=== PATIENT | female | born 1955 | race African-American/Black ===

== ENCOUNTER 2016-10-25 06:42 | Emergency (ER) | payer MEDICARE, OTHER ==
[~2016-10-25 06:42] MED LIST: AMLO10TA2 PO; CARV25TA2 PO; INSU100I13 SQ; INSU100I17 SQ; LISI-334 PO
[2016-10-25 07:12] VITALS: BP 164/72
--- NOTE | 2016-10-25 07:40 | PHYS DOC ---
Past Medical History Past Medical History: Diabetes-Type II, High Cholesterol, Heart Disease, Hypertension Past Surgical History: Appendectomy, Pacemaker, Tubal ligation, Other Additional Past Surgical Histo: LEFT BKA Alcohol Use: None Drug Use: None Adult General Chief Complaint Chief Complaint: EYE PROBLEMS HPI HPI Patient is a 61 year old female who presents with visual disturbance in her left eye. The symptoms have been present for 3 or 4 days but are worse today. The patient is type I diabetic since age 15. She is completely blind in her right eye. She is legally blind in her left eye, able to see some things but she is not able to read. She has had retina procedures before. She sees a retina specialist at [facility]. The last time she saw him, she was doing well and was given a 1 year follow-up. About 3 days ago she noted some changes in her left eye which have been unchanged for about 3 days and then somewhat worse today. She notices "red" color on the lateral aspect of her vision and she notices black lines that look like "puzzle pieces" through the vision of her left eye. Also sometimes notes a black line somewhat on the medial aspect of her vision. Other than these things , she states her vision in the left eye is unchanged. She's not able to do visual acuities and she is not able to read or make out very much in her left eye. She also states her left eye "feels wet" although she has not noticed an increase in tearing. She has no eye pain. Review of Systems Review of Systems Constitutional: Denies fever or chills [] Eyes: As in history of present illness Neurologic: Denies headache, focal weakness or sensory changes [] Endocrine: Her blood sugars ran high last week in the 600s Allergies Allergies Allergies Coded Allergies Type Severity Reaction Last Updated Verified No Known Drug Allergies 01/24/14 No Physical Exam Physical Exam Constitutional: Well developed, well nourished, no acute distress, non-toxic appearance. Alert, mentating normally, no acute distress. HENT: Normocephalic, atraumatic, bilateral external ears normal, nose normal. [] Eyes: Bilateral eyes normal to inspection without lid or cornea abnormality, without conjunctival injection. Left eye pupil is 3 mm in size and slightly reactive. Cornea is clear. On funduscopic exam, I am able to visualize the retina. I do not see any cloudiness or redness of the vitreous. The visualized retina does not exhibit acute abnormalities. Neck: Normal range of motion, no stridor. [] Extremities: No tenderness, no cyanosis, no clubbing, ROM intact, no edema. [] Neurologic: Alert and oriented X 3, normal motor function, normal sensory function, no focal deficits noted. [] Psychologic: Affect normal, judgement normal, mood normal. [] Current Patient Data Vital Signs Vital Signs Date Time Temp Pulse Resp B/P (MAP) Pulse Ox O2 Delivery O2 Flow Rate FiO2 10/25/16 07:12 98.3 82 14 100 Room Air 98.3 Lab Values Laboratory Tests Test 10/25/16 07:15 Glucose (Fingerstick) 105 mg/dL (70-99) H EKG EKG [] Radiology/Procedures Radiology/Procedures [] Course & Med Decision Making Course & Med Decision Making Pertinent Labs and Imaging studies reviewed. (See chart for details) 61-year-old female with history of redness problems and retina procedures related to type 1 diabetes presents with onset of visual disturbances for about 3-4 days, worse today. On my limited funduscopic exam, I do not believe she has vitreous hemorrhage. I do not see any acute retina problem on the limited area of retina I am able to visualize. I called Dr. Jaime Stevenson's answering service and [facility] He was able to review the patient's record. He said she has had extensive laser treatment to the periphery of her left eye. Based on the history, he suspects she may have had some recurrence of retinal hemorrhage on the lateral aspect of her retina. He like her to be seen tomorrow or Tuesday at the latest in the office by Dr. Stevenson. See instructions for plan. The patient is agreeable to this plan. I cautioned her if she has any worsening, to call their answering service today and discuss with him. [] Dragon Disclaimer Dragon Disclaimer This electronic medical record was generated, in whole or in part, using a voice recognition dictation system. Departure Departure Impression: Primary Impression: Vision disturbance Disposition: HOME, SELF-CARE Condition: STABLE Referrals: BORIS RUFFIN (PCP) Additional Instructions: I spoke with Dr. Gavin Foote, who works with Dr[facility]. He was able to review your chart. He would like you to be seen by Dr. Stevenson either tomorrow or Tuesday. The clinic will call you tomorrow morning to schedule an appointment. If you have not heard from them by noon, call them and tell them you were here in the emergency department, that I spoke with Dr. Foote , and you need to be seen on Tuesday or Tuesday by Dr. Stevenson. If you have any changes between now and then, called the answering service for Dr. Stevenson's office and speak with the doctor polymerization oven tender. [phone] SALIMA HERNANDEZ MD October 25, 2016 07:40
== END 2016-10-25 07:45 | disposition home or self-care (01) ==
LOC: ER 06:42
DX: H53.8 Other visual disturbances (principal); H54.42 Blindness, left eye, normal vision right eye; I11.9 Hypertensive heart disease without heart failure; E11.9 Type 2 diabetes mellitus without complications; E78.00 Pure hypercholesterolemia, unspecified; I10 Essential (primary) hypertension; Z89.512 Acquired absence of left leg below knee; Z95.0 Presence of cardiac pacemaker
CPT/HCPCS: 82962; 99283

== ENCOUNTER 2019-09-23 20:35 | Inpatient (IN) | payer MEDICARE, OTHER ==
[~2019-09-23] VITALS: Ht 162.6 cm; Wt 64.3 kg
[~2019-09-23 20:35] MED LIST changes: -AMLO10TA2 PO; +AMLO10TA8 PO
[2019-09-23] MEDS ORDERED: ONDANSETRON PF 4 MG/2 ML VIAL. IVP ONE ×2 (20:45→23:00)
[2019-09-23] MEDS ORDERED: fentaNYL PF VIAL 100 MCG/2 ML VIAL IVP ONE ×2 (20:45→23:00)
[2019-09-23] MEDS ORDERED: IV NORMAL SALINE 1000ML BAG 1,000 ML IV SCH (20:45)
[2019-09-23 20:56] LABS: BASO % 1 % (0-3); EOS # 0.2 x10^3/uL (0.0-0.7); EOS % 3 % (0-3); HEMATOCRIT 36.4 % (36.0-47.0); HEMOGLOBIN 12.2 g/dL (12.0-15.5); LYMPH # 1.9 x10^3/uL (1.0-4.8); LYMPH % 30 % (24-48); MEAN CORPUSCULAR HEMOGLOBIN 30 pg (25-35); MEAN CORPUSCULAR HGB CONC 34 g/dL (31-37); MEAN CORPUSCULAR VOLUME 88 fL (79-100); MONO # 0.2 x10^3/uL (0.0-1.1); MONO % 3 % (0-9); NEUT % 63 % (31-73); PLATELET COUNT 218 x10^3/uL (140-400); RED BLOOD COUNT 4.13 x10^6/uL (3.50-5.40); RED CELL DISTRIBUTION WIDTH 13.8 % (11.5-14.5); WHITE BLOOD COUNT 6.3 x10^3/uL (4.0-11.0)
[2019-09-23 21:11] LABS: ALBUMIN 3.9 g/dL (3.4-5.0); CALCIUM 9.4 mg/dL (8.5-10.1); CREATININE 1.7 mg/dL (0.6-1.0); GFR 36.4; POTASSIUM 3.8 mmol/L (3.5-5.1); TOTAL BILIRUBIN 0.5 mg/dL (0.2-1.0); TOTAL PROTEIN 7.9 g/dL (6.4-8.2)
--- NOTE | 2019-09-23 21:17 | RAD ---
CT Head W/O Contrast: History: Severe headache Comparison: none Axial images were obtained without contrast. There is moderate diffuse atrophy. There is areas of encephalomalacia on the right consistent with old large right MCA territory infarct. There are areas which appear to have loss of sarabia-white distinction in the parietal lobe and there is a 9 mm hyperdense focus in the right temporal parietal lobe. There is no hydrocephalus or extra-axial fluid collections. Impression: 1. 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 2. Possible acute or subacute right parietal lobe stroke. 3. 9 mm focus of hyperattenuation suggesting a small acute intraparenchymal hemorrhage in the area of acute or subacute stroke. End impression The phlebotomy technologist will contact the ER. PQRS Compliance Statement: One or more of the following individualized dose reduction techniques were utilized for this examination: 1. Automated exposure control 2. Adjustment of the mA and/or kV according to patient size 3. Use of iterative reconstruction technique FOR INTERNAL CODING PURPOSES Critical result: Findings will be relayed to the emergency department at 09/23/2019 9:14 PM. RESULT CODE: (C) Electronically signed by: Dave Waller III, MD (09/23/2019 9:14 PM) [id number]
[2019-09-23] MEDS ORDERED: INSULIN REGULAR 100 UNIT/ML 3ML VIAL. IV ONE (22:15)
--- NOTE | 2019-09-23 22:39 | PHYS DOC ---
Past Medical History Past Medical History: Diabetes-Type II, High Cholesterol, Heart Disease, Hypertension, Stroke Past Surgical History: Appendectomy, Pacemaker, Tubal ligation, Other Additional Past Surgical Histo: LEFT BKA Smoking Status: Former Smoker Alcohol Use: None Drug Use: None General Adult EDM: Chief Complaint: HEADACHE HPI: HPI: Patient is a 64 year old female who presents with complaint of severe headache to the right side of her head. She states that headache started when she woke up from a nap at about 3 PM today. She states the pain is in her right eye radiating up into the right side of her head. She states that she has noticed some decrease in vision to her left eye. She indicates that she has had nausea and vomiting associated with the headache. She rates the headache at a 10 out of 10. She denies any lateralizing weakness.[] Review of Systems: Review of Systems: Constitutional: Denies fever or chills. [] Eyes: Complains of vision loss in left eye. [] Respiratory: Denies cough or shortness of breath. [] Cardiovascular: Denies chest pain or edema. [] GI: Complains of nausea and vomiting. [] Neurologic: Complains of severe headache with loss of vision in left eye. [] 10 point review of systems has been reviewed and is otherwise negative. Heart Score: Risk Factors: Risk Factors: DM, Current or recent (<one month) smoker, HTN, HLP, family history of CAD, obesity. Risk Scores: Score 0 - 3: 2.5% MACE over next 6 weeks - Discharge Home Score 4 - 6: 20.3% MACE over next 6 weeks - Admit for Clinical Observation Score 7 - 10: 72.7% MACE over next 6 weeks - Early Invasive Strategies Current Medications: Current Medications Medications (Trade) Dose Ordered Sig/Pa Start Time Stop Time Status Last Admin Dose Admin Fentanyl Citrate (Fentanyl 2ml Vial) 50 mcg 1X ONCE 09/23/19 23:00 09/23/19 23:01 Insulin Human Regular (HumuLIN R VIAL) 10 unit 1X ONCE 09/23/19 22:15 09/23/19 22:16 DC Ondansetron HCl (Zofran) 4 mg 1X ONCE 09/23/19 23:00 09/23/19 23:01 Sodium Chloride 1,000 ml @ 1,000 mls/hr Q1H 09/23/19 20:45 09/23/19 21:44 DC 09/23/19 21:45 1,000 MLS/HR Allergies: Allergies: Allergies Coded Allergies Type Severity Reaction Last Updated Verified No Known Drug Allergies 01/24/14 No Physical Exam: PE: Constitutional: Well developed, well nourished, in mild distress. [] HENT: Normocephalic, atraumatic, bilateral external ears normal, oropharynx moist, no oral exudates, nose normal. [] Eyes: PERRLA, EOMI, conjunctiva normal, no discharge. [] Neck: Normal range of motion, no tenderness, supple, no stridor. [] Cardiovascular: Regular rate and rhythm[] Lungs & Thorax: Bilateral breath sounds clear to auscultation [] Abdomen: Bowel sounds normal, soft, no tenderness. [] Skin: Warm, dry, no erythema, no rash. [] Extremities: No tenderness, no cyanosis, no clubbing, ROM intact, no edema. [] Neurologic: Alert and oriented X 3, no focal deficits noted. [] Current Patient Data: Labs: Laboratory Tests Test 09/23/19 20:43 09/23/19 20:45 Glucose (Fingerstick) 528 mg/dL (70-99) *H White Blood Count 6.3 x10^3/uL (4.0-11.0) Red Blood Count 4.13 x10^6/uL (3.50-5.40) Hemoglobin 12.2 g/dL (12.0-15.5) Hematocrit 36.4 % (36.0-47.0) Mean Corpuscular Volume 88 fL (79-100) Mean Corpuscular Hemoglobin 30 pg (25-35) Mean Corpuscular Hemoglobin Concent 34 g/dL (31-37) Red Cell Distribution Width 13.8 % (11.5-14.5) Platelet Count 218 x10^3/uL (140-400) Neutrophils (%) (Auto) 63 % (31-73) Lymphocytes (%) (Auto) 30 % (24-48) Monocytes (%) (Auto) 3 % (0-9) Eosinophils (%) (Auto) 3 % (0-3) Basophils (%) (Auto) 1 % (0-3) Neutrophils # (Auto) 4.0 x10^3/uL (1.8-7.7) Lymphocytes # (Auto) 1.9 x10^3/uL (1.0-4.8) Monocytes # (Auto) 0.2 x10^3/uL (0.0-1.1) Eosinophils # (Auto) 0.2 x10^3/uL (0.0-0.7) Basophils # (Auto) 0.0 x10^3/uL (0.0-0.2) Sodium Level 135 mmol/L (136-145) L Potassium Level 3.8 mmol/L (3.5-5.1) Chloride Level 97 mmol/L (98-107) L Carbon Dioxide Level 23 mmol/L (21-32) Anion Gap 15 (6-14) H Blood Urea Nitrogen 24 mg/dL (7-20) H Creatinine 1.7 mg/dL (0.6-1.0) H Estimated GFR (Cockcroft-Gault) 36.4 BUN/Creatinine Ratio 14 (6-20) Glucose Level 528 mg/dL (70-99) *H Calcium Level 9.4 mg/dL (8.5-10.1) Magnesium Level 2.0 mg/dL (1.8-2.4) Total Bilirubin 0.5 mg/dL (0.2-1.0) Aspartate Amino Transferase (AST) 21 U/L (15-37) Alanine Aminotransferase (ALT) 30 U/L (14-59) Alkaline Phosphatase 111 U/L (46-116) Total Protein 7.9 g/dL (6.4-8.2) Albumin 3.9 g/dL (3.4-5.0) Albumin/Globulin Ratio 1.0 (1.0-1.7) Acetone Level Sm pos (NEG) Laboratory Tests 09/23/19 20:45 Laboratory Tests 09/23/19 20:45 Vital Signs: Vital Signs Date Time Temp Pulse Resp B/P (MAP) Pulse Ox O2 Delivery O2 Flow Rate FiO2 09/23/19 21:44 18 96 09/23/19 20:51 98.5 81 158/117 (131) Room Air 98.5 EKG: EKG: [] Radiology/Procedures: Radiology/Procedures: [] Impression: PROCEDURE: CT HEAD WO CONTRAST CT Head W/O Contrast: History: Severe headache Comparison: none Axial images were obtained without contrast. There is moderate diffuse atrophy. There is areas of encephalomalacia on the right consistent with old large right MCA territory infarct. There are areas which appear to have loss of sarabia-white distinction in the parietal lobe and there is a 9 mm hyperdense focus in the right temporal parietal lobe. There is no hydrocephalus or extra-axial fluid collections. Impression: 1. 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 2. Possible acute or subacute right parietal lobe stroke. 3. 9 mm focus of hyperattenuation suggesting a small acute intraparenchymal hemorrhage in the area of acute or subacute stroke. End impression The lab technologist will contact the ER. PQRS Compliance Statement: One or more of the following individualized dose reduction techniques were utilized for this examination: 1. Automated exposure control 2. Adjustment of the mA and/or kV according to patient size 3. Use of iterative reconstruction technique FOR INTERNAL CODING PURPOSES Critical result: Findings will be relayed to the emergency department at 09/23/2019 9:14 PM. RESULT CODE: (C) Electronically signed by: Chirag Chung III, MD (09/23/2019 9:14 PM) [id number] DICTATED and SIGNED BY: CHIRAG CHUNG III, MD DATE: 09/23/192113 Course & Med Decision Making: Course & Med Decision Making Pertinent Labs and Imaging studies reviewed. (See chart for details) [] Jeronimo Disclaimer: Jeronimo Disclaimer: This electronic medical record was generated, in whole or in part, using a voice recognition dictation system. Departure Departure Impression: Primary Impression: Intraparenchymal hemorrhage of brain Disposition: ADMITTED INPATIENT Admitting Physician: HIMPily Condition: GUARDED Referrals: BORIS RUFFIN (PCP) IDA ROSE Jr. DO Sep 23, 2019 22:39
[2019-09-23] MEDS ORDERED: IOHEXOL 300 MG/ML 100ML VIAL. IV ONE (23:15)
[2019-09-23] MEDS ORDERED: CONTRAST GIVEN. MC PRN (23:30)
[2019-09-24] VITALS (25 sets, daily range): BP systolic 112–152; BP diastolic 41–90
--- NOTE | 2019-09-24 00:06 | RAD ---
STUDY: CT angiography of the head INDICATION: Intraparenchymal hemorrhage. COMPARISON: Same day CT head without contrast. TECHNIQUE: Helical CT angiography of the head performed after the intravenous administration of 55 cc Omnipaque 300. Coronal and sagittal 3-D MIP reconstructions were obtained. One or more of the following individualized dose reduction techniques were utilized for this examination: 1. Automated exposure control 2. Adjustment of the mA and/or kV according to patient size 3. Use of iterative reconstruction technique. FINDINGS: Calcific atherosclerosis involving the visualized cervical internal carotid arteries without flow-limiting stenosis. Extensive calcific atherosclerosis involving the intracranial internal carotid arteries but without a flow-limiting stenosis. No abrupt vessel occlusion seen to involve the right M1 or M2 middle cerebral artery segments in the setting of ischemic changes in the right middle cerebral artery distribution. Scattered M3 and M4 branches remain opacified in the region of cortical/subcortical low-attenuation. No branch vessel occlusion or flow-limiting stenosis involving either the right or left anterior cerebral arteries or the left middle cerebral artery. No discrete anterior circulation aneurysm. No flow-limiting stenosis of the visualized vertebral arteries. The basilar artery is widely patent. No flow-limiting stenosis or branch vessel occlusion of the adequately assessed posterior cerebral artery segments. Patent dural sinuses. As seen on the unenhanced CT head, regions of cortical/subcortical low-attenuation involving the right frontal, parietal and temporal lobes. The previously described intraparenchymal hemorrhage is less well characterized on this exam. No hydrocephalus or midline shift. IMPRESSION: No central occlusion or flow-limiting stenosis seen to involve the right middle cerebral artery in the setting of ischemic changes in this vascular distribution. No flow-limiting stenosis or branch vessel occlusion of the anterior and posterior cerebral circulation elsewhere as well. Electronically signed by: MOSHE CHIANG MD (09/24/2019 12:03 AM) [id number]
[2019-09-24] MEDS ORDERED: ONDANSETRON PF 4 MG/2 ML VIAL. IV PRN ×2 (00:15→05:15)
[2019-09-24] MEDS ORDERED: fentaNYL PF VIAL 100 MCG/2 ML VIAL IV PRN (00:15)
[2019-09-24] MEDS: IV NORMAL SALINE 1000ML BAG 1,000 ML IV SCH ×3 (01:45→22:39)
[2019-09-24] MEDS ORDERED: ASPI325T8 PO (04:00)
[2019-09-24] MEDS ORDERED: DEXTROSE 50% 25 GM / 50ML DISP.SYRIN. IV PRN (05:15)
[2019-09-24] MEDS ORDERED: PROCHLORPERAZINE 10 MG/2 ML VIAL. IV PRN (05:15)
[2019-09-24] MEDS ORDERED: IV DEXTROSE 5% 250 ML BAG. IV PRN (05:15)
[2019-09-24 07:47] LABS: BARBITURATES NEG (NEG); BENZODIAZEPINES NEG (NEG); CANNABINOIDS POS (NEG); COCAINE NEG (NEG); METHADONE NEG (NEG); OPIATES NEG (NEG); PHENCYCLIDINE NEG (NEG)
[2019-09-24 07:50] LABS: AMPHETAMINE/METHAMPHETAMINE NEG (NEG)
[2019-09-24] MEDS: INSULIN LISPRO 300 UNITS/3 ML VIAL. SQ SCH ×6 (08:00→17:59)
[2019-09-24 08:23] LABS: BILIRUBIN,URINE NEGATIVE (NEG); CLARITY,URINE CLEAR; COLOR,URINE STRAW; NITRITE,URINE NEGATIVE (NEG); PROTEIN,URINE 100 mg/dL (NEG-TRACE); UROBILINOGEN,URINE 0.2 mg/dL (0.2 mg/dL); WBC,URINE OCC /HPF (0-4)
--- NOTE | 2019-09-24 08:23 | PDOC1 ---
History and Physical Date of Admission Date of Admission DATE: 09/24/19 TIME: 08:22 Identification/Chief Complaint Chief Complaint Right eye pain Source Source: Chart review, Patient History of Present Illness History of Present Illness Ms Haney is a 64yo F w/ PMHx Diabetes-Type II, High Cholesterol, Heart Disease, Hypertension, Stroke, PAD s/p L BKA, SSS s/p PPM, ex-smoker (quit 2019) who presents with complaint of severe headache to the right side of her head behind her eye. She states that headache started when she woke up from a nap at about 1500 on 09/23/2019. She states the pain is in her right eye radiating up into the right side of her head. She states that she has noticed some decrease in vision to her left eye. She indicates that she has had nausea and vomiting associated with the headache. She rated the headache at a 10 out of 10. She denies any lateralizing weakness. She was found with Cr 1.7, glucose 528, and on CT head was found with old large right MCA infarct and new possible acute or subacute right parietal lobe stroke as well as 9 mm focus of hyperattenuation suggesting a small acute intraparenchymal hemorrhage in the area of acute or subacute stroke. BP 158/117 initially. No EKG available, telemetry appears paced.She was admitted to ICU for further monitoring of hemorrhagic CVA. Past Medical History Cardiovascular: CAD, HTN, Hyperlipidemia Pulmonary: No pertinent hx CENTRAL NERVOUS SYSTEM: CVA GI: No pertinent hx Heme/Onc: No pertinent hx Hepatobiliary: No pertinent hx Psych: No pertinent hx Rheumatologic: No pertinent hx Infectious disease: No pertinent hx ENT: No pertinent hx Renal/: No pertinent hx Endocrine: Diabetes Dermatology: No pertinent hx Past Surgical History Past Surgical History: Pacemaker, Appendectomy, Tubal Ligation, Other (left BKA) Family History Family History: Diabetes, High Cholestrol, Hypertension Social History Smoke: Quit ALCOHOL: none Drugs: Marijuana Current Problem List Problem List Problems Medical Problems: (1) Intraparenchymal hemorrhage of brain Status: Acute Current Medications Current Medications Current Medications Ondansetron HCl (Zofran) 4 mg 1X ONCE IVP Last administered on 09/23/19at 21:43; Start 09/23/19 at 20:45; Stop 09/23/19 at 20:49; Status DC Sodium Chloride 1,000 ml @ 1,000 mls/hr Q1H IV Last administered on 09/23/19at 21:45; Start 09/23/19 at 20:45; Stop 09/23/19 at 21:44; Status DC Fentanyl Citrate (Fentanyl 2ml Vial) 75 mcg 1X ONCE IVP Last administered on 09/23/19at 21:44; Start 09/23/19 at 20:45; Stop 09/23/19 at 20:49; Status DC Insulin Human Regular (HumuLIN R VIAL) 10 unit 1X ONCE IV Last administered on 09/23/19at 23:09; Start 09/23/19 at 22:15; Stop 09/23/19 at 22:16; Status DC Ondansetron HCl (Zofran) 4 mg 1X ONCE IVP Last administered on 09/23/19at 22:30; Start 09/23/19 at 23:00; Stop 09/23/19 at 23:01; Status DC Fentanyl Citrate (Fentanyl 2ml Vial) 50 mcg 1X ONCE IVP Last administered on 09/23/19at 22:32; Start 09/23/19 at 23:00; Stop 09/23/19 at 23:01; Status DC Iohexol (Omnipaque 300 Mg/ml) 55 ml 1X ONCE IV Last administered on 09/23/19at 23:16; Start 09/23/19 at 23:15; Stop 09/23/19 at 23:21; Status DC Info (CONTRAST GIVEN -- Rx MONITORING) 1 each PRN DAILY PRN MC SEE COMMENTS; Start 09/23/19 at 23:30; Stop 09/25/19 at 23:29 Ondansetron HCl (Zofran) 4 mg PRN Q8HRS PRN IV NAUSEA/VOMITING 1st choice; Start 09/24/19 at 00:15; Stop 09/24/19 at 05:16; Status DC Fentanyl Citrate (Fentanyl 2ml Vial) 50 mcg PRN Q1HR PRN IV SEVERE PAIN 7-10 Last administered on 09/24/19at 04:10; Start 09/24/19 at 00:15; Stop 09/25/19 at 00:14 Sodium Chloride 1,000 ml @ 75 mls/hr [id number] IV Last administered on 09/24/19at 01:45; Start 09/24/19 at 00:30; Stop 09/25/19 at 00:29 Nicardipine HCl 50 mg/Sodium Chloride 250 ml @ 25 mls/hr CONT PRN IV SEE I/O RECORD Last administered on 09/24/19at 01:49; Start 09/24/19 at 01:30 Amlodipine Besylate (Norvasc) 10 mg DAILY PO ; Start 09/24/19 at 09:00 Lisinopril (Prinivil) 20 mg DAILY PO ; Start 09/24/19 at 09:00 Carvedilol (Coreg) 25 mg BIDWMEALS PO ; Start 09/24/19 at 08:00 Insulin Glargine (Lantus Syringe) 20 unit QHS SQ ; Start 09/24/19 at 21:00 Insulin Human Lispro (HumaLOG) 0-9 UNITS TIDWMEALS SQ ; Start 09/24/19 at 08:00 Dextrose (Dextrose 50%-Water Syringe) 12.5 gm PRN Q15MIN PRN IV SEE COMMENTS; Start 09/24/19 at 05:15 Dextrose (Iv Dextrose 5%) 250 ml PRN Q15MIN PRN IV SEE COMMENTS; Start 09/24/19 at 05:15 Ondansetron HCl (Zofran) 4 mg PRN Q4HRS PRN IV NAUSEA/VOMITING 1st choice Last administered on 09/24/19at 05:22; Start 09/24/19 at 05:15 Prochlorperazine Edisylate (Compazine) 10 mg PRN Q8HRS PRN IV NAUSEA/VOMITING 2ND CHOICE Last administered on 09/24/19at 08:14; Start 09/24/19 at 05:15 Insulin Human Lispro (HumaLOG) 20 units 1X ONCE SQ Last administered on 09/24/19at 08:15; Start 09/24/19 at 08:30; Stop 09/24/19 at 08:31 Active Scripts Active Reported Lantus Solostar (Insulin Glargine,Hum.rec.anlog) 100 Unit/1 Ml Insuln.pen 20 Unit SQ QHS Novolog Flexpen (Insulin Aspart) 100 Unit/1 Ml Insuln.pen 100 Unit SQ Amlodipine Besylate 10 Mg Tablet 1 Tab PO DAILY Lisinopril 20 Mg Tablet 1 Tab PO DAILY Carvedilol 25 Mg Tablet 1 Tab PO BID Allergies Allergies: Coded Allergies: No Known Drug Allergies (Unverified , 01/24/14) ROS General: YES: Fatigue, Malaise; No: Chills, Night Sweats, Appetite, Other PSYCHOLOGICAL ROS: YES: Anxiety; No: Behavioral Disorder, Concentration difficultie, Decreased libido, Depression, Disorientation, Hallucinations, Hostility, Irritablity, Memory difficulties, Mood Swings, Obsessive thoughts, Physical abuse, Sexual abuse, Sleep disturbances, Suicidal ideation, Other Eyes: Yes Decreased vision; No Blurry vision, No Double vision, No Dry eyes, No Excessive tearing, No Eye Pain, No Itchy Eyes, No Loss of vision, No Photophobia, No Scotomata, No Uses contacts, No Uses glasses, No Other HEENT: YES: Heacaches; No: Visual Changes, Hearing change, Nasal congestion, Nasal discharge, Oral lesions, Sinus pain, Sore Throat, Epistaxis, Sneezing, Snoring, Tinnitus, Vertigo, Vocal changes, Other ALLERGY AND IMMUNOLOGY: No: Hives, Insect Bite Sensitivity, Itchy/Watery Eyes, Nasal Congestion, Post Nasal Drip, Seasonal Allergies, Other Hematological and Lymphatic: No: Bleeding Problems, Blood Clots, Blood Transfusions, Brusing, Night Sweats, Pallor, Swollen Lymph Nodes, Other ENDOCRINE: No: Breast Changes, Galactorrhea, Hair Pattern Changes, Hot Flashes, Malaise/lethargy, Mood Swings, Palpitations, Polydipsia/polyuria, Skin Changes, Temperature Intolerance, Unexpected Weight Changes, Other Breast: No New/Changing Breast Lumps, No Nipple changes, No Nipple discharge, No Other Respiratory: No: Cough, Hemoptysis, Orthopnea, Pleuritic Pain, Shortness of breath, SOB with excertion, Sputum Changes, Stridor, Tachypnea, Wheezing, Other Cardiovascular: No Chest Pain, No Palpitations, No Orthopnea, No Paroxysmal Noc. Dyspnea, No Edema, No Lt Headedness, No Other Gastrointestinal: No Nausea, No Vomiting, No Abdominal Pain, No Diarrhea, No Constipation, No Melena, No Hematochezia, No Other Genitourinary: No Dysuria, No Frequency, No Incontinence, No Hematuria, No Retention, No Discharge, No Urgency, No Pain, No Flank Pain, No Other, No , No , No , No , No , No , No Musculoskeletal: No Gait Disturbance, No Joint Pain, No Joint Stiffness, No Joint Swelling, No Muscle Pain, No Muscular Weakness, No Pain In:, No Swelling In:, No Other Neurological: No Behavorial Changes, No Bowel/Bladder ControlChng, No Confusion, No Dizziness, No Gait Disturbance, No Headaches, No Impaired Coord/balance, No Memory Loss, No Numbness/Tingling, No Seizures, No Speech Problems, No Tremors, No Visual Changes, No Weakness, No Other Skin: No Dry Skin, No Eczema, No Hair Changes, No Lumps, No Mole Changes, No Mottling, No Nail Changes, No Pruritus, No Rash, No Skin Lesion Changes, No Other, No Acne Physical Exam General: Alert, Cooperative, No acute distress HEENT: Atraumatic, PERRLA, EOMI, Mucous membr. moist/pink Lungs: Clear to auscultation, Normal air movement Heart: S1S2, RRR, no thrills, no rubs, no gallops, no murmurs Abdomen: Normal bowel sounds, Soft, No tenderness, No hepatosplenomegaly, No masses Rectal Exam: not examined Extremities: No clubbing, No cyanosis, Other (L BKA) Skin: No rashes, No breakdown, No significant lesion Neuro: Strength at 5/5 X4 ext, Normal tone, Cranial nerves 3-12 NL, Reflexes 2+ Psych/Mental Status: Mental status NL, Mood NL Vitals Vitals Vital Signs Date Time Temp Pulse Resp B/P (MAP) Pulse Ox O2 Delivery O2 Flow Rate FiO2 09/24/19 06:00 98 21 146/51 (82) 99 Room Air 09/24/19 04:00 98.1 98.1 Labs Labs Laboratory Tests Test 09/23/19 20:43 09/23/19 20:45 09/24/19 02:23 09/24/19 06:45 Glucose (Fingerstick) 528 mg/dL (70-99) 284 mg/dL (70-99) White Blood Count 6.3 x10^3/uL (4.0-11.0) Red Blood Count 4.13 x10^6/uL (3.50-5.40) Hemoglobin 12.2 g/dL (12.0-15.5) Hematocrit 36.4 % (36.0-47.0) Mean Corpuscular Volume 88 fL (79-100) Mean Corpuscular Hemoglobin 30 pg (25-35) Mean Corpuscular Hemoglobin Concent 34 g/dL (31-37) Red Cell Distribution Width 13.8 % (11.5-14.5) Platelet Count 218 x10^3/uL (140-400) Neutrophils (%) (Auto) 63 % (31-73) Lymphocytes (%) (Auto) 30 % (24-48) Monocytes (%) (Auto) 3 % (0-9) Eosinophils (%) (Auto) 3 % (0-3) Basophils (%) (Auto) 1 % (0-3) Neutrophils # (Auto) 4.0 x10^3/uL (1.8-7.7) Lymphocytes # (Auto) 1.9 x10^3/uL (1.0-4.8) Monocytes # (Auto) 0.2 x10^3/uL (0.0-1.1) Eosinophils # (Auto) 0.2 x10^3/uL (0.0-0.7) Basophils # (Auto) 0.0 x10^3/uL (0.0-0.2) Sodium Level 135 mmol/L (136-145) Potassium Level 3.8 mmol/L (3.5-5.1) Chloride Level 97 mmol/L (98-107) Carbon Dioxide Level 23 mmol/L (21-32) Anion Gap 15 (6-14) Blood Urea Nitrogen 24 mg/dL (7-20) Creatinine 1.7 mg/dL (0.6-1.0) Estimated GFR (Cockcroft-Gault) 36.4 BUN/Creatinine Ratio 14 (6-20) Glucose Level 528 mg/dL (70-99) Calcium Level 9.4 mg/dL (8.5-10.1) Magnesium Level 2.0 mg/dL (1.8-2.4) Total Bilirubin 0.5 mg/dL (0.2-1.0) Aspartate Amino Transf (AST/SGOT) 21 U/L (15-37) Alanine Aminotransferase (ALT/SGPT) 30 U/L (14-59) Alkaline Phosphatase 111 U/L (46-116) Total Protein 7.9 g/dL (6.4-8.2) Albumin 3.9 g/dL (3.4-5.0) Albumin/Globulin Ratio 1.0 (1.0-1.7) Acetone Level Sm pos (NEG) Urine Opiates Screen Neg (NEG) Urine Methadone Screen Neg (NEG) Urine Barbiturates Neg (NEG) Urine Phencyclidine Screen Neg (NEG) Urine Amphetamine/Methamphetamine Neg (NEG) Urine Benzodiazepines Screen Neg (NEG) Urine Cocaine Screen Neg (NEG) Urine Cannabinoids Screen Pos (NEG) Urine Ethyl Alcohol Neg (NEG) Test 09/24/19 07:12 Glucose (Fingerstick) 508 mg/dL (70-99) Laboratory Tests Test 09/23/19 20:43 09/23/19 20:45 09/24/19 02:23 09/24/19 06:45 Glucose (Fingerstick) 528 mg/dL (70-99) 284 mg/dL (70-99) White Blood Count 6.3 x10^3/uL (4.0-11.0) Red Blood Count 4.13 x10^6/uL (3.50-5.40) Hemoglobin 12.2 g/dL (12.0-15.5) Hematocrit 36.4 % (36.0-47.0) Mean Corpuscular Volume 88 fL (79-100) Mean Corpuscular Hemoglobin 30 pg (25-35) Mean Corpuscular Hemoglobin Concent 34 g/dL (31-37) Red Cell Distribution Width 13.8 % (11.5-14.5) Platelet Count 218 x10^3/uL (140-400) Neutrophils (%) (Auto) 63 % (31-73) Lymphocytes (%) (Auto) 30 % (24-48) Monocytes (%) (Auto) 3 % (0-9) Eosinophils (%) (Auto) 3 % (0-3) Basophils (%) (Auto) 1 % (0-3) Neutrophils # (Auto) 4.0 x10^3/uL (1.8-7.7) Lymphocytes # (Auto) 1.9 x10^3/uL (1.0-4.8) Monocytes # (Auto) 0.2 x10^3/uL (0.0-1.1) Eosinophils # (Auto) 0.2 x10^3/uL (0.0-0.7) Basophils # (Auto) 0.0 x10^3/uL (0.0-0.2) Sodium Level 135 mmol/L (136-145) Potassium Level 3.8 mmol/L (3.5-5.1) Chloride Level 97 mmol/L (98-107) Carbon Dioxide Level 23 mmol/L (21-32) Anion Gap 15 (6-14) Blood Urea Nitrogen 24 mg/dL (7-20) Creatinine 1.7 mg/dL (0.6-1.0) Estimated GFR (Cockcroft-Gault) 36.4 BUN/Creatinine Ratio 14 (6-20) Glucose Level 528 mg/dL (70-99) Calcium Level 9.4 mg/dL (8.5-10.1) Magnesium Level 2.0 mg/dL (1.8-2.4) Total Bilirubin 0.5 mg/dL (0.2-1.0) Aspartate Amino Transf (AST/SGOT) 21 U/L (15-37) Alanine Aminotransferase (ALT/SGPT) 30 U/L (14-59) Alkaline Phosphatase 111 U/L (46-116) Total Protein 7.9 g/dL (6.4-8.2) Albumin 3.9 g/dL (3.4-5.0) Albumin/Globulin Ratio 1.0 (1.0-1.7) Acetone Level Sm pos (NEG) Urine Opiates Screen Neg (NEG) Urine Methadone Screen Neg (NEG) Urine Barbiturates Neg (NEG) Urine Phencyclidine Screen Neg (NEG) Urine Amphetamine/Methamphetamine Neg (NEG) Urine Benzodiazepines Screen Neg (NEG) Urine Cocaine Screen Neg (NEG) Urine Cannabinoids Screen Pos (NEG) Urine Ethyl Alcohol Neg (NEG) Test 09/24/19 07:12 Glucose (Fingerstick) 508 mg/dL (70-99) Images Images CT Head W/O Contrast: There is moderate diffuse atrophy. There is areas of encephalomalacia on the right consistent with old large right MCA territory infarct. There are areas which appear to have loss of sarabia-white distinction in the parietal lobe and there is a 9 mm hyperdense focus in the right temporal parietal lobe. There is no hydrocephalus or extra-axial fluid collections. Impression: 1. 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 2. Possible acute or subacute right parietal lobe stroke. 3. 9 mm focus of hyperattenuation suggesting a small acute intraparenchymal hemorrhage in the area of acute or subacute stroke. CTA head - Calcific atherosclerosis involving the visualized cervical internal carotid arteries without flow-limiting stenosis. Extensive calcific atherosclerosis involving the intracranial internal carotid arteries but without a flow-limiting stenosis. No abrupt vessel occlusion seen to involve the right M1 or M2 middle cerebral artery segments in the setting of ischemic changes in the right middle cerebral artery distribution. Scattered M3 and M4 branches remain opacified in the region of cortical/subcortical low-attenuation. No branch vessel occlusion or flow- limiting stenosis involving either the right or left anterior cerebral arteries or the left middle cerebral artery. No discrete anterior circulation aneurysm. No flow-limiting stenosis of the visualized vertebral arteries. The basilar artery is widely patent. No flow-limiting stenosis or branch vessel occlusion of the adequately assessed posterior cerebral artery segments. Patent dural sinuses. As seen on the unenhanced CT head, regions of cortical/subcortical low- attenuation involving the right frontal, parietal and temporal lobes. The previously described intraparenchymal hemorrhage is less well characterized on this exam. No hydrocephalus or midline shift. IMPRESSION: No central occlusion or flow-limiting stenosis seen to involve the right middle cerebral artery in the setting of ischemic changes in this vascular dist ribution. No flow-limiting stenosis or branch vessel occlusion of the anterior and posterior cerebral circulation elsewhere as well. VTE Prophylaxis Ordered VTE Prophylaxis Devices: Yes VTE Pharmacological Prophylaxi: Contraindicated Assessment/Plan Assessment/Plan A/P: Headache - likely 2/2 hemorrhagic CVA. Pain controlled at this time. AFSHAN - likely vasomotor nephropathy, Cr 1.7 Acute CVA - new possible acute or subacute right parietal lobe stroke as well as 9 mm focus of hyperattenuation suggesting a small acute intraparenchymal hemorrhage in the area of acute or subacute stroke. Neurology and neurosurgery consulted. 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 Await [facility] HEAD evaluation High Cholesterol - cont statin Heart Disease - hold antiplatelets with hemorrhagic CVA Hypertension - cont meds PAD s/p L BKA - stable SSS s/p PPM - pacing. Ex-smoker (quit 2019) - counseled on continued cessation FEN - NPO PPX - SCDs FULL CODE Dispo - inpatient for acute hemorrhagic CVA, cont ICU monitoring for now, BP control cc time 35 minutes ESPERANZA ARMAS MD Sep 24, 2019 08:23
[2019-09-24 08:24] LABS: BACTERIA,URINE 0 /HPF (0-FEW); SQUAMOUS EPITHELIAL CELL,UR OCC /LPF
[2019-09-24] MEDS: amLODIPine BESYLATE 10 MG TABLET PO SCH (08:30)
[2019-09-24] MEDS ORDERED: INSULIN LISPRO 300 UNITS/3 ML VIAL. SQ ONE (08:30)
[2019-09-24] MEDS: LISINOPRIL 20 MG TABLET PO SCH (08:30)
[2019-09-24] MEDS: CARVEDILOL 12.5 MG TABLET. PO SCH ×2 (08:31→17:30)
--- NOTE | 2019-09-24 09:30 | NUR ---
0800 Sliding scale non administered per Dr. Moon-- additional 15units given for BG 463.
[2019-09-24] MEDS ORDERED: 0.9 % SODIUM CHLORIDE 10 ML DISP.SYRIN. IV PRN (09:45)
[2019-09-24] MEDS ORDERED: ACETAMINOPHEN 650 MG SUPP.RECT. PR PRN (09:45)
[2019-09-24] MEDS ORDERED: LABETALOL 20 MG/4 ML DISP.SYRIN. IVP PRN (09:45)
[2019-09-24] MEDS ORDERED: PHARMACY TO REVIEW MEDS MC PRN (09:45)
[2019-09-24] MEDS ORDERED: hydrALAZINE 20 MG/ML VIAL. IVP PRN (09:45)
[2019-09-24] MEDS ORDERED: ONDANSETRON PF 4 MG/2 ML VIAL. IVP PRN (09:45)
[2019-09-24 11:07] LABS: CALCIUM 8.9 mg/dL (8.5-10.1); CREATININE 1.5 mg/dL (0.6-1.0); POTASSIUM 3.6 mmol/L (3.5-5.1)
--- NOTE | 2019-09-24 11:33 | PDOC2 ---
NEUROLOGY CONSULT Date of Admission Date of Admission DATE: 09/24/19 TIME: 11:25 Reason for Consult Reason for Consult: Cerebral hemorrhage Referring Physician Referring Physician: Dr. Moon Source Source: Chart review, Patient History of Present Illness History of Present Illness The patient is a 64-year-old right-handed female with history of stroke leaving her with some left hemiparesis and blindness in the right eye. She did not feel well when she woke up yesterday, her sugar was high, she could not see out of either eye, and she had some pain over the left eye. She went to the [place] emergency department and had abnormal head CT has reviewed below. She is feeling better today, has some vision return in the left eye. She denies headache at this time. There is no history of seizure or head injury. She was not on anticoagulation. Past Medical History Cardiovascular: HTN, Hyperlipidemia CENTRAL NERVOUS SYSTEM: CVA, Periperal neuropathy, Other (right eye blindness) Endocrine: Diabetes (Type I) Past Surgical History Past Surgical History: Pacemaker, Appendectomy, Tubal Ligation, Other (left BKA, right ankle fracture) Family History Family History: CVA, Hypertension Social History Social History Smoker, no alcohol, retired Current Medications Current Medications Current Medications Ondansetron HCl (Zofran) 4 mg 1X ONCE IVP Last administered on 09/23/19at 21:43; Start 09/23/19 at 20:45; Stop 09/23/19 at 20:49; Status DC Sodium Chloride 1,000 ml @ 1,000 mls/hr Q1H IV Last administered on 09/23/19at 21:45; Start 09/23/19 at 20:45; Stop 09/23/19 at 21:44; Status DC Fentanyl Citrate (Fentanyl 2ml Vial) 75 mcg 1X ONCE IVP Last administered on 09/23/19at 21:44; Start 09/23/19 at 20:45; Stop 09/23/19 at 20:49; Status DC Insulin Human Regular (HumuLIN R VIAL) 10 unit 1X ONCE IV Last administered on 09/23/19at 23:09; Start 09/23/19 at 22:15; Stop 09/23/19 at 22:16; Status DC Ondansetron HCl (Zofran) 4 mg 1X ONCE IVP Last administered on 09/23/19at 22:30; Start 09/23/19 at 23:00; Stop 09/23/19 at 23:01; Status DC Fentanyl Citrate (Fentanyl 2ml Vial) 50 mcg 1X ONCE IVP Last administered on 09/23/19at 22:32; Start 09/23/19 at 23:00; Stop 09/23/19 at 23:01; Status DC Iohexol (Omnipaque 300 Mg/ml) 55 ml 1X ONCE IV Last administered on 09/23/19at 23:16; Start 09/23/19 at 23:15; Stop 09/23/19 at 23:21; Status DC Info (CONTRAST GIVEN -- Rx MONITORING) 1 each PRN DAILY PRN MC SEE COMMENTS; Start 09/23/19 at 23:30; Stop 09/25/19 at 23:29 Ondansetron HCl (Zofran) 4 mg PRN Q8HRS PRN IV NAUSEA/VOMITING 1st choice; Start 09/24/19 at 00:15; Stop 09/24/19 at 05:16; Status DC Fentanyl Citrate (Fentanyl 2ml Vial) 50 mcg PRN Q1HR PRN IV SEVERE PAIN 7-10 Last administered on 09/24/19at 04:10; Start 09/24/19 at 00:15; Stop 09/25/19 at 00:14 Sodium Chloride 1,000 ml @ 125 mls/hr Q8H IV Last administered on 09/24/19at 01:45; Start 09/24/19 at 00:30 Nicardipine HCl 50 mg/Sodium Chloride 250 ml @ 25 mls/hr CONT PRN IV SEE I/O RECORD Last administered on 09/24/19at 01:49; Start 09/24/19 at 01:30 Amlodipine Besylate (Norvasc) 10 mg DAILY PO Last administered on 09/24/19at 08:30; Start 09/24/19 at 09:00 Lisinopril (Prinivil) 20 mg DAILY PO Last administered on 09/24/19at 08:30; Start 09/24/19 at 09:00 Carvedilol (Coreg) 25 mg BIDWMEALS PO Last administered on 09/24/19at 08:31; Start 09/24/19 at 08:00 Insulin Glargine (Lantus Syringe) 20 unit QHS SQ ; Start 09/24/19 at 21:00 Insulin Human Lispro (HumaLOG) 0-9 UNITS TIDWMEALS SQ ; Start 09/24/19 at 08:00 Dextrose (Dextrose 50%-Water Syringe) 12.5 gm PRN Q15MIN PRN IV SEE COMMENTS; Start 09/24/19 at 05:15 Dextrose (Iv Dextrose 5%) 250 ml PRN Q15MIN PRN IV SEE COMMENTS; Start 09/24/19 at 05:15; Status Cancel Ondansetron HCl (Zofran) 4 mg PRN Q4HRS PRN IV NAUSEA/VOMITING 1st choice Last administered on 09/24/19at 05:22; Start 09/24/19 at 05:15 Prochlorperazine Edisylate (Compazine) 10 mg PRN Q8HRS PRN IV NAUSEA/VOMITING 2ND CHOICE Last administered on 09/24/19at 08:14; Start 09/24/19 at 05:15 Insulin Human Lispro (HumaLOG) 20 units 1X ONCE SQ Last administered on 09/24/19at 08:15; Start 09/24/19 at 08:30; Stop 09/24/19 at 08:31; Status DC Insulin Human Lispro (HumaLOG) 15 units Q6HRS SQ Last administered on 09/24/19at 09:29; Start 09/24/19 at 09:30 Info (Review Meds) 1 ea PRN 1X PRN MC SEE COMMENTS; Start 09/24/19 at 09:45 Sodium Chloride (Normal Saline Flush) 3 ml QSHIFT PRN IV AFTER MEDS AND BLOOD DRAWS; Start 09/24/19 at 09:45 Acetaminophen (Tylenol Supp) 650 mg PRN Q6HRS PRN AK FEVER > 100.5'F; Start 09/24/19 at 09:45 Labetalol HCl (Normodyne Iv Push) 10 mg PRN Q10MIN PRN IVP HYPERTENSION; Start 09/24/19 at 09:45 Hydralazine HCl (Apresoline Inj) 10 mg PRN Q10MIN PRN IVP HYPERTENSION; Start 09/24/19 at 09:45 Nicardipine HCl 50 mg/Sodium Chloride 250 ml @ 25 mls/hr CONT PRN IV HYPERTENSION; Start 09/24/19 at 09:45; Status UNV Ondansetron HCl (Zofran) 4 mg PRN Q6HRS PRN IVP NAUSEA/VOMITING; Start 09/24/19 at 09:45 Active Scripts Active Reported Lantus Solostar (Insulin Glargine,Hum.rec.anlog) 100 Unit/1 Ml Insuln.pen 20 Unit SQ QHS Novolog Flexpen (Insulin Aspart) 100 Unit/1 Ml Insuln.pen 100 Unit SQ Amlodipine Besylate 10 Mg Tablet 1 Tab PO DAILY Lisinopril 20 Mg Tablet 1 Tab PO DAILY Carvedilol 25 Mg Tablet 1 Tab PO BID Allergies Allergies: Coded Allergies: No Known Drug Allergies (Unverified , 01/24/14) ROS Review of System Negative for fever, chills, weight loss, shortness of breath, chest pain, indigestion, hematochezia, melena, and dysuria. Full 14-point review of systems is negative. Physical Exam Physical Examination General: Well-developed, well-nourished black female in no acute distress HEENT: Normocephalic andatraumatic. Temporal arteriespulsatile and nontender. Neck: Supple without bruit, no meningismus Musculoskeletal: Stability:see neurologic. Gait exam:see neurologic. Tone:see neurologic.Strength:see neurologic. Neurological: Mental Status:intact, orientation, memory, attention span/concentration, language, fund of knowledge normal. Cranial Nerves:Pupils equal and reactive to light, extraocular movements areintact. Right eye blind, can see out of left eye now. Facial sensation is normal. There is no facial asymmetry. Vestibulo- ocular reflex is intact. Palate elevates and tongue protrudes in midline. All other cranial related problems are negative except as mentioned before.Reflexes:2+ and symmetric; right plantar response, flexor, left BKA. Motor:4/5 left hemiparesis with normal tone and bulk. Coordination:Finger-nose finger and bhas-kr-ajly testing are normal. Rapid alternating movements and fine finger movements are intact. Gait:not tested. Sensory:stocking loss right leg. Vitals VITALS Vital Signs Date Time Temp Pulse Resp B/P (MAP) Pulse Ox O2 Delivery O2 Flow Rate FiO2 09/24/19 11:00 87 18 135/45 (75) 99 Room Air 09/24/19 08:00 99.1 99.1 Labs Labs Laboratory Tests Test 09/23/19 20:43 09/23/19 20:45 09/24/19 02:23 09/24/19 06:45 Glucose (Fingerstick) 528 mg/dL (70-99) 284 mg/dL (70-99) White Blood Count 6.3 x10^3/uL (4.0-11.0) Red Blood Count 4.13 x10^6/uL (3.50-5.40) Hemoglobin 12.2 g/dL (12.0-15.5) Hematocrit 36.4 % (36.0-47.0) Mean Corpuscular Volume 88 fL (79-100) Mean Corpuscular Hemoglobin 30 pg (25-35) Mean Corpuscular Hemoglobin Concent 34 g/dL (31-37) Red Cell Distribution Width 13.8 % (11.5-14.5) Platelet Count 218 x10^3/uL (140-400) Neutrophils (%) (Auto) 63 % (31-73) Lymphocytes (%) (Auto) 30 % (24-48) Monocytes (%) (Auto) 3 % (0-9) Eosinophils (%) (Auto) 3 % (0-3) Basophils (%) (Auto) 1 % (0-3) Neutrophils # (Auto) 4.0 x10^3/uL (1.8-7.7) Lymphocytes # (Auto) 1.9 x10^3/uL (1.0-4.8) Monocytes # (Auto) 0.2 x10^3/uL (0.0-1.1) Eosinophils # (Auto) 0.2 x10^3/uL (0.0-0.7) Basophils # (Auto) 0.0 x10^3/uL (0.0-0.2) Sodium Level 135 mmol/L (136-145) Potassium Level 3.8 mmol/L (3.5-5.1) Chloride Level 97 mmol/L (98-107) Carbon Dioxide Level 23 mmol/L (21-32) Anion Gap 15 (6-14) Blood Urea Nitrogen 24 mg/dL (7-20) Creatinine 1.7 mg/dL (0.6-1.0) Estimated GFR (Cockcroft-Gault) 36.4 BUN/Creatinine Ratio 14 (6-20) Glucose Level 528 mg/dL (70-99) Calcium Level 9.4 mg/dL (8.5-10.1) Magnesium Level 2.0 mg/dL (1.8-2.4) Total Bilirubin 0.5 mg/dL (0.2-1.0) Aspartate Amino Transf (AST/SGOT) 21 U/L (15-37) Alanine Aminotransferase (ALT/SGPT) 30 U/L (14-59) Alkaline Phosphatase 111 U/L (46-116) Total Protein 7.9 g/dL (6.4-8.2) Albumin 3.9 g/dL (3.4-5.0) Albumin/Globulin Ratio 1.0 (1.0-1.7) Acetone Level Sm pos (NEG) Urine Collection Type Unknown Urine Color Straw Urine Clarity Clear Urine pH 6.0 (<5.0-8.0) Urine Specific [place] 1.010 (1.000-1.030) Urine Protein 100 mg/dL (NEG-TRACE) Urine Glucose (UA) 500 mg/dL (NEG) Urine Ketones (Stick) 80 mg/dL (NEG) Urine Blood Trace (NEG) Urine Nitrite Negative (NEG) Urine Bilirubin Negative (NEG) Urine Urobilinogen Dipstick 0.2 mg/dL (0.2 mg/dL) Urine Leukocyte Esterase Negative (NEG) Urine RBC 1-2 /HPF (0-2) Urine WBC Occ /HPF (0-4) Urine Squamous Epithelial Cells Occ /LPF Urine Bacteria 0 /HPF (0-FEW) Urine Opiates Screen Neg (NEG) Urine Methadone Screen Neg (NEG) Urine Barbiturates Neg (NEG) Urine Phencyclidine Screen Neg (NEG) Urine Amphetamine/Methamphetamine Neg (NEG) Urine Benzodiazepines Screen Neg (NEG) Urine Cocaine Screen Neg (NEG) Urine Cannabinoids Screen Pos (NEG) Urine Ethyl Alcohol Neg (NEG) Test 09/24/19 07:12 09/24/19 09:14 09/24/19 10:40 Glucose (Fingerstick) 508 mg/dL (70-99) 463 mg/dL (70-99) Sodium Level 141 mmol/L (136-145) Potassium Level 3.6 mmol/L (3.5-5.1) Chloride Level 104 mmol/L (98-107) Carbon Dioxide Level 17 mmol/L (21-32) Anion Gap 20 (6-14) Blood Urea Nitrogen 27 mg/dL (7-20) Creatinine 1.5 mg/dL (0.6-1.0) Estimated GFR (Cockcroft-Gault) 42.0 Glucose Level 359 mg/dL (70-99) Calcium Level 8.9 mg/dL (8.5-10.1) Laboratory Tests Test 09/23/19 20:43 09/23/19 20:45 09/24/19 02:23 09/24/19 06:45 Glucose (Fingerstick) 528 mg/dL (70-99) 284 mg/dL (70-99) White Blood Count 6.3 x10^3/uL (4.0-11.0) Red Blood Count 4.13 x10^6/uL (3.50-5.40) Hemoglobin 12.2 g/dL (12.0-15.5) Hematocrit 36.4 % (36.0-47.0) Mean Corpuscular Volume 88 fL (79-100) Mean Corpuscular Hemoglobin 30 pg (25-35) Mean Corpuscular Hemoglobin Concent 34 g/dL (31-37) Red Cell Distribution Width 13.8 % (11.5-14.5) Platelet Count 218 x10^3/uL (140-400) Neutrophils (%) (Auto) 63 % (31-73) Lymphocytes (%) (Auto) 30 % (24-48) Monocytes (%) (Auto) 3 % (0-9) Eosinophils (%) (Auto) 3 % (0-3) Basophils (%) (Auto) 1 % (0-3) Neutrophils # (Auto) 4.0 x10^3/uL (1.8-7.7) Lymphocytes # (Auto) 1.9 x10^3/uL (1.0-4.8) Monocytes # (Auto) 0.2 x10^3/uL (0.0-1.1) Eosinophils # (Auto) 0.2 x10^3/uL (0.0-0.7) Basophils # (Auto) 0.0 x10^3/uL (0.0-0.2) Sodium Level 135 mmol/L (136-145) Potassium Level 3.8 mmol/L (3.5-5.1) Chloride Level 97 mmol/L (98-107) Carbon Dioxide Level 23 mmol/L (21-32) Anion Gap 15 (6-14) Blood Urea Nitrogen 24 mg/dL (7-20) Creatinine 1.7 mg/dL (0.6-1.0) Estimated GFR (Cockcroft-Gault) 36.4 BUN/Creatinine Ratio 14 (6-20) Glucose Level 528 mg/dL (70-99) Calcium Level 9.4 mg/dL (8.5-10.1) Magnesium Level 2.0 mg/dL (1.8-2.4) Total Bilirubin 0.5 mg/dL (0.2-1.0) Aspartate Amino Transf (AST/SGOT) 21 U/L (15-37) Alanine Aminotransferase (ALT/SGPT) 30 U/L (14-59) Alkaline Phosphatase 111 U/L (46-116) Total Protein 7.9 g/dL (6.4-8.2) Albumin 3.9 g/dL (3.4-5.0) Albumin/Globulin Ratio 1.0 (1.0-1.7) Acetone Level Sm pos (NEG) Urine Collection Type Unknown Urine Color Straw Urine Clarity Clear Urine pH 6.0 (<5.0-8.0) Urine Specific [place] 1.010 (1.000-1.030) Urine Protein 100 mg/dL (NEG-TRACE) Urine Glucose (UA) 500 mg/dL (NEG) Urine Ketones (Stick) 80 mg/dL (NEG) Urine Blood Trace (NEG) Urine Nitrite Negative (NEG) Urine Bilirubin Negative (NEG) Urine Urobilinogen Dipstick 0.2 mg/dL (0.2 mg/dL) Urine Leukocyte Esterase Negative (NEG) Urine RBC 1-2 /HPF (0-2) Urine WBC Occ /HPF (0-4) Urine Squamous Epithelial Cells Occ /LPF Urine Bacteria 0 /HPF (0-FEW) Urine Opiates Screen Neg (NEG) Urine Methadone Screen Neg (NEG) Urine Barbiturates Neg (NEG) Urine Phencyclidine Screen Neg (NEG) Urine Amphetamine/Methamphetamine Neg (NEG) Urine Benzodiazepines Screen Neg (NEG) Urine Cocaine Screen Neg (NEG) Urine Cannabinoids Screen Pos (NEG) Urine Ethyl Alcohol Neg (NEG) Test 09/24/19 07:12 09/24/19 09:14 09/24/19 10:40 Glucose (Fingerstick) 508 mg/dL (70-99) 463 mg/dL (70-99) Sodium Level 141 mmol/L (136-145) Potassium Level 3.6 mmol/L (3.5-5.1) Chloride Level 104 mmol/L (98-107) Carbon Dioxide Level 17 mmol/L (21-32) Anion Gap 20 (6-14) Blood Urea Nitrogen 27 mg/dL (7-20) Creatinine 1.5 mg/dL (0.6-1.0) Estimated GFR (Cockcroft-Gault) 42.0 Glucose Level 359 mg/dL (70-99) Calcium Level 8.9 mg/dL (8.5-10.1) Images Images CT Head W/O Contrast: History: Severe headache Comparison: none Axial images were obtained without contrast. There is moderate diffuse atrophy. There is areas of encephalomalacia on the right consistent with old large right MCA territory infarct. There are areas which appear to have loss of sarabia-white distinction in the parietal lobe and there is a 9 mm hyperdense focus in the right temporal parietal lobe. There is no hydrocephalus or extra-axial fluid collections. Impression: 1. 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 2. Possible acute or subacute right parietal lobe stroke. 3. 9 mm focus of hyperattenuation suggesting a small acute intraparenchymal hemorrhage in the area of acute or subacute stroke. CT angiography of the head INDICATION: Intraparenchymal hemorrhage. COMPARISON: Same day CT head without contrast. TECHNIQUE: Helical CT angiography of the head performed after the intravenous administration of 55 cc Omnipaque 300. Coronal and sagittal 3-D MIP reconstructions were obtained. One or more of the following individualized dose reduction techniques were utilized for this examination: 1. Automated exposure control 2. Adjustment of the mA and/or kV according to patient size 3. Use of iterative reconstruction technique. FINDINGS: Calcific atherosclerosis involving the visualized cervical internal carotid arteries without flow-limiting stenosis. Extensive calcific atherosclerosis involving the intracranial internal carotid arteries but without a flow-limiting stenosis. No abrupt vessel occlusion seen to involve the right M1 or M2 middle cerebral artery segments in the setting of ischemic changes in the right middle cerebral artery distribution. Scattered M3 and M4 branches remain opacified in the region of cortical/subcortical low-attenuation. No branch vessel occlusion or flow-limiting stenosis involving either the right or left anterior cerebral arteries or the left middle cerebral artery. No discrete anterior circulation aneurysm. No flow-limiting stenosis of the visualized vertebral arteries. The basilar artery is widely patent. No flow-limiting stenosis or branch vessel occlusion of the adequately assessed posterior cerebral artery segments. Patent dural sinuses. As seen on the unenhanced CT head, regions of cortical/subcortical low-attenuation involving the right frontal, parietal and temporal lobes. The previously described intraparenchymal hemorrhage is less well characterized on this exam. No hydrocephalus or midline shift. IMPRESSION: No central occlusion or flow-limiting stenosis seen to involve the right middle cerebral artery in the setting of ischemic changes in this vascular distribution. No flow-limiting stenosis or branch vessel occlusion of the anterior and posterior cerebral circulation elsewhere as well. Assessment/Plan Assessment/Plan Impression: Possible acute or subacute right parietal lobe stroke, with small acute intraparenchymal hemorrhage Old large right MCA territory infarct. Right eye blindness, chronic, has regained some vision in left eye Peripheral neuropathy Hypertension, diabetes, history of pacemaker Recommendations: Repeat head CT Echo Hold anticoagulation Rehab measures Blood pressure parameters per stroke orders. Thank you for letting me help with the patient's care. WILFRID ROMERO MD Sep 24, 2019 11:33
--- NOTE | 2019-09-24 12:52 | RAD ---
EXAM: CT Head without IV contrast INDICATION: Follow-up intracranial hemorrhage TECHNIQUE: Multi-detector row CT images were obtained of the head without the use of IV contrast. All CT scans performed at this facility utilize dose optimization techniques as appropriate to the exam, including the following: Automated exposure control and adjustment of the mA and/or KV according to patient size (this includes techniques or standardized protocols for targeted exams where dose is indication/reason for exam). COMPARISON: 09/23/[address] FINDINGS: Technologist reports the patient was unable to hold still for the examination. There is motion artifact that degrades detail. BRAIN PARENCHYMA: Interval development of loss of sarabia-white differentiation in the anterior right temporal lobe extending into the right parietal lobe. Redemonstrated is an intraparenchymal acute hemorrhage, now measuring 9 mm in diameter compared with 10 mm previously. Chronic infarcts in the right frontal operculum, anterior right insula, and superior right parietal lobe are again seen in the setting of extensive white matter low density compatible chronic ischemic microvascular change. No abnormal parenchymal density or mass. VENTRICLES & EXTRA-AXIAL SPACES: Ventricles are within normal limits. Basilar cisterns are patent. No pathologic extra-axial fluid collection or mass. ORBITS: Orbital contents are unremarkable. SINUSES: Visualized paranasal sinuses and mastoid air cells are clear. OSSEOUS & SOFT TISSUES: Calvarium and skull base are intact. IMPRESSION: Developing acute infarct in the right temporal lobe, superimposed on previously described intraparenchymal hemorrhage in the right temporal lobe. No mass effect or hydrocephalus. Report telephoned to the inpatient floor where HIEU Ludwig took the report on Dr. Lr's behalf at 12:48 PM on 09/24/2019 Electronically signed by: Kush Bender MD (09/24/2019 12:49 PM) [id number]
--- NOTE | 2019-09-24 13:02 | CARD ---
MR#: [id number] Date of Study: 09/24/2019 Ordering Physician: WILFRID ROMERO, Referring Physician: WILFRID ROMERO, Tech: Yolette Hitchcock RDCS APPROVED REPORT EXAM: Two-dimensional and M-mode echocardiogram with Doppler and color Doppler. Other Information Quality : Good INDICATION CVA/TIA Pacemaker Echo Enhancing Agent Agent/Amount Used: Agitated Saline 8mL 2D DIMENSIONS RVDd2.5 (2.9-3.5cm)Left Atrium(2D)2.7 (1.6-4.0cm) IVSd0.8 (0.7-1.1cm)Aortic Root(2D)2.6 (2.0-3.7cm) LVDd3.3 (3.9-5.9cm)LVOT Diameter1.9 (1.8-2.4cm) PWd1.1 (0.7-1.1cm)LVDs1.4 (2.5-4.0cm) FS (%) 30.0 %SV38.4 ml LVEF(%)60.0 (>50%) Aortic Valve AoV Peak Gelacio.168.8cm/sAoV VTI29.9cm AO Peak GR.11.4mmHgLVOT VTI 25.61cm AO Mean GR.6mmHgAVA (VTI)2.50cm2 Mitral Valve MV E Dtusvfre86.0cm/sMV DECEL [id number] MV A Zpxhrfnm758.3cm/sE/A Ratio0.8 TDI Lateral E' P. V6.63cm/sMedial E' P. V4.70cm/s E/Lateral E'13.7E/Medial E'19.4 Tricuspid Valve TR P. Febqweds685ud/sRAP [id number] TR Peak Gr.87fyCzTTVF75itUm Pulmonary Vein S1 Wmirjvmv21.8cm/sS2 Cvmblhmt85.97cm/s D2 Dcaubkho42.0cm/s LEFT VENTRICLE The left ventricle is normal size. There is normal left ventricular wall thickness. The left ventricu lar systolic function is normal and the ejection fraction is within normal range. The Ejection Fracti on is 60-65%. There is normal LV segmental wall motion. Transmitral Doppler flow pattern is Grade I-a bnormal relaxation pattern. RIGHT VENTRICLE The right ventricle is normal size. The right ventricular systolic function is normal. There are kelly ce leads in the right ventricle and atrium. ATRIA The left atrium size is normal. The right atrium size is normal. The interatrial septum is intact wit h no evidence for an atrial septal defect or patent foramen ovale as noted on 2-D or Doppler imaging. Injection of bubbles documented no interatrial shunt. AORTIC VALVE The aortic valve is calcified but opens well. Doppler and Color Flow revealed no significant aortic r egurgitation. There is no significant aortic valvular stenosis. MITRAL VALVE The mitral valve is calcified but opens well. The mitral valve leaflets are redundant without clear e vidence of mitral valve prolapse. There is no mitral valve stenosis. Doppler and Color-flow revealed trace mitral regurgitation. TRICUSPID VALVE The tricuspid valve is normal in structure and function. Doppler and Color Flow revealed mild tricusp id regurgitation. The PA pressure was estimated at 35 mmHg. There is no tricuspid valve stenosis. PULMONIC VALVE The pulmonic valve is not well visualized. Doppler and Color Flow revealed trace to mild pulmonic tejas vular regurgitation. There is no pulmonic valvular stenosis. GREAT VESSELS The aortic root is normal in size. The ascending aorta is normal in size. The IVC is normal in size a nd collapses >50% with inspiration. PERICARDIAL EFFUSION There is no evidence of significant pericardial effusion. Critical Notification Critical Value: No <Conclusion> The left ventricle is normal size. The left ventricular systolic function is normal and the ejection fraction is within normal range. The Ejection Fraction is 60-65%. There are device leads in the right ventricle and atrium. The interatrial septum is intact with no evidence for an atrial septal defect or patent foramen ovale as noted on 2-D or Doppler imaging. Injection of bubbles documented no interatrial shunt. Doppler and Color Flow revealed no significant aortic regurgitation. There is no significant aortic valvular stenosis. Doppler and Color-flow revealed trace mitral regurgitation. Doppler and Color Flow revealed mild tricuspid regurgitation. The PA pressure was estimated at 35 mmHg. Signed by : Ralf Toure MD Electronically Approved : 09/24/2019 13:02:13
--- NOTE | 2019-09-24 13:09 | NUR ---
Radiology called this RN and notified of new right temporal lobe infarct on the CT Head. Dr. Caballero notified and no new orders received. Dr. Caballero said he already was aware of this finding. Stated pt can move out of ICU tomorrow. ADA diet ordered for pt.
--- NOTE | 2019-09-24 13:56 | PDOC ---
Provider Note Provider Note patient seen and examined consulted for right temporal intraparenchymal hemorrhage developed acute headache yesterday, no improving reports complete loss of vision in both eyes yesterday exam - pupils are equal and reactive , EOMI, no light perception right eye, able to see out of left eye now strength 5/5 on right , 4/5 on the left left BKA imaging reviewed- CT head - old MCA infarct, probable parietal subacute infarct with subacute intraparenchymal hemorrhage Dr. Lr following BP control rehab, consult EDI Bailey MD Sep 24, 2019 13:56
--- NOTE | 2019-09-24 14:59 | NUR ---
SS following for discharge planning. SS reviewed pt chart and discussed with pt RN. Pt is from home with spouse and brother and is currently on room air. Pt is new stroke. PT recommended home with home healthcare. Dr. Schreiber consulted. SS will continue to follow for discharge planning.
[2019-09-24] MEDS ORDERED: INSULIN GLARGINE SYRINGE. SQ SCH (21:00)
[2019-09-25] VITALS (14 sets, daily range): BP systolic 113–143; BP diastolic 47–84
[2019-09-25] MEDS ORDERED: INSULIN LISPRO 300 UNITS/3 ML VIAL. SQ ONE (00:30)
--- NOTE | 2019-09-25 00:34 | NUR ---
Pt was given 17 units Humalog instead of [address] Moon for blood sugar of 441.
[2019-09-25 05:35] LABS: BASO # 0.1 x10^3/uL (0.0-0.2); BASO % 1 % (0-3); EOS % 0 % (0-3); HEMATOCRIT 30.7 % (36.0-47.0); HEMOGLOBIN 10.2 g/dL (12.0-15.5); LYMPH # 1.9 x10^3/uL (1.0-4.8); LYMPH % 24 % (24-48); MEAN CORPUSCULAR HEMOGLOBIN 29 pg (25-35); MEAN CORPUSCULAR HGB CONC 33 g/dL (31-37); MEAN CORPUSCULAR VOLUME 89 fL (79-100); MONO # 0.5 x10^3/uL (0.0-1.1); MONO % 6 % (0-9); NEUT # 5.6 x10^3/uL (1.8-7.7); NEUT % 70 % (31-73); PLATELET COUNT 185 x10^3/uL (140-400); RED BLOOD COUNT 3.45 x10^6/uL (3.50-5.40); RED CELL DISTRIBUTION WIDTH 14.3 % (11.5-14.5); WHITE BLOOD COUNT 8.1 x10^3/uL (4.0-11.0)
[2019-09-25] MEDS: INSULIN LISPRO 300 UNITS/3 ML VIAL. SQ SCH ×7 (06:00→16:52)
[2019-09-25 06:05] LABS: CALCIUM 8.4 mg/dL (8.5-10.1); CREATININE 1.5 mg/dL (0.6-1.0); POTASSIUM 3.9 mmol/L (3.5-5.1)
[2019-09-25] MEDS: IV NORMAL SALINE 1000ML BAG 1,000 ML IV SCH ×3 (06:20→20:01)
[2019-09-25] MEDS: LISINOPRIL 20 MG TABLET PO SCH (08:23)
[2019-09-25] MEDS: amLODIPine BESYLATE 10 MG TABLET PO SCH (08:23)
[2019-09-25] MEDS: CARVEDILOL 12.5 MG TABLET. PO SCH ×2 (08:23→16:49)
--- NOTE | 2019-09-25 08:29 | PDOC ---
PROGRESS NOTES Chief Complaint Chief Complaint A/P: Headache - likely 2/2 hemorrhagic CVA. Pain controlled at this time. AFSHAN - likely vasomotor nephropathy, Cr 1.7 Acute CVA - new possible acute or subacute right parietal lobe stroke as well as 9 mm focus of hyperattenuation suggesting a small acute intraparenchymal hemorrhage in the area of acute or subacute stroke. Neurology and neurosurgery consulted. 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 Ex-smoker (quit 2019) - counseled on continued cessation FEN - ADA diet PPX - SCDs FULL CODE Dispo - inpatient for acute hemorrhagic CVA, cont ICU monitoring for now, BP control cc time 35 minutes History of Present Illness History of Present Illness Ms Haney is a 64yo F w/ PMHx Diabetes-Type II, High Cholesterol, Heart Disease, Hypertension, Stroke, PAD s/p L BKA, SSS s/p PPM, ex-smoker (quit 2019) who presents with complaint of severe headache to the right side of her head behind her eye. She states that headache started when she woke up from a nap at about 1500 on 09/23/2019. She states the pain is in her right eye radiating up into the right side of her head. She states that she has noticed some decrease in vision to her left eye. She indicates that she has had nausea and vomiting associated with the headache. She rated the headache at a 10 out of 10. She denies any lateralizing weakness. She was found with Cr 1.7, glucose 528, and on CT head was found with old large right MCA infarct and new possible acute or subacute right parietal lobe stroke as well as 9 mm focus of hyperattenuation suggesting a small acute intraparenchymal hemorrhage in the area of acute or subacute stroke. BP 158/117 initially. No EKG available, telemetry appears paced.She was admitted to ICU for further monitoring of hemorrhagic CVA. Afebrile overnight, blood pressure better controlled. Repeat CT head shows evolving infarct surrounding hemorrhagic infarct. Glucose over 400 overnight, still having difficulty with glycemic control. Cleared for regular diet by speech. Echo: The left ventricle is normal size. The left ventricular systolic function is normal and the ejection fraction is within normal range. The Ejection Fraction is 60-65%. There are device leads in the right ventricle and atrium. The interatrial septum is intact with no evidence for an atrial septal defect or patent foramen ovale as noted on 2-D or Doppler imaging. Injection of bubbles documented no interatrial shunt. Doppler and Color Flow revealed no significant aortic regurgitation. There is no significant aortic valvular stenosis. Doppler and Color-flow revealed trace mitral regurgitation. Doppler and Color Flow revealed mild tricuspid regurgitation. The PA pressure was estimated at 35 mmHg. Plan: [facility] [place] [facility], likely d/c with rehab services in next 24 hours. Vitals Vitals Vital Signs Date Time Temp Pulse Resp B/P (MAP) Pulse Ox O2 Delivery O2 Flow Rate FiO2 09/25/19 06:00 72 18 131/76 (94) 98 Room Air 09/25/19 04:00 99.0 99.0 Physical Exam General: Alert, Cooperative, No acute distress Heart: Regular rate, Normal S1, Normal S2 Abdomen: Normal bowel sounds, Soft, No tenderness, No hepatosplenomegaly, No masses Extremities: No clubbing, No cyanosis, Other (L BKA) Skin: No rashes, No breakdown, No significant lesion Labs LABS Laboratory Tests Test 09/24/19 09:14 09/24/19 10:40 09/24/19 11:43 09/24/19 17:28 Glucose (Fingerstick) 463 mg/dL (70-99) 261 mg/dL (70-99) 180 mg/dL (70-99) Sodium Level 141 mmol/L (136-145) Potassium Level 3.6 mmol/L (3.5-5.1) Chloride Level 104 mmol/L (98-107) Carbon Dioxide Level 17 mmol/L (21-32) Anion Gap 20 (6-14) Blood Urea Nitrogen 27 mg/dL (7-20) Creatinine 1.5 mg/dL (0.6-1.0) Estimated GFR (Cockcroft-Gault) 42.0 Glucose Level 359 mg/dL (70-99) Calcium Level 8.9 mg/dL (8.5-10.1) Test 09/25/19 00:05 09/25/19 04:50 Glucose (Fingerstick) 441 mg/dL (70-99) White Blood Count 8.1 x10^3/uL (4.0-11.0) Red Blood Count 3.45 x10^6/uL (3.50-5.40) Hemoglobin 10.2 g/dL (12.0-15.5) Hematocrit 30.7 % (36.0-47.0) Mean Corpuscular Volume 89 fL (79-100) Mean Corpuscular Hemoglobin 29 pg (25-35) Mean Corpuscular Hemoglobin Concent 33 g/dL (31-37) Red Cell Distribution Width 14.3 % (11.5-14.5) Platelet Count 185 x10^3/uL (140-400) Neutrophils (%) (Auto) 70 % (31-73) Lymphocytes (%) (Auto) 24 % (24-48) Monocytes (%) (Auto) 6 % (0-9) Eosinophils (%) (Auto) 0 % (0-3) Basophils (%) (Auto) 1 % (0-3) Neutrophils # (Auto) 5.6 x10^3/uL (1.8-7.7) Lymphocytes # (Auto) 1.9 x10^3/uL (1.0-4.8) Monocytes # (Auto) 0.5 x10^3/uL (0.0-1.1) Eosinophils # (Auto) 0.0 x10^3/uL (0.0-0.7) Basophils # (Auto) 0.1 x10^3/uL (0.0-0.2) Sodium Level 139 mmol/L (136-145) Potassium Level 3.9 mmol/L (3.5-5.1) Chloride Level 106 mmol/L (98-107) Carbon Dioxide Level 20 mmol/L (21-32) Anion Gap 13 (6-14) Blood Urea Nitrogen 23 mg/dL (7-20) Creatinine 1.5 mg/dL (0.6-1.0) Estimated GFR (Cockcroft-Gault) 42.0 Glucose Level 219 mg/dL (70-99) Calcium Level 8.4 mg/dL (8.5-10.1) Triglycerides Level 46 mg/dL (0-150) Cholesterol Level 111 mg/dL (0-200) LDL Cholesterol, Calculated 46 mg/dL (0-100) VLDL Cholesterol, Calculated 9 mg/dL (0-40) Non-HDL Cholesterol Calculated 55 mg/dL (0-129) HDL Cholesterol 56 mg/dL (40-60) Cholesterol/HDL Ratio 2.0 Assessment and Plan Assessmemt and Plan Problems Medical Problems: (1) Intraparenchymal hemorrhage of brain Status: Acute Comment Review of Relevant I have reviewed the following items slime (where applicable) has been applied. Labs Laboratory Tests Test 09/23/19 20:43 09/23/19 20:45 09/24/19 02:23 09/24/19 06:45 Glucose (Fingerstick) 528 mg/dL (70-99) 284 mg/dL (70-99) White Blood Count 6.3 x10^3/uL (4.0-11.0) Red Blood Count 4.13 x10^6/uL (3.50-5.40) Hemoglobin 12.2 g/dL (12.0-15.5) Hematocrit 36.4 % (36.0-47.0) Mean Corpuscular Volume 88 fL (79-100) Mean Corpuscular Hemoglobin 30 pg (25-35) Mean Corpuscular Hemoglobin Concent 34 g/dL (31-37) Red Cell Distribution Width 13.8 % (11.5-14.5) Platelet Count 218 x10^3/uL (140-400) Neutrophils (%) (Auto) 63 % (31-73) Lymphocytes (%) (Auto) 30 % (24-48) Monocytes (%) (Auto) 3 % (0-9) Eosinophils (%) (Auto) 3 % (0-3) Basophils (%) (Auto) 1 % (0-3) Neutrophils # (Auto) 4.0 x10^3/uL (1.8-7.7) Lymphocytes # (Auto) 1.9 x10^3/uL (1.0-4.8) Monocytes # (Auto) 0.2 x10^3/uL (0.0-1.1) Eosinophils # (Auto) 0.2 x10^3/uL (0.0-0.7) Basophils # (Auto) 0.0 x10^3/uL (0.0-0.2) Sodium Level 135 mmol/L (136-145) Potassium Level 3.8 mmol/L (3.5-5.1) Chloride Level 97 mmol/L (98-107) Carbon Dioxide Level 23 mmol/L (21-32) Anion Gap 15 (6-14) Blood Urea Nitrogen 24 mg/dL (7-20) Creatinine 1.7 mg/dL (0.6-1.0) Estimated GFR (Cockcroft-Gault) 36.4 BUN/Creatinine Ratio 14 (6-20) Glucose Level 528 mg/dL (70-99) Calcium Level 9.4 mg/dL (8.5-10.1) Magnesium Level 2.0 mg/dL (1.8-2.4) Total Bilirubin 0.5 mg/dL (0.2-1.0) Aspartate Amino Transf (AST/SGOT) 21 U/L (15-37) Alanine Aminotransferase (ALT/SGPT) 30 U/L (14-59) Alkaline Phosphatase 111 U/L (46-116) Total Protein 7.9 g/dL (6.4-8.2) Albumin 3.9 g/dL (3.4-5.0) Albumin/Globulin Ratio 1.0 (1.0-1.7) Acetone Level Sm pos (NEG) Urine Collection Type Unknown Urine Color Straw Urine Clarity Clear Urine pH 6.0 (<5.0-8.0) Urine Specific [place] 1.010 (1.000-1.030) Urine Protein 100 mg/dL (NEG-TRACE) Urine Glucose (UA) 500 mg/dL (NEG) Urine Ketones (Stick) 80 mg/dL (NEG) Urine Blood Trace (NEG) Urine Nitrite Negative (NEG) Urine Bilirubin Negative (NEG) Urine Urobilinogen Dipstick 0.2 mg/dL (0.2 mg/dL) Urine Leukocyte Esterase Negative (NEG) Urine RBC 1-2 /HPF (0-2) Urine WBC Occ /HPF (0-4) Urine Squamous Epithelial Cells Occ /LPF Urine Bacteria 0 /HPF (0-FEW) Urine Opiates Screen Neg (NEG) Urine Methadone Screen Neg (NEG) Urine Barbiturates Neg (NEG) Urine Phencyclidine Screen Neg (NEG) Urine Amphetamine/Methamphetamine Neg (NEG) Urine Benzodiazepines Screen Neg (NEG) Urine Cocaine Screen Neg (NEG) Urine Cannabinoids Screen Pos (NEG) Urine Ethyl Alcohol Neg (NEG) Test 09/24/19 07:12 09/24/19 09:14 09/24/19 10:40 09/24/19 11:43 Glucose (Fingerstick) 508 mg/dL (70-99) 463 mg/dL (70-99) 261 mg/dL (70-99) Sodium Level 141 mmol/L (136-145) Potassium Level 3.6 mmol/L (3.5-5.1) Chloride Level 104 mmol/L (98-107) Carbon Dioxide Level 17 mmol/L (21-32) Anion Gap 20 (6-14) Blood Urea Nitrogen 27 mg/dL (7-20) Creatinine 1.5 mg/dL (0.6-1.0) Estimated GFR (Cockcroft-Gault) 42.0 Glucose Level 359 mg/dL (70-99) Calcium Level 8.9 mg/dL (8.5-10.1) Test 09/24/19 17:28 09/25/19 00:05 09/25/19 04:50 Glucose (Fingerstick) 180 mg/dL (70-99) 441 mg/dL (70-99) White Blood Count 8.1 x10^3/uL (4.0-11.0) Red Blood Count 3.45 x10^6/uL (3.50-5.40) Hemoglobin 10.2 g/dL (12.0-15.5) Hematocrit 30.7 % (36.0-47.0) Mean Corpuscular Volume 89 fL (79-100) Mean Corpuscular Hemoglobin 29 pg (25-35) Mean Corpuscular Hemoglobin Concent 33 g/dL (31-37) Red Cell Distribution Width 14.3 % (11.5-14.5) Platelet Count 185 x10^3/uL (140-400) Neutrophils (%) (Auto) 70 % (31-73) Lymphocytes (%) (Auto) 24 % (24-48) Monocytes (%) (Auto) 6 % (0-9) Eosinophils (%) (Auto) 0 % (0-3) Basophils (%) (Auto) 1 % (0-3) Neutrophils # (Auto) 5.6 x10^3/uL (1.8-7.7) Lymphocytes # (Auto) 1.9 x10^3/uL (1.0-4.8) Monocytes # (Auto) 0.5 x10^3/uL (0.0-1.1) Eosinophils # (Auto) 0.0 x10^3/uL (0.0-0.7) Basophils # (Auto) 0.1 x10^3/uL (0.0-0.2) Sodium Level 139 mmol/L (136-145) Potassium Level 3.9 mmol/L (3.5-5.1) Chloride Level 106 mmol/L (98-107) Carbon Dioxide Level 20 mmol/L (21-32) Anion Gap 13 (6-14) Blood Urea Nitrogen 23 mg/dL (7-20) Creatinine 1.5 mg/dL (0.6-1.0) Estimated GFR (Cockcroft-Gault) 42.0 Glucose Level 219 mg/dL (70-99) Calcium Level 8.4 mg/dL (8.5-10.1) Triglycerides Level 46 mg/dL (0-150) Cholesterol Level 111 mg/dL (0-200) LDL Cholesterol, Calculated 46 mg/dL (0-100) VLDL Cholesterol, Calculated 9 mg/dL (0-40) Non-HDL Cholesterol Calculated 55 mg/dL (0-129) HDL Cholesterol 56 mg/dL (40-60) Cholesterol/HDL Ratio 2.0 Laboratory Tests Test 09/24/19 09:14 09/24/19 10:40 09/24/19 11:43 09/24/19 17:28 Glucose (Fingerstick) 463 mg/dL (70-99) 261 mg/dL (70-99) 180 mg/dL (70-99) Sodium Level 141 mmol/L (136-145) Potassium Level 3.6 mmol/L (3.5-5.1) Chloride Level 104 mmol/L (98-107) Carbon Dioxide Level 17 mmol/L (21-32) Anion Gap 20 (6-14) Blood Urea Nitrogen 27 mg/dL (7-20) Creatinine 1.5 mg/dL (0.6-1.0) Estimated GFR (Cockcroft-Gault) 42.0 Glucose Level 359 mg/dL (70-99) Calcium Level 8.9 mg/dL (8.5-10.1) Test 09/25/19 00:05 4/28/20 04:50 Glucose (Fingerstick) 441 mg/dL (70-99) White Blood Count 8.1 x10^3/uL (4.0-11.0) Red Blood Count 3.45 x10^6/uL (3.50-5.40) Hemoglobin 10.2 g/dL (12.0-15.5) Hematocrit 30.7 % (36.0-47.0) Mean Corpuscular Volume 89 fL (79-100) Mean Corpuscular Hemoglobin 29 pg (25-35) Mean Corpuscular Hemoglobin Concent 33 g/dL (31-37) Red Cell Distribution Width 14.3 % (11.5-14.5) Platelet Count 185 x10^3/uL (140-400) Neutrophils (%) (Auto) 70 % (31-73) Lymphocytes (%) (Auto) 24 % (24-48) Monocytes (%) (Auto) 6 % (0-9) Eosinophils (%) (Auto) 0 % (0-3) Basophils (%) (Auto) 1 % (0-3) Neutrophils # (Auto) 5.6 x10^3/uL (1.8-7.7) Lymphocytes # (Auto) 1.9 x10^3/uL (1.0-4.8) Monocytes # (Auto) 0.5 x10^3/uL (0.0-1.1) Eosinophils # (Auto) 0.0 x10^3/uL (0.0-0.7) Basophils # (Auto) 0.1 x10^3/uL (0.0-0.2) Sodium Level 139 mmol/L (136-145) Potassium Level 3.9 mmol/L (3.5-5.1) Chloride Level 106 mmol/L (98-107) Carbon Dioxide Level 20 mmol/L (21-32) Anion Gap 13 (6-14) Blood Urea Nitrogen 23 mg/dL (7-20) Creatinine 1.5 mg/dL (0.6-1.0) Estimated GFR (Cockcroft-Gault) 42.0 Glucose Level 219 mg/dL (70-99) Calcium Level 8.4 mg/dL (8.5-10.1) Triglycerides Level 46 mg/dL (0-150) Cholesterol Level 111 mg/dL (0-200) LDL Cholesterol, Calculated 46 mg/dL (0-100) VLDL Cholesterol, Calculated 9 mg/dL (0-40) Non-HDL Cholesterol Calculated 55 mg/dL (0-129) HDL Cholesterol 56 mg/dL (40-60) Cholesterol/HDL Ratio 2.0 Medications Current Medications Ondansetron HCl (Zofran) 4 mg 1X ONCE IVP Last administered on 09/23/19at 21:43; Start 09/23/19 at 20:45; Stop 09/23/19 at 20:49; Status DC Sodium Chloride 1,000 ml @ 1,000 mls/hr Q1H IV Last administered on 09/23/19at 21:45; Start 09/23/19 at 20:45; Stop 09/23/19 at 21:44; Status DC Fentanyl Citrate (Fentanyl 2ml Vial) 75 mcg 1X ONCE IVP Last administered on 09/23/19at 21:44; Start 09/23/19 at 20:45; Stop 09/23/19 at 20:49; Status DC Insulin Human Regular (HumuLIN R VIAL) 10 unit 1X ONCE IV Last administered on 09/23/19at 23:09; Start 09/23/19 at 22:15; Stop 09/23/19 at 22:16; Status DC Ondansetron HCl (Zofran) 4 mg 1X ONCE IVP Last administered on 09/23/19at 22:30; Start 09/23/19 at 23:00; Stop 09/23/19 at 23:01; Status DC Fentanyl Citrate (Fentanyl 2ml Vial) 50 mcg 1X ONCE IVP Last administered on 09/23/19at 22:32; Start 09/23/19 at 23:00; Stop 09/23/19 at 23:01; Status DC Iohexol (Omnipaque 300 Mg/ml) 55 ml 1X ONCE IV Last administered on 09/23/19at 23:16; Start 09/23/19 at 23:15; Stop 09/23/19 at 23:21; Status DC Info (CONTRAST GIVEN -- Rx MONITORING) 1 each PRN DAILY PRN MC SEE COMMENTS; Start 09/23/19 at 23:30; Stop 09/25/19 at 23:29 Ondansetron HCl (Zofran) 4 mg PRN Q8HRS PRN IV NAUSEA/VOMITING 1st choice; Start 09/24/19 at 00:15; Stop 09/24/19 at 05:16; Status DC Fentanyl Citrate (Fentanyl 2ml Vial) 50 mcg PRN Q1HR PRN IV SEVERE PAIN 7-10 Last administered on 09/24/19at 04:10; Start 09/24/19 at 00:15; Stop 09/25/19 at 00:14; Status DC Sodium Chloride 1,000 ml @ 125 mls/hr Q8H IV Last administered on 09/25/19at 06:20; Start 09/24/19 at 00:30 Nicardipine HCl 50 mg/Sodium Chloride 250 ml @ 25 mls/hr CONT PRN IV SEE I/O RECORD Last administered on 09/24/19at 01:49; Start 09/24/19 at 01:30 Amlodipine Besylate (Norvasc) 10 mg DAILY PO Last administered on 09/24/19at 08:30; Start 09/24/19 at 09:00 Lisinopril (Prinivil) 20 mg DAILY PO Last administered on 09/24/19at 08:30; Start 09/24/19 at 09:00 Carvedilol (Coreg) 25 mg BIDWMEALS PO Last administered on 09/24/19at 17:30; Start 09/24/19 at 08:00 Insulin Glargine (Lantus Syringe) 20 unit QHS SQ Last administered on 09/25/19at 00:22; Start 09/24/19 at 21:00 Insulin Human Lispro (HumaLOG) 0-9 UNITS TIDWMEALS SQ Last administered on 09/24/19at 17:31; Start 09/24/19 at 08:00 Dextrose (Dextrose 50%-Water Syringe) 12.5 gm PRN Q15MIN PRN IV SEE COMMENTS; Start 09/24/19 at 05:15 Dextrose (Iv Dextrose 5%) 250 ml PRN Q15MIN PRN IV SEE COMMENTS; Start 09/24/19 at 05:15; Status Cancel Ondansetron HCl (Zofran) 4 mg PRN Q4HRS PRN IV NAUSEA/VOMITING 1st choice Last administered on 09/24/19at 05:22; Start 09/24/19 at 05:15 Prochlorperazine Edisylate (Compazine) 10 mg PRN Q8HRS PRN IV NAUSEA/VOMITING 2ND CHOICE Last administered on 09/24/19at 08:14; Start 09/24/19 at 05:15 Insulin Human Lispro (HumaLOG) 20 units 1X ONCE SQ Last administered on 09/24/19at 08:15; Start 09/24/19 at 08:30; Stop 09/24/19 at 08:31; Status DC Insulin Human Lispro (HumaLOG) 15 units Q6HRS SQ Last administered on 09/24/19at 11:46; Start 09/24/19 at 09:30 Info (Review Meds) 1 ea PRN 1X PRN MC SEE COMMENTS; Start 09/24/19 at 09:45 Sodium Chloride (Normal Saline Flush) 3 ml QSHIFT PRN IV AFTER MEDS AND BLOOD DRAWS; Start 09/24/19 at 09:45 Acetaminophen (Tylenol Supp) 650 mg PRN Q6HRS PRN MA FEVER > 100.5'F; Start 09/24/19 at 09:45 Labetalol HCl (Normodyne Iv Push) 10 mg PRN Q10MIN PRN IVP HYPERTENSION; Start 09/24/19 at 09:45 Hydralazine HCl (Apresoline Inj) 10 mg PRN Q10MIN PRN IVP HYPERTENSION; Start 09/24/19 at 09:45 Nicardipine HCl 50 mg/Sodium Chloride 250 ml @ 25 mls/hr CONT PRN IV HYPERTENSION; Start 09/24/19 at 09:45; Status UNV Ondansetron HCl (Zofran) 4 mg PRN Q6HRS PRN IVP NAUSEA/VOMITING; Start 09/24/19 at 09:45 Insulin Human Lispro (HumaLOG) 17 units 1X ONCE SQ Last administered on 0at 00:32; Start 09/25/19 at 00:30; Stop 09/25/19 at 00:31; Status DC Active Scripts Active Reported Lantus Solostar (Insulin Glargine,Hum.rec.anlog) 100 Unit/1 Ml Insuln.pen 20 Unit SQ QHS Novolog Flexpen (Insulin Aspart) 100 Unit/1 Ml Insuln.pen 100 Unit SQ Amlodipine Besylate 10 Mg Tablet 1 Tab PO DAILY Lisinopril 20 Mg Tablet 1 Tab PO DAILY Carvedilol 25 Mg Tablet 1 Tab PO BID Vitals/I & O Vital Sign - Last 24 Hours 09/24/19 09/24/19 09/24/19 09/24/19 08:30 08:30 08:31 09:00 Pulse 102 102 102 100 Resp 16 B/P (MAP) 159/66 159/66 159/66 140/56 (84) Pulse Ox 100 O2 Delivery Room Air 09/24/19 09/24/19 09/24/19 09/24/19 10:00 11:00 12:00 12:00 Temp 98.9 98.9 Pulse 96 87 86 Resp 15 18 20 B/P (MAP) 114/53 (73) 135/45 (75) 139/62 (87) Pulse Ox 99 99 98 O2 Delivery Room Air Room Air Room Air Room Air 09/24/19 09/24/19 09/24/19 09/24/19 13:00 14:00 15:00 16:00 Temp 98.0 98.0 Pulse 84 80 78 80 Resp 16 12 12 15 B/P (MAP) 115/41 (65) 115/55 (75) 138/51 (80) 124/48 (73) Pulse Ox 96 97 99 99 O2 Delivery Room Air Room Air Room Air Room Air 09/24/19 09/24/19 09/24/19 09/24/19 16:00 17:00 17:30 18:00 Pulse 82 86 82 Resp 15 15 B/P (MAP) 112/45 (67) 132/49 119/58 (78) Pulse Ox 98 100 O2 Delivery Room Air Room Air Room Air 09/24/19 09/24/19 09/24/19 09/24/19 19:00 20:00 20:00 21:00 Temp 99.2 99.2 Pulse 84 78 74 Resp 25 15 13 B/P (MAP) 120/52 (74) 123/51 (75) 115/53 (73) Pulse Ox 100 100 99 O2 Delivery Room Air Room Air Room Air Room Air 09/24/19 09/24/19 09/25/19 09/25/19 22:00 23:00 00:00 00:00 Temp 98.8 98.8 Pulse 76 78 80 Resp 15 15 22 B/P (MAP) 119/52 (74) 124/54 (77) 131/55 (80) Pulse Ox 98 98 98 O2 Delivery Room Air Room Air Room Air Room Air 09/25/19 09/25/19 09/25/19 09/25/19 01:00 02:00 03:00 04:00 Temp 99.0 99.0 Pulse 84 82 76 78 Resp 15 15 15 16 B/P (MAP) 120/54 (76) 126/49 (74) 119/57 (77) 113/54 (73) Pulse Ox 100 98 96 96 O2 Delivery Room Air Room Air Room Air Room Air 09/25/19 09/25/19 09/25/19 04:00 05:00 06:00 Pulse 76 72 Resp 19 18 B/P (MAP) 126/84 (98) 131/76 (94) Pulse Ox 98 98 O2 Delivery Room Air Room Air Room Air Intake and Output 09/24/19 09/24/19 09/25/19 15:00 23:00 07:00 Intake Total 440 ml 1743 ml 1707 ml Output Total 400 ml 550 ml Balance 440 ml 1343 ml 1157 ml ESPERANZA ARMAS MD Sep 25, 2019 08:29
--- NOTE | 2019-09-25 09:25 | PDOC ---
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 Right eye blindness, chronic, has regained some vision in left eye Peripheral neuropathy Hypertension, diabetes, history of pacemaker Plan Resume aspirin in 1 week Rehab measures She wants to go home tomorrow with home health, does not want to go to rehab, she is that not that much worse than before this new stroke except for the vision loss. Subjective No more headache Objective Vital Signs Date Time Temp Pulse Resp B/P (MAP) Pulse Ox O2 Delivery O2 Flow Rate FiO2 09/25/19 08:23 62 135/80 09/25/19 06:00 18 98 Room Air 09/25/19 04:00 99.0 99.0 Intake and Output 09/25/19 07:00 Intake Total 3890 ml Output Total 950 ml Balance 2940 ml Intake Oral 1060 ml IV Total 2830 ml Output Urine Total 950 ml # Voids 1 PHYSICAL EXAM Alert. Oriented to time, place and person. Blind OU EOMI. CN: no focal findings. Muscle tone: normal. Muscle strength: 4/5 left hemiparesis DTR: 2+ Plantar reflex: right plantar response, flexor, left BKA Gait: not examined in bed. Sensory exam: stocking loss right leg. No cerebellar signs elicited. Review of Relevant I have reviewed the following items slime (where applicable) has been applied. Labs Laboratory Tests Test 09/23/19 20:43 09/23/19 20:45 09/24/19 02:23 09/24/19 06:45 Glucose (Fingerstick) 528 mg/dL (70-99) 284 mg/dL (70-99) White Blood Count 6.3 x10^3/uL (4.0-11.0) Red Blood Count 4.13 x10^6/uL (3.50-5.40) Hemoglobin 12.2 g/dL (12.0-15.5) Hematocrit 36.4 % (36.0-47.0) Mean Corpuscular Volume 88 fL (79-100) Mean Corpuscular Hemoglobin 30 pg (25-35) Mean Corpuscular Hemoglobin Concent 34 g/dL (31-37) Red Cell Distribution Width 13.8 % (11.5-14.5) Platelet Count 218 x10^3/uL (140-400) Neutrophils (%) (Auto) 63 % (31-73) Lymphocytes (%) (Auto) 30 % (24-48) Monocytes (%) (Auto) 3 % (0-9) Eosinophils (%) (Auto) 3 % (0-3) Basophils (%) (Auto) 1 % (0-3) Neutrophils # (Auto) 4.0 x10^3/uL (1.8-7.7) Lymphocytes # (Auto) 1.9 x10^3/uL (1.0-4.8) Monocytes # (Auto) 0.2 x10^3/uL (0.0-1.1) Eosinophils # (Auto) 0.2 x10^3/uL (0.0-0.7) Basophils # (Auto) 0.0 x10^3/uL (0.0-0.2) Sodium Level 135 mmol/L (136-145) Potassium Level 3.8 mmol/L (3.5-5.1) Chloride Level 97 mmol/L (98-107) Carbon Dioxide Level 23 mmol/L (21-32) Anion Gap 15 (6-14) Blood Urea Nitrogen 24 mg/dL (7-20) Creatinine 1.7 mg/dL (0.6-1.0) Estimated GFR (Cockcroft-Gault) 36.4 BUN/Creatinine Ratio 14 (6-20) Glucose Level 528 mg/dL (70-99) Calcium Level 9.4 mg/dL (8.5-10.1) Magnesium Level 2.0 mg/dL (1.8-2.4) Total Bilirubin 0.5 mg/dL (0.2-1.0) Aspartate Amino Transf (AST/SGOT) 21 U/L (15-37) Alanine Aminotransferase (ALT/SGPT) 30 U/L (14-59) Alkaline Phosphatase 111 U/L (46-116) Total Protein 7.9 g/dL (6.4-8.2) Albumin 3.9 g/dL (3.4-5.0) Albumin/Globulin Ratio 1.0 (1.0-1.7) Acetone Level Sm pos (NEG) Urine Collection Type Unknown Urine Color Straw Urine Clarity Clear Urine pH 6.0 (<5.0-8.0) Urine Specific [place] 1.010 (1.000-1.030) Urine Protein 100 mg/dL (NEG-TRACE) Urine Glucose (UA) 500 mg/dL (NEG) Urine Ketones (Stick) 80 mg/dL (NEG) Urine Blood Trace (NEG) Urine Nitrite Negative (NEG) Urine Bilirubin Negative (NEG) Urine Urobilinogen Dipstick 0.2 mg/dL (0.2 mg/dL) Urine Leukocyte Esterase Negative (NEG) Urine RBC 1-2 /HPF (0-2) Urine WBC Occ /HPF (0-4) Urine Squamous Epithelial Cells Occ /LPF Urine Bacteria 0 /HPF (0-FEW) Urine Opiates Screen Neg (NEG) Urine Methadone Screen Neg (NEG) Urine Barbiturates Neg (NEG) Urine Phencyclidine Screen Neg (NEG) Urine Amphetamine/Methamphetamine Neg (NEG) Urine Benzodiazepines Screen Neg (NEG) Urine Cocaine Screen Neg (NEG) Urine Cannabinoids Screen Pos (NEG) Urine Ethyl Alcohol Neg (NEG) Test 09/24/19 07:12 09/24/19 09:14 09/24/19 10:40 09/24/19 11:43 Glucose (Fingerstick) 508 mg/dL (70-99) 463 mg/dL (70-99) 261 mg/dL (70-99) Sodium Level 141 mmol/L (136-145) Potassium Level 3.6 mmol/L (3.5-5.1) Chloride Level 104 mmol/L (98-107) Carbon Dioxide Level 17 mmol/L (21-32) Anion Gap 20 (6-14) Blood Urea Nitrogen 27 mg/dL (7-20) Creatinine 1.5 mg/dL (0.6-1.0) Estimated GFR (Cockcroft-Gault) 42.0 Glucose Level 359 mg/dL (70-99) Calcium Level 8.9 mg/dL (8.5-10.1) Test 09/24/19 17:28 09/25/19 00:05 09/25/19 04:50 Glucose (Fingerstick) 180 mg/dL (70-99) 441 mg/dL (70-99) White Blood Count 8.1 x10^3/uL (4.0-11.0) Red Blood Count 3.45 x10^6/uL (3.50-5.40) Hemoglobin 10.2 g/dL (12.0-15.5) Hematocrit 30.7 % (36.0-47.0) Mean Corpuscular Volume 89 fL (79-100) Mean Corpuscular Hemoglobin 29 pg (25-35) Mean Corpuscular Hemoglobin Concent 33 g/dL (31-37) Red Cell Distribution Width 14.3 % (11.5-14.5) Platelet Count 185 x10^3/uL (140-400) Neutrophils (%) (Auto) 70 % (31-73) Lymphocytes (%) (Auto) 24 % (24-48) Monocytes (%) (Auto) 6 % (0-9) Eosinophils (%) (Auto) 0 % (0-3) Basophils (%) (Auto) 1 % (0-3) Neutrophils # (Auto) 5.6 x10^3/uL (1.8-7.7) Lymphocytes # (Auto) 1.9 x10^3/uL (1.0-4.8) Monocytes # (Auto) 0.5 x10^3/uL (0.0-1.1) Eosinophils # (Auto) 0.0 x10^3/uL (0.0-0.7) Basophils # (Auto) 0.1 x10^3/uL (0.0-0.2) Sodium Level 139 mmol/L (136-145) Potassium Level 3.9 mmol/L (3.5-5.1) Chloride Level 106 mmol/L (98-107) Carbon Dioxide Level 20 mmol/L (21-32) Anion Gap 13 (6-14) Blood Urea Nitrogen 23 mg/dL (7-20) Creatinine 1.5 mg/dL (0.6-1.0) Estimated GFR (Cockcroft-Gault) 42.0 Glucose Level 219 mg/dL (70-99) Calcium Level 8.4 mg/dL (8.5-10.1) Triglycerides Level 46 mg/dL (0-150) Cholesterol Level 111 mg/dL (0-200) LDL Cholesterol, Calculated 46 mg/dL (0-100) VLDL Cholesterol, Calculated 9 mg/dL (0-40) Non-HDL Cholesterol Calculated 55 mg/dL (0-129) HDL Cholesterol 56 mg/dL (40-60) Cholesterol/HDL Ratio 2.0 Laboratory Tests Test 09/24/19 10:40 09/24/19 11:43 09/24/19 17:28 09/25/19 00:05 Sodium Level 141 mmol/L (136-145) Potassium Level 3.6 mmol/L (3.5-5.1) Chloride Level 104 mmol/L (98-107) Carbon Dioxide Level 17 mmol/L (21-32) Anion Gap 20 (6-14) Blood Urea Nitrogen 27 mg/dL (7-20) Creatinine 1.5 mg/dL (0.6-1.0) Estimated GFR (Cockcroft-Gault) 42.0 Glucose Level 359 mg/dL (70-99) Calcium Level 8.9 mg/dL (8.5-10.1) Glucose (Fingerstick) 261 mg/dL (70-99) 180 mg/dL (70-99) 441 mg/dL (70-99) Test 09/25/19 04:50 White Blood Count 8.1 x10^3/uL (4.0-11.0) Red Blood Count 3.45 x10^6/uL (3.50-5.40) Hemoglobin 10.2 g/dL (12.0-15.5) Hematocrit 30.7 % (36.0-47.0) Mean Corpuscular Volume 89 fL (79-100) Mean Corpuscular Hemoglobin 29 pg (25-35) Mean Corpuscular Hemoglobin Concent 33 g/dL (31-37) Red Cell Distribution Width 14.3 % (11.5-14.5) Platelet Count 185 x10^3/uL (140-400) Neutrophils (%) (Auto) 70 % (31-73) Lymphocytes (%) (Auto) 24 % (24-48) Monocytes (%) (Auto) 6 % (0-9) Eosinophils (%) (Auto) 0 % (0-3) Basophils (%) (Auto) 1 % (0-3) Neutrophils # (Auto) 5.6 x10^3/uL (1.8-7.7) Lymphocytes # (Auto) 1.9 x10^3/uL (1.0-4.8) Monocytes # (Auto) 0.5 x10^3/uL (0.0-1.1) Eosinophils # (Auto) 0.0 x10^3/uL (0.0-0.7) Basophils # (Auto) 0.1 x10^3/uL (0.0-0.2) Sodium Level 139 mmol/L (136-145) Potassium Level 3.9 mmol/L (3.5-5.1) Chloride Level 106 mmol/L (98-107) Carbon Dioxide Level 20 mmol/L (21-32) Anion Gap 13 (6-14) Blood Urea Nitrogen 23 mg/dL (7-20) Creatinine 1.5 mg/dL (0.6-1.0) Estimated GFR (Cockcroft-Gault) 42.0 Glucose Level 219 mg/dL (70-99) Calcium Level 8.4 mg/dL (8.5-10.1) Triglycerides Level 46 mg/dL (0-150) Cholesterol Level 111 mg/dL (0-200) LDL Cholesterol, Calculated 46 mg/dL (0-100) VLDL Cholesterol, Calculated 9 mg/dL (0-40) Non-HDL Cholesterol Calculated 55 mg/dL (0-129) HDL Cholesterol 56 mg/dL (40-60) Cholesterol/HDL Ratio 2.0 Medications Current Medications Ondansetron HCl (Zofran) 4 mg 1X ONCE IVP Last administered on 09/23/19at 21:43; Start 09/23/19 at 20:45; Stop 09/23/19 at 20:49; Status DC Sodium Chloride 1,000 ml @ 1,000 mls/hr Q1H IV Last administered on 09/23/19at 21:45; Start 09/23/19 at 20:45; Stop 09/23/19 at 21:44; Status DC Fentanyl Citrate (Fentanyl 2ml Vial) 75 mcg 1X ONCE IVP Last administered on 09/23/19at 21:44; Start 09/23/19 at 20:45; Stop 09/23/19 at 20:49; Status DC Insulin Human Regular (HumuLIN R VIAL) 10 unit 1X ONCE IV Last administered on 09/23/19at 23:09; Start 09/23/19 at 22:15; Stop 09/23/19 at 22:16; Status DC Ondansetron HCl (Zofran) 4 mg 1X ONCE IVP Last administered on 09/23/19at 22:30; Start 09/23/19 at 23:00; Stop 09/23/19 at 23:01; Status DC Fentanyl Citrate (Fentanyl 2ml Vial) 50 mcg 1X ONCE IVP Last administered on 09/23/19at 22:32; Start 09/23/19 at 23:00; Stop 09/23/19 at 23:01; Status DC Iohexol (Omnipaque 300 Mg/ml) 55 ml 1X ONCE IV Last administered on 09/23/19at 23:16; Start 09/23/19 at 23:15; Stop 09/23/19 at 23:21; Status DC Info (CONTRAST GIVEN -- Rx MONITORING) 1 each PRN DAILY PRN MC SEE COMMENTS; Start 09/23/19 at 23:30; Stop 09/25/19 at 23:29 Ondansetron HCl (Zofran) 4 mg PRN Q8HRS PRN IV NAUSEA/VOMITING 1st choice; Start 09/24/19 at 00:15; Stop 09/24/19 at 05:16; Status DC Fentanyl Citrate (Fentanyl 2ml Vial) 50 mcg PRN Q1HR PRN IV SEVERE PAIN 7-10 Last administered on 09/24/19at 04:10; Start 09/24/19 at 00:15; Stop 09/25/19 at 00:14; Status DC Sodium Chloride 1,000 ml @ 125 mls/hr Q8H IV Last administered on 09/25/19at 06:20; Start 09/24/19 at 00:30 Nicardipine HCl 50 mg/Sodium Chloride 250 ml @ 25 mls/hr CONT PRN IV SEE I/O RECORD Last administered on 09/24/19at 01:49; Start 09/24/19 at 01:30 Amlodipine Besylate (Norvasc) 10 mg DAILY PO Last administered on 09/25/19at 08:23; Start 09/24/19 at 09:00 Lisinopril (Prinivil) 20 mg DAILY PO Last administered on 09/25/19at 08:23; Start 09/24/19 at 09:00 Carvedilol (Coreg) 25 mg BIDWMEALS PO Last administered on 09/25/19at 08:23; Start 09/24/19 at 08:00 Insulin Glargine (Lantus Syringe) 20 unit QHS SQ Last administered on 09/25/19at 00:22; Start 09/24/19 at 21:00; Stop 09/25/19 at 08:25; Status DC Insulin Human Lispro (HumaLOG) 0-9 UNITS TIDWMEALS SQ Last administered on 09/25/19at 08:29; Start 09/24/19 at 08:00 Dextrose (Dextrose 50%-Water Syringe) 12.5 gm PRN Q15MIN PRN IV SEE COMMENTS; Start 09/24/19 at 05:15 Dextrose (Iv Dextrose 5%) 250 ml PRN Q15MIN PRN IV SEE COMMENTS; Start 09/24/19 at 05:15; Status Cancel Ondansetron HCl (Zofran) 4 mg PRN Q4HRS PRN IV NAUSEA/VOMITING 1st choice Last administered on 09/24/19at 05:22; Start 09/24/19 at 05:15 Prochlorperazine Edisylate (Compazine) 10 mg PRN Q8HRS PRN IV NAUSEA/VOMITING 2ND CHOICE Last administered on 09/24/19at 08:14; Start 09/24/19 at 05:15 Insulin Human Lispro (HumaLOG) 20 units 1X ONCE SQ Last administered on 09/24/19at 08:15; Start 09/24/19 at 08:30; Stop 09/24/19 at 08:31; Status DC Insulin Human Lispro (HumaLOG) 15 units Q6HRS SQ Last administered on 09/24/19at 11:46; Start 09/24/19 at 09:30 Info (Review Meds) 1 ea PRN 1X PRN MC SEE COMMENTS; Start 09/24/19 at 09:45 Sodium Chloride (Normal Saline Flush) 3 ml QSHIFT PRN IV AFTER MEDS AND BLOOD DRAWS; Start 09/24/19 at 09:45 Acetaminophen (Tylenol Supp) 650 mg PRN Q6HRS PRN [place] FEVER > 100.5'F; Start 09/24/19 at 09:45 Labetalol HCl (Normodyne Iv Push) 10 mg PRN Q10MIN PRN IVP HYPERTENSION; Start 09/24/19 at 09:45 Hydralazine HCl (Apresoline Inj) 10 mg PRN Q10MIN PRN IVP HYPERTENSION; Start 09/24/19 at 09:45 Nicardipine HCl 50 mg/Sodium Chloride 250 ml @ 25 mls/hr CONT PRN IV HYPERTENSION; Start 09/24/19 at 09:45; Status UNV Ondansetron HCl (Zofran) 4 mg PRN Q6HRS PRN IVP NAUSEA/VOMITING; Start 09/24/19 at 09:45 Insulin Human Lispro (HumaLOG) 17 units 1X ONCE SQ Last administered on 09/25/19at 00:32; Start 09/25/19 at 00:30; Stop 09/25/19 at 00:31; Status DC Insulin Glargine (Lantus Syringe) 30 unit QHS SQ ; Start 09/25/19 at 21:00 Active Scripts Active Reported Lantus Solostar (Insulin Glargine,Hum.rec.anlog) 100 Unit/1 Ml Insuln.pen 20 Unit SQ QHS Novolog Flexpen (Insulin Aspart) 100 Unit/1 Ml Insuln.pen 100 Unit SQ Amlodipine Besylate 10 Mg Tablet 1 Tab PO DAILY Lisinopril 20 Mg Tablet 1 Tab PO DAILY Carvedilol 25 Mg Tablet 1 Tab PO BID Vitals/I & O Vital Sign - Last 24 Hours 09/24/19 09/24/19 09/24/19 09/24/19 10:00 11:00 12:00 12:00 Temp 98.9 98.9 Pulse 96 87 86 Resp 15 18 20 B/P (MAP) 114/53 (73) 135/45 (75) 139/62 (87) Pulse Ox 99 99 98 O2 Delivery Room Air Room Air Room Air Room Air 09/24/19 09/24/19 09/24/19 09/24/19 13:00 14:00 15:00 16:00 Temp 98.0 98.0 Pulse 84 80 78 80 Resp 16 12 12 15 B/P (MAP) 115/41 (65) 115/55 (75) 138/51 (80) 124/48 (73) Pulse Ox 96 97 99 99 O2 Delivery Room Air Room Air Room Air Room Air 09/24/19 09/24/19 09/24/19 09/24/19 16:00 17:00 17:30 18:00 Pulse 82 86 82 Resp 15 15 B/P (MAP) 112/45 (67) 132/49 119/58 (78) Pulse Ox 98 100 O2 Delivery Room Air Room Air Room Air 09/24/19 09/24/19 09/24/1909/23/20 19:00 20:00 20:00 21:00 Temp 99.2 99.2 Pulse 84 78 74 Resp 25 15 13 B/P (MAP) 120/52 (74) 123/51 (75) 115/53 (73) Pulse Ox 100 100 99 O2 Delivery Room Air Room Air Room Air Room Air 09/24/19 09/24/19 09/25/19 09/25/19 22:00 23:00 00:00 00:00 Temp 98.8 98.8 Pulse 76 78 80 Resp 15 15 22 B/P (MAP) 119/52 (74) 124/54 (77) 131/55 (80) Pulse Ox 98 98 98 O2 Delivery Room Air Room Air Room Air Room Air 09/25/19 09/25/19 09/25/19 09/25/19 01:00 02:00 03:00 04:00 Temp 99.0 99.0 Pulse 84 82 76 78 Resp 15 15 15 16 B/P (MAP) 120/54 (76) 126/49 (74) 119/57 (77) 113/54 (73) Pulse Ox 100 98 96 96 O2 Delivery Room Air Room Air Room Air Room Air 09/25/19 09/25/19 09/25/19 09/25/19 04:00 05:00 06:00 08:23 Pulse 76 72 68 Resp 19 18 B/P (MAP) 126/84 (98) 131/76 (94) 135/80 Pulse Ox 98 98 O2 Delivery Room Air Room Air Room Air 09/25/19 09/25/19 08:23 08:23 Pulse 72 62 B/P (MAP) 135/80 135/80 Intake and Output 09/24/19 09/24/19 09/25/19 15:00 23:00 07:00 Intake Total 440 ml 1743 ml 1707 ml Output Total 400 ml 550 ml Balance 440 ml 1343 ml [address] Head without IV contrast INDICATION: Follow-up intracranial hemorrhage TECHNIQUE: Multi-detector row CT images were obtained of the head without the use of IV contrast. All CT scans performed at this facility utilize dose optimization techniques as appropriate to the exam, including the following: Automated exposure control and adjustment of the mA and/or KV according to patient size (this includes techniques or standardized protocols for targeted exams where dose is indication/reason for exam). COMPARISON: 09/23/[address] FINDINGS: Technologist reports the patient was unable to hold still for the examination. There is motion artifact that degrades detail. BRAIN PARENCHYMA: Interval development of loss of sarabia-white differentiation in the anterior right temporal lobe extending into the right parietal lobe. Redemonstrated is an intraparenchymal acute hemorrhage, now measuring 9 mm in diameter compared with 10 mm previously. Chronic infarcts in the right frontal operculum, anterior right insula, and superior right parietal lobe are again seen in the setting of extensive white matter low density compatible chronic ischemic microvascular change. No abnormal parenchymal density or mass. VENTRICLES & EXTRA-AXIAL SPACES: Ventricles are within normal limits. Basilar cisterns are patent. No pathologic extra-axial fluid collection or mass. ORBITS: Orbital contents are unremarkable. SINUSES: Visualized paranasal sinuses and mastoid air cells are clear. OSSEOUS & SOFT TISSUES: Calvarium and skull base are intact. IMPRESSION: Developing acute infarct in the right temporal lobe, superimposed on previously described intraparenchymal hemorrhage in the right temporal lobe. No mass effect or hydrocephalus. LEFT VENTRICLE The left ventricle is normal size. There is normal left ventricular wall thickness. The left ventricular systolic function is normal and the ejection fraction is within normal range. The Ejection Fraction is 60-65%. There is normal LV segmental wall motion. Transmitral Doppler flow pattern is Grade I- abnormal relaxation pattern. RIGHT VENTRICLE The right ventricle is normal size. The right ventricular systolic function is normal. There are device leads in the right ventricle and atrium. ATRIA The left atrium size is normal. The right atrium size is normal. The interatrial septum is intact with no evidence for an atrial septal defect or patent foramen ovale as noted on 2-D or Doppler imaging. Injection of bubbles documented no interatrial shunt. AORTIC VALVE The aortic valve is calcified but opens well. Doppler and Color Flow revealed no significant aortic regurgitation. There is no significant aortic valvular stenosis. MITRAL VALVE The mitral valve is calcified but opens well. The mitral valve leaflets are redundant without clear evidence of mitral valve prolapse. There is no mitral valve stenosis. Doppler and Color-flow revealed trace mitral regurgitation. TRICUSPID VALVE The tricuspid valve is normal in structure and function. Doppler and Color Flow revealed mild tricuspid regurgitation. The PA pressure was estimated at 35 mmHg. There is no tricuspid valve stenosis. PULMONIC VALVE The pulmonic valve is not well visualized. Doppler and Color Flow revealed trace to mild pulmonic valvular regurgitation. There is no pulmonic valvular stenosis. GREAT VESSELS The aortic root is normal in size. The ascending aorta is normal in size. The I VC is normal in size and collapses >50% with inspiration. PERICARDIAL EFFUSION There is no evidence of significant pericardial effusion. Critical Notification Critical Value: No <Conclusion> The left ventricle is normal size. The left ventricular systolic function is normal and the ejection fraction is within normal range. The Ejection Fraction is 60-65%. There are device leads in the right ventricle and atrium. The interatrial septum is intact with no evidence for an atrial septal defect or patent foramen ovale as noted on 2-D or Doppler imaging. Injection of bubbles documented no interatrial shunt. Doppler and Color Flow revealed no significant aortic regurgitation. There is no significant aortic valvular stenosis. Doppler and Color-flow revealed trace mitral regurgitation. Doppler and Color Flow revealed mild tricuspid regurgitation. The PA pressure was estimated at 35 mmHg. WILFRID ROMERO MD Sep 25, 2019 09:25
--- NOTE | 2019-09-25 10:46 | NUR ---
SS following up with discharge planning. PT/OT recommended home healthcare. SS met with pt and discussed discharge planning and home healthcare. Pt declined home healthcare reporting that she lives with her and brother and does not need any assistance at home. She also reported that [facility] sends a [employer] RN to her home as well to check on her. Pt will discharge to home when medically stable. SS will continue to follow for discharge planning.
--- NOTE | 2019-09-25 10:55 | CONS ---
DATE OF CONSULTATION: 09/25/2019 ATTENDING PHYSICIAN: Dr. Moon. REASON FOR CONSULTATION: The patient was seen at the request of Dr. Moon for rehab evaluation. HISTORY OF PRESENT ILLNESS: This is a 64-year-old right-handed female with known diabetes mellitus type 2, hypercholesterolemia, coronary artery disease, hypertension, previous cerebrovascular accident, peripheral vascular disease status post left below knee amputation done in 2010 while she is being taken care of for a fracture of right ankle with external fixator, also sick sinus syndrome, status post permanent pacemaker placement, ex-smoker, quit in 2019, admitted through the Emergency Room on 09/24/2019 with severe headache, right side of her head behind her eye. She had been seeing rings in her right eye, which is new. She had decreased acuity of vision in both eyes. The patient also noted increased vision loss in her left eye too. She has been blind in her right eye before. She admits increased loss of vision in her left eye right now. She had some nausea and vomiting associated with headache. The patient was found with creatinine of 1.7, glucose [address] scan of the brain revealed old large right middle cerebral artery infarct and new possible acute or subacute right parietal lobe stroke as well as 5 mm focus of hyperattenuation suggesting a small acute intraparenchymal hemorrhage in the area of acute or subacute stroke noted with blood pressure of 158/117 initially. The patient lives at home with her and brother. She has been independent with most of aspects of her mobility using her left below knee prosthesis and she denies any trouble with her swallowing, speech or bowel or bladder control. The patient is eager to go home. She is not known allergic to any medication. The patient is status post appendectomy, tubal ligation. FAMILY HISTORY: Diabetes mellitus and hypercholesterolemia and hypertension. The patient had repeat CT scan of the brain done on 09/23 which revealed developing acute infarct in the right temporal lobe superimposed on previously described intraparenchymal hemorrhage in the right temporal lobe without any mass effect or hydrocephalus. CTA of brain done on 09/22 revealed no central occlusion or flow-limiting stenosis in the right middle cerebral artery in the setting of ischemic changes in this vascular distribution. No flow limiting stenosis or branch vessel occlusion of the anterior and posterior cerebral arteries was noted. The patient is being followed by Physical Therapy as per physical therapy note dated 09/23. She requires contact guard assistance using bedrail supine to sit, moderate assistance with transfers using squat pivot technique, had difficulty reaching armrest of the chair with decreased vision requiring increased assistance with mobility. Occupational Therapy noted her standby assistance seated to don shoes and socks, moderate assistance for transfers, squat pivot. PHYSICAL EXAMINATION: Today revealed a middle-aged female. She is alert, oriented to time, place, person and circumstance and follows commands appropriately despite her decreased acuity of vision in both eyes. She does not even see the light. The patient had 4+/5 grade muscle strength in her upper and lower extremities. Deep tendon reflexes are decreased overall with absent knee and right ankle jerk. The patient had decreased touch and pinprick sensation over a sock and glove distribution. She had pain free range of motion of both hip and knee joints and the right ankle joint. She had healed skin lesions over right heel. She had fairly good coordination using both upper extremities. I have not tested her mobility skills at present time. ASSESSMENT: A middle-aged female with old cerebrovascular accident, diabetes mellitus with retinopathy, peripheral vascular disease, peripheral neuropathy, status post left below knee amputation done in the past successfully using left below knee prosthesis despite her decreased acuity of vision, also with known coronary artery disease, hypertension, hyperlipidemia. RECOMMENDATIONS: Agree with the plans for home with home health followup when medically stable. Dr. Wren, I appreciate asking me to participate in the care of this interesting patient. I will be glad to see her for followup with you on as needed basis. CORAL PASTRANA MD DR: LETICIA/megha JOB#: [id number] / [id number]
--- NOTE | 2019-09-25 12:39 | PDOC ---
PROGRESS NOTES Subjective Subjective sitting up in chair denies headache some vision returning on the left Objective Objective Vital Signs Date Time Temp Pulse Resp B/P (MAP) Pulse Ox O2 Delivery O2 Flow Rate FiO2 09/25/19 11:00 70 28 131/49 (76) 99 Room Air 09/25/19 08:00 98.5 98.5 Intake and Output 09/25/19 07:00 Intake Total 3890 ml Output Total 950 ml Balance 2940 ml Intake Oral 1060 ml IV Total 2830 ml Output Urine Total 950 ml # Voids 1 Physical Exam General: Alert, Oriented X3, Cooperative, No acute distress MUSCULOSKELETAL: Other Neuro: Normal speech Assessment Assessment Problems Medical Problems: (1) Intraparenchymal hemorrhage of brain Status: Acute Plan Plan of Care New right parietal lobe stroke, with small acute intraparenchymal hemorrhage 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 Neurology following she wants to go home with HH Comment Review of Relevant I have reviewed the following items slime (where applicable) has been applied. Labs Laboratory Tests Test 09/23/19 20:43 09/23/19 20:45 09/24/19 02:23 09/24/19 06:45 Glucose (Fingerstick) 528 mg/dL (70-99) 284 mg/dL (70-99) White Blood Count 6.3 x10^3/uL (4.0-11.0) Red Blood Count 4.13 x10^6/uL (3.50-5.40) Hemoglobin 12.2 g/dL (12.0-15.5) Hematocrit 36.4 % (36.0-47.0) Mean Corpuscular Volume 88 fL (79-100) Mean Corpuscular Hemoglobin 30 pg (25-35) Mean Corpuscular Hemoglobin Concent 34 g/dL (31-37) Red Cell Distribution Width 13.8 % (11.5-14.5) Platelet Count 218 x10^3/uL (140-400) Neutrophils (%) (Auto) 63 % (31-73) Lymphocytes (%) (Auto) 30 % (24-48) Monocytes (%) (Auto) 3 % (0-9) Eosinophils (%) (Auto) 3 % (0-3) Basophils (%) (Auto) 1 % (0-3) Neutrophils # (Auto) 4.0 x10^3/uL (1.8-7.7) Lymphocytes # (Auto) 1.9 x10^3/uL (1.0-4.8) Monocytes # (Auto) 0.2 x10^3/uL (0.0-1.1) Eosinophils # (Auto) 0.2 x10^3/uL (0.0-0.7) Basophils # (Auto) 0.0 x10^3/uL (0.0-0.2) Sodium Level 135 mmol/L (136-145) Potassium Level 3.8 mmol/L (3.5-5.1) Chloride Level 97 mmol/L (98-107) Carbon Dioxide Level 23 mmol/L (21-32) Anion Gap 15 (6-14) Blood Urea Nitrogen 24 mg/dL (7-20) Creatinine 1.7 mg/dL (0.6-1.0) Estimated GFR (Cockcroft-Gault) 36.4 BUN/Creatinine Ratio 14 (6-20) Glucose Level 528 mg/dL (70-99) Calcium Level 9.4 mg/dL (8.5-10.1) Magnesium Level 2.0 mg/dL (1.8-2.4) Total Bilirubin 0.5 mg/dL (0.2-1.0) Aspartate Amino Transf (AST/SGOT) 21 U/L (15-37) Alanine Aminotransferase (ALT/SGPT) 30 U/L (14-59) Alkaline Phosphatase 111 U/L (46-116) Total Protein 7.9 g/dL (6.4-8.2) Albumin 3.9 g/dL (3.4-5.0) Albumin/Globulin Ratio 1.0 (1.0-1.7) Acetone Level Sm pos (NEG) Urine Collection Type Unknown Urine Color Straw Urine Clarity Clear Urine pH 6.0 (<5.0-8.0) Urine Specific [place] 1.010 (1.000-1.030) Urine Protein 100 mg/dL (NEG-TRACE) Urine Glucose (UA) 500 mg/dL (NEG) Urine Ketones (Stick) 80 mg/dL (NEG) Urine Blood Trace (NEG) Urine Nitrite Negative (NEG) Urine Bilirubin Negative (NEG) Urine Urobilinogen Dipstick 0.2 mg/dL (0.2 mg/dL) Urine Leukocyte Esterase Negative (NEG) Urine RBC 1-2 /HPF (0-2) Urine WBC Occ /HPF (0-4) Urine Squamous Epithelial Cells Occ /LPF Urine Bacteria 0 /HPF (0-FEW) Urine Opiates Screen Neg (NEG) Urine Methadone Screen Neg (NEG) Urine Barbiturates Neg (NEG) Urine Phencyclidine Screen Neg (NEG) Urine Amphetamine/Methamphetamine Neg (NEG) Urine Benzodiazepines Screen Neg (NEG) Urine Cocaine Screen Neg (NEG) Urine Cannabinoids Screen Pos (NEG) Urine Ethyl Alcohol Neg (NEG) Test 09/24/19 07:12 09/24/19 09:14 09/24/19 10:40 09/24/19 11:43 Glucose (Fingerstick) 508 mg/dL (70-99) 463 mg/dL (70-99) 261 mg/dL (70-99) Sodium Level 141 mmol/L (136-145) Potassium Level 3.6 mmol/L (3.5-5.1) Chloride Level 104 mmol/L (98-107) Carbon Dioxide Level 17 mmol/L (21-32) Anion Gap 20 (6-14) Blood Urea Nitrogen 27 mg/dL (7-20) Creatinine 1.5 mg/dL (0.6-1.0) Estimated GFR (Cockcroft-Gault) 42.0 Glucose Level 359 mg/dL (70-99) Calcium Level 8.9 mg/dL (8.5-10.1) Test 09/24/19 17:28 09/25/19 00:05 09/25/19 04:50 09/25/19 12:21 Glucose (Fingerstick) 180 mg/dL (70-99) 441 mg/dL (70-99) 86 mg/dL (70-99) White Blood Count 8.1 x10^3/uL (4.0-11.0) Red Blood Count 3.45 x10^6/uL (3.50-5.40) Hemoglobin 10.2 g/dL (12.0-15.5) Hematocrit 30.7 % (36.0-47.0) Mean Corpuscular Volume 89 fL (79-100) Mean Corpuscular Hemoglobin 29 pg (25-35) Mean Corpuscular Hemoglobin Concent 33 g/dL (31-37) Red Cell Distribution Width 14.3 % (11.5-14.5) Platelet Count 185 x10^3/uL (140-400) Neutrophils (%) (Auto) 70 % (31-73) Lymphocytes (%) (Auto) 24 % (24-48) Monocytes (%) (Auto) 6 % (0-9) Eosinophils (%) (Auto) 0 % (0-3) Basophils (%) (Auto) 1 % (0-3) Neutrophils # (Auto) 5.6 x10^3/uL (1.8-7.7) Lymphocytes # (Auto) 1.9 x10^3/uL (1.0-4.8) Monocytes # (Auto) 0.5 x10^3/uL (0.0-1.1) Eosinophils # (Auto) 0.0 x10^3/uL (0.0-0.7) Basophils # (Auto) 0.1 x10^3/uL (0.0-0.2) Sodium Level 139 mmol/L (136-145) Potassium Level 3.9 mmol/L (3.5-5.1) Chloride Level 106 mmol/L (98-107) Carbon Dioxide Level 20 mmol/L (21-32) Anion Gap 13 (6-14) Blood Urea Nitrogen 23 mg/dL (7-20) Creatinine 1.5 mg/dL (0.6-1.0) Estimated GFR (Cockcroft-Gault) 42.0 Glucose Level 219 mg/dL (70-99) Calcium Level 8.4 mg/dL (8.5-10.1) Triglycerides Level 46 mg/dL (0-150) Cholesterol Level 111 mg/dL (0-200) LDL Cholesterol, Calculated 46 mg/dL (0-100) VLDL Cholesterol, Calculated 9 mg/dL (0-40) Non-HDL Cholesterol Calculated 55 mg/dL (0-129) HDL Cholesterol 56 mg/dL (40-60) Cholesterol/HDL Ratio 2.0 Laboratory Tests Test 09/24/19 17:28 09/25/19 00:05 09/25/19 04:50 09/25/19 12:21 Glucose (Fingerstick) 180 mg/dL (70-99) 441 mg/dL (70-99) 86 mg/dL (70-99) White Blood Count 8.1 x10^3/uL (4.0-11.0) Red Blood Count 3.45 x10^6/uL (3.50-5.40) Hemoglobin 10.2 g/dL (12.0-15.5) Hematocrit 30.7 % (36.0-47.0) Mean Corpuscular Volume 89 fL (79-100) Mean Corpuscular Hemoglobin 29 pg (25-35) Mean Corpuscular Hemoglobin Concent 33 g/dL (31-37) Red Cell Distribution Width 14.3 % (11.5-14.5) Platelet Count 185 x10^3/uL (140-400) Neutrophils (%) (Auto) 70 % (31-73) Lymphocytes (%) (Auto) 24 % (24-48) Monocytes (%) (Auto) 6 % (0-9) Eosinophils (%) (Auto) 0 % (0-3) Basophils (%) (Auto) 1 % (0-3) Neutrophils # (Auto) 5.6 x10^3/uL (1.8-7.7) Lymphocytes # (Auto) 1.9 x10^3/uL (1.0-4.8) Monocytes # (Auto) 0.5 x10^3/uL (0.0-1.1) Eosinophils # (Auto) 0.0 x10^3/uL (0.0-0.7) Basophils # (Auto) 0.1 x10^3/uL (0.0-0.2) Sodium Level 139 mmol/L (136-145) Potassium Level 3.9 mmol/L (3.5-5.1) Chloride Level 106 mmol/L (98-107) Carbon Dioxide Level 20 mmol/L (21-32) Anion Gap 13 (6-14) Blood Urea Nitrogen 23 mg/dL (7-20) Creatinine 1.5 mg/dL (0.6-1.0) Estimated GFR (Cockcroft-Gault) 42.0 Glucose Level 219 mg/dL (70-99) Calcium Level 8.4 mg/dL (8.5-10.1) Triglycerides Level 46 mg/dL (0-150) Cholesterol Level 111 mg/dL (0-200) LDL Cholesterol, Calculated 46 mg/dL (0-100) VLDL Cholesterol, Calculated 9 mg/dL (0-40) Non-HDL Cholesterol Calculated 55 mg/dL (0-129) HDL Cholesterol 56 mg/dL (40-60) Cholesterol/HDL Ratio 2.0 Medications Current Medications Ondansetron HCl (Zofran) 4 mg 1X ONCE IVP Last administered on 09/23/19at 21:43; Start 09/23/19 at 20:45; Stop 09/23/19 at 20:49; Status DC Sodium Chloride 1,000 ml @ 1,000 mls/hr Q1H IV Last administered on 09/23/19at 21:45; Start 09/23/19 at 20:45; Stop 09/23/19 at 21:44; Status DC Fentanyl Citrate (Fentanyl 2ml Vial) 75 mcg 1X ONCE IVP Last administered on 09/23/19at 21:44; Start 09/23/19 at 20:45; Stop 09/23/19 at 20:49; Status DC Insulin Human Regular (HumuLIN R VIAL) 10 unit 1X ONCE IV Last administered on 09/23/19at 23:09; Start 09/23/19 at 22:15; Stop 09/23/19 at 22:16; Status DC Ondansetron HCl (Zofran) 4 mg 1X ONCE IVP Last administered on 09/23/19at 22:30; Start 09/23/19 at 23:00; Stop 09/23/19 at 23:01; Status DC Fentanyl Citrate (Fentanyl 2ml Vial) 50 mcg 1X ONCE IVP Last administered on 09/23/19at 22:32; Start 09/23/19 at 23:00; Stop 09/23/19 at 23:01; Status DC Iohexol (Omnipaque 300 Mg/ml) 55 ml 1X ONCE IV Last administered on 09/23/19at 23:16; Start 09/23/19 at 23:15; Stop 09/23/19 at 23:21; Status DC Info (CONTRAST GIVEN -- Rx MONITORING) 1 each PRN DAILY PRN MC SEE COMMENTS; Start 09/23/19 at 23:30; Stop 09/25/19 at 23:29 Ondansetron HCl (Zofran) 4 mg PRN Q8HRS PRN IV NAUSEA/VOMITING 1st choice; Start 09/24/19 at 00:15; Stop 09/24/19 at 05:16; Status DC Fentanyl Citrate (Fentanyl 2ml Vial) 50 mcg PRN Q1HR PRN IV SEVERE PAIN 7-[address] administered on 09/24/19at 04:10; Start 09/24/19 at 00:15; Stop 09/25/19 at 00:14; Status DC Sodium Chloride 1,000 ml @ 125 mls/hr Q8H IV Last administered on 09/25/19at 06:20; Start 09/24/19 at 00:30 Nicardipine HCl 50 mg/Sodium Chloride 250 ml @ 25 mls/hr CONT PRN IV SEE I/O RECORD Last administered on 09/24/19at 01:49; Start 09/24/19 at 01:30 Amlodipine Besylate (Norvasc) 10 mg DAILY PO Last administered on 09/25/19at 08:23; Start 09/24/19 at 09:00 Lisinopril (Prinivil) 20 mg DAILY PO Last administered on 09/25/19at 08:23; Start 09/24/19 at 09:00 Carvedilol (Coreg) 25 mg BIDWMEALS PO Last administered on 09/25/19at 08:23; S tart 09/24/19 at 08:00 Insulin Glargine (Lantus Syringe) 20 unit QHS SQ Last administered on 09/25/19at 00:22; Start 09/24/19 at 21:00; Stop 09/25/19 at 08:25; Status DC Insulin Human Lispro (HumaLOG) 0-9 UNITS TIDWMEALS SQ Last administered on 09/25/19at 08:29; Start 09/24/19 at 08:00 Dextrose (Dextrose 50%-Water Syringe) 12.5 gm PRN Q15MIN PRN IV SEE COMMENTS; Start 09/24/19 at 05:15 Dextrose (Iv Dextrose 5%) 250 ml PRN Q15MIN PRN IV SEE COMMENTS; Start 09/24/19 at 05:15; Status Cancel Ondansetron HCl (Zofran) 4 mg PRN Q4HRS PRN IV NAUSEA/VOMITING 1st choice Last administered on 09/24/19at 05:22; Start 09/24/19 at 05:15; Stop 09/25/19 at 11:07; Status DC Prochlorperazine Edisylate (Compazine) 10 mg PRN Q8HRS PRN IV NAUSEA/VOMITING 2ND CHOICE Last administered on 09/24/19at 08:14; Start 09/24/19 at 05:15 Insulin Human Lispro (HumaLOG) 20 units 1X ONCE SQ Last administered on at 08:15; Start 09/24/19 at 08:30; Stop 09/24/19 at 08:31; Status DC Insulin Human Lispro (HumaLOG) 15 units Q6HRS SQ Last administered on 09/24/19at 11:46; Start 09/24/19 at 09:30 Info (Review Meds) 1 ea PRN 1X PRN MC SEE COMMENTS; Start 09/24/19 at 09:45 Sodium Chloride (Normal Saline Flush) 3 ml QSHIFT PRN IV AFTER MEDS AND BLOOD DRAWS; Start 09/24/19 at 09:45 Acetaminophen (Tylenol Supp) 650 mg PRN Q6HRS PRN [place] FEVER > 100.5'F; Start 09/24/19 at 09:45 Labetalol HCl (Normodyne Iv Push) 10 mg PRN Q10MIN PRN IVP SBP > 140, MP > 120; Start 09/24/19 at 09:45 Hydralazine HCl (Apresoline Inj) 10 mg PRN Q10MIN PRN IVP SBP > 160, MAP > 120; Start 09/24/19 at 09:45 Nicardipine HCl 50 mg/Sodium Chloride 250 ml @ 25 mls/hr CONT PRN IV HYPERTENSION; Start 09/24/19 at 09:45; Status UNV Ondansetron HCl (Zofran) 4 mg PRN Q6HRS PRN IVP NAUSEA/VOMITING, 1ST CHOICE; Start 09/24/19 at 09:45 Insulin Human Lispro (HumaLOG) 17 units 1X ONCE SQ Last administered on 09/25/19at 00:32; Start 09/25/19 at 00:30; Stop 09/25/19 at 00:31; Status DC Insulin Glargine (Lantus Syringe) 30 unit QHS SQ ; Start 09/25/19 at 21:00 Active Scripts Active Reported Lantus Solostar (Insulin Glargine,Hum.rec.anlog) 100 Unit/1 Ml Insuln.pen 20 Unit SQ QHS Novolog Flexpen (Insulin Aspart) 100 Unit/1 Ml Insuln.pen 100 Unit SQ Amlodipine Besylate 10 Mg Tablet 1 Tab PO DAILY Lisinopril 20 Mg Tablet 1 Tab PO DAILY Carvedilol 25 Mg Tablet 1 Tab PO BID Vitals/I & O Vital Sign - Last 24 Hours 09/24/19 09/24/19 09/24/19 09/24/19 13:00 14:00 15:00 16:00 Temp 98.0 98.0 Pulse 84 80 78 80 Resp 16 12 12 15 B/P (MAP) 115/41 (65) 115/55 (75) 138/51 (80) 124/48 (73) Pulse Ox 96 97 99 99 O2 Delivery Room Air Room Air Room Air Room Air 09/24/19 09/24/19 09/24/19 09/24/19 16:00 17:00 17:30 18:00 Pulse 82 86 82 Resp 15 15 B/P (MAP) 112/45 (67) 132/49 119/58 (78) Pulse Ox 98 100 O2 Delivery Room Air Room Air Room Air 09/24/19 09/24/19 09/24/19 09/24/19 19:00 20:00 20:00 21:00 Temp 99.2 99.2 Pulse 84 78 74 Resp 25 15 13 B/P (MAP) 120/52 (74) 123/51 (75) 115/53 (73) Pulse Ox 100 100 99 O2 Delivery Room Air Room Air Room Air Room Air 09/24/19 09/24/19 09/25/19 09/25/19 22:00 23:00 00:00 00:00 Temp 98.8 98.8 Pulse 76 78 80 Resp 15 15 22 B/P (MAP) 119/52 (74) 124/54 (77) 131/55 (80) Pulse Ox 98 98 98 O2 Delivery Room Air Room Air Room Air Room Air 09/25/19 09/25/19 09/25/19 09/25/19 01:00 02:00 03:00 04:00 Temp 99.0 99.0 Pulse 84 82 76 78 Resp 15 15 15 16 B/P (MAP) 120/54 (76) 126/49 (74) 119/57 (77) 113/54 (73) Pulse Ox 100 98 96 96 O2 Delivery Room Air Room Air Room Air Room Air 09/25/19 09/25/19 09/25/19 09/25/19 04:00 05:00 06:00 07:00 Pulse 76 72 74 Resp 19 18 16 B/P (MAP) 126/84 (98) 131/76 (94) 129/68 (88) Pulse Ox 98 98 98 O2 Delivery Room Air Room Air Room Air Room Air 09/25/19 09/25/19 09/25/19 09/25/19 08:00 08:00 08:23 08:23 Temp 98.5 98.5 Pulse 69 68 72 Resp 21 B/P (MAP) 143/58 (86) 135/80 135/80 Pulse Ox 97 O2 Delivery Room Air Room Air 09/25/19 09/25/19 09/25/19 08:23 09:00 11:00 Pulse 62 68 70 Resp 19 28 B/P (MAP) 135/80 119/66 (83) 131/49 (76) Pulse Ox 97 99 O2 Delivery Room Air Room Air Intake and Output 09/24/19 09/24/19 09/25/19 15:00 23:00 07:00 Intake Total 440 ml 1743 ml 1707 ml Output Total 400 ml 550 ml Balance 440 ml 1343 ml 1157 ml FREIDA TORRES [employer]IT[employer] Sep 25, 2019 12:39
--- NOTE | 2019-09-25 14:00 | NUR ---
PT TRANSFERRED FROM [facility] TO ROOM 674. REPORT RECEIVED FROM HIEU GERARD. PT BAG OF CLOTHING LEFT IN CLOSET AT TIME OF TRANSFER.
[2019-09-25] MEDS ORDERED: INSULIN GLARGINE SYRINGE. SQ SCH ×2 (21:00)
[2019-09-26 03:05] VITALS: BP 152/51
[2019-09-26] MEDS: IV NORMAL SALINE 1000ML BAG 1,000 ML IV SCH (04:01)
[2019-09-26 07:00] VITALS: BP 155/58
[2019-09-26] MEDS: INSULIN LISPRO 300 UNITS/3 ML VIAL. SQ SCH ×2 (07:30→08:00)
[2019-09-26] MEDS: CARVEDILOL 12.5 MG TABLET. PO SCH (08:35)
[2019-09-26] MEDS: amLODIPine BESYLATE 10 MG TABLET PO SCH (08:35)
[2019-09-26] MEDS: LISINOPRIL 20 MG TABLET PO SCH (08:38)
--- NOTE | 2019-09-26 09:06 | PDOC ---
PROGRESS NOTES Chief Complaint Chief Complaint A/P: Headache - likely 2/2 hemorrhagic CVA. Pain controlled at this time. AFSHAN - likely vasomotor nephropathy, Cr 1.7 Acute CVA - new possible acute or subacute right parietal lobe stroke as well as 9 mm focus of hyperattenuation suggesting a small acute intraparenchymal hemorrhage in the area of acute or subacute stroke. Neurology and neurosurgery consulted. 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 Await [employer] evaluation High Cholesterol - cont statin Heart Disease - hold antiplatelets with hemorrhagic CVA Hypertension - cont meds PAD s/p L BKA - stable SSS s/p PPM - pacing. Ex-smoker (quit 2019) - counseled on continued cessation FEN - ADA diet PPX - SCDs FULL CODE Dispo - inpatient for acute hemorrhagic CVA, cont ICU monitoring for now, BP control cc time 35 minutes History of Present Illness History of Present Illness Ms Haney is a 64yo F w/ PMHx Diabetes-Type II, High Cholesterol, Heart Disease, Hypertension, Stroke, PAD s/p L BKA, SSS s/p PPM, ex-smoker (quit 2019) who presents with complaint of severe headache to the right side of her head behind her eye. She states that headache started when she woke up from a nap at about 1500 on 09/23/2019. She states the pain is in her right eye radiating up into the right side of her head. She states that she has noticed some decrease in vision to her left eye. She indicates that she has had nausea and vomiting associated with the headache. She rated the headache at a 10 out of 10. She denies any lateralizing weakness. She was found with Cr 1.7, glucose 528, and on CT head was found with old large right MCA infarct and new possible acute or subacute right parietal lobe stroke as well as 9 mm focus of hyperattenuation suggesting a small acute intraparenchymal hemorrhage in the area of acute or subacute stroke. BP 158/117 initially. No EKG available, telemetry appears paced.She was admitted to ICU for further monitoring of hemorrhagic CVA. Seen by PMR, Neurology, neurosurgery 09/24: Afebrile overnight, blood pressure better controlled. Repeat CT head shows evolving infarct surrounding hemorrhagic infarct. Glucose over 400 overnight, still having difficulty with glycemic control. Cleared for regular diet by speech. Echo: The left ventricle is normal size. The left ventricular systolic function is normal and the ejection fraction is within normal range. The Ejection Fraction is 60-65%. There are device leads in the right ventricle and atrium. The interatrial septum is intact with no evidence for an atrial septal defect or patent foramen ovale as noted on 2-D or Doppler imaging. Injection of bubbles documented no interatrial shunt. Doppler and Color Flow revealed no significant aortic regurgitation. There is no significant aortic valvular stenosis. Doppler and Color-flow revealed trace mitral regurgitation. Doppler and Color Flow revealed mild tricuspid regurgitation. The PA pressure was estimated at 35 mmHg. Glucose normalized back on home regimen. Feeling improved. Plan for restarting ASA in 7 days per neurology and neurosurgery. Plan: D/c home today Vitals Vitals Vital Signs Date Time Temp Pulse Resp B/P (MAP) Pulse Ox O2 Delivery O2 Flow Rate FiO2 09/26/19 08:38 78 155/58 09/26/19 07:00 98.9 16 98 Room Air 98.9 Physical Exam General: Alert, Oriented X3, Cooperative, No acute distress Heart: Regular rate, Normal S1, Normal S2 Abdomen: Normal bowel sounds, Soft, No tenderness, No hepatosplenomegaly, No masses Extremities: No clubbing, No cyanosis, Other (L BKA) Skin: No rashes, No breakdown, No significant lesion Labs LABS Laboratory Tests Test 09/25/19 12:21 09/25/19 16:46 09/25/19 21:39 09/26/19 07:21 Glucose (Fingerstick) 86 mg/dL (70-99) 239 mg/dL (70-99) 201 mg/dL (70-99) 87 mg/dL (70-99) Assessment and Plan Assessmemt and Plan Problems Medical Problems: (1) Intraparenchymal hemorrhage of brain Status: Acute Comment Review of Relevant I have reviewed the following items slime (where applicable) has been applied. Labs Laboratory Tests Test 09/24/19 09:14 09/24/19 10:40 09/24/19 11:43 09/24/19 17:28 Glucose (Fingerstick) 463 mg/dL (70-99) 261 mg/dL (70-99) 180 mg/dL (70-99) Sodium Level 141 mmol/L (136-145) Potassium Level 3.6 mmol/L (3.5-5.1) Chloride Level 104 mmol/L (98-107) Carbon Dioxide Level 17 mmol/L (21-32) Anion Gap 20 (6-14) Blood Urea Nitrogen 27 mg/dL (7-20) Creatinine 1.5 mg/dL (0.6-1.0) Estimated GFR (Cockcroft-Gault) 42.0 Glucose Level 359 mg/dL (70-99) Calcium Level 8.9 mg/dL (8.5-10.1) Test 09/25/19 00:05 09/25/19 04:50 09/25/19 12:21 09/25/19 16:46 Glucose (Fingerstick) 441 mg/dL (70-99) 86 mg/dL (70-99) 239 mg/dL (70-99) White Blood Count 8.1 x10^3/uL (4.0-11.0) Red Blood Count 3.45 x10^6/uL (3.50-5.40) Hemoglobin 10.2 g/dL (12.0-15.5) Hematocrit 30.7 % (36.0-47.0) Mean Corpuscular Volume 89 fL (79-100) Mean Corpuscular Hemoglobin 29 pg (25-35) Mean Corpuscular Hemoglobin Concent 33 g/dL (31-37) Red Cell Distribution Width 14.3 % (11.5-14.5) Platelet Count 185 x10^3/uL (140-400) Neutrophils (%) (Auto) 70 % (31-73) Lymphocytes (%) (Auto) 24 % (24-48) Monocytes (%) (Auto) 6 % (0-9) Eosinophils (%) (Auto) 0 % (0-3) Basophils (%) (Auto) 1 % (0-3) Neutrophils # (Auto) 5.6 x10^3/uL (1.8-7.7) Lymphocytes # (Auto) 1.9 x10^3/uL (1.0-4.8) Monocytes # (Auto) 0.5 x10^3/uL (0.0-1.1) Eosinophils # (Auto) 0.0 x10^3/uL (0.0-0.7) Basophils # (Auto) 0.1 x10^3/uL (0.0-0.2) Sodium Level 139 mmol/L (136-145) Potassium Level 3.9 mmol/L (3.5-5.1) Chloride Level 106 mmol/L (98-107) Carbon Dioxide Level 20 mmol/L (21-32) Anion Gap 13 (6-14) Blood Urea Nitrogen 23 mg/dL (7-20) Creatinine 1.5 mg/dL (0.6-1.0) Estimated GFR (Cockcroft-Gault) 42.0 Glucose Level 219 mg/dL (70-99) Calcium Level 8.4 mg/dL (8.5-10.1) Triglycerides Level 46 mg/dL (0-150) Cholesterol Level 111 mg/dL (0-200) LDL Cholesterol, Calculated 46 mg/dL (0-100) VLDL Cholesterol, Calculated 9 mg/dL (0-40) Non-HDL Cholesterol Calculated 55 mg/dL (0-129) HDL Cholesterol 56 mg/dL (40-60) Cholesterol/HDL Ratio 2.0 Test 09/25/19 21:39 09/26/19 07:21 Glucose (Fingerstick) 201 mg/dL (70-99) 87 mg/dL (70-99) Laboratory Tests Test 09/25/19 12:21 09/25/19 16:46 09/25/19 21:39 09/26/19 07:21 Glucose (Fingerstick) 86 mg/dL (70-99) 239 mg/dL (70-99) 201 mg/dL (70-99) 87 mg/dL (70-99) Medications Current Medications Ondansetron HCl (Zofran) 4 mg 1X ONCE IVP Last administered on 09/23/19at 21:43; Start 09/23/19 at 20:45; Stop 09/23/19 at 20:49; Status DC Sodium Chloride 1,000 ml @ 1,000 mls/hr Q1H IV Last administered on 09/23/19at 21:45; Start 09/23/19 at 20:45; Stop 09/23/19 at 21:44; Status DC Fentanyl Citrate (Fentanyl 2ml Vial) 75 mcg 1X ONCE IVP Last administered on 09/23/19at 21:44; Start 09/23/19 at 20:45; Stop 09/23/19 at 20:49; Status DC Insulin Human Regular (HumuLIN R VIAL) 10 unit 1X ONCE IV Last administered on 09/23/19at 23:09; Start 09/23/19 at 22:15; Stop 09/23/19 at 22:16; Status DC Ondansetron HCl (Zofran) 4 mg 1X ONCE IVP Last administered on 09/23/19at 22:30; Start 09/23/19 at 23:00; Stop 09/23/19 at 23:01; Status DC Fentanyl Citrate (Fentanyl 2ml Vial) 50 mcg 1X ONCE IVP Last administered on 09/23/19at 22:32; Start 09/23/19 at 23:00; Stop 09/23/19 at 23:01; Status DC Iohexol (Omnipaque 300 Mg/ml) 55 ml 1X ONCE IV Last administered on 09/23/19at 23:16; Start 09/23/19 at 23:15; Stop 09/23/19 at 23:21; Status DC Info (CONTRAST GIVEN -- Rx MONITORING) 1 each PRN DAILY PRN MC SEE COMMENTS; Start 09/23/19 at 23:30; Stop 09/25/19 at 23:29; Status DC Ondansetron HCl (Zofran) 4 mg PRN Q8HRS PRN IV NAUSEA/VOMITING 1st choice; Start 09/24/19 at 00:15; Stop 09/24/19 at 05:16; Status DC Fentanyl Citrate (Fentanyl 2ml Vial) 50 mcg PRN Q1HR PRN IV SEVERE PAIN 7-10 Last administered on 09/24/19at 04:10; Start 09/24/19 at 00:15; Stop 09/25/19 at 00:14; Status DC Sodium Chloride 1,000 ml @ 125 mls/hr Q8H IV Last administered on 09/25/19at 12:01; Start 09/24/19 at 00:30 Nicardipine HCl 50 mg/Sodium Chloride 250 ml @ 25 mls/hr CONT PRN IV SEE I/O RECORD Last administered on 09/24/19at 01:49; Start 09/24/19 at 01:30; Stop 09/25/19 at 13:40; Status DC Amlodipine Besylate (Norvasc) 10 mg DAILY PO Last administered on 09/26/19at 08:35; Start 09/24/19 at 09:00 Lisinopril (Prinivil) 20 mg DAILY PO Last administered on 09/26/19at 08:38; Start 09/24/19 at 09:00 Carvedilol (Coreg) 25 mg BIDWMEALS PO Last administered on 09/26/19at 08:35; Start 09/24/19 at 08:00 Insulin Glargine (Lantus Syringe) 20 unit QHS SQ Last administered on 09/25/19at 00:22; Start 09/24/19 at 21:00; Stop 09/25/19 at 08:25; Status DC Insulin Human Lispro (HumaLOG) 0-9 UNITS TIDWMEALS SQ Last administered on 09/25/19at 16:52; Start 09/24/19 at 08:00 Dextrose (Dextrose 50%-Water Syringe) 12.5 gm PRN Q15MIN PRN IV SEE COMMENTS; Start 09/24/19 at 05:15 Dextrose (Iv Dextrose 5%) 250 ml PRN Q15MIN PRN IV SEE COMMENTS; Start 09/24/19 at 05:15; Status Cancel Ondansetron HCl (Zofran) 4 mg PRN Q4HRS PRN IV NAUSEA/VOMITING 1st choice Last administered on 09/24/19at 05:22; Start 09/24/19 at 05:15; Stop 09/25/19 at 11:07; Status DC Prochlorperazine Edisylate (Compazine) 10 mg PRN Q8HRS PRN IV NAUSEA/VOMITING 2ND CHOICE Last administered on 09/24/19at 08:14; Start 09/24/19 at 05:15 Insulin Human Lispro (HumaLOG) 20 units 1X ONCE SQ Last administered on 09/24/19at 08:15; Start 09/24/19 at 08:30; Stop 09/24/19 at 08:31; Status DC Insulin Human Lispro (HumaLOG) 15 units Q6HRS SQ Last administered on 09/24/19at 11:46; Start 09/24/19 at 09:30; Stop 09/25/19 at 13:40; Status DC Info (Review Meds) 1 ea PRN 1X PRN MC SEE COMMENTS; Start 09/24/19 at 09:45 Sodium Chloride (Normal Saline Flush) 3 ml QSHIFT PRN IV AFTER MEDS AND BLOOD DRAWS; Start 09/24/19 at 09:45 Acetaminophen (Tylenol Supp) [address] Q[address] FEVER > 100.5'F; Start 09/24/19 at 09:45 Labetalol HCl (Normodyne Iv Push) 10 mg PRN Q10MIN PRN IVP SBP > 140, MP > 120; Start 09/24/19 at 09:45 Hydralazine HCl (Apresoline Inj) 10 mg PRN Q10MIN PRN IVP SBP > 160, MAP > 120; Start 09/24/19 at 09:45 Nicardipine HCl 50 mg/Sodium Chloride 250 ml @ 25 mls/hr CONT PRN IV HYPERTENSION; Start 09/24/19 at 09:45; Status UNV Ondansetron HCl (Zofran) 4 mg PRN Q6HRS PRN IVP NAUSEA/VOMITING, 1ST CHOICE; Start 09/24/19 at 09:45 Insulin Human Lispro (HumaLOG) 17 units 1X ONCE SQ Last administered on 09/25/19at 00:32; Start 09/25/19 at 00:30; Stop 09/25/19 at 00:31; Status DC Insulin Glargine (Lantus Syringe) 30 unit QHS SQ ; Start 09/25/19 at 21:00; Stop 09/25/19 at 13:40; Status DC Insulin Glargine (Lantus Syringe) 25 unit QHS SQ Last administered on 09/25/19at 22:01; Start 09/25/19 at 21:00 Insulin Human Lispro (HumaLOG) 3 units TIDAC SQ Last administered on 09/25/19at 16:30; Start 09/25/19 at 16:30 Active Scripts Active Reported Lantus Solostar (Insulin Glargine,Hum.rec.anlog) 100 Unit/1 Ml Insuln.pen 20 Unit SQ QHS Novolog Flexpen (Insulin Aspart) 100 Unit/1 Ml Insuln.pen 100 Unit SQ Amlodipine Besylate 10 Mg Tablet 1 Tab PO DAILY Lisinopril 20 Mg Tablet 1 Tab PO DAILY Carvedilol 25 Mg Tablet 1 Tab PO BID Vitals/I & O Vital Sign - Last 24 Hours 09/25/19 09/25/19 09/25/19 09/25/19 09:00 11:00 14:00 16:49 Temp 98.1 98.1 Pulse 68 70 78 81 Resp 19 28 B/P (MAP) 119/66 (83) 131/49 (76) 133/51 (78) 144/84 Pulse Ox 97 99 100 O2 Delivery Room Air Room Air Room Air 09/25/19 09/25/19 09/25/19 09/26/19 19:40 20:00 23:40 03:05 Temp 99.2 98.3 98.5 99.2 98.3 98.5 Pulse 83 80 77 Resp 16 16 16 B/P (MAP) 119/47 (71) 143/51 (81) 152/51 (84) Pulse Ox 100 100 99 O2 Delivery Room Air Room Air Room Air Room Air 09/26/19 09/26/19 09/26/19 09/26/19 07:00 08:35 08:35 08:38 Temp 98.9 98.9 Pulse 78 78 78 78 Resp 16 B/P (MAP) 155/58 (90) 155/58 155/58 155/58 Pulse Ox 98 O2 Delivery Room Air Intake and Output 09/25/19 09/25/19 09/26/19 15:00 23:00 07:00 Intake Total 75 ml 200 ml Balance 75 ml 200 ml ESPERANZA ARMAS MD Sep 26, 2019 09:06
--- NOTE | 2019-09-26 09:38 | PDOC ---
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 Right eye blindness, chronic, has regained some vision in left eye Peripheral neuropathy Hypertension, diabetes, history of pacemaker Lipid profile favorable Plan Continue Bert Okay for discharged to home today with home health, she does not want to go to rehab, she's really not much worse than before Resume aspirin in 1 week Rehab measures Subjective No complaints, no headaches, wants to go home Objective Vital Signs Date Time Temp Pulse Resp B/P (MAP) Pulse Ox O2 Delivery O2 Flow Rate FiO2 09/26/19 08:38 78 155/58 09/26/19 07:00 98.9 16 98 Room Air 98.9 Intake and Output 09/26/19 07:00 Intake Total 275 ml Balance 275 ml Intake Oral 200 ml IV Total 75 ml # Voids 4 # Bowel Movements 1 PHYSICAL EXAM Alert. Oriented to time, place and person. Has vision in the left eye now again, right eye blind EOMI. CN: no focal findings. Muscle tone: normal. Muscle strength: 4/5 left hemiparesis DTR: 2+ Plantar reflex: right plantar response, flexor, left BKA Gait: not examined in bed. Sensory exam: stocking loss right leg. No cerebellar signs elicited. Review of Relevant I have reviewed the following items slime (where applicable) has been applied. Labs Laboratory Tests Test 09/24/19 10:40 09/24/19 11:43 09/24/19 17:28 09/25/19 00:05 Sodium Level 141 mmol/L (136-145) Potassium Level 3.6 mmol/L (3.5-5.1) Chloride Level 104 mmol/L (98-107) Carbon Dioxide Level 17 mmol/L (21-32) Anion Gap 20 (6-14) Blood Urea Nitrogen 27 mg/dL (7-20) Creatinine 1.5 mg/dL (0.6-1.0) Estimated GFR (Cockcroft-Gault) 42.0 Glucose Level 359 mg/dL (70-99) Calcium Level 8.9 mg/dL (8.5-10.1) Glucose (Fingerstick) 261 mg/dL (70-99) 180 mg/dL (70-99) 441 mg/dL (70-99) Test 09/25/19 04:50 09/25/19 12:21 09/25/19 16:46 09/25/19 21:39 White Blood Count 8.1 x10^3/uL (4.0-11.0) Red Blood Count 3.45 x10^6/uL (3.50-5.40) Hemoglobin 10.2 g/dL (12.0-15.5) Hematocrit 30.7 % (36.0-47.0) Mean Corpuscular Volume 89 fL (79-100) Mean Corpuscular Hemoglobin 29 pg (25-35) Mean Corpuscular Hemoglobin Concent 33 g/dL (31-37) Red Cell Distribution Width 14.3 % (11.5-14.5) Platelet Count 185 x10^3/uL (140-400) Neutrophils (%) (Auto) 70 % (31-73) Lymphocytes (%) (Auto) 24 % (24-48) Monocytes (%) (Auto) 6 % (0-9) Eosinophils (%) (Auto) 0 % (0-3) Basophils (%) (Auto) 1 % (0-3) Neutrophils # (Auto) 5.6 x10^3/uL (1.8-7.7) Lymphocytes # (Auto) 1.9 x10^3/uL (1.0-4.8) Monocytes # (Auto) 0.5 x10^3/uL (0.0-1.1) Eosinophils # (Auto) 0.0 x10^3/uL (0.0-0.7) Basophils # (Auto) 0.1 x10^3/uL (0.0-0.2) Sodium Level 139 mmol/L (136-145) Potassium Level 3.9 mmol/L (3.5-5.1) Chloride Level 106 mmol/L (98-107) Carbon Dioxide Level 20 mmol/L (21-32) Anion Gap 13 (6-14) Blood Urea Nitrogen 23 mg/dL (7-20) Creatinine 1.5 mg/dL (0.6-1.0) Estimated GFR (Cockcroft-Gault) 42.0 Glucose Level 219 mg/dL (70-99) Calcium Level 8.4 mg/dL (8.5-10.1) Triglycerides Level 46 mg/dL (0-150) Cholesterol Level 111 mg/dL (0-200) LDL Cholesterol, Calculated 46 mg/dL (0-100) VLDL Cholesterol, Calculated 9 mg/dL (0-40) Non-HDL Cholesterol Calculated 55 mg/dL (0-129) HDL Cholesterol 56 mg/dL (40-60) Cholesterol/HDL Ratio 2.0 Glucose (Fingerstick) 86 mg/dL (70-99) 239 mg/dL (70-99) 201 mg/dL (70-99) Test 09/26/19 07:21 Glucose (Fingerstick) 87 mg/dL (70-99) Laboratory Tests Test 09/25/19 12:21 09/25/19 16:46 09/25/19 21:39 09/26/19 07:21 Glucose (Fingerstick) 86 mg/dL (70-99) 239 mg/dL (70-99) 201 mg/dL (70-99) 87 mg/dL (70-99) Medications Current Medications Ondansetron HCl (Zofran) 4 mg 1X ONCE IVP Last administered on 09/23/19at 21:43 ; Start 09/23/19 at 20:45; Stop 09/23/19 at 20:49; Status DC Sodium Chloride 1,000 ml @ 1,000 mls/hr Q1H IV Last administered on 09/23/19at 21:45; Start 09/23/19 at 20:45; Stop 09/23/19 at 21:44; Status DC Fentanyl Citrate (Fentanyl 2ml Vial) 75 mcg 1X ONCE IVP Last administered on 09/23/19at 21:44; Start 09/23/19 at 20:45; Stop 09/23/19 at 20:49; Status DC Insulin Human Regular (HumuLIN R VIAL) 10 unit 1X ONCE IV Last administered on 09/23/19at 23:09; Start 09/23/19 at 22:15; Stop 09/23/19 at 22:16; Status DC Ondansetron HCl (Zofran) 4 mg 1X ONCE IVP Last administered on 09/23/19at 22:30; Start 09/23/19 at 23:00; Stop 09/23/19 at 23:01; Status DC Fentanyl Citrate (Fentanyl 2ml Vial) 50 mcg 1X ONCE IVP Last administered on 09/23/19at 22:32; Start 09/23/19 at 23:00; Stop 09/23/19 at 23:01; Status DC Iohexol (Omnipaque 300 Mg/ml) 55 ml 1X ONCE IV Last administered on 09/23/19at 23:16; Start 09/23/19 at 23:15; Stop 09/23/19 at 23:21; Status DC Info (CONTRAST GIVEN -- Rx MONITORING) 1 each PRN DAILY PRN MC SEE COMMENTS; Start 09/23/19 at 23:30; Stop 09/25/19 at 23:29; Status DC Ondansetron HCl (Zofran) 4 mg PRN Q8HRS PRN IV NAUSEA/VOMITING 1st choice; Start 09/24/19 at 00:15; Stop 09/24/19 at 05:16; Status DC Fentanyl Citrate (Fentanyl 2ml Vial) 50 mcg PRN Q1HR PRN IV SEVERE PAIN 7-10 Last administered on 09/24/19at 04:10; Start 09/24/19 at 00:15; Stop 09/25/19 at 00:14; Status DC Sodium Chloride 1,000 ml @ 125 mls/hr Q8H IV Last administered on 09/25/19at 12:01; Start 09/24/19 at 00:30 Nicardipine HCl 50 mg/Sodium Chloride 250 ml @ 25 mls/hr CONT PRN IV SEE I/O RECORD Last administered on 09/24/19at 01:49; Start 09/24/19 at 01:30; Stop 09/25/19 at 13:40; Status DC Amlodipine Besylate (Norvasc) 10 mg DAILY PO Last administered on 09/26/19at 08:35; Start 09/24/19 at 09:00 Lisinopril (Prinivil) 20 mg DAILY PO Last administered on 09/26/19at 08:38; Start 09/24/19 at 09:00 Carvedilol (Coreg) 25 mg BIDWMEALS PO Last administered on 09/26/19at 08:35; Start 09/24/19 at 08:00 Insulin Glargine (Lantus Syringe) 20 unit QHS SQ Last administered on 09/25/19at 00:22; Start 09/24/19 at 21:00; Stop 09/25/19 at 08:25; Status DC Insulin Human Lispro (HumaLOG) 0-9 UNITS TIDWMEALS SQ Last administered on 09/25/19at 16:52; Start 09/24/19 at 08:00 Dextrose (Dextrose 50%-Water Syringe) 12.5 gm PRN Q15MIN PRN IV SEE COMMENTS; Start 09/24/19 at 05:15 Dextrose (Iv Dextrose 5%) 250 ml PRN Q15MIN PRN IV SEE COMMENTS; Start 09/24/19 at 05:15; Status Cancel Ondansetron HCl (Zofran) 4 mg PRN Q4HRS PRN IV NAUSEA/VOMITING 1st choice Last administered on 09/24/19at 05:22; Start 09/24/19 at 05:15; Stop 09/25/19 at 11:07; Status DC Prochlorperazine Edisylate (Compazine) 10 mg PRN Q8HRS PRN IV NAUSEA/VOMITING 2ND CHOICE Last administered on 09/24/19at 08:14; Start 09/24/19 at 05:15 Insulin Human Lispro (HumaLOG) 20 units 1X ONCE SQ Last administered on 09/24/19at 08:15; Start 09/24/19 at 08:30; Stop 09/24/19 at 08:31; Status DC Insulin Human Lispro (HumaLOG) 15 units Q6HRS SQ Last administered on 09/24/19at 11:46; Start 09/24/19 at 09:30; Stop 09/25/19 at 13:40; Status DC Info (Review Meds) 1 ea PRN 1X PRN MC SEE COMMENTS; Start 09/24/19 at 09:45 Sodium Chloride (Normal Saline Flush) 3 ml QSHIFT PRN IV AFTER MEDS AND BLOOD DRAWS; Start 09/24/19 at 09:45 Acetaminophen (Tylenol Supp) 650 mg PRN Q6HRS PRN MA FEVER > 100.5'F; Start 09/24/19 at 09:45 Labetalol HCl (Normodyne Iv Push) 10 mg PRN Q10MIN PRN IVP SBP > 140, MP > 120; Start 09/24/19 at 09:45 Hydralazine HCl (Apresoline Inj) 10 mg PRN Q10MIN PRN IVP SBP > 160, MAP > 120; Start 09/24/19 at 09:45 Nicardipine HCl 50 mg/Sodium Chloride 250 ml @ 25 mls/hr CONT PRN IV HYPERTENSION; Start 09/24/19 at 09:45; Status UNV Ondansetron HCl (Zofran) 4 mg PRN Q6HRS PRN IVP NAUSEA/VOMITING, 1ST CHOICE; Start 09/24/19 at 09:45 Insulin Human Lispro (HumaLOG) 17 units 1X ONCE SQ Last administered on 09/25/19at 00:32; Start 09/25/19 at 00:30; Stop 09/25/19 at 00:31; Status DC Insulin Glargine (Lantus Syringe) 30 unit QHS SQ ; Start 09/25/19 at 21:00; Stop 09/25/19 at 13:40; Status DC Insulin Glargine (Lantus Syringe) 25 unit QHS SQ Last administered on 09/25/19at 22:01; Start 09/25/19 at 21:00 Insulin Human Lispro (HumaLOG) 3 units TIDAC SQ Last administered on 09/25/19at 16:30; Start 09/25/19 at 16:30 Active Scripts Active Reported Lantus Solostar (Insulin Glargine,Hum.rec.anlog) 100 Unit/1 Ml Insuln.pen 20 Unit SQ QHS Novolog Flexpen (Insulin Aspart) 100 Unit/1 Ml Insuln.pen 100 Unit SQ Amlodipine Besylate 10 Mg Tablet 1 Tab PO DAILY Lisinopril 20 Mg Tablet 1 Tab PO DAILY Carvedilol 25 Mg Tablet 1 Tab PO BID Vitals/I & O Vital Sign - Last 24 Hours 09/25/19 09/25/19 09/25/19 09/25/19 11:00 14:00 16:49 19:40 Temp 98.1 99.2 98.1 99.2 Pulse 70 78 81 83 Resp 16 B/P (MAP) 131/49 (76) 133/51 (78) 144/84 119/47 (71) Pulse Ox 99 100 100 O2 Delivery Room Air Room Air Room Air 09/25/19 09/25/19 09/26/19 09/26/19 20:00 23:40 03:05 07:00 Temp 98.3 98.5 98.9 98.3 98.5 98.9 Pulse 80 77 78 Resp 16 16 16 B/P (MAP) 143/51 (81) 152/51 (84) 155/58 (90) Pulse Ox 100 99 98 O2 Delivery Room Air Room Air Room Air Room Air 09/26/19 09/26/19 09/26/19 08:35 08:35 08:38 Pulse 78 78 78 B/P (MAP) 155/58 155/58 155/58 Intake and Output 09/25/19 09/25/19 09/26/19 15:00 23:00 07:00 Intake Total 75 ml 200 ml Balance 75 ml 200 ml WILFRID ROMERO MD Sep 26, 2019 09:38
--- NOTE | 2019-09-26 10:12 | PDOC ---
PROGRESS NOTES Subjective Subjective No new complaints. Objective Objective Vital Signs Date Time Temp Pulse Resp B/P (MAP) Pulse Ox O2 Delivery O2 Flow Rate FiO2 09/26/19 08:38 78 155/58 09/26/19 07:00 98.9 16 98 Room Air 98.9 Intake and Output 09/26/19 07:00 Intake Total 275 ml Balance 275 ml Intake Oral 200 ml IV Total 75 ml # Voids 4 # Bowel Movements 1 Physical Exam Physical Exam She is alert and comfortable and admits her left eye vision is back to normal prior to her recent admission and she can see TV. She apparently came to the hospital without her left below knee prosthesis. She got up to wheel chair yesterday. Assessment Assessment Problems Medical Problems: (1) Intraparenchymal hemorrhage of brain Status: Acute Plan Plan of Care Agree with plans for home with home health follow up. Comment Review of Relevant I have reviewed the following items slime (where applicable) has been applied. Labs Laboratory Tests Test 09/24/19 10:40 09/24/19 11:43 09/24/19 17:28 09/25/19 00:05 Sodium Level 141 mmol/L (136-145) Potassium Level 3.6 mmol/L (3.5-5.1) Chloride Level 104 mmol/L (98-107) Carbon Dioxide Level 17 mmol/L (21-32) Anion Gap 20 (6-14) Blood Urea Nitrogen 27 mg/dL (7-20) Creatinine 1.5 mg/dL (0.6-1.0) Estimated GFR (Cockcroft-Gault) 42.0 Glucose Level 359 mg/dL (70-99) Calcium Level 8.9 mg/dL (8.5-10.1) Glucose (Fingerstick) 261 mg/dL (70-99) 180 mg/dL (70-99) 441 mg/dL (70-99) Test 09/25/19 04:50 09/25/19 12:21 09/25/19 16:46 09/25/19 21:39 White Blood Count 8.1 x10^3/uL (4.0-11.0) Red Blood Count 3.45 x10^6/uL (3.50-5.40) Hemoglobin 10.2 g/dL (12.0-15.5) Hematocrit 30.7 % (36.0-47.0) Mean Corpuscular Volume 89 fL (79-100) Mean Corpuscular Hemoglobin 29 pg (25-35) Mean Corpuscular Hemoglobin Concent 33 g/dL (31-37) Red Cell Distribution Width 14.3 % (11.5-14.5) Platelet Count 185 x10^3/uL (140-400) Neutrophils (%) (Auto) 70 % (31-73) Lymphocytes (%) (Auto) 24 % (24-48) Monocytes (%) (Auto) 6 % (0-9) Eosinophils (%) (Auto) 0 % (0-3) Basophils (%) (Auto) 1 % (0-3) Neutrophils # (Auto) 5.6 x10^3/uL (1.8-7.7) Lymphocytes # (Auto) 1.9 x10^3/uL (1.0-4.8) Monocytes # (Auto) 0.5 x10^3/uL (0.0-1.1) Eosinophils # (Auto) 0.0 x10^3/uL (0.0-0.7) Basophils # (Auto) 0.1 x10^3/uL (0.0-0.2) Sodium Level 139 mmol/L (136-145) Potassium Level 3.9 mmol/L (3.5-5.1) Chloride Level 106 mmol/L (98-107) Carbon Dioxide Level 20 mmol/L (21-32) Anion Gap 13 (6-14) Blood Urea Nitrogen 23 mg/dL (7-20) Creatinine 1.5 mg/dL (0.6-1.0) Estimated GFR (Cockcroft-Gault) 42.0 Glucose Level 219 mg/dL (70-99) Calcium Level 8.4 mg/dL (8.5-10.1) Triglycerides Level 46 mg/dL (0-150) Cholesterol Level 111 mg/dL (0-200) LDL Cholesterol, Calculated 46 mg/dL (0-100) VLDL Cholesterol, Calculated 9 mg/dL (0-40) Non-HDL Cholesterol Calculated 55 mg/dL (0-129) HDL Cholesterol 56 mg/dL (40-60) Cholesterol/HDL Ratio 2.0 Glucose (Fingerstick) 86 mg/dL (70-99) 239 mg/dL (70-99) 201 mg/dL (70-99) Test 4/29/20 07:21 Glucose (Fingerstick) 87 mg/dL (70-99) Laboratory Tests Test 09/25/19 12:21 09/25/19 16:46 09/25/19 21:39 09/26/19 07:21 Glucose (Fingerstick) 86 mg/dL (70-99) 239 mg/dL (70-99) 201 mg/dL (70-99) 87 mg/dL (70-99) Medications Current Medications Ondansetron HCl (Zofran) 4 mg 1X ONCE IVP Last administered on 09/23/19at 21:43; Start 09/23/19 at 20:45; Stop 09/23/19 at 20:49; Status DC Sodium Chloride 1,000 ml @ 1,000 mls/hr Q1H IV Last administered on 09/23/19at 21:45; Start 09/23/19 at 20:45; Stop 09/23/19 at 21:44; Status DC Fentanyl Citrate (Fentanyl 2ml Vial) 75 mcg 1X ONCE IVP Last administered on 09/23/19at 21:44; Start 09/23/19 at 20:45; Stop 09/23/19 at 20:49; Status DC Insulin Human Regular (HumuLIN R VIAL) 10 unit 1X ONCE IV Last administered on 09/23/19at 23:09; Start 09/23/19 at 22:15; Stop 09/23/19 at 22:16; Status DC Ondansetron HCl (Zofran) 4 mg 1X ONCE IVP Last administered on 09/23/19at 22:30; Start 09/23/19 at 23:00; Stop 09/23/19 at 23:01; Status DC Fentanyl Citrate (Fentanyl 2ml Vial) 50 mcg 1X ONCE IVP Last administered on 09/23/19at 22:32; Start 09/23/19 at 23:00; Stop 09/23/19 at 23:01; Status DC Iohexol (Omnipaque 300 Mg/ml) 55 ml 1X ONCE IV Last administered on 09/23/19at 23:16; Start 09/23/19 at 23:15; Stop 09/23/19 at 23:21; Status DC Info (CONTRAST GIVEN -- Rx MONITORING) 1 each PRN DAILY PRN MC SEE COMMENTS; Start 09/23/19 at 23:30; Stop 09/25/19 at 23:29; Status DC Ondansetron HCl (Zofran) 4 mg PRN Q8HRS PRN IV NAUSEA/VOMITING 1st choice; Start 09/24/19 at 00:15; Stop 09/24/19 at 05:16; Status DC Fentanyl Citrate (Fentanyl 2ml Vial) 50 mcg PRN Q1HR PRN IV SEVERE PAIN 7-10 Last administered on 09/24/19at 04:10; Start 09/24/19 at 00:15; Stop 09/25/19 at 00:14; Status DC Sodium Chloride 1,000 ml @ 125 mls/hr Q8H IV Last administered on 09/25/19at 12:01; Start 09/24/19 at 00:30 Nicardipine HCl 50 mg/Sodium Chloride 250 ml @ 25 mls/hr CONT PRN IV SEE I/O RECORD Last administered on 09/24/19at 01:49; Start 09/24/19 at 01:30; Stop 09/25/19 at 13:40; Status DC Amlodipine Besylate (Norvasc) 10 mg DAILY PO Last administered on 09/26/19at 08:35; Start 09/24/19 at 09:00 Lisinopril (Prinivil) 20 mg DAILY PO Last administered on 09/26/19at 08:38; Start 09/24/19 at 09:00 Carvedilol (Coreg) 25 mg BIDWMEALS PO Last administered on 09/26/19at 08:35; Start 09/24/19 at 08:00 Insulin Glargine (Lantus Syringe) 20 unit QHS SQ Last administered on 09/25/19at 00:22; Start 09/24/19 at 21:00; Stop 09/25/19 at 08:25; Status DC Insulin Human Lispro (HumaLOG) 0-9 UNITS TIDWMEALS SQ Last administered on 09/25/19at 16:52; Start 09/24/19 at 08:00 Dextrose (Dextrose 50%-Water Syringe) 12.5 gm PRN Q15MIN PRN IV SEE COMMENTS; Start 09/24/19 at 05:15 Dextrose (Iv Dextrose 5%) 250 ml PRN Q15MIN PRN IV SEE COMMENTS; Start 09/24/19 at 05:15; Status Cancel Ondansetron HCl (Zofran) 4 mg PRN Q4HRS PRN IV NAUSEA/VOMITING 1st choice Last administered on 09/24/19at 05:22; Start 09/24/19 at 05:15; Stop 09/25/19 at 11:07; Status DC Prochlorperazine Edisylate (Compazine) 10 mg PRN Q8HRS PRN IV NAUSEA/VOMITING 2ND CHOICE Last administered on 09/24/19at 08:14; Start 09/24/19 at 05:15 Insulin Human Lispro (HumaLOG) 20 units 1X ONCE SQ Last administered on 09/24/19at 08:15; Start 09/24/19 at 08:30; Stop 09/24/19 at 08:31; Status DC Insulin Human Lispro (HumaLOG) 15 units Q6HRS SQ Last administered on 09/24/19at 11:46; Start 09/24/19 at 09:30; Stop 09/25/19 at 13:40; Status DC Info (Review Meds) 1 ea PRN 1X PRN MC SEE COMMENTS; Start 09/24/19 at 09:45 Sodium Chloride (Normal Saline Flush) 3 ml QSHIFT PRN IV AFTER MEDS AND BLOOD DRAWS; Start 09/24/19 at 09:45 Acetaminophen (Tylenol Supp) 650 mg PRN Q6HRS PRN NE FEVER > 100.5'F; Start 09/24/19 at 09:45 Labetalol HCl (Normodyne Iv Push) 10 mg PRN Q10MIN PRN IVP SBP > 140, MP > 120; Start 09/24/19 at 09:45 Hydralazine HCl (Apresoline Inj) 10 mg PRN Q10MIN PRN IVP SBP > 160, MAP > 120; Start 09/24/19 at 09:45 Nicardipine HCl 50 mg/Sodium Chloride 250 ml @ 25 mls/hr CONT PRN IV HYPERTENSION; Start 09/24/19 at 09:45; Status UNV Ondansetron HCl (Zofran) 4 mg PRN Q6HRS PRN IVP NAUSEA/VOMITING, 1ST CHOICE; Start 09/24/19 at 09:45 Insulin Human Lispro (HumaLOG) 17 units 1X ONCE SQ Last administered on 09/25/19at 00:32; Start 09/25/19 at 00:30; Stop 09/25/19 at 00:31; Status DC Insulin Glargine (Lantus Syringe) 30 unit QHS SQ ; Start 09/25/19 at 21:00; Stop 09/25/19 at 13:40; Status DC Insulin Glargine (Lantus Syringe) 25 unit QHS SQ Last administered on 09/25/19at 22:01; Start 09/25/19 at 21:00 Insulin Human Lispro (HumaLOG) 3 units TIDAC SQ Last administered on 09/25/19at 16:30; Start 09/25/19 at 16:30 Active Scripts Active Reported Lantus Solostar (Insulin Glargine,Hum.rec.anlog) 100 Unit/1 Ml Insuln.pen 20 Unit SQ QHS Novolog Flexpen (Insulin Aspart) 100 Unit/1 Ml Insuln.pen 100 Unit SQ Amlodipine Besylate 10 Mg Tablet 1 Tab PO DAILY Lisinopril 20 Mg Tablet 1 Tab PO DAILY Carvedilol 25 Mg Tablet 1 Tab PO BID Vitals/I & O Vital Sign - Last 24 Hours 09/25/19 09/25/19 09/25/19 09/25/19 11:00 14:00 16:49 19:40 Temp 98.1 99.2 98.1 99.2 Pulse 70 78 81 83 Resp 16 B/P (MAP) 131/49 (76) 133/51 (78) 144/84 119/47 (71) Pulse Ox 99 100 100 O2 Delivery Room Air Room Air Room Air 09/25/19 09/25/19 09/26/19 09/26/19 20:00 23:40 03:05 07:00 Temp 98.3 98.5 98.9 98.3 98.5 98.9 Pulse 80 77 78 Resp 16 16 16 B/P (MAP) 143/51 (81) 152/51 (84) 155/58 (90) Pulse Ox 100 99 98 O2 Delivery Room Air Room Air Room Air Room Air 09/26/19 09/26/19 09/26/19 08:35 08:35 08:38 Pulse 78 78 78 B/P (MAP) 155/58 155/58 155/58 Intake and Output 09/25/19 09/25/19 09/26/19 15:00 23:00 07:00 Intake Total 75 ml 200 ml Balance 75 ml 200 ml CORAL PASTRANA MD Sep 26, 2019 10:12
[2019-09-26 10:48] VITALS: BP 144/81
--- NOTE | 2019-09-26 11:03 | NUR ---
SS following up with discharge planning. SS discussed with pt RN. Per pt's RN, pt will be discharged to home today. PT/OT recommended home with home healthcare but pt declining home healthcare stating that she has plenty of help at home. Pt's RN notified. SS will continue to follow for discharge planning.
--- NOTE | 2019-09-26 11:24 | SNU/HH DC ---
DISCHARGE WITH HOME HEALTH DISCHARGE INFORMATION: Discharge Date: Sep 26, 2019 Final Diagnosis: Problems Medical Problems: (1) Intraparenchymal hemorrhage of brain Status: Acute Condition on Discharge: Stable CODE STATUS: Code Status: Full HOME HEALTH: Face to Face: I certify this patient is under my care and that I, or a nurse practitioner or physician's assignment desk assistant working with me, had a face to face encounter that meets the physician face to face encounter requirements with this patient on 09/26/2019. Medical Complications: CVA Long-Term For: Medication Management RN For Eval/Treatment: Yes Physical Therapy For: Evalulation/Treatment Occupational Therapy For: Evaluation/Treatment [employer]ICE OFFICER For: Community Resources Pt Meets Homebound Status: Unsteady balance w/ amb,, Unable to negotiate home POST DISCHARGE ORDERS: DIET AFTER DISCHARGE: ADA CHECKS AFTER DISCHARGE: Checks after discharge: Check blood press - daily, Check blood sugar, ac/hs, Check your Temp as needed FOLLOW-UP: Follow up with: Start ASA on 10/03/2019 CERTIFICATION STATEMENT: Certification Statement: Certification Statement: Based on the above finding, I certify that this patient is confined to the home and needs intermittent senior care care, physical therapy and/or speech therapy, or continues to need occupational therapy.~ This patient is under my care, and I have initiated the establishment of the plan of care.~ This patient will be followed by myself or a community physician who will periodically review the plan of care. Home Meds Reported Medications Insulin Glargine,Hum.rec.anlog (LANTUS SOLOSTAR) 100 Unit/1 Ml Insuln.pen, 20 U NIT SQ QHS, #15 ML 5 Refills 01/24/14 Insulin Aspart (NOVOLOG FLEXPEN) 100 Unit/1 Ml Insuln.pen, 100 UNIT SQ, SYR 01/24/14 Amlodipine Besylate (AMLODIPINE BESYLATE) 10 Mg Tablet, 1 TAB PO DAILY, #30 TAB 5 Refills 01/24/14 Lisinopril (LISINOPRIL) 20 Mg Tablet, 1 TAB PO DAILY, #30 TAB 5 Refills 01/24/14 Carvedilol (CARVEDILOL) 25 Mg Tablet, 1 TAB PO BID, #180 TAB 1 Refill 01/24/14 Discontinued Reported Medications Aspirin (ASPIRIN) 325 Mg Tablet, 1 TAB PO DAILY for cardiac, #30 TAB 5 Refills 09/24/19 ESPERANZA ARMAS MD Sep 26, 2019 11:24
--- NOTE | 2019-09-26 12:04 | NUR ---
PT was escorted out to main entrance by Krissy GRIFFITHS by wheelchair, all belongings with her. Pt faired well.
--- NOTE | 2019-09-26 12:54 | PDOC3 ---
Discharge Summary Visit Information Date of Admission: Sep 24, 2019 Date of Discharge: Sep 26, 2019 Admitting Diagnosis: Hemorrhagic CVA Final Diagnosis Problems Medical Problems: (1) Intraparenchymal hemorrhage of brain Status: Acute Brief Hospital Course Allergies Allergies Coded Allergies Type Severity Reaction Last Updated Verified No Known Drug Allergies 01/24/14 No Vital Signs Vital Signs Date Time Temp Pulse Resp B/P (MAP) Pulse Ox O2 Delivery O2 Flow Rate FiO2 09/26/19 10:48 98.5 74 16 144/81 (102) 100 Room Air 98.5 Lab Results Laboratory Tests Test 09/24/19 17:28 09/25/19 00:05 09/25/19 04:50 09/25/19 12:21 Glucose (Fingerstick) 180 mg/dL (70-99) 441 mg/dL (70-99) 86 mg/dL (70-99) White Blood Count 8.1 x10^3/uL (4.0-11.0) Red Blood Count 3.45 x10^6/uL (3.50-5.40) Hemoglobin 10.2 g/dL (12.0-15.5) Hematocrit 30.7 % (36.0-47.0) Mean Corpuscular Volume 89 fL (79-100) Mean Corpuscular Hemoglobin 29 pg (25-35) Mean Corpuscular Hemoglobin Concent 33 g/dL (31-37) Red Cell Distribution Width 14.3 % (11.5-14.5) Platelet Count 185 x10^3/uL (140-400) Neutrophils (%) (Auto) 70 % (31-73) Lymphocytes (%) (Auto) 24 % (24-48) Monocytes (%) (Auto) 6 % (0-9) Eosinophils (%) (Auto) 0 % (0-3) Basophils (%) (Auto) 1 % (0-3) Neutrophils # (Auto) 5.6 x10^3/uL (1.8-7.7) Lymphocytes # (Auto) 1.9 x10^3/uL (1.0-4.8) Monocytes # (Auto) 0.5 x10^3/uL (0.0-1.1) Eosinophils # (Auto) 0.0 x10^3/uL (0.0-0.7) Basophils # (Auto) 0.1 x10^3/uL (0.0-0.2) Sodium Level 139 mmol/L (136-145) Potassium Level 3.9 mmol/L (3.5-5.1) Chloride Level 106 mmol/L (98-107) Carbon Dioxide Level 20 mmol/L (21-32) Anion Gap 13 (6-14) Blood Urea Nitrogen 23 mg/dL (7-20) Creatinine 1.5 mg/dL (0.6-1.0) Estimated GFR (Cockcroft-Gault) 42.0 Glucose Level 219 mg/dL (70-99) Calcium Level 8.4 mg/dL (8.5-10.1) Triglycerides Level 46 mg/dL (0-150) Cholesterol Level 111 mg/dL (0-200) LDL Cholesterol, Calculated 46 mg/dL (0-100) VLDL Cholesterol, Calculated 9 mg/dL (0-40) Non-HDL Cholesterol Calculated 55 mg/dL (0-129) HDL Cholesterol 56 mg/dL (40-60) Cholesterol/HDL Ratio 2.0 Test 09/25/19 16:46 09/25/19 21:39 09/26/19 07:21 Glucose (Fingerstick) 239 mg/dL (70-99) 201 mg/dL (70-99) 87 mg/dL (70-99) Laboratory Tests Test 09/25/19 16:46 09/25/19 21:39 09/26/19 07:21 Glucose (Fingerstick) 239 mg/dL (70-99) 201 mg/dL (70-99) 87 mg/dL (70-99) Brief Hospital Course A/P: Headache - likely 2/2 hemorrhagic CVA. Pain controlled at this time. AFSHAN - likely vasomotor nephropathy, Cr 1.7 Acute CVA - new possible acute or subacute right parietal lobe stroke as well as 9 mm focus of hyperattenuation suggesting a small acute intraparenchymal hemorrhage in the area of acute or subacute stroke. Neurology and neurosurgery consulted. 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 Await SALON ASSISTANT evaluation High Cholesterol - cont statin Heart Disease - hold antiplatelets with hemorrhagic CVA Hypertension - cont meds PAD s/p L BKA - stable SSS s/p PPM - pacing. Ex-smoker (quit 2019) - counseled on continued cessation FEN - ADA diet PPX - SCDs FULL CODE Dispo - inpatient for acute hemorrhagic CVA, cont ICU monitoring for now, BP control cc time 35 minutes History of Present Illness History of Present Illness Ms Haney is a 64yo F w/ PMHx Diabetes-Type II, High Cholesterol, Heart Disease, Hypertension, Stroke, PAD s/p L BKA, SSS s/p PPM, ex-smoker (quit 2019) who presents with complaint of severe headache to the right side of her head behind her eye. She states that headache started when she woke up from a nap at about 1500 on 09/23/2019. She states the pain is in her right eye radiating up into the right side of her head. She states that she has noticed some decrease in vision to her left eye. She indicates that she has had nausea and vomiting associated with the headache. She rated the headache at a 10 out of 10. She denies any lateralizing weakness. She was found with Cr 1.7, glucose 528, and on CT head was found with old large right MCA infarct and new possible acute or subacute right parietal lobe stroke as well as 9 mm focus of hyperattenuation suggesting a small acute intraparenchymal hemorrhage in the area of acute or subacute stroke. BP 158/117 initially. No EKG available, telemetry appears paced.She was admitted to ICU for further monitoring of hemorrhagic CVA. Seen by PMR, Neurology, neurosurgery 09/24: Afebrile overnight, blood pressure better controlled. Repeat CT head shows evolving infarct surrounding hemorrhagic infarct. Glucose over 400 overnight, still having difficulty with glycemic control. Cleared for regular diet by speech. Echo: The left ventricle is normal size. The left ventricular systolic function is normal and the ejection fraction is within normal range. The Ejection Fraction is 60-65%. There are device leads in the right ventricle and atrium. The interatrial septum is intact with no evidence for an atrial septal defect or patent foramen ovale as noted on 2-D or Doppler imaging. Injection of bubbles documented no interatrial shunt. Doppler and Color Flow revealed no significant aortic regurgitation. There is no significant aortic valvular stenosis. Doppler and Color-flow revealed trace mitral regurgitation. Doppler and Color Flow revealed mild tricuspid regurgitation. The PA pressure was estimated at 35 mmHg. Glucose normalized back on home regimen. Feeling improved. Plan for restarting ASA in 7 days per neurology and neurosurgery. Plan: D/c home today Discharge Information Condition at Discharge: Improved Follow Up: Weeks Disposition/Orders: D/C to Home w/ HH Scheduled Amlodipine Besylate (Amlodipine Besylate) 10 Mg Tablet, 1 TAB PO DAILY, #30 Ref 5 (Reported) Entered as Reported by: GIOVANNY SINGER on 01/24/14942 Last Taken: Unknown Dose on 09/22/191899 Last Action: Continued on 09/24/19456 by ASHA FU Carvedilol (Carvedilol) 25 Mg Tablet, 1 TAB PO BID, #180 Ref 1 (Reported) Entered as Reported by: GIOVANNY SINGER on 01/24/14942 Last Taken: Unknown Dose on 09/23/198 Last Action: Converted on 09/24/19456 by ASHA FU Insulin Glargine,Hum.rec.anlog (Lantus Solostar) 100 Unit/1 Ml Insuln.pen, 20 UNIT SQ QHS, #15 Ref 5 (Reported) Entered as Reported by: GIOVANNY SINGER on 01/24/14942 Last Taken: Unknown Dose on 09/22/191899 Last Action: Converted on 09/24/19456 by ASHA FU Lisinopril (Lisinopril) 20 Mg Tablet, 1 TAB PO DAILY, #30 Ref 5 (Reported) Entered as Reported by: GIOVANNY SINGER on 01/24/14942 Last Taken: Unknown Dose on 09/23/19899 Last Action: Continued on 09/24/19456 by ASHA FU Miscellaneous Medications Insulin Aspart (Novolog Flexpen) 100 Unit/1 Ml Insuln.pen, 100 UNIT SQ, (Reported) Entered as Reported by: GIOVANNY SINGER on 01/24/14942 Last Taken: Unknown Dose on 09/23/19 1300 Last Action: Last Taken Edited on 09/24/19401 by ASHA FU Discontinued Medications Aspirin (Aspirin) 325 Mg Tablet, 1 TAB PO DAILY for cardiac, #30 Ref 5 (Reported) Entered as Reported by: ASHA FU on 09/24/19399 Last Taken: Unknown Dose on 09/23/19899 Last Action: Discontinued on 09/24/197 by ESPERANZA GONZALEZ MD Sep 26, 2019 12:54
== END 2019-09-26 12:10 | disposition home or self-care (01) | DRG 64 ==
LOC: ER 20:35 → CVICU 09-24 01:28 → 6 SOUTH 09-25 14:25
PROVIDERS: ADMIT Internal Medicine; ATTEND Internal Medicine
DX: I61.9 Nontraumatic intracerebral hemorrhage, unspecified (principal); I63.9 Cerebral infarction, unspecified; N17.0 Acute kidney failure with tubular necrosis; I69.354 Hemiplegia and hemiparesis following cerebral infarction affecting left non-dominant side; E10.319 Type 1 diabetes mellitus with unspecified diabetic retinopathy without macular edema; E10.51 Type 1 diabetes mellitus with diabetic peripheral angiopathy without gangrene; E10.65 Type 1 diabetes mellitus with hyperglycemia; E78.00 Pure hypercholesterolemia, unspecified; E78.5 Hyperlipidemia, unspecified; F17.200 Nicotine dependence, unspecified, uncomplicated; G62.9 Polyneuropathy, unspecified; H54.61 Unqualified visual loss, right eye, normal vision left eye; H54.62 Unqualified visual loss, left eye, normal vision right eye; I10 Essential (primary) hypertension; I25.10 Atherosclerotic heart disease of native coronary artery without angina pectoris; I49.5 Sick sinus syndrome; Z79.4 Long term (current) use of insulin; Z82.1 Family history of blindness and visual loss; Z82.3 Family history of stroke; Z82.49 Family history of ischemic heart disease and other diseases of the circulatory system; Z83.3 Family history of diabetes mellitus; Z89.512 Acquired absence of left leg below knee; Z90.49 Acquired absence of other specified parts of digestive tract; Z95.0 Presence of cardiac pacemaker
CPT/HCPCS: 36415; 70450; 70496; 80048; 80053; 80061; 80307; 81001; 82010; 82962; 83735; 85025; 93306; 96361; 96365; 96375; 96376; 99285; J0780; J1815; J2405; J3010; J3490; J7030; J7050; Q9967; 92610-GN; 97530-GO; 97535-GO; G0378

== ENCOUNTER 2019-11-08 06:37 | Inpatient (IN) | payer OTHER ==
[2019-11-08] VITALS (15 sets, daily range): BP systolic 110–166; BP diastolic 44–86
[~2019-11-08] VITALS: Ht 160 cm; Wt 61.7 kg
[~2019-11-08 06:37] MED LIST changes: +ASPI325T8 PO
[2019-11-08] MEDS ORDERED: IV NORMAL SALINE 1000ML BAG 1,000 ML IV ONE (07:00)
--- NOTE | 2019-11-08 07:30 | EKG ---
[facility] [address] [place] [address] Test Date: 2019-11-08 Test Time: 06:47:36 Pat Name: ZANE ROBB Department: Room: Gender: F Press Setup Operator: : [id number] Requested By: CHETAN COBB Order Number: [id number] Reading MD: Ralf Toure Measurements Intervals [place] Rate: 95 P: 90 KS: 150 QRS: -32 QRSD: 122 T: 97 QT: 396 QTc: 501 Interpretive Statements V PACED BEATS PROBABLE SINUS RHYTHM Electronically Signed On 11-09-2019 16:37:22 CDT by Ralf Toure
--- NOTE | 2019-11-08 07:39 | RAD ---
PORTABLE CHEST 1V INDICATION: Reason: altered mental status / Spl. Instructions: / History: . COMPARISON STUDY: 05/17/2009. FINDINGS: Left pectoral transvenous dual-chamber biventricular ICD/pacemaker. Lungs: Normal lung volume. No pulmonary mass or consolidation. The tracheobronchial tree and hilar structures are normal. Pleura: No pleural effusion or pneumothorax. Heart and Mediastinum: Cardiomegaly. Atherosclerotic thoracic aorta. IMPRESSION: No consolidation. Electronically signed by: Rod Chan MD (11/08/2019 7:36 AM) [id number]
[2019-11-08 07:53] LABS: BILIRUBIN,URINE NEGATIVE (NEG); CLARITY,URINE CLEAR; COLOR,URINE YELLOW; NITRITE,URINE NEGATIVE (NEG); PROTEIN,URINE 100 mg/dL (NEG-TRACE); UROBILINOGEN,URINE 0.2 mg/dL (0.2 mg/dL)
--- NOTE | 2019-11-08 07:54 | PHYS DOC ---
Past Medical History Past Medical History: Diabetes-Type II, High Cholesterol, Heart Disease, Hypertension, Stroke Past Medical History Limited secondary to altered mental status Past Surgical History: Appendectomy, Pacemaker, Tubal ligation, Other Additional Past Surgical Histo: LEFT BKA Past Surgical History Limited secondary to altered mental status Smoking Status: Former Smoker Alcohol Use: None Drug Use: None Social History Limited secondary to altered mental status General Adult EDM: Chief Complaint: ALTERED MENTAL STATUS HPI: HPI: Patient is a 64 year old female presents via EMS with report of altered mental status. Unknown last know well. EMS reports son was very poor historian regarding patient. Patient does have prior history of CVA. It is unclear what patient's baseline mentation is. EMS reports noting some "drug paraphernalia" noted in home near bed. History of present illness limited secondary to altered mental status. Review of Systems: Review of Systems: Review of systems limited secondary to patient's altered mental status Current Medications: Current Medications Medications (Trade) Dose Ordered Sig/Pa Start Time Stop Time Status Last Admin Dose Admin Sodium Chloride 1,000 ml @ 1,000 mls/hr 1X ONCE 11/08/19 07:00 11/08/19 07:59 11/08/19 07:47 1,000 MLS/HR Allergies: Allergies: Allergies Coded Allergies Type Severity Reaction Last Updated Verified No Known Drug Allergies 01/24/14 No Physical Exam: PE: Constitutional: Well developed, frail female HENT: Normocephalic, atraumatic, oropharynx dry Eyes: Pupils pinpoint bilaterally, EOMI, conjunctiva normal, no discharge Neck: Normal range of motion, no tenderness, supple, no meningeal signs Cardiovascular: Heart rate normal, regular rhythm Lungs & Thorax: Bilateral breath sounds clear to auscultation, no wheezing Abdomen: Soft, no tenderness, no guarding/rebound tenderness/distention Skin: Warm, dry, no erythema, no rash Extremities: Moves BUE but weak= strength 4/5, left BKA- move stub, moves right extremity but weak= strength 4/5 Neurologic: Alert and oriented X name only, expressive aphasia and slurred speech noted Psychologic: Affect normal, judgment abnormal Current Patient Data: Labs: Laboratory Tests Test 11/08/19 06:54 11/08/19 07:13 Glucose (Fingerstick) 442 mg/dL (70-99) H Troponin I Quantitative < 0.017 ng/mL (0.000-0.055) Vital Signs: Vital Signs Date Time Temp Pulse Resp B/P (MAP) Pulse Ox O2 Delivery O2 Flow Rate FiO2 11/08/19 07:21 98.0 95 26 136/98 (111) 100 Room Air 98.0 EKG: EKG: @0647 Paced rhythm at 95bpm Radiology/Procedures: Radiology/Procedures: PROCEDURE: PORTABLE CHEST 1V INDICATION: Reason: altered mental status / Spl. Instructions: / History: . COMPARISON STUDY: 05/17/2009. FINDINGS: Left pectoral transvenous dual-chamber biventricular ICD/pacemaker. Lungs: Normal lung volume. No pulmonary mass or consolidation. The tracheobronchial tree and hilar structures are normal. Pleura: No pleural effusion or pneumothorax. Heart and Mediastinum: Cardiomegaly. Atherosclerotic thoracic aorta. IMPRESSION: No consolidation. Electronically signed by: Rod Chan MD (11/08/2019 7:36 AM) [id number] Course & Med Decision Making: Course & Med Decision Making Pertinent Labs and Imaging studies reviewed. (See chart for details) Patient with unknown last known well presents via EMS with report of altered mental status. Patient was found to have blood sugar above 400s by EMS. There was, concern for possible drug paraphernalia in home per EMS. Patient with poor mentation. Patient is reported to have prior CVAs with unknown baseline. CT head with findings consistent for subacute CVA. Rectal aspirin therefore provided. EKG is paced. Labs obtained and posted to chart. Blood sugar again noted to be greater than 400. Concern for DKA. Acetone elevated. Lactic acid also elevated. IV fluid hydration provided. Insulin bolus subcu provided. IV fluid hydration continued along with insulin drip per DKA protocol. Patient requiring admission for further evaluation and treatment. Discussed with Dr. Kitchen (hospitalist) who is in agreement with admission and requests ICU status. Jeronimo Disclaimer: Jeronimo Disclaimer: This electronic medical record was generated, in whole or in part, using a voice recognition dictation system. Departure Departure Impression: Primary Impression: CVA (cerebral vascular accident) Qualified Codes: I63.9 - Cerebral infarction, unspecified Additional Impressions: DKA (diabetic ketoacidoses) Qualified Codes: E13.10 - Other specified diabetes mellitus with ketoacidosis without coma Lactic acidosis Disposition: ADMITTED INPATIENT Admitting Physician: SAUNDERS (Marsh) Condition: GUARDED Referrals: NO PCP (PCP) Justicifation of Admission Dx: Justifications for Admission: Justification of Admission Dx: Yes Stroke - Ischemic: Stroke-Ischemic DKA: DKA NIHSS Stroke Scale NIH Stroke Scale: NIH Stroke Scale Response (Comments) Value Level of Consciousness: 1 Not alert/arousable 1 LOC Questions: 0 Answers both correctly 0 LOC Commands: 1 Performs one task 1 Best Gaze: 0 Normal 0 Visual: 0 No visual loss 0 Facial Palsy: 0 Normal, symmetrical 0 Motor - Left Arm 2 Some effort 2 Motor - Right Arm 2 Some effort 2 Motor - Left Leg 5 Amputation 0 Motor: Right Leg 2 Some effort 2 Sensory: 0 No loss 0 Best Language: 1 Mild to mod aphasia 1 Dysathria: 1 Mild to moderate 1 Extinction and Inattention: 2 Extinction 2 Total 12 Critical Care Time Critical care time was 30 minutes which includes time at bedside, spent in discussion of patient's care with specialists and/or family members, with interpretation of laboratory and/or radiological studies and is exclusive of procedures. CHETAN COBB DO Nov 08, 2019 07:53
[2019-11-08 07:56] LABS: BASO % 0 % (0-3); EOS % 0 % (0-3); HEMATOCRIT 33.6 % (36.0-47.0); HEMOGLOBIN 10.9 g/dL (12.0-15.5); LYMPH # 1.6 x10^3/uL (1.0-4.8); LYMPH % 11 % (24-48); MEAN CORPUSCULAR HEMOGLOBIN 30 pg (25-35); MEAN CORPUSCULAR HGB CONC 32 g/dL (31-37); MEAN CORPUSCULAR VOLUME 91 fL (79-100); MONO # 0.4 x10^3/uL (0.0-1.1); MONO % 3 % (0-9); NEUT # 12.7 x10^3/uL (1.8-7.7); NEUT % 86 % (31-73); PLATELET COUNT 213 x10^3/uL (140-400); RED BLOOD COUNT 3.68 x10^6/uL (3.50-5.40); RED CELL DISTRIBUTION WIDTH 14.3 % (11.5-14.5); WHITE BLOOD COUNT 14.7 x10^3/uL (4.0-11.0)
[2019-11-08 08:00] LABS: AMPHETAMINE/METHAMPHETAMINE NEG (NEG); BARBITURATES NEG (NEG); BENZODIAZEPINES NEG (NEG); CANNABINOIDS NEG (NEG); COCAINE NEG (NEG); METHADONE NEG (NEG); OPIATES NEG (NEG); PHENCYCLIDINE NEG (NEG)
[2019-11-08 08:08] LABS: ACETAMIN < 2 mcg/ml (10-30); ETHANOL < 10 mg/dL (0-10); SALIC 5.8 mg/dL (2.8-20.0)
[2019-11-08 08:10] LABS: ALBUMIN 3.7 g/dL (3.4-5.0); ALBUMIN/GLOBULIN RATIO 1.2 (1.0-1.7); CALCIUM 8.5 mg/dL (8.5-10.1); CREATININE 2.5 mg/dL (0.6-1.0); GFR 23.3; POTASSIUM 4.7 mmol/L (3.5-5.1); TOTAL BILIRUBIN 0.6 mg/dL (0.2-1.0); TOTAL PROTEIN 6.7 g/dL (6.4-8.2)
[2019-11-08 08:12] LABS: BACTERIA,URINE 0 /HPF (0-FEW); RBC,URINE OCC /HPF (0-2)
[2019-11-08 08:13] LABS: AMORPHOUS SEDIMENT,UR PRESENT /HPF; HYALINE CASTS, URINE FEW /HPF
[2019-11-08] MEDS ORDERED: INSULIN REGULAR 100 UNIT/ML 3ML VIAL. SQ ONE (08:30)
[2019-11-08 08:41] LABS: % BANDS 2 % (0-9); % LYMPHS 6 % (24-48); % MONOS 4 % (0-10); % SEGS 88 % (35-66); ANISOCYTOSIS SLIGHT; PLT ESTIMATE ADEQUATE (ADEQUATE)
[2019-11-08 08:42] LABS: BASE EXCESS COOX -18 mmol/L (-3-3); HCO3 COOX 7 mmol/L (21-28); PCO2 COOX 18 mmHg (35-46); PO2 COOX 148 mmHg (65-108); SAT O2 COOX 98 % (92-99)
--- NOTE | 2019-11-08 08:42 | RAD ---
CT head without contrast PQRS statement: CT scans at this facility use dose reduction including either automated exposure control, iterative reconstructions, and /or weight based radiation dosing via mA and kV modification when appropriate to reduce radiation dose to as low as reasonably achievable. HISTORY: Altered mental status. COMPARISON: CT head September 24, 2019. FINDINGS: Evolution of right hemispheric MCA territory late subacute ischemic infarct involving the right posterior temporal lobe, parietal lobe with increased hypoattenuation since the prior exam. There is a separate chronic infarct with focal encephalomalacia of the right insula and frontal operculum and basal ganglia is stable. The right temporal parenchymal hematoma on the prior study since resolved. At the left frontal lobe there is a 3 cm new wedge-shaped hypodensity of the cortex and underlying white matter image 19 which is likely an acute or subacute ischemic infarct. No mass. No hydrocephalus. Orbits, mastoids and bones are unremarkable. IMPRESSION: 1. 3 cm left frontal lobe acute or subacute ischemic infarct, new from prior studies, as described above. 2. Evolving late subacute right MCA territory ischemic infarct with a similar size and distribution to the prior exam. 3. The right temporal lobe hematoma on the prior exam has since resolved. 4. Chronic right MCA territory ischemic infarct of the right insula, frontal operculum and basal ganglia is stable. Electronically signed by: Bryce Perrin MD (11/08/2019 8:39 AM) [id number]
[2019-11-08 08:43] LABS: METHEMOGLOBIN 0.5 % (0.0-1.9); OXYHEMOGLOBIN 97.2 %
[2019-11-08] MEDS ORDERED: IV 1/2 NORMAL SALINE 1,000 ML IV SCH (09:04)
[2019-11-08] MEDS: IV 1/2 NORMAL SALINE 1,000 ML IV SCH ×4 (09:06→21:06)
[2019-11-08] MEDS: IV DEXTROSE 5 %-0.45 % NACL 1,000 ML IV SCH ×5 (09:06→22:40)
[2019-11-08] MEDS ORDERED: INSULIN REGULAR VIAL 100 UNIT in IV NORMAL SALINE 100ML 100 ML IV PRN (09:15)
[2019-11-08] MEDS ORDERED: POTASSIUM CHLORIDE 10MEQ 100 ML IV PRN ×2 (09:15)
[2019-11-08] MEDS ORDERED: INSULIN,REGULAR 100 UNIT DRIP 100 ML IV PRN (09:15)
[2019-11-08] MEDS ORDERED: ASPIRIN RECTAL 300 MG SUPP. PR ONE (09:15)
[2019-11-08] MEDS ORDERED: ONDANSETRON PF 4 MG/2 ML VIAL. IV PRN (09:30)
[2019-11-08] MEDS: INSULIN REGULAR VIAL 100 UNIT in IV NORMAL SALINE 100ML 100 ML IV PRN ×2 (11:57→20:13)
--- NOTE | 2019-11-08 12:00 | NUR ---
1020 ER admit to ICU 112 W DKA/ BG 442. Reportedly recent admission for same issue. [id number] x1 in ER w 4units SQ insulin prior to transfer to ICU . Current sugar 388. Protocol lab and insulin gtt ordered. Communication w pharmacy... insulin gtt on way to unit. Attempted IV sticks w/o success per skilled RN Courtney,one IV LEJ re secured w insulin gtt PB into infusing fluids. Mentation disoriented,fragmented . Extra blankets... shivering at this time,cool extremities,t 97 po. Condition update per phone w . Moves all extremities but not always to command Rausch cath placed/ immediate return 700 yellow urine. High fowlers position for comfort.
[2019-11-08 12:03] LABS: CREATININE 2.5 mg/dL (0.6-1.0); GFR 23.3; MAGNESIUM 1.9 mg/dL (1.8-2.4); PHOSPHORUS 3.8 mg/dL (2.6-4.7); POTASSIUM 4.6 mmol/L (3.5-5.1)
--- NOTE | 2019-11-08 13:44 | PDOC2 ---
NEUROLOGY CONSULT Date of Admission Date of Admission DATE: 11/08/19 TIME: 13:32 Reason for Consult Reason for Consult: Altered mental status Referring Physician Referring Physician: Dr. Kitchen Source Source: Chart review History of Present Illness History of Present Illness The patient is a 64-year-old right-handed male whose son called emergency medical services this morning as the patient had altered mental status. We do not have a precise last known normal. 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 She had a prior right hemispheric stroke with left hemiparesis and blindness in the right eye 2 years ago. I then saw the patient in the office on 10/11. She was complaining of increased headache. A repeat head CT showed persistent hemorrhagic transformation and cortical laminar nec rosis. Then her headache got better, and her vision returned to baseline. There is never been a seizure or significant head injury. Patient did have negative head/neck CT angiogram and transthoracic echocardiogram last time. Past Medical History Cardiovascular: HTN, Hyperlipidemia CENTRAL NERVOUS SYSTEM: CVA, Periperal neuropathy, Other (Blind right eye) Endocrine: Diabetes (Type I) Past Surgical History Past Surgical History: Pacemaker, Appendectomy, Tubal Ligation, Other (Left BKA, right ankle fracture) Family History Family History: CVA, Hypertension Social History Social History Smoker, no alcohol, retired, Current Medications Current Medications Current Medications Sodium Chloride 1,000 ml @ 1,000 mls/hr 1X ONCE IV Last administered on 11/08/19at 07:47; Start 11/08/19 at 07:00; Stop 11/08/19 at 07:59; Status DC Insulin Human Regular (HumuLIN R VIAL) 4 unit 1X ONCE SQ Last administered on 11/08/19at 08:32; Start 11/08/19 at 08:30; Stop 11/08/19 at 08:31; Status DC Aspirin (Aspirin Rectal Supp) 300 mg 1X ONCE OH Last administered on 11/08/19at 09:14; Start 11/08/19 at 09:15; Stop 11/08/19 at 09:16; Status DC Sodium Chloride 1,000 ml @ 500 mls/hr Q2H IV ; Start 11/08/19 at 09:04; Stop 11/08/19 at 11:03; Status DC Sodium Chloride 1,000 ml @ 250 mls/hr Q4H IV ; Start 11/08/19 at 09:06 Dextrose/Sodium Chloride 1,000 ml @ 250 mls/hr Q4H IV ; Start 11/08/19 at 09:06 Insulin Human Regular 100 unit/ Sodium Chloride 101 ml @ 0 mls/hr CONT PRN PRN IV PER PROTOCOL; Start 11/08/19 at 09:15; Stop 11/08/19 at 10:34; Status DC Potassium Chloride/Water 100 ml @ 100 mls/hr PRN Q1HR PRN IV SEE COMMENTS; Start 11/08/19 at 09:15 Potassium Chloride/Water 100 ml @ 100 mls/hr PRN Q1HR PRN IV SEE COMMENTS; Start 11/08/19 at 09:15 Potassium Chloride/Water 100 ml @ 100 mls/hr PRN Q1HR PRN IV SEE COMMENTS; Start 11/08/19 at 09:15 Insulin Human Regular 100 ml @ 0 mls/hr CONT PRN PRN IV PER PROTOCOL; Start 11/08/19 at 09:15; Stop 11/08/19 at 10:34; Status DC Ondansetron HCl (Zofran) 4 mg PRN Q8HRS PRN IV NAUSEA/VOMITING; Start 11/08/19 at 09:30; Stop 11/09/19 at 09:29 Sodium Chloride 1,000 ml @ 250 mls/hr Q4H IV ; Start 11/08/19 at 10:32 Insulin Human Regular 100 unit/ Sodium Chloride 101 ml @ 0 mls/hr CONT PRN PRN IV PER PROTOCOL Last administered on 11/08/19at 11:57; Start 11/08/19 at 10:30 Active Scripts Active Reported Lantus Solostar (Insulin Glargine,Hum.rec.anlog) 100 Unit/1 Ml Insuln.pen 20 Unit SQ QHS Novolog Flexpen (Insulin Aspart) 100 Unit/1 Ml Insuln.pen 100 Unit SQ Amlodipine Besylate 10 Mg Tablet 1 Tab PO DAILY Lisinopril 20 Mg Tablet 1 Tab PO DAILY Carvedilol 25 Mg Tablet 1 Tab PO BID Allergies Allergies: Coded Allergies: Iodinated Contrast Media (Verified Allergy, Unknown, 11/09/19) ROS Review of System Negative for fever, chills, weight loss, shortness of breath, chest pain, i ndigestion, hematochezia, melena, and dysuria. Full 14-point review of systems is negative. Physical Exam Physical Examination General: Well-developed, well-nourished black female in no acute distress HEENT: Normocephalic andatraumatic. Tympanic membranes clear.Temporal arteriespulsatile and nontender.Fundoscopic exam unremarkable Neck: Supple without bruit, no meningismus Musculoskeletal: Stability:see neurologic. Gait exam:see neurologic. Tone:see neurologic.Stre ngth:see neurologic. Neurological: Mental Status:orientation, memory, attention span/concentration, language, fund of knowledge: She is sitting up in bed saying "okay" in answer to any question. She does follow some commands. Cranial Nerves:Pupils equal and reactive to light, extraocular movements areintact, visual pat are full to threat. Facial sensation is normal. There is no facial asymmetry. Vestibulo-ocular reflex is intact. Palate elevates and tongue protrudes in midline. All other cranial related problems are negative except as mentioned before.Reflexes:2+ and symmetric. Left BKA, right plantar responses flexor. Motor:4/5 strength with normal tone and bulk. Coordination and gait:Not cooperative. Sensory:Not cooperative Vitals VITALS Vital Signs Date Time Temp Pulse Resp B/P (MAP) Pulse Ox O2 Delivery O2 Flow Rate FiO2 11/08/19 10:03 86 22 100 11/08/19 07:21 98.0 136/98 (111) Room Air 98.0 Labs Labs Laboratory Tests Test 11/08/19 06:54 11/08/19 07:13 11/08/19 07:28 11/08/19 07:39 Glucose (Fingerstick) 442 mg/dL (70-99) Troponin I Quantitative < 0.017 ng/mL (0.000-0.055) White Blood Count 14.7 x10^3/uL (4.0-11.0) Red Blood Count 3.68 x10^6/uL (3.50-5.40) Hemoglobin 10.9 g/dL (12.0-15.5) Hematocrit 33.6 % (36.0-47.0) Mean Corpuscular Volume 91 fL (79-100) Mean Corpuscular Hemoglobin 30 pg (25-35) Mean Corpuscular Hemoglobin Concent 32 g/dL (31-37) Red Cell Distribution Width 14.3 % (11.5-14.5) Platelet Count 213 x10^3/uL (140-400) Neutrophils (%) (Auto) 86 % (31-73) Lymphocytes (%) (Auto) 11 % (24-48) Monocytes (%) (Auto) 3 % (0-9) Eosinophils (%) (Auto) 0 % (0-3) Basophils (%) (Auto) 0 % (0-3) Neutrophils # (Auto) 12.7 x10^3/uL (1.8-7.7) Lymphocytes # (Auto) 1.6 x10^3/uL (1.0-4.8) Monocytes # (Auto) 0.4 x10^3/uL (0.0-1.1) Eosinophils # (Auto) 0.0 x10^3/uL (0.0-0.7) Basophils # (Auto) 0.0 x10^3/uL (0.0-0.2) Segmented Neutrophils % 88 % (35-66) Band Neutrophils % 2 % (0-9) Lymphocytes % 6 % (24-48) Monocytes % 4 % (0-10) Platelet Estimate Adequate (ADEQUATE) Poikilocytosis Anisocytosis Slight Prothrombin Time 15.0 SEC (11.7-14.0) Prothromb Time International Ratio 1.2 (0.8-1.1) Activated Partial Thromboplast Time 25 SEC (24-38) Sodium Level 135 mmol/L (136-145) Potassium Level 4.7 mmol/L (3.5-5.1) Chloride Level 98 mmol/L (98-107) Carbon Dioxide Level 9 mmol/L (21-32) Anion Gap 28 (6-14) Blood Urea Nitrogen 39 mg/dL (7-20) Creatinine 2.5 mg/dL (0.6-1.0) Estimated GFR (Cockcroft-Gault) 23.3 BUN/Creatinine Ratio 16 (6-20) Glucose Level 487 mg/dL (70-99) Lactic Acid Level 2.4 mmol/L (0.4-2.0) Calcium Level 8.5 mg/dL (8.5-10.1) Magnesium Level 2.0 mg/dL (1.8-2.4) Total Bilirubin 0.6 mg/dL (0.2-1.0) Aspartate Amino Transf (AST/SGOT) 27 U/L (15-37) Alanine Aminotransferase (ALT/SGPT) 34 U/L (14-59) Alkaline Phosphatase 86 U/L (46-116) Ammonia 13 mcmol/L (11-34) Creatine Kinase 248 U/L (26-192) Creatine Kinase MB (Mass) 1.4 ng/mL (0.0-3.6) Creatine Kinase MB Relative Index 0.6 % (0-4) Total Protein 6.7 g/dL (6.4-8.2) Albumin 3.7 g/dL (3.4-5.0) Albumin/Globulin Ratio 1.2 (1.0-1.7) Salicylates Level 5.8 mg/dL (2.8-20.0) Salicylate Last Dose Date Unknown Salicylate Last Dose Time Unknown Acetaminophen Level < 2 mcg/ml (10-30) Acetaminophen Last Dose Date Unknown Acetaminophen Last Dose Time Unknown Ethyl Alcohol Level < 10 mg/dL (0-10) Acetone Level Sm pos (NEG) Urine Collection Type U cath Urine Color Yellow Urine Clarity Clear Urine pH 5.0 (<5.0-8.0) Urine Specific Moodus 1.025 (1.000-1.030) Urine Protein 100 mg/dL (NEG-TRACE) Urine Glucose (UA) >=1000 mg/dL (NEG) Urine Ketones (Stick) >=80 mg/dL (NEG) Urine Blood Trace (NEG) Urine Nitrite Negative (NEG) Urine Bilirubin Negative (NEG) Urine Urobilinogen Dipstick 0.2 mg/dL (0.2 mg/dL) Urine Leukocyte Esterase Negative (NEG) Urine RBC Occ /HPF (0-2) Urine WBC 1-4 /HPF (0-4) Urine Transitional Epithelial Cells Occ /LPF Urine Amorphous Sediment Present /HPF Urine Bacteria 0 /HPF (0-FEW) Urine Hyaline Casts Few /HPF Urine Opiates Screen Neg (NEG) Urine Methadone Screen Neg (NEG) Urine Barbiturates Neg (NEG) Urine Phencyclidine Screen Neg (NEG) Urine Amphetamine/Methamphetamine Neg (NEG) Urine Benzodiazepines Screen Neg (NEG) Urine Cocaine Screen Neg (NEG) Urine Cannabinoids Screen Neg (NEG) Urine Ethyl Alcohol Neg (NEG) Test 11/08/19 08:30 11/08/19 10:32 11/08/19 11:40 11/08/19 12:53 O2 Saturation 98 % (92-99) Arterial Blood pH 7.23 (7.35-7.45) Arterial Blood pCO2 at Patient Temp 18 mmHg (35-46) Arterial Blood pO2 at Patient Temp 148 mmHg (65-108) Arterial Blood HCO3 7 mmol/L (21-28) Arterial Blood Base Excess -18 mmol/L (-3-3) Oxyhemoglobin 97.2 % Methemoglobin 0.5 % (0.0-1.9) Carbon Monoxide, Quantitative 0.3 % (0.0-1.9) FiO2 2 lpm nc Glucose (Fingerstick) 388 mg/dL (70-99) 303 mg/dL (70-99) Sodium Level 139 mmol/L (136-145) Potassium Level 4.6 mmol/L (3.5-5.1) Chloride Level 103 mmol/L (98-107) Carbon Dioxide Level 12 mmol/L (21-32) Anion Gap 24 (6-14) Blood Urea Nitrogen 35 mg/dL (7-20) Creatinine 2.5 mg/dL (0.6-1.0) Estimated GFR (Cockcroft-Gault) 23.3 Glucose Level 373 mg/dL (70-99) Lactic Acid Level 1.3 mmol/L (0.4-2.0) Calcium Level 8.0 mg/dL (8.5-10.1) Phosphorus Level 3.8 mg/dL (2.6-4.7) Magnesium Level 1.9 mg/dL (1.8-2.4) Troponin I Quantitative < 0.017 ng/mL (0.000-0.055) Laboratory Tests Test 11/08/19 06:54 11/08/19 07:13 11/08/19 07:28 11/08/19 07:39 Glucose (Fingerstick) 442 mg/dL (70-99) Troponin I Quantitative < 0.017 ng/mL (0.000-0.055) White Blood Count 14.7 x10^3/uL (4.0-11.0) Red Blood Count 3.68 x10^6/uL (3.50-5.40) Hemoglobin 10.9 g/dL (12.0-15.5) Hematocrit 33.6 % (36.0-47.0) Mean Corpuscular Volume 91 fL (79-100) Mean Corpuscular Hemoglobin 30 pg (25-35) Mean Corpuscular Hemoglobin Concent 32 g/dL (31-37) Red Cell Distribution Width 14.3 % (11.5-14.5) Platelet Count 213 x10^3/uL (140-400) Neutrophils (%) (Auto) 86 % (31-73) Lymphocytes (%) (Auto) 11 % (24-48) Monocytes (%) (Auto) 3 % (0-9) Eosinophils (%) (Auto) 0 % (0-3) Basophils (%) (Auto) 0 % (0-3) Neutrophils # (Auto) 12.7 x10^3/uL (1.8-7.7) Lymphocytes # (Auto) 1.6 x10^3/uL (1.0-4.8) Monocytes # (Auto) 0.4 x10^3/uL (0.0-1.1) Eosinophils # (Auto) 0.0 x10^3/uL (0.0-0.7) Basophils # (Auto) 0.0 x10^3/uL (0.0-0.2) Segmented Neutrophils % 88 % (35-66) Band Neutrophils % 2 % (0-9) Lymphocytes % 6 % (24-48) Monocytes % 4 % (0-10) Platelet Estimate Adequate (ADEQUATE) Poikilocytosis Anisocytosis Slight Prothrombin Time 15.0 SEC (11.7-14.0) Prothromb Time International Ratio 1.2 (0.8-1.1) Activated Partial Thromboplast Time 25 SEC (24-38) Sodium Level 135 mmol/L (136-145) Potassium Level 4.7 mmol/L (3.5-5.1) Chloride Level 98 mmol/L (98-107) Carbon Dioxide Level 9 mmol/L (21-32) Anion Gap 28 (6-14) Blood Urea Nitrogen 39 mg/dL (7-20) Creatinine 2.5 mg/dL (0.6-1.0) Estimated GFR (Cockcroft-Gault) 23.3 BUN/Creatinine Ratio 16 (6-20) Glucose Level 487 mg/dL (70-99) Lactic Acid Level 2.4 mmol/L (0.4-2.0) Calcium Level 8.5 mg/dL (8.5-10.1) Magnesium Level 2.0 mg/dL (1.8-2.4) Total Bilirubin 0.6 mg/dL (0.2-1.0) Aspartate Amino Transf (AST/SGOT) 27 U/L (15-37) Alanine Aminotransferase (ALT/SGPT) 34 U/L (14-59) Alkaline Phosphatase 86 U/L (46-116) Ammonia 13 mcmol/L (11-34) Creatine Kinase 248 U/L (26-192) Creatine Kinase MB (Mass) 1.4 ng/mL (0.0-3.6) Creatine Kinase MB Relative Index 0.6 % (0-4) Total Protein 6.7 g/dL (6.4-8.2) Albumin 3.7 g/dL (3.4-5.0) Albumin/Globulin Ratio 1.2 (1.0-1.7) Salicylates Level 5.8 mg/dL (2.8-20.0) Salicylate Last Dose Date Unknown Salicylate Last Dose Time Unknown Acetaminophen Level < 2 mcg/ml (10-30) Acetaminophen Last Dose Date Unknown Acetaminophen Last Dose Time Unknown Ethyl Alcohol Level < 10 mg/dL (0-10) Acetone Level Sm pos (NEG) Urine Collection Type U cath Urine Color Yellow Urine Clarity Clear Urine pH 5.0 (<5.0-8.0) Urine Specific Moodus 1.025 (1.000-1.030) Urine Protein 100 mg/dL (NEG-TRACE) Urine Glucose (UA) >=1000 mg/dL (NEG) Urine Ketones (Stick) >=80 mg/dL (NEG) Urine Blood Trace (NEG) Urine Nitrite Negative (NEG) Urine Bilirubin Negative (NEG) Urine Urobilinogen Dipstick 0.2 mg/dL (0.2 mg/dL) Urine Leukocyte Esterase Negative (NEG) Urine RBC Occ /HPF (0-2) Urine WBC 1-4 /HPF (0-4) Urine Transitional Epithelial Cells Occ /LPF Urine Amorphous Sediment Present /HPF Urine Bacteria 0 /HPF (0-FEW) Urine Hyaline Casts Few /HPF Urine Opiates Screen Neg (NEG) Urine Methadone Screen Neg (NEG) Urine Barbiturates Neg (NEG) Urine Phencyclidine Screen Neg (NEG) Urine Amphetamine/Methamphetamine Neg (NEG) Urine Benzodiazepines Screen Neg (NEG) Urine Cocaine Screen Neg (NEG) Urine Cannabinoids Screen Neg (NEG) Urine Ethyl Alcohol Neg (NEG) Test 11/08/19 08:30 11/08/19 10:32 11/08/19 11:40 11/08/19 12:53 O2 Saturation 98 % (92-99) Arterial Blood pH 7.23 (7.35-7.45) Arterial Blood pCO2 at Patient Temp 18 mmHg (35-46) Arterial Blood pO2 at Patient Temp 148 mmHg (65-108) Arterial Blood HCO3 7 mmol/L (21-28) Arterial Blood Base Excess -18 mmol/L (-3-3) Oxyhemoglobin 97.2 % Methemoglobin 0.5 % (0.0-1.9) Carbon Monoxide, Quantitative 0.3 % (0.0-1.9) FiO2 2 lpm nc Glucose (Fingerstick) 388 mg/dL (70-99) 303 mg/dL (70-99) Sodium Level 139 mmol/L (136-145) Potassium Level 4.6 mmol/L (3.5-5.1) Chloride Level 103 mmol/L (98-107) Carbon Dioxide Level 12 mmol/L (21-32) Anion Gap 24 (6-14) Blood Urea Nitrogen 35 mg/dL (7-20) Creatinine 2.5 mg/dL (0.6-1.0) Estimated GFR (Cockcroft-Gault) 23.3 Glucose Level 373 mg/dL (70-99) Lactic Acid Level 1.3 mmol/L (0.4-2.0) Calcium Level 8.0 mg/dL (8.5-10.1) Phosphorus Level 3.8 mg/dL (2.6-4.7) Magnesium Level 1.9 mg/dL (1.8-2.4) Troponin I Quantitative < 0.017 ng/mL (0.000-0.055) Images Images CT head without contrast PQRS statement: CT scans at this facility use dose reduction including either automated exposure control, iterative reconstructions, and /or weight based radiation dosing via mA and kV modification when appropriate to reduce radiation dose to as low as reasonably achievable. HISTORY: Altered mental status. COMPARISON: CT head September 24, 2019. FINDINGS: Evolution of right hemispheric MCA territory late subacute ischemic infarct involving the right posterior temporal lobe, parietal lobe with increased hypoattenuation since the prior exam. There is a separate chronic infarct with focal encephalomalacia of the right insula and frontal operculum and basal ganglia is stable. The right temporal parenchymal hematoma on the prior study since resolved. At the left frontal lobe there is a 3 cm new wedge-shaped hypodensity of the cortex and underlying white matter image 19 which is likely an acute or subacute ischemic infarct. No mass. No hydrocephalus. Orbits, mastoids and bones are unremarkable. IMPRESSION: 1. 3 cm left frontal lobe acute or subacute ischemic infarct, new from prior studies, as described above. 2. Evolving late subacute right MCA territory ischemic infarct with a similar size and distribution to the prior exam. 3. The right temporal lobe hematoma on the prior exam has since resolved. 4. Chronic right MCA territory ischemic infarct of the right insula, frontal operculum and basal ganglia is stable. Assessment/Plan Assessment/Plan Impression: Left frontal lobe acute or subacute ischemic infarct Evolving late subacute right MCA territory ischemic infarct, resolution of prior right temporal lobe hematoma; chronic right MCA territory ischemic infarct. Metabolic encephalopathy due to diabetic ketoacidosis. Recommendations: Cryptogenic embolic strokes, needs further evaluation including possible transesophageal echocardiogram and outpatient LINQ recording. Treatment of diabetic ketoacidosis Stroke is subacute, no role for alteplase Resume aspirin and statin when able to take orally She has dye allergy, no need to repeat CT angiogram, has pacemaker, no MRI Rehabilitation modalities. Thank you for letting me help with the patient's care. WILFRID ROMERO MD Nov 08, 2019 13:44
[2019-11-08] MEDS ORDERED: ACETAMINOPHEN 650 MG SUPP.RECT. PR PRN (13:45)
[2019-11-08] MEDS ORDERED: ACETAMINOPHEN 325 MG TABLET. PO PRN (13:45)
[2019-11-08] MEDS ORDERED: ASPIRIN RECTAL 300 MG SUPP. PR PRN (13:45)
[2019-11-08] MEDS ORDERED: MAGNESIUM SULFATE 4GM 100 ML IV ONE (14:15)
[2019-11-08] MEDS: IV NORMAL SALINE 1000ML BAG 1,000 ML IV SCH ×4 (14:20→22:30)
--- NOTE | 2019-11-08 14:41 | PDOC2 ---
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 Caballero SOURCE Source: Chart review, Patient HISTORY OF PRESENT ILLNESS HISTORY OF PRESENT ILLNESS This is a 64 yo female, with history of prior CVA, who presented secondary to altered mental status. Was last known to be well last night. Woke up this morning with altered mental status. No reports of chest pain, dizziness, diaphoresis, or SOA. PAST MEDICAL HISTORY Cardiovascular: HTN, Hyperlipidemia, Other (PAD) CENTRAL NERVOUS SYSTEM: CVA, Periperal neuropathy, Other Endocrine: Diabetes PAST SURGICAL HISTORY Past Surgical History: Pacemaker (AICD), Appendectomy, Tubal Ligation, Other (left BKA) FAMILY HISTORY Family History: Hypertension SOCIAL HISTORY Smoke: Quit ALCOHOL: none Drugs: None Lives: with Family CURRENT MEDICATIONS CURRENT MEDICATIONS Current Medications Medications (Trade) Dose Ordered Sig/Pa Route PRN Reason Start Time Stop Time Status Last Admin Dose Admin Sodium Chloride 1,000 ml @ 1,000 mls/hr 1X ONCE IV 11/08/19 07:00 11/08/19 07:59 DC 11/08/19 07:47 Insulin Human Regular (HumuLIN R VIAL) 4 unit 1X ONCE SQ 11/08/19 08:30 11/08/19 08:31 DC 11/08/19 08:32 Aspirin (Aspirin Rectal Supp) 300 mg 1X ONCE NE 11/08/19 09:15 11/08/19 09:16 DC 11/08/19 09:14 Insulin Human Regular 100 unit/ Sodium Chloride 101 ml @ 0 mls/hr CONT PRN PRN IV PER PROTOCOL 11/08/19 10:30 11/08/19 11:57 ALLERGIES ALLERGIES: Coded Allergies: Iodinated Contrast Media (Verified Allergy, Unknown, 11/09/19) ROS Review of System limited due to current mentation PHYSICAL EXAM General: Alert, No acute distress, Other (confused) HEENT: Atraumatic, Mucous membr. moist/pink Lungs: Clear to auscultation Heart: Regular rate, Normal S1, Normal S2 Abdomen: Soft Extremities: Other (left BKA ) Skin: No significant lesion Neuro: Sensation intact Psych/Mental Status: Other (confused ) MUSCULOSKELETAL: Osteoarthritic changes both hands VITALS/I&O VITALS/I&O: Vital Signs Date Time Temp Pulse Resp B/P (MAP) Pulse Ox O2 Delivery O2 Flow Rate FiO2 11/08/19 10:30 Nasal Cannula 3.0 11/08/19 10:03 86 22 100 11/08/19 07:21 98.0 136/98 (111) 98.0 LABS Lab: Laboratory Tests Test 11/08/19 06:54 11/08/19 07:13 11/08/19 07:28 11/08/19 07:39 Glucose (Fingerstick) 442 mg/dL (70-99) H Troponin I Quantitative < 0.017 ng/mL (0.000-0.055) White Blood Count 14.7 x10^3/uL (4.0-11.0) H Red Blood Count 3.68 x10^6/uL (3.50-5.40) Hemoglobin 10.9 g/dL (12.0-15.5) L Hematocrit 33.6 % (36.0-47.0) L Mean Corpuscular Volume 91 fL (79-100) Mean Corpuscular Hemoglobin 30 pg (25-35) Mean Corpuscular Hemoglobin Concent 32 g/dL (31-37) Red Cell Distribution Width 14.3 % (11.5-14.5) Platelet Count 213 x10^3/uL (140-400) Neutrophils (%) (Auto) 86 % (31-73) H Lymphocytes (%) (Auto) 11 % (24-48) L Monocytes (%) (Auto) 3 % (0-9) Eosinophils (%) (Auto) 0 % (0-3) Basophils (%) (Auto) 0 % (0-3) Neutrophils # (Auto) 12.7 x10^3/uL (1.8-7.7) H Lymphocytes # (Auto) 1.6 x10^3/uL (1.0-4.8) Monocytes # (Auto) 0.4 x10^3/uL (0.0-1.1) Eosinophils # (Auto) 0.0 x10^3/uL (0.0-0.7) Basophils # (Auto) 0.0 x10^3/uL (0.0-0.2) Segmented Neutrophils % 88 % (35-66) H Band Neutrophils % 2 % (0-9) Lymphocytes % 6 % (24-48) L Monocytes % 4 % (0-10) Platelet Estimate Adequate (ADEQUATE) Poikilocytosis Anisocytosis Slight Prothrombin Time 15.0 SEC (11.7-14.0) H Prothrombin Time INR 1.2 (0.8-1.1) H Activated Partial Thromboplast Time 25 SEC (24-38) Sodium Level 135 mmol/L (136-145) L Potassium Level 4.7 mmol/L (3.5-5.1) Chloride Level 98 mmol/L (98-107) Carbon Dioxide Level 9 mmol/L (21-32) *L Anion Gap 28 (6-14) H Blood Urea Nitrogen 39 mg/dL (7-20) H Creatinine 2.5 mg/dL (0.6-1.0) H Estimated GFR (Cockcroft-Gault) 23.3 BUN/Creatinine Ratio 16 (6-20) Glucose Level 487 mg/dL (70-99) H Lactic Acid Level 2.4 mmol/L (0.4-2.0) H Calcium Level 8.5 mg/dL (8.5-10.1) Magnesium Level 2.0 mg/dL (1.8-2.4) Total Bilirubin 0.6 mg/dL (0.2-1.0) Aspartate Amino Transferase (AST) 27 U/L (15-37) Alanine Aminotransferase (ALT) 34 U/L (14-59) Alkaline Phosphatase 86 U/L (46-116) Ammonia 13 mcmol/L (11-34) Creatine Kinase 248 U/L (26-192) H Creatine Kinase MB (Mass) 1.4 ng/mL (0.0-3.6) Creatine Kinase MB Relative Index 0.6 % (0-4) Total Protein 6.7 g/dL (6.4-8.2) Albumin 3.7 g/dL (3.4-5.0) Albumin/Globulin Ratio 1.2 (1.0-1.7) Salicylates Level 5.8 mg/dL (2.8-20.0) Salicylate Last Dose Date Unknown Salicylate Last Dose Time Unknown Acetaminophen Level < 2 mcg/ml (10-30) L Acetaminophen Last Dose Date Unknown Acetaminophen Last Dose Time Unknown Ethyl Alcohol Level < 10 mg/dL (0-10) Acetone Level Sm pos (NEG) Urine Collection Type U cath Urine Color Yellow Urine Clarity Clear Urine pH 5.0 (<5.0-8.0) Urine Specific [place] 1.025 (1.000-1.030) Urine Protein 100 mg/dL (NEG-TRACE) Urine Glucose (UA) >=1000 mg/dL (NEG) Urine Ketones (Stick) >=80 mg/dL (NEG) Urine Blood Trace (NEG) Urine Nitrite Negative (NEG) Urine Bilirubin Negative (NEG) Urine Urobilinogen Dipstick 0.2 mg/dL (0.2 mg/dL) Urine Leukocyte Esterase Negative (NEG) Urine RBC Occ /HPF (0-2) Urine WBC 1-4 /HPF (0-4) Urine Transitional Epithelial Cells Occ /LPF Urine Amorphous Sediment Present /HPF Urine Bacteria 0 /HPF (0-FEW) Urine Hyaline Casts Few /HPF Urine Opiates Screen Neg (NEG) Urine Methadone Screen Neg (NEG) Urine Barbiturates Neg (NEG) Urine Phencyclidine Screen Neg (NEG) Urine Amphetamine/Methamphetamine Neg (NEG) Urine Benzodiazepines Screen Neg (NEG) Urine Cocaine Screen Neg (NEG) Urine Cannabinoids Screen Neg (NEG) Urine Ethyl Alcohol Neg (NEG) Test 11/08/19 08:30 11/08/19 10:32 11/08/19 11:40 11/08/19 12:53 O2 Saturation 98 % (92-99) Arterial Blood pH 7.23 (7.35-7.45) L Arterial Blood pCO2 at Patient Temp 18 mmHg (35-46) *L Arterial Blood pO2 at Patient Temp 148 mmHg (65-108) H Arterial Blood HCO3 7 mmol/L (21-28) L Arterial Blood Base Excess -18 mmol/L (-3-3) L Oxyhemoglobin 97.2 % Methemoglobin 0.5 % (0.0-1.9) Carbon Monoxide, Quantitative 0.3 % (0.0-1.9) FiO2 2 lpm nc Glucose (Fingerstick) 388 mg/dL (70-99) H 303 mg/dL (70-99) H Sodium Level 139 mmol/L (136-145) Potassium Level 4.6 mmol/L (3.5-5.1) Chloride Level 103 mmol/L (98-107) Carbon Dioxide Level 12 mmol/L (21-32) L Anion Gap 24 (6-14) H Blood Urea Nitrogen 35 mg/dL (7-20) H Creatinine 2.5 mg/dL (0.6-1.0) H Estimated GFR (Cockcroft-Gault) 23.3 Glucose Level 373 mg/dL (70-99) H Lactic Acid Level 1.3 mmol/L (0.4-2.0) Calcium Level 8.0 mg/dL (8.5-10.1) L Phosphorus Level 3.8 mg/dL (2.6-4.7) Magnesium Level 1.9 mg/dL (1.8-2.4) Troponin I Quantitative < 0.017 ng/mL (0.000-0.055) Test 11/08/19 14:01 Glucose (Fingerstick) 289 mg/dL (70-99) H Laboratory Tests 11/08/19 07:28 Laboratory Tests 11/08/19 07:28 11/08/19 11:40 ECHOCARDIOGRAM ECHOCARDIOGRAM 03/07/15-Echo: EF 60%. Mild concentric left ventricular hypertrophy. Grade 1 LV diastolic dysfunction. No significant valvular abnormalities are noted. Normal pulmonary artery pressure. <Conclusion> The left ventricle is normal size. The left ventricular systolic function is normal and the ejection fraction is within normal range. The Ejection Fraction is 60-65%. There are device leads in the right ventricle and atrium. The interatrial septum is intact with no evidence for an atrial septal defect or patent foramen ovale as noted on 2-D or Doppler imaging. Injection of bubbles documented no interatrial shunt. Doppler and Color Flow revealed no significant aortic regurgitation. There is no significant aortic valvular stenosis. Doppler and Color-flow revealed trace mitral regurgitation. Doppler and Color Flow revealed mild tricuspid regurgitation. The PA pressure was estimated at 35 mmHg. DICTATED and SIGNED BY: RAYSHAWN MCGUIRE MD DATE: 09/24/19 1249 HEART CATH HEART CATH 04/2009-Cath at [facility]: No severe obstructive coronary artery disease. ASSESSMENT/PLAN ASSESSMENT/PLAN 1. Recurrent CVA; chronic right MCA stroke. CT head noted with left frontal lobe acute or subacute ischemic infarct and evolving late subacute right MCA infarct. Echo 09/16 without evidence on intracardiac shunting. 2. Metabolic encephalopathy 3. 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 Most recent echo with LV recovery with an EF 60-65%. Follows with Dr. Miranda with [facility]. 4. Hypertension; controlled 5. Hyperlipidemia 6. Diabetes, II, DKA. as per PCP 7. AFSHAN 8. Leukocytosis, lactic acidosis Recommendations Device interrogation to note AFIB burden Secondary prevention, ASA/statin Further evaluation with HODA. R/b/a discussed with , Rene, and he is agreeable to proceed. Will tentatively plan for Tuesday once COVID has been ruled out. PT/OT/ST Supportive care SHEY CORONA MD 11/09/19 0852: CARDIAC CONSULT ASSESSMENT/PLAN ASSESSMENT/PLAN Patient seen and examined 11/08/19. Agree with CREDIT RISK MANAGEMENT DIRECTOR's assessment and plan. Plan for HODA with bubble study on Tuesday to r/o intracardiac shunt as a cause of recurrent embolic stroke Interrogate AICD to look for atrial fibrillation episodes Recent 2D echo showed normal LV systolic function Continue management of CVA and encephalopathy per neurology teamm Thank you for your consultation MARIA M ESQUIVEL APRN Nov 08, 2019 14:41 SHEY CORONA MD Nov 09, 2019 08:52
--- NOTE | 2019-11-08 14:50 | PDOC1 ---
History and Physical Date of Admission Date of Admission DATE: 11/08/19 TIME: 14:47 Source Source: Chart review, Patient History of Present Illness History of Present Illness Ms. Loo, is a 64 year old female presents via EMS with report of altered mental status. Unknown last know well. EMS reports son was very poor historian regarding patient. Patient does have prior history of CVA. It is unclear what patient's baseline mentation is. EMS reports noting some "drug paraphernalia" noted in home near bed. History of present illness limited secondary to altered mental status. Past Medical History Cardiovascular: HTN, Hyperlipidemia, Other (PAD) Pulmonary: No pertinent hx CENTRAL NERVOUS SYSTEM: CVA, Periperal neuropathy GI: No pertinent hx Heme/Onc: No pertinent hx Hepatobiliary: No pertinent hx Psych: No pertinent hx Rheumatologic: No pertinent hx Infectious disease: No pertinent hx Renal/: No pertinent hx Endocrine: Diabetes Past Surgical History Past Surgical History: Pacemaker (AICD), Appendectomy, Tubal Ligation, Other (left BKA) Family History Family History: Diabetes, High Cholestrol, Hypertension Social History ALCOHOL: none Drugs: Marijuana Current Problem List Problem List Problems Medical Problems: (1) CVA (cerebral vascular accident) Status: Acute (2) DKA (diabetic ketoacidoses) Status: Acute (3) Lactic acidosis Status: Acute Current Medications Current Medications Current Medications Sodium Chloride 1,000 ml @ 1,000 mls/hr 1X ONCE IV Last administered on 11/08/19at 07:47; Start 11/08/19 at 07:00; Stop 11/08/19 at 07:59; Status DC Insulin Human Regular (HumuLIN R VIAL) 4 unit 1X ONCE SQ Last administered on 11/08/19at 08:32; Start 11/08/19 at 08:30; Stop 11/08/19 at 08:31; Status DC Aspirin (Aspirin Rectal Supp) 300 mg 1X ONCE IL Last administered on 11/08/19at 09:14; Start 11/08/19 at 09:15; Stop 11/08/19 at 09:16; Status DC Sodium Chloride 1,000 ml @ 500 mls/hr Q2H IV ; Start 11/08/19 at 09:04; Stop 11/08/19 at 11:03; Status DC Sodium Chloride 1,000 ml @ 250 mls/hr Q4H IV ; Start 11/08/19 at 09:06 Dextrose/Sodium Chloride 1,000 ml @ 250 mls/hr Q4H IV ; Start 11/08/19 at 09:06 Insulin Human Regular 100 unit/ Sodium Chloride 101 ml @ 0 mls/hr CONT PRN PRN IV PER PROTOCOL; Start 11/08/19 at 09:15; Stop 11/08/19 at 10:34; Status DC Potassium Chloride/Water 100 ml @ 100 mls/hr PRN Q1HR PRN IV SEE COMMENTS; Start 11/08/19 at 09:15 Potassium Chloride/Water 100 ml @ 100 mls/hr PRN Q1HR PRN IV SEE COMMENTS; Start 11/08/19 at 09:15 Potassium Chloride/Water 100 ml @ 100 mls/hr PRN Q1HR PRN IV SEE COMMENTS; Start 11/08/19 at 09:15 Insulin Human Regular 100 ml @ 0 mls/hr CONT PRN PRN IV PER PROTOCOL; Start 11/08/19 at 09:15; Stop 11/08/19 at 10:34; Status DC Ondansetron HCl (Zofran) 4 mg PRN Q8HRS PRN IV NAUSEA/VOMITING; Start 11/08/19 at 09:30; Stop 11/09/19 at 09:29 Sodium Chloride 1,000 ml @ 250 mls/hr Q4H IV ; Start 11/08/19 at 10:32 Insulin Human Regular 100 unit/ Sodium Chloride 101 ml @ 0 mls/hr CONT PRN PRN IV PER PROTOCOL Last administered on 11/08/19at 11:57; Start 11/08/19 at 10:30 Acetaminophen (Tylenol) 650 mg PRN Q6HRS PRN PO TEMP > 100.4F; Start 11/08/19 at 13:45 Acetaminophen (Tylenol Supp) 650 mg PRN Q4HRS PRN IL TEMP > 100.4F; Start 11/08/19 at 13:45 Aspirin (Ecotrin) 325 mg DAILYWBKFT PO ; Start 11/09/19 at 08:00 Aspirin (Aspirin Rectal Supp) 300 mg PRN DAILY PRN IL IF UNABLE TO TAKE PO; Start 11/08/19 at 13:45 Potassium Chloride/Water 100 ml @ 100 mls/hr Q1H IV ; Start 11/08/19 at 15:00; Stop 11/08/19 at 16:59 Magnesium Sulfate 100 ml @ 25 mls/hr 1X ONCE IV ; Start 11/08/19 at 14:15; Stop 11/08/19 at 18:14 Active Scripts Active Reported Lantus Solostar (Insulin Glargine,Hum.rec.anlog) 100 Unit/1 Ml Insuln.pen 20 Unit SQ QHS Novolog Flexpen (Insulin Aspart) 100 Unit/1 Ml Insuln.pen 100 Unit SQ Amlodipine Besylate 10 Mg Tablet 1 Tab PO DAILY Lisinopril 20 Mg Tablet 1 Tab PO DAILY Carvedilol 25 Mg Tablet 1 Tab PO BID Allergies Allergies: Coded Allergies: No Known Drug Allergies (Unverified , 01/24/14) ROS Review of System not verbal, unable to complete Physical Exam General: mild distress, Other (poorly responsive ) HEENT: Atraumatic, PERRLA Heart: S1S2 Abdomen: Normal bowel sounds, Soft Rectal Exam: not examined Extremities: No edema Neuro: Normal tone, Sensation intact Psych/Mental Status: Other Vitals Vitals Vital Signs Date Time Temp Pulse Resp B/P (MAP) Pulse Ox O2 Delivery O2 Flow Rate FiO2 11/08/19 10:30 Nasal Cannula 3.0 11/08/19 10:03 86 22 100 11/08/19 07:21 98.0 136/98 (111) 98.0 Labs Labs Laboratory Tests Test 11/08/19 06:54 11/08/19 07:13 11/08/19 07:28 11/08/19 07:39 Glucose (Fingerstick) 442 mg/dL (70-99) Troponin I Quantitative < 0.017 ng/mL (0.000-0.055) White Blood Count 14.7 x10^3/uL (4.0-11.0) Red Blood Count 3.68 x10^6/uL (3.50-5.40) Hemoglobin 10.9 g/dL (12.0-15.5) Hematocrit 33.6 % (36.0-47.0) Mean Corpuscular Volume 91 fL (79-100) Mean Corpuscular Hemoglobin 30 pg (25-35) Mean Corpuscular Hemoglobin Concent 32 g/dL (31-37) Red Cell Distribution Width 14.3 % (11.5-14.5) Platelet Count 213 x10^3/uL (140-400) Neutrophils (%) (Auto) 86 % (31-73) Lymphocytes (%) (Auto) 11 % (24-48) Monocytes (%) (Auto) 3 % (0-9) Eosinophils (%) (Auto) 0 % (0-3) Basophils (%) (Auto) 0 % (0-3) Neutrophils # (Auto) 12.7 x10^3/uL (1.8-7.7) Lymphocytes # (Auto) 1.6 x10^3/uL (1.0-4.8) Monocytes # (Auto) 0.4 x10^3/uL (0.0-1.1) Eosinophils # (Auto) 0.0 x10^3/uL (0.0-0.7) Basophils # (Auto) 0.0 x10^3/uL (0.0-0.2) Segmented Neutrophils % 88 % (35-66) Band Neutrophils % 2 % (0-9) Lymphocytes % 6 % (24-48) Monocytes % 4 % (0-10) Platelet Estimate Adequate (ADEQUATE) Poikilocytosis Anisocytosis Slight Prothrombin Time 15.0 SEC (11.7-14.0) Prothromb Time International Ratio 1.2 (0.8-1.1) Activated Partial Thromboplast Time 25 SEC (24-38) Sodium Level 135 mmol/L (136-145) Potassium Level 4.7 mmol/L (3.5-5.1) Chloride Level 98 mmol/L (98-107) Carbon Dioxide Level 9 mmol/L (21-32) Anion Gap 28 (6-14) Blood Urea Nitrogen 39 mg/dL (7-20) Creatinine 2.5 mg/dL (0.6-1.0) Estimated GFR (Cockcroft-Gault) 23.3 BUN/Creatinine Ratio 16 (6-20) Glucose Level 487 mg/dL (70-99) Lactic Acid Level 2.4 mmol/L (0.4-2.0) Calcium Level 8.5 mg/dL (8.5-10.1) Magnesium Level 2.0 mg/dL (1.8-2.4) Total Bilirubin 0.6 mg/dL (0.2-1.0) Aspartate Amino Transf (AST/SGOT) 27 U/L (15-37) Alanine Aminotransferase (ALT/SGPT) 34 U/L (14-59) Alkaline Phosphatase 86 U/L (46-116) Ammonia 13 mcmol/L (11-34) Creatine Kinase 248 U/L (26-192) Creatine Kinase MB (Mass) 1.4 ng/mL (0.0-3.6) Creatine Kinase MB Relative Index 0.6 % (0-4) Total Protein 6.7 g/dL (6.4-8.2) Albumin 3.7 g/dL (3.4-5.0) Albumin/Globulin Ratio 1.2 (1.0-1.7) Salicylates Level 5.8 mg/dL (2.8-20.0) Salicylate Last Dose Date Unknown Salicylate Last Dose Time Unknown Acetaminophen Level < 2 mcg/ml (10-30) Acetaminophen Last Dose Date Unknown Acetaminophen Last Dose Time Unknown Ethyl Alcohol Level < 10 mg/dL (0-10) Acetone Level Sm pos (NEG) Urine Collection Type U cath Urine Color Yellow Urine Clarity Clear Urine pH 5.0 (<5.0-8.0) Urine Specific [place] 1.025 (1.000-1.030) Urine Protein 100 mg/dL (NEG-TRACE) Urine Glucose (UA) >=1000 mg/dL (NEG) Urine Ketones (Stick) >=80 mg/dL (NEG) Urine Blood Trace (NEG) Urine Nitrite Negative (NEG) Urine Bilirubin Negative (NEG) Urine Urobilinogen Dipstick 0.2 mg/dL (0.2 mg/dL) Urine Leukocyte Esterase Negative (NEG) Urine RBC Occ /HPF (0-2) Urine WBC 1-4 /HPF (0-4) Urine Transitional Epithelial Cells Occ /LPF Urine Amorphous Sediment Present /HPF Urine Bacteria 0 /HPF (0-FEW) Urine Hyaline Casts Few /HPF Urine Opiates Screen Neg (NEG) Urine Methadone Screen Neg (NEG) Urine Barbiturates Neg (NEG) Urine Phencyclidine Screen Neg (NEG) Urine Amphetamine/Methamphetamine Neg (NEG) Urine Benzodiazepines Screen Neg (NEG) Urine Cocaine Screen Neg (NEG) Urine Cannabinoids Screen Neg (NEG) Urine Ethyl Alcohol Neg (NEG) Test 11/08/19 08:30 11/08/19 10:32 11/08/19 11:40 11/08/19 12:53 O2 Saturation 98 % (92-99) Arterial Blood pH 7.23 (7.35-7.45) Arterial Blood pCO2 at Patient Temp 18 mmHg (35-46) Arterial Blood pO2 at Patient Temp 148 mmHg (65-108) Arterial Blood HCO3 7 mmol/L (21-28) Arterial Blood Base Excess -18 mmol/L (-3-3) Oxyhemoglobin 97.2 % Methemoglobin 0.5 % (0.0-1.9) Carbon Monoxide, Quantitative 0.3 % (0.0-1.9) FiO2 2 lpm nc Glucose (Fingerstick) 388 mg/dL (70-99) 303 mg/dL (70-99) Sodium Level 139 mmol/L (136-145) Potassium Level 4.6 mmol/L (3.5-5.1) Chloride Level 103 mmol/L (98-107) Carbon Dioxide Level 12 mmol/L (21-32) Anion Gap 24 (6-14) Blood Urea Nitrogen 35 mg/dL (7-20) Creatinine 2.5 mg/dL (0.6-1.0) Estimated GFR (Cockcroft-Gault) 23.3 Glucose Level 373 mg/dL (70-99) Lactic Acid Level 1.3 mmol/L (0.4-2.0) Calcium Level 8.0 mg/dL (8.5-10.1) Phosphorus Level 3.8 mg/dL (2.6-4.7) Magnesium Level 1.9 mg/dL (1.8-2.4) Troponin I Quantitative < 0.017 ng/mL (0.000-0.055) Test 11/08/19 14:01 Glucose (Fingerstick) 289 mg/dL (70-99) Laboratory Tests Test 11/08/19 06:54 11/08/19 07:13 11/08/19 07:28 11/08/19 07:39 Glucose (Fingerstick) 442 mg/dL (70-99) Troponin I Quantitative < 0.017 ng/mL (0.000-0.055) White Blood Count 14.7 x10^3/uL (4.0-11.0) Red Blood Count 3.68 x10^6/uL (3.50-5.40) Hemoglobin 10.9 g/dL (12.0-15.5) Hematocrit 33.6 % (36.0-47.0) Mean Corpuscular Volume 91 fL (79-100) Mean Corpuscular Hemoglobin 30 pg (25-35) Mean Corpuscular Hemoglobin Concent 32 g/dL (31-37) Red Cell Distribution Width 14.3 % (11.5-14.5) Platelet Count 213 x10^3/uL (140-400) Neutrophils (%) (Auto) 86 % (31-73) Lymphocytes (%) (Auto) 11 % (24-48) Monocytes (%) (Auto) 3 % (0-9) Eosinophils (%) (Auto) 0 % (0-3) Basophils (%) (Auto) 0 % (0-3) Neutrophils # (Auto) 12.7 x10^3/uL (1.8-7.7) Lymphocytes # (Auto) 1.6 x10^3/uL (1.0-4.8) Monocytes # (Auto) 0.4 x10^3/uL (0.0-1.1) Eosinophils # (Auto) 0.0 x10^3/uL (0.0-0.7) Basophils # (Auto) 0.0 x10^3/uL (0.0-0.2) Segmented Neutrophils % 88 % (35-66) Band Neutrophils % 2 % (0-9) Lymphocytes % 6 % (24-48) Monocytes % 4 % (0-10) Platelet Estimate Adequate (ADEQUATE) Poikilocytosis Anisocytosis Slight Prothrombin Time 15.0 SEC (11.7-14.0) Prothromb Time International Ratio 1.2 (0.8-1.1) Activated Partial Thromboplast Time 25 SEC (24-38) Sodium Level 135 mmol/L (136-145) Potassium Level 4.7 mmol/L (3.5-5.1) Chloride Level 98 mmol/L (98-107) Carbon Dioxide Level 9 mmol/L (21-32) Anion Gap 28 (6-14) Blood Urea Nitrogen 39 mg/dL (7-20) Creatinine 2.5 mg/dL (0.6-1.0) Estimated GFR (Cockcroft-Gault) 23.3 BUN/Creatinine Ratio 16 (6-20) Glucose Level 487 mg/dL (70-99) Lactic Acid Level 2.4 mmol/L (0.4-2.0) Calcium Level 8.5 mg/dL (8.5-10.1) Magnesium Level 2.0 mg/dL (1.8-2.4) Total Bilirubin 0.6 mg/dL (0.2-1.0) Aspartate Amino Transf (AST/SGOT) 27 U/L (15-37) Alanine Aminotransferase (ALT/SGPT) 34 U/L (14-59) Alkaline Phosphatase 86 U/L (46-116) Ammonia 13 mcmol/L (11-34) Creatine Kinase 248 U/L (26-192) Creatine Kinase MB (Mass) 1.4 ng/mL (0.0-3.6) Creatine Kinase MB Relative Index 0.6 % (0-4) Total Protein 6.7 g/dL (6.4-8.2) Albumin 3.7 g/dL (3.4-5.0) Albumin/Globulin Ratio 1.2 (1.0-1.7) Salicylates Level 5.8 mg/dL (2.8-20.0) Salicylate Last Dose Date Unknown Salicylate Last Dose Time Unknown Acetaminophen Level < 2 mcg/ml (10-30) Acetaminophen Last Dose Date Unknown Acetaminophen Last Dose Time Unknown Ethyl Alcohol Level < 10 mg/dL (0-10) Acetone Level Sm pos (NEG) Urine Collection Type U cath Urine Color Yellow Urine Clarity Clear Urine pH 5.0 (<5.0-8.0) Urine Specific [place] 1.025 (1.000-1.030) Urine Protein 100 mg/dL (NEG-TRACE) Urine Glucose (UA) >=1000 mg/dL (NEG) Urine Ketones (Stick) >=80 mg/dL (NEG) Urine Blood Trace (NEG) Urine Nitrite Negative (NEG) Urine Bilirubin Negative (NEG) Urine Urobilinogen Dipstick 0.2 mg/dL (0.2 mg/dL) Urine Leukocyte Esterase Negative (NEG) Urine RBC Occ /HPF (0-2) Urine WBC 1-4 /HPF (0-4) Urine Transitional Epithelial Cells Occ /LPF Urine Amorphous Sediment Present /HPF Urine Bacteria 0 /HPF (0-FEW) Urine Hyaline Casts Few /HPF Urine Opiates Screen Neg (NEG) Urine Methadone Screen Neg (NEG) Urine Barbiturates Neg (NEG) Urine Phencyclidine Screen Neg (NEG) Urine Amphetamine/Methamphetamine Neg (NEG) Urine Benzodiazepines Screen Neg (NEG) Urine Cocaine Screen Neg (NEG) Urine Cannabinoids Screen Neg (NEG) Urine Ethyl Alcohol Neg (NEG) Test 11/08/19 08:30 11/08/19 10:32 11/08/19 11:40 11/08/19 12:53 O2 Saturation 98 % (92-99) Arterial Blood pH 7.23 (7.35-7.45) Arterial Blood pCO2 at Patient Temp 18 mmHg (35-46) Arterial Blood pO2 at Patient Temp 148 mmHg (65-108) Arterial Blood HCO3 7 mmol/L (21-28) Arterial Blood Base Excess -18 mmol/L (-3-3) Oxyhemoglobin 97.2 % Methemoglobin 0.5 % (0.0-1.9) Carbon Monoxide, Quantitative 0.3 % (0.0-1.9) FiO2 2 lpm nc Glucose (Fingerstick) 388 mg/dL (70-99) 303 mg/dL (70-99) Sodium Level 139 mmol/L (136-145) Potassium Level 4.6 mmol/L (3.5-5.1) Chloride Level 103 mmol/L (98-107) Carbon Dioxide Level 12 mmol/L (21-32) Anion Gap 24 (6-14) Blood Urea Nitrogen 35 mg/dL (7-20) Creatinine 2.5 mg/dL (0.6-1.0) Estimated GFR (Cockcroft-Gault) 23.3 Glucose Level 373 mg/dL (70-99) Lactic Acid Level 1.3 mmol/L (0.4-2.0) Calcium Level 8.0 mg/dL (8.5-10.1) Phosphorus Level 3.8 mg/dL (2.6-4.7) Magnesium Level 1.9 mg/dL (1.8-2.4) Troponin I Quantitative < 0.017 ng/mL (0.000-0.055) Test 11/08/19 14:01 Glucose (Fingerstick) 289 mg/dL (70-99) VTE Prophylaxis Ordered VTE Prophylaxis Devices: No VTE Pharmacological Prophylaxi: Yes Assessment/Plan Assessment/Plan acute on chronic CVA, subacute CVA DKA, poor Dm control admit to ICU, DKA protocol Neuro consulted, start pt and ot and st metabolic encephalopathy acute on chronic renal failure diet as able time about 35 minutes Justicifation of Admission Dx: Justifications for Admission: Justification of Admission Dx: Yes DKA: MIRYAM CONWAY MD Nov 08, 2019 14:50
[2019-11-08] MEDS: POTASSIUM CHLORIDE 10MEQ 100 ML IV SCH ×6 (15:14→20:12)
[2019-11-08] MEDS ORDERED: BENZOCAINE ONE 20% MUCOSAL SPRAY. MM (16:00)
[2019-11-08] MEDS ORDERED: LIDOCAINE 2% VISCOUS 15 ML SOLUTION. MM ONE (16:00)
[2019-11-08] MEDS ORDERED: 0.9 % SODIUM CHLORIDE 10 ML DISP.SYRIN. IV PRN (16:00)
[2019-11-08] MEDS ORDERED: LIDOCAINE 2% TOPICAL JELLY 5GM TUBE. TP ONE (16:00)
[2019-11-08 16:02] LABS: CALCIUM 8.3 mg/dL (8.5-10.1); CREATININE 2.4 mg/dL (0.6-1.0); GFR 24.4; MAGNESIUM 2.1 mg/dL (1.8-2.4); POTASSIUM 3.6 mmol/L (3.5-5.1)
--- NOTE | 2019-11-08 17:25 | NUR ---
electrolyte replacement per protocol K= 3.6 currently try to infuse prior to 1999 lab
--- NOTE | 2019-11-08 17:26 | NUR ---
IV positional. Evaluate need for "port" in am. Numerous PICC placement done previously. Limited peripheral IV sites.
--- NOTE | 2019-11-08 18:29 | NUR ---
Note all ordered IVF ordered this am at specific times do not coincide w those given therefore all were dc'd and orders placed for tj=hose used. BG improving cont w K replacement and recheck per parameters @ 1999. Somnolent at long intervals late afternoon if le3ft undisturbed
[2019-11-08] MEDS ORDERED: IV DEXTROSE 5% - 0.9 % NACL 1,000 ML IV PRN (19:45)
[2019-11-08] MEDS: ATORVASTATIN CALCIUM 40 MG TABLET. PO SCH (21:00)
[2019-11-08 21:55] LABS: CALCIUM 7.9 mg/dL (8.5-10.1); CREATININE 2.1 mg/dL (0.6-1.0); GFR 28.5; MAGNESIUM 3.1 mg/dL (1.8-2.4)
[2019-11-08] MEDS: HEPARIN for SUB-Q USE 5,000 UNIT/ML VIAL. SQ SCH (22:00)
[2019-11-08] MEDS: POTASSIUM CHLORIDE 10MEQ 100 ML IV PRN ×2 (22:39→23:44)
[2019-11-08] MEDS ORDERED: DEXTROSE 50% 25 GM / 50ML DISP.SYRIN. IV PRN (22:45)
[2019-11-08] MEDS: INSULIN GLARGINE SYRINGE. SQ SCH (22:55)
[2019-11-09] VITALS (14 sets, daily range): BP systolic 121–184; BP diastolic 48–100
[2019-11-09] MEDS ORDERED: IV DEXTROSE 5 %-0.45 % NACL 1,000 ML IV SCH (02:45)
[2019-11-09] MEDS: IV DEXTROSE 5 %-0.45 % NACL 1,000 ML IV SCH ×2 (02:47→11:00)
[2019-11-09] MEDS: HEPARIN for SUB-Q USE 5,000 UNIT/ML VIAL. SQ SCH ×4 (06:11→21:32)
[2019-11-09] MEDS: INSULIN LISPRO 300 UNITS/3 ML VIAL. SQ SCH ×5 (06:12→21:00)
--- NOTE | 2019-11-09 06:27 | NUR ---
[id number] Pt remains unresponsive except for repeating the word "OK" over and over for most of the shift. At 0600, pt awakened fully and was A&Ox4. Pt pulled all monitors off and hit at the nurse. Demanding to speak with . called and spoke to patient. Pt crying after phone call. New neuro check done. See charting. Pt states she cannot see anything. Also reports not being able to see light and dark. All monitors reapplied with patient permission. Calmer at this time. Will monitor closely.
[2019-11-09 07:43] LABS: CALCIUM 7.8 mg/dL (8.5-10.1); GFR 30.2; MAGNESIUM 2.2 mg/dL (1.8-2.4); PHOSPHORUS 1.7 mg/dL (2.6-4.7); POTASSIUM 3.7 mmol/L (3.5-5.1)
[2019-11-09] MEDS: ASPIRIN ENTERIC COATED 325 MG TABLET.DR. PO SCH (08:00)
--- NOTE | 2019-11-09 08:55 | PDOC ---
PROGRESS NOTES Chief Complaint Chief Complaint A/P: DKA, poor Dm control AFSHAN - likely vasomotor nephropathy, Cr 2 Acute CVA - Left frontal lobe acute or subacute ischemic infarct Evolving late subacute right MCA territory ischemic infarct, resolution of prior right temporal lobe hematoma; chronic right MCA territory ischemic infarct. Metabolic encephalopathy due to diabetic ketoacidosis. CVA - CT head was found with old large right MCA infarct Diabetes-Type II with hyperglycemia - glucose 528, will place on high sliding scale and scheduled 15u lispro as well as lantus. Await [employer] evaluation High Cholesterol - cont statin Heart Disease - hold antiplatelets with hemorrhagic CVA Hypertension - cont meds PAD s/p L BKA - stable SSS s/p PPM - pacing. Ex-smoker (quit 2019) - counseled on continued cessation admit to ICU, DKA protocol Neuro consulted, start pt and ot and st [facility] time 47 min History of Present Illness History of Present Illness Ms Haney is a 64yo F w/ PMHx Diabetes-Type II, High Cholesterol, Heart Disease, Hypertension, Stroke, PAD s/p L BKA, SSS s/p PPM, ex-smoker (quit 2019) who presents via EMS with report of altered mental status. Found in DKA with worsening of CVA She was admitted to ICU for further monitoring of CVA. Seen by Neurology, Cardiology History of present illness limited secondary to altered mental status. Labs NA 140, K3.7, BUN 19, CR 2, glucose 1.4, phosphorus 1.7, ABG 7.2 08/14/148. No com plaints voiced Plan: Cont DKA protocol Transesophageal echocardiogram Resume aspirin and statin when able to take orally She has dye allergy, no need to repeat CT angiogram, has pacemaker, no MRI PT/OT/[employer] Vitals Vitals Vital Signs Date Time Temp Pulse Resp B/P (MAP) Pulse Ox O2 Delivery O2 Flow Rate FiO2 11/09/19 06:00 81 26 128/56 (80) 100 Room Air 11/09/19 04:00 99.0 99.0 11/08/19 19:00 2.0 Physical Exam General: Alert, No acute distress, Other (confused) Heart: Regular rate, Normal S1, Normal S2 Abdomen: Soft Extremities: Other (left BKA ) Skin: No significant lesion Labs LABS Laboratory Tests Test 11/08/19 10:32 11/08/19 11:40 11/08/19 12:53 11/08/19 14:01 Glucose (Fingerstick) 388 mg/dL (70-99) 303 mg/dL (70-99) 289 mg/dL (70-99) Sodium Level 139 mmol/L (136-145) Potassium Level 4.6 mmol/L (3.5-5.1) Chloride Level 103 mmol/L (98-107) Carbon Dioxide Level 12 mmol/L (21-32) Anion Gap 24 (6-14) Blood Urea Nitrogen 35 mg/dL (7-20) Creatinine 2.5 mg/dL (0.6-1.0) Estimated GFR (Cockcroft-Gault) 23.3 Glucose Level 373 mg/dL (70-99) Lactic Acid Level 1.3 mmol/L (0.4-2.0) Calcium Level 8.0 mg/dL (8.5-10.1) Phosphorus Level 3.8 mg/dL (2.6-4.7) Magnesium Level 1.9 mg/dL (1.8-2.4) Troponin I Quantitative < 0.017 ng/mL (0.000-0.055) Test 11/08/19 15:08 11/08/19 15:35 11/08/19 16:14 11/08/19 17:00 Glucose (Fingerstick) 218 mg/dL (70-99) 194 mg/dL (70-99) 183 mg/dL (70-99) Sodium Level 142 mmol/L (136-145) Potassium Level 3.6 mmol/L (3.5-5.1) Chloride Level 108 mmol/L (98-107) Carbon Dioxide Level 17 mmol/L (21-32) Anion Gap 17 (6-14) Blood Urea Nitrogen 32 mg/dL (7-20) Creatinine 2.4 mg/dL (0.6-1.0) Estimated GFR (Cockcroft-Gault) 24.4 Glucose Level 205 mg/dL (70-99) Calcium Level 8.3 mg/dL (8.5-10.1) Phosphorus Level 2.0 mg/dL (2.6-4.7) Magnesium Level 2.1 mg/dL (1.8-2.4) Troponin I Quantitative < 0.017 ng/mL (0.000-0.055) Test 11/08/19 17:20 11/08/19 18:24 11/08/19 19:27 11/08/19 20:25 Glucose (Fingerstick) 213 mg/dL (70-99) 182 mg/dL (70-99) 171 mg/dL (70-99) 135 mg/dL (70-99) Test 11/08/19 21:27 11/08/19 21:30 11/08/19 22:27 11/09/19 00:01 Glucose (Fingerstick) 116 mg/dL (70-99) 101 mg/dL (70-99) 107 mg/dL (70-99) Sodium Level 144 mmol/L (136-145) Potassium Level 4.0 mmol/L (3.5-5.1) Chloride Level 112 mmol/L (98-107) Carbon Dioxide Level 22 mmol/L (21-32) Anion Gap 10 (6-14) Blood Urea Nitrogen 29 mg/dL (7-20) Creatinine 2.1 mg/dL (0.6-1.0) Estimated GFR (Cockcroft-Gault) 28.5 Glucose Level 135 mg/dL (70-99) Calcium Level 7.9 mg/dL (8.5-10.1) Phosphorus Level 1.0 mg/dL (2.6-4.7) Magnesium Level 3.1 mg/dL (1.8-2.4) Test 11/09/19 06:11 11/09/19 07:05 Glucose (Fingerstick) 188 mg/dL (70-99) Sodium Level 140 mmol/L (136-145) Potassium Level 3.7 mmol/L (3.5-5.1) Chloride Level 109 mmol/L (98-107) Carbon Dioxide Level 20 mmol/L (21-32) Anion Gap 11 (6-14) Blood Urea Nitrogen 19 mg/dL (7-20) Creatinine 2.0 mg/dL (0.6-1.0) Estimated GFR (Cockcroft-Gault) 30.2 Glucose Level 194 mg/dL (70-99) Calcium Level 7.8 mg/dL (8.5-10.1) Phosphorus Level 1.7 mg/dL (2.6-4.7) Magnesium Level 2.2 mg/dL (1.8-2.4) Triglycerides Level 56 mg/dL (0-150) Cholesterol Level 106 mg/dL (0-200) LDL Cholesterol, Calculated 43 mg/dL (0-100) VLDL Cholesterol, Calculated 11 mg/dL (0-40) Non-HDL Cholesterol Calculated 54 mg/dL (0-129) HDL Cholesterol 52 mg/dL (40-60) Cholesterol/HDL Ratio 2.0 Assessment and Plan Assessmemt and Plan Problems Medical Problems: (1) CVA (cerebral vascular accident) Status: Acute (2) DKA (diabetic ketoacidoses) Status: Acute (3) Lactic acidosis Status: Acute Comment Review of Relevant I have reviewed the following items slime (where applicable) has been applied. Labs Laboratory Tests Test 11/08/19 06:54 11/08/19 07:13 11/08/19 07:28 11/08/19 07:39 Glucose (Fingerstick) 442 mg/dL (70-99) Troponin I Quantitative < 0.017 ng/mL (0.000-0.055) White Blood Count 14.7 x10^3/uL (4.0-11.0) Red Blood Count 3.68 x10^6/uL (3.50-5.40) Hemoglobin 10.9 g/dL (12.0-15.5) Hematocrit 33.6 % (36.0-47.0) Mean Corpuscular Volume 91 fL (79-100) Mean Corpuscular Hemoglobin 30 pg (25-35) Mean Corpuscular Hemoglobin Concent 32 g/dL (31-37) Red Cell Distribution Width 14.3 % (11.5-14.5) Platelet Count 213 x10^3/uL (140-400) Neutrophils (%) (Auto) 86 % (31-73) Lymphocytes (%) (Auto) 11 % (24-48) Monocytes (%) (Auto) 3 % (0-9) Eosinophils (%) (Auto) 0 % (0-3) Basophils (%) (Auto) 0 % (0-3) Neutrophils # (Auto) 12.7 x10^3/uL (1.8-7.7) Lymphocytes # (Auto) 1.6 x10^3/uL (1.0-4.8) Monocytes # (Auto) 0.4 x10^3/uL (0.0-1.1) Eosinophils # (Auto) 0.0 x10^3/uL (0.0-0.7) Basophils # (Auto) 0.0 x10^3/uL (0.0-0.2) Segmented Neutrophils % 88 % (35-66) Band Neutrophils % 2 % (0-9) Lymphocytes % 6 % (24-48) Monocytes % 4 % (0-10) Platelet Estimate Adequate (ADEQUATE) Poikilocytosis Anisocytosis Slight Prothrombin Time 15.0 SEC (11.7-14.0) Prothromb Time International Ratio 1.2 (0.8-1.1) Activated Partial Thromboplast Time 25 SEC (24-38) Sodium Level 135 mmol/L (136-145) Potassium Level 4.7 mmol/L (3.5-5.1) Chloride Level 98 mmol/L (98-107) Carbon Dioxide Level 9 mmol/L (21-32) Anion Gap 28 (6-14) Blood Urea Nitrogen 39 mg/dL (7-20) Creatinine 2.5 mg/dL (0.6-1.0) Estimated GFR (Cockcroft-Gault) 23.3 BUN/Creatinine Ratio 16 (6-20) Glucose Level 487 mg/dL (70-99) Lactic Acid Level 2.4 mmol/L (0.4-2.0) Calcium Level 8.5 mg/dL (8.5-10.1) Magnesium Level 2.0 mg/dL (1.8-2.4) Total Bilirubin 0.6 mg/dL (0.2-1.0) Aspartate Amino Transf (AST/SGOT) 27 U/L (15-37) Alanine Aminotransferase (ALT/SGPT) 34 U/L (14-59) Alkaline Phosphatase 86 U/L (46-116) Ammonia 13 mcmol/L (11-34) Creatine Kinase 248 U/L (26-192) Creatine Kinase MB (Mass) 1.4 ng/mL (0.0-3.6) Creatine Kinase MB Relative Index 0.6 % (0-4) Total Protein 6.7 g/dL (6.4-8.2) Albumin 3.7 g/dL (3.4-5.0) Albumin/Globulin Ratio 1.2 (1.0-1.7) Salicylates Level 5.8 mg/dL (2.8-20.0) Salicylate Last Dose Date Unknown Salicylate Last Dose Time Unknown Acetaminophen Level < 2 mcg/ml (10-30) Acetaminophen Last Dose Date Unknown Acetaminophen Last Dose Time Unknown Ethyl Alcohol Level < 10 mg/dL (0-10) Acetone Level Sm pos (NEG) Urine Collection Type U cath Urine Color Yellow Urine Clarity Clear Urine pH 5.0 (<5.0-8.0) Urine Specific Watson 1.025 (1.000-1.030) Urine Protein 100 mg/dL (NEG-TRACE) Urine Glucose (UA) >=1000 mg/dL (NEG) Urine Ketones (Stick) >=80 mg/dL (NEG) Urine Blood Trace (NEG) Urine Nitrite Negative (NEG) Urine Bilirubin Negative (NEG) Urine Urobilinogen Dipstick 0.2 mg/dL (0.2 mg/dL) Urine Leukocyte Esterase Negative (NEG) Urine RBC Occ /HPF (0-2) Urine WBC 1-4 /HPF (0-4) Urine Transitional Epithelial Cells Occ /LPF Urine Amorphous Sediment Present /HPF Urine Bacteria 0 /HPF (0-FEW) Urine Hyaline Casts Few /HPF Urine Opiates Screen Neg (NEG) Urine Methadone Screen Neg (NEG) Urine Barbiturates Neg (NEG) Urine Phencyclidine Screen Neg (NEG) Urine Amphetamine/Methamphetamine Neg (NEG) Urine Benzodiazepines Screen Neg (NEG) Urine Cocaine Screen Neg (NEG) Urine Cannabinoids Screen Neg (NEG) Urine Ethyl Alcohol Neg (NEG) Test 11/08/19 08:30 11/08/19 10:32 11/08/19 11:40 11/08/19 12:53 O2 Saturation 98 % (92-99) Arterial Blood pH 7.23 (7.35-7.45) Arterial Blood pCO2 at Patient Temp 18 mmHg (35-46) Arterial Blood pO2 at Patient Temp 148 mmHg (65-108) Arterial Blood HCO3 7 mmol/L (21-28) Arterial Blood Base Excess -18 mmol/L (-3-3) Oxyhemoglobin 97.2 % Methemoglobin 0.5 % (0.0-1.9) Carbon Monoxide, Quantitative 0.3 % (0.0-1.9) FiO2 2 lpm nc Glucose (Fingerstick) 388 mg/dL (70-99) 303 mg/dL (70-99) Sodium Level 139 mmol/L (136-145) Potassium Level 4.6 mmol/L (3.5-5.1) Chloride Level 103 mmol/L (98-107) Carbon Dioxide Level 12 mmol/L (21-32) Anion Gap 24 (6-14) Blood Urea Nitrogen 35 mg/dL (7-20) Creatinine 2.5 mg/dL (0.6-1.0) Estimated GFR (Cockcroft-Gault) 23.3 Glucose Level 373 mg/dL (70-99) Lactic Acid Level 1.3 mmol/L (0.4-2.0) Calcium Level 8.0 mg/dL (8.5-10.1) Phosphorus Level 3.8 mg/dL (2.6-4.7) Magnesium Level 1.9 mg/dL (1.8-2.4) Troponin I Quantitative < 0.017 ng/mL (0.000-0.055) Test 11/08/19 14:01 11/08/19 15:08 11/08/19 15:35 11/08/19 16:14 Glucose (Fingerstick) 289 mg/dL (70-99) 218 mg/dL (70-99) 194 mg/dL (70-99) Sodium Level 142 mmol/L (136-145) Potassium Level 3.6 mmol/L (3.5-5.1) Chloride Level 108 mmol/L (98-107) Carbon Dioxide Level 17 mmol/L (21-32) Anion Gap 17 (6-14) Blood Urea Nitrogen 32 mg/dL (7-20) Creatinine 2.4 mg/dL (0.6-1.0) Estimated GFR (Cockcroft-Gault) 24.4 Glucose Level 205 mg/dL (70-99) Calcium Level 8.3 mg/dL (8.5-10.1) Phosphorus Level 2.0 mg/dL (2.6-4.7) Magnesium Level 2.1 mg/dL (1.8-2.4) Troponin I Quantitative < 0.017 ng/mL (0.000-0.055) Test 11/08/19 17:00 11/08/19 17:20 11/08/19 18:24 11/08/19 19:27 Glucose (Fingerstick) 183 mg/dL (70-99) 213 mg/dL (70-99) 182 mg/dL (70-99) 171 mg/dL (70-99) Test 11/08/19 20:25 11/08/19 21:27 11/08/19 21:30 11/08/19 22:27 Glucose (Fingerstick) 135 mg/dL (70-99) 116 mg/dL (70-99) 101 mg/dL (70-99) Sodium Level 144 mmol/L (136-145) Potassium Level 4.0 mmol/L (3.5-5.1) Chloride Level 112 mmol/L (98-107) Carbon Dioxide Level 22 mmol/L (21-32) Anion Gap 10 (6-14) Blood Urea Nitrogen 29 mg/dL (7-20) Creatinine 2.1 mg/dL (0.6-1.0) Estimated GFR (Cockcroft-Gault) 28.5 Glucose Level 135 mg/dL (70-99) Calcium Level 7.9 mg/dL (8.5-10.1) Phosphorus Level 1.0 mg/dL (2.6-4.7) Magnesium Level 3.1 mg/dL (1.8-2.4) Test 11/09/19 00:01 11/09/19 06:11 11/09/19 07:05 Glucose (Fingerstick) 107 mg/dL (70-99) 188 mg/dL (70-99) Sodium Level 140 mmol/L (136-145) Potassium Level 3.7 mmol/L (3.5-5.1) Chloride Level 109 mmol/L (98-107) Carbon Dioxide Level 20 mmol/L (21-32) Anion Gap 11 (6-14) Blood Urea Nitrogen 19 mg/dL (7-20) Creatinine 2.0 mg/dL (0.6-1.0) Estimated GFR (Cockcroft-Gault) 30.2 Glucose Level 194 mg/dL (70-99) Calcium Level 7.8 mg/dL (8.5-10.1) Phosphorus Level 1.7 mg/dL (2.6-4.7) Magnesium Level 2.2 mg/dL (1.8-2.4) Triglycerides Level 56 mg/dL (0-150) Cholesterol Level 106 mg/dL (0-200) LDL Cholesterol, Calculated 43 mg/dL (0-100) VLDL Cholesterol, Calculated 11 mg/dL (0-40) Non-HDL Cholesterol Calculated 54 mg/dL (0-129) HDL Cholesterol 52 mg/dL (40-60) Cholesterol/HDL Ratio 2.0 Laboratory Tests Test 11/08/19 10:32 11/08/19 11:40 11/08/19 12:53 11/08/19 14:01 Glucose (Fingerstick) 388 mg/dL (70-99) 303 mg/dL (70-99) 289 mg/dL (70-99) Sodium Level 139 mmol/L (136-145) Potassium Level 4.6 mmol/L (3.5-5.1) Chloride Level 103 mmol/L (98-107) Carbon Dioxide Level 12 mmol/L (21-32) Anion Gap 24 (6-14) Blood Urea Nitrogen 35 mg/dL (7-20) Creatinine 2.5 mg/dL (0.6-1.0) Estimated GFR (Cockcroft-Gault) 23.3 Glucose Level 373 mg/dL (70-99) Lactic Acid Level 1.3 mmol/L (0.4-2.0) Calcium Level 8.0 mg/dL (8.5-10.1) Phosphorus Level 3.8 mg/dL (2.6-4.7) Magnesium Level 1.9 mg/dL (1.8-2.4) Troponin I Quantitative < 0.017 ng/mL (0.000-0.055) Test 11/08/19 15:08 11/08/19 15:35 11/08/19 16:14 11/08/19 17:00 Glucose (Fingerstick) 218 mg/dL (70-99) 194 mg/dL (70-99) 183 mg/dL (70-99) Sodium Level 142 mmol/L (136-145) Potassium Level 3.6 mmol/L (3.5-5.1) Chloride Level 108 mmol/L (98-107) Carbon Dioxide Level 17 mmol/L (21-32) Anion Gap 17 (6-14) Blood Urea Nitrogen 32 mg/dL (7-20) Creatinine 2.4 mg/dL (0.6-1.0) Estimated GFR (Cockcroft-Gault) 24.4 Glucose Level 205 mg/dL (70-99) Calcium Level 8.3 mg/dL (8.5-10.1) Phosphorus Level 2.0 mg/dL (2.6-4.7) Magnesium Level 2.1 mg/dL (1.8-2.4) Troponin I Quantitative < 0.017 ng/mL (0.000-0.055) Test 11/08/19 17:20 11/08/19 18:24 11/08/19 19:27 11/08/19 20:25 Glucose (Fingerstick) 213 mg/dL (70-99) 182 mg/dL (70-99) 171 mg/dL (70-99) 135 mg/dL (70-99) Test 11/08/19 21:27 11/08/19 21:30 11/08/19 22:27 11/09/19 00:01 Glucose (Fingerstick) 116 mg/dL (70-99) 101 mg/dL (70-99) 107 mg/dL (70-99) Sodium Level 144 mmol/L (136-145) Potassium Level 4.0 mmol/L (3.5-5.1) Chloride Level 112 mmol/L (98-107) Carbon Dioxide Level 22 mmol/L (21-32) Anion Gap 10 (6-14) Blood Urea Nitrogen 29 mg/dL (7-20) Creatinine 2.1 mg/dL (0.6-1.0) Estimated GFR (Cockcroft-Gault) 28.5 Glucose Level 135 mg/dL (70-99) Calcium Level 7.9 mg/dL (8.5-10.1) Phosphorus Level 1.0 mg/dL (2.6-4.7) Magnesium Level 3.1 mg/dL (1.8-2.4) Test 11/09/19 06:11 11/09/19 07:05 Glucose (Fingerstick) 188 mg/dL (70-99) Sodium Level 140 mmol/L (136-145) Potassium Level 3.7 mmol/L (3.5-5.1) Chloride Level 109 mmol/L (98-107) Carbon Dioxide Level 20 mmol/L (21-32) Anion Gap 11 (6-14) Blood Urea Nitrogen 19 mg/dL (7-20) Creatinine 2.0 mg/dL (0.6-1.0) Estimated GFR (Cockcroft-Gault) 30.2 Glucose Level 194 mg/dL (70-99) Calcium Level 7.8 mg/dL (8.5-10.1) Phosphorus Level 1.7 mg/dL (2.6-4.7) Magnesium Level 2.2 mg/dL (1.8-2.4) Triglycerides Level 56 mg/dL (0-150) Cholesterol Level 106 mg/dL (0-200) LDL Cholesterol, Calculated 43 mg/dL (0-100) VLDL Cholesterol, Calculated 11 mg/dL (0-40) Non-HDL Cholesterol Calculated 54 mg/dL (0-129) HDL Cholesterol 52 mg/dL (40-60) Cholesterol/HDL Ratio 2.0 Medications Current Medications Sodium Chloride 1,000 ml @ 1,000 mls/hr 1X ONCE IV Last administered on 11/08/19at 07:47; Start 11/08/19 at 07:00; Stop 11/08/19 at 07:59; Status DC Insulin Human Regular (HumuLIN R VIAL) 4 unit 1X ONCE SQ Last administered on 11/08/19at 08:32; Start 11/08/19 at 08:30; Stop 11/08/19 at 08:31; Status DC Aspirin (Aspirin Rectal Supp) 300 mg 1X ONCE ID Last administered on 11/08/19at 09:14; Start 11/08/19 at 09:15; Stop 11/08/19 at 09:16; Status DC Sodium Chloride 1,000 ml @ 500 mls/hr Q2H IV ; Start 11/08/19 at 09:04; Stop 11/08/19 at 11:03; Status DC Sodium Chloride 1,000 ml @ 250 mls/hr Q4H IV Last administered on 11/08/19at 14:40; Start 11/08/19 at 09:06; Stop 11/09/19 at 00:22; Status DC Dextrose/Sodium Chloride 1,000 ml @ 250 mls/hr Q4H IV Last administered on 04/18at 22:40; Start 11/08/19 at 09:06; Stop 11/09/19 at 02:33; Status DC Insulin Human Regular 100 unit/ Sodium Chloride 101 ml @ 0 mls/hr CONT PRN PRN IV PER PROTOCOL; Start 11/08/19 at 09:15; Stop 11/08/19 at 10:34; Status DC Potassium Chloride/Water 100 ml @ 100 mls/hr PRN Q1HR PRN IV SEE COMMENTS Last administered on 11/08/19at 23:44; Start 11/08/19 at 09:15 Potassium Chloride/Water 100 ml @ 100 mls/hr PRN Q1HR PRN IV SEE COMMENTS Last administered on 11/08/19at 17:55; Start 11/08/19 at 09:15 Potassium Chloride/Water 100 ml @ 100 mls/hr PRN Q1HR PRN IV SEE COMMENTS; Start 11/08/19 at 09:15 Insulin Human Regular 100 ml @ 0 mls/hr CONT PRN PRN IV PER PROTOCOL; Start 11/08/19 at 09:15; Stop 11/08/19 at 10:34; Status DC Ondansetron HCl (Zofran) 4 mg PRN Q8HRS PRN IV NAUSEA/VOMITING; Start 11/08/19 at 09:30; Stop 11/09/19 at 09:29 Sodium Chloride 1,000 ml @ 250 mls/hr Q4H IV Last administered on 11/08/19at 14:20; Start 11/08/19 at 10:32; Stop 11/09/19 at 00:22; Status DC Insulin Human Regular 100 unit/ Sodium Chloride 101 ml @ 0 mls/hr CONT PRN PRN IV PER PROTOCOL Last administered on 11/08/19at 20:13; Start 11/08/19 at 10:30 Acetaminophen (Tylenol) 650 mg PRN Q6HRS PRN PO TEMP > 100.4F; Start 11/08/19 at 13:45 Acetaminophen (Tylenol Supp) 650 mg PRN Q4HRS PRN ID TEMP > 100.4F; Start 11/08/19 at 13:45 Aspirin (Ecotrin) 325 mg DAILYWBKFT PO ; Start 11/09/19 at 08:00 Aspirin (Aspirin Rectal Supp) 300 mg PRN DAILY PRN ID IF UNABLE TO TAKE PO; Start 11/08/19 at 13:45 Potassium Chloride/Water 100 ml @ 100 mls/hr Q1H IV Last administered on 11/08/19at 16:11; Start 11/08/19 at 15:00; Stop 11/08/19 at 16:59; Status DC Magnesium Sulfate 100 ml @ 25 mls/hr 1X ONCE IV Last administered on 11/08/19at 15:18; Start 11/08/19 at 14:15; Stop 11/08/19 at 18:14; Status DC Heparin Sodium (Porcine) (Heparin Sodium) 5,000 unit Q8HRS SQ Last administered on 11/09/19at 06:11; Start 11/08/19 at 22:00 Atorvastatin Calcium (Lipitor) 40 mg QHS PO ; Start 11/08/19 at 21:00 Sodium Chloride (Normal Saline Flush) 10 ml QSHIFT PRN IV AFTER MEDS AND BLOOD DRAWS; Start 11/08/19 at 16:00 Lidocaine HCl (Xylocaine 2% Topical 5gm Tube) 1 tyron 1X ONCE TP ; Start 11/08/19 at 16:00; Stop 11/08/19 at 16:16; Status DC Lidocaine HCl (Viscous Lidocaine) 15 ml 1X ONCE MM ; Start 11/08/19 at 16:00; Stop 11/08/19 at 16:16; Status DC Benzocaine (Hurricaine One) 2 spray 1X ONCE MM ; Start 11/08/19 at 16:00; Stop 11/08/19 at 16:16; Status DC Potassium Chloride/Water 100 ml @ 100 mls/hr Q1H IV Last administered on 11/08/19at 20:12; Start 11/08/19 at 18:00; Stop 11/08/19 at 21:59; Status DC Dextrose/Sodium Chloride 1,000 ml @ 250 mls/hr Q4H PRN IV SEE COMMENTS Last administered on 11/08/19at 19:43; Start 11/08/19 at 19:45; Stop 11/16/19 at 00:00 Insulin Glargine (Lantus Syringe) 10 unit QHS SQ Last administered on 11/08/19at 22:55; Start 11/08/19 at 23:00 Insulin Human Lispro (HumaLOG) 0-5 UNITS Q6HRS SQ Last administered on 11/09/19at 06:12; Start 11/09/19 at 00:00 Dextrose (Dextrose 50%-Water Syringe) 12.5 gm PRN Q15MIN PRN IV SEE COMMENTS; Start 11/08/19 at 22:45 Dextrose/Sodium Chloride 1,000 ml @ 125 mls/hr CONT PRN IV ; Start 11/09/19 at 02:45; Stop 11/09/19 at 02:46; Status DC Dextrose/Sodium Chloride 1,000 ml @ 125 mls/hr Q8H IV Last administered on 11/09/19at 02:47; Start 11/09/19 at 03:00 Active Scripts Active Reported Lantus Solostar (Insulin Glargine,Hum.rec.anlog) 100 Unit/1 Ml Insuln.pen 20 Unit SQ QHS Novolog Flexpen (Insulin Aspart) 100 Unit/1 Ml Insuln.pen 100 Unit SQ Amlodipine Besylate 10 Mg Tablet 1 Tab PO DAILY Lisinopril 20 Mg Tablet 1 Tab PO DAILY Carvedilol 25 Mg Tablet 1 Tab PO BID Vitals/I & O Vital Sign - Last 24 Hours 11/08/19 11/08/19 11/08/19 11/08/19 09:09 09:33 09:48 10:03 Pulse 86 92 86 86 Resp 22 Pulse Ox 100 99 94 100 11/08/19 11/08/19 11/08/19 11/08/19 10:20 10:30 11:00 11:15 Temp 97.9 97.9 Pulse 88 90 90 Resp 29 25 B/P (MAP) 113/86 (95) 154/69 (97) Pulse Ox 93 97 91 O2 Delivery Nasal Cannula Nasal Cannula Nasal Cannula Nasal Cannula O2 Flow Rate 3.0 3.0 3.0 3.0 11/08/19 11/08/19 11/08/19 11/08/19 11:30 12:00 12:00 12:00 Pulse 86 86 B/P (MAP) 145/44 (77) 140/57 (84) Pulse Ox 88 100 O2 Delivery Room Air Nasal Cannula Nasal Cannula Nasal Cannula O2 Flow Rate 3.0 3.0 3.0 11/08/19 11/08/19 11/08/19 11/08/19 13:00 14:00 15:00 16:00 Pulse 92 92 86 88 Resp 30 B/P (MAP) 152/52 (85) 139/53 (81) 146/53 (84) 140/55 (83) Pulse Ox 100 87 100 99 O2 Delivery Nasal Cannula Room Air Room Air Room Air O2 Flow Rate 3.0 11/08/19 11/08/19 11/08/19 11/08/19 16:00 16:54 18:00 19:00 Temp 98.1 98.1 Pulse 91 84 83 Resp 33 2 22 B/P (MAP) 128/50 (76) 110/50 (70) 110/50 (70) Pulse Ox 100 93 100 O2 Delivery Room Air Room Air Room Air Nasal Cannula O2 Flow Rate 2.0 11/08/19 11/08/19 11/08/19 11/08/19 20:00 20:00 21:00 22:00 Temp 98.7 98.7 Pulse 83 81 81 Resp 24 24 18 B/P (MAP) 123/59 (80) 131/46 (74) 166/72 (103) Pulse Ox 100 100 100 O2 Delivery Room Air Room Air Room Air Room Air 11/08/19 11/09/19 11/09/19 11/09/19 23:00 00:00 00:00 01:00 Temp 97.9 97.9 Pulse 82 77 80 Resp 22 24 20 B/P (MAP) 153/62 (92) 121/68 (85) 184/67 (106) Pulse Ox 100 96 100 O2 Delivery Room Air Room Air Room Air Room Air 11/09/19 11/09/19 11/09/19 11/09/19 02:00 03:00 04:00 04:00 Temp 99.0 99.0 Pulse 92 72 75 Resp 20 20 B/P (MAP) 129/71 (90) 145/48 (80) 170/73 (105) Pulse Ox 100 100 100 O2 Delivery Room Air Room Air Room Air Room Air 11/09/19 11/09/19 05:00 06:00 Pulse 81 81 Resp 22 26 B/P (MAP) 158/66 (96) 128/56 (80) Pulse Ox 100 100 O2 Delivery Room Air Room Air Intake and Output 11/08/19 11/08/19 11/09/19 15:00 23:00 07:00 Intake Total 1000 ml 500 ml 1100 ml Output Total 890 ml 430 ml 390 ml Balance 110 ml 70 ml 710 ml ESPERANZA ARMAS MD Nov 09, 2019 08:55
--- NOTE | 2019-11-09 09:08 | PDOC ---
PROGRESS NOTES Assessment Problems Medical Problems: (1) CVA (cerebral vascular accident) Status: Acute (2) DKA (diabetic ketoacidoses) Status: Acute (3) Lactic acidosis Status: Acute Left frontal lobe acute or subacute ischemic infarct Evolving late subacute right MCA territory ischemic infarct, resolution of prior right temporal lobe hematoma; chronic right MCA territory ischemic infarct. Metabolic encephalopathy due to diabetic ketoacidosis. Plan Transesophageal echocardiogram and outpatient LINQ recording. Treatment of diabetic ketoacidosis Stroke is subacute, no role for alteplase Resume aspirin and statin when able to take orally She has dye allergy, no need to repeat CT angiogram, has pacemaker, no MRI Rehabilitation modalities. Subjective No complaints Objective Vital Signs Date Time Temp Pulse Resp B/P (MAP) Pulse Ox O2 Delivery O2 Flow Rate FiO2 11/09/19 06:00 81 26 128/56 (80) 100 Room Air 11/09/19 04:00 99.0 99.0 11/08/19 19:00 2.0 Intake and Output 11/09/19 06:59 Intake Total 2600 ml Output Total 1710 ml Balance 890 ml Intake Oral 0 ml IV Total 2600 ml Output Urine Total 1710 ml PHYSICAL EXAM Alert. Oriented to place and person. PERRL. EOMI. 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 Muscle tone: normal. Muscle strength: 4/5 DTR: 1-2+ Plantar reflex: Left BKA, right plantar responses flexor Gait: not examined in bed. Sensory exam: stocking loss. No cerebellar signs elicited. Review of Relevant I have reviewed the following items slime (where applicable) has been applied. Labs Laboratory Tests Test 11/08/19 06:54 11/08/19 07:13 11/08/19 07:28 11/08/19 07:39 Glucose (Fingerstick) 442 mg/dL (70-99) Troponin I Quantitative < 0.017 ng/mL (0.000-0.055) White Blood Count 14.7 x10^3/uL (4.0-11.0) Red Blood Count 3.68 x10^6/uL (3.50-5.40) Hemoglobin 10.9 g/dL (12.0-15.5) Hematocrit 33.6 % (36.0-47.0) Mean Corpuscular Volume 91 fL (79-100) Mean Corpuscular Hemoglobin 30 pg (25-35) Mean Corpuscular Hemoglobin Concent 32 g/dL (31-37) Red Cell Distribution Width 14.3 % (11.5-14.5) Platelet Count 213 x10^3/uL (140-400) Neutrophils (%) (Auto) 86 % (31-73) Lymphocytes (%) (Auto) 11 % (24-48) Monocytes (%) (Auto) 3 % (0-9) Eosinophils (%) (Auto) 0 % (0-3) Basophils (%) (Auto) 0 % (0-3) Neutrophils # (Auto) 12.7 x10^3/uL (1.8-7.7) Lymphocytes # (Auto) 1.6 x10^3/uL (1.0-4.8) Monocytes # (Auto) 0.4 x10^3/uL (0.0-1.1) Eosinophils # (Auto) 0.0 x10^3/uL (0.0-0.7) Basophils # (Auto) 0.0 x10^3/uL (0.0-0.2) Segmented Neutrophils % 88 % (35-66) Band Neutrophils % 2 % (0-9) Lymphocytes % 6 % (24-48) Monocytes % 4 % (0-10) Platelet Estimate Adequate (ADEQUATE) Poikilocytosis Anisocytosis Slight Prothrombin Time 15.0 SEC (11.7-14.0) Prothromb Time International Ratio 1.2 (0.8-1.1) Activated Partial Thromboplast Time 25 SEC (24-38) Sodium Level 135 mmol/L (136-145) Potassium Level 4.7 mmol/L (3.5-5.1) Chloride Level 98 mmol/L (98-107) Carbon Dioxide Level 9 mmol/L (21-32) Anion Gap 28 (6-14) Blood Urea Nitrogen 39 mg/dL (7-20) Creatinine 2.5 mg/dL (0.6-1.0) Estimated GFR (Cockcroft-Gault) 23.3 BUN/Creatinine Ratio 16 (6-20) Glucose Level 487 mg/dL (70-99) Lactic Acid Level 2.4 mmol/L (0.4-2.0) Calcium Level 8.5 mg/dL (8.5-10.1) Magnesium Level 2.0 mg/dL (1.8-2.4) Total Bilirubin 0.6 mg/dL (0.2-1.0) Aspartate Amino Transf (AST/SGOT) 27 U/L (15-37) Alanine Aminotransferase (ALT/SGPT) 34 U/L (14-59) Alkaline Phosphatase 86 U/L (46-116) Ammonia 13 mcmol/L (11-34) Creatine Kinase 248 U/L (26-192) Creatine Kinase MB (Mass) 1.4 ng/mL (0.0-3.6) Creatine Kinase MB Relative Index 0.6 % (0-4) Total Protein 6.7 g/dL (6.4-8.2) Albumin 3.7 g/dL (3.4-5.0) Albumin/Globulin Ratio 1.2 (1.0-1.7) Salicylates Level 5.8 mg/dL (2.8-20.0) Salicylate Last Dose Date Unknown Salicylate Last Dose Time Unknown Acetaminophen Level < 2 mcg/ml (10-30) Acetaminophen Last Dose Date Unknown Acetaminophen Last Dose Time Unknown Ethyl Alcohol Level < 10 mg/dL (0-10) Acetone Level Sm pos (NEG) Urine Collection Type U cath Urine Color Yellow Urine Clarity Clear Urine pH 5.0 (<5.0-8.0) Urine Specific [place] 1.025 (1.000-1.030) Urine Protein 100 mg/dL (NEG-TRACE) Urine Glucose (UA) >=1000 mg/dL (NEG) Urine Ketones (Stick) >=80 mg/dL (NEG) Urine Blood Trace (NEG) Urine Nitrite Negative (NEG) Urine Bilirubin Negative (NEG) Urine Urobilinogen Dipstick 0.2 mg/dL (0.2 mg/dL) Urine Leukocyte Esterase Negative (NEG) Urine RBC Occ /HPF (0-2) Urine WBC 1-4 /HPF (0-4) Urine Transitional Epithelial Cells Occ /LPF Urine Amorphous Sediment Present /HPF Urine Bacteria 0 /HPF (0-FEW) Urine Hyaline Casts Few /HPF Urine Opiates Screen Neg (NEG) Urine Methadone Screen Neg (NEG) Urine Barbiturates Neg (NEG) Urine Phencyclidine Screen Neg (NEG) Urine Amphetamine/Methamphetamine Neg (NEG) Urine Benzodiazepines Screen Neg (NEG) Urine Cocaine Screen Neg (NEG) Urine Cannabinoids Screen Neg (NEG) Urine Ethyl Alcohol Neg (NEG) Test 11/08/19 08:30 11/08/19 10:32 11/08/19 11:40 11/08/19 12:53 O2 Saturation 98 % (92-99) Arterial Blood pH 7.23 (7.35-7.45) Arterial Blood pCO2 at Patient Temp 18 mmHg (35-46) Arterial Blood pO2 at Patient Temp 148 mmHg (65-108) Arterial Blood HCO3 7 mmol/L (21-28) Arterial Blood Base Excess -18 mmol/L (-3-3) Oxyhemoglobin 97.2 % Methemoglobin 0.5 % (0.0-1.9) Carbon Monoxide, Quantitative 0.3 % (0.0-1.9) FiO2 2 lpm nc Glucose (Fingerstick) 388 mg/dL (70-99) 303 mg/dL (70-99) Sodium Level 139 mmol/L (136-145) Potassium Level 4.6 mmol/L (3.5-5.1) Chloride Level 103 mmol/L (98-107) Carbon Dioxide Level 12 mmol/L (21-32) Anion Gap 24 (6-14) Blood Urea Nitrogen 35 mg/dL (7-20) Creatinine 2.5 mg/dL (0.6-1.0) Estimated GFR (Cockcroft-Gault) 23.3 Glucose Level 373 mg/dL (70-99) Lactic Acid Level 1.3 mmol/L (0.4-2.0) Calcium Level 8.0 mg/dL (8.5-10.1) Phosphorus Level 3.8 mg/dL (2.6-4.7) Magnesium Level 1.9 mg/dL (1.8-2.4) Troponin I Quantitative < 0.017 ng/mL (0.000-0.055) Test 11/08/19 14:01 11/08/19 15:08 11/08/19 15:35 11/08/19 16:14 Glucose (Fingerstick) 289 mg/dL (70-99) 218 mg/dL (70-99) 194 mg/dL (70-99) Sodium Level 142 mmol/L (136-145) Potassium Level 3.6 mmol/L (3.5-5.1) Chloride Level 108 mmol/L (98-107) Carbon Dioxide Level 17 mmol/L (21-32) Anion Gap 17 (6-14) Blood Urea Nitrogen 32 mg/dL (7-20) Creatinine 2.4 mg/dL (0.6-1.0) Estimated GFR (Cockcroft-Gault) 24.4 Glucose Level 205 mg/dL (70-99) Calcium Level 8.3 mg/dL (8.5-10.1) Phosphorus Level 2.0 mg/dL (2.6-4.7) Magnesium Level 2.1 mg/dL (1.8-2.4) Troponin I Quantitative < 0.017 ng/mL (0.000-0.055) Test 11/08/19 17:00 11/08/19 17:20 11/08/19 18:24 11/08/19 19:27 Glucose (Fingerstick) 183 mg/dL (70-99) 213 mg/dL (70-99) 182 mg/dL (70-99) 171 mg/dL (70-99) Test 11/08/19 20:25 11/08/19 21:27 11/08/19 21:30 11/08/19 22:27 Glucose (Fingerstick) 135 mg/dL (70-99) 116 mg/dL (70-99) 101 mg/dL (70-99) Sodium Level 144 mmol/L (136-145) Potassium Level 4.0 mmol/L (3.5-5.1) Chloride Level 112 mmol/L (98-107) Carbon Dioxide Level 22 mmol/L (21-32) Anion Gap 10 (6-14) Blood Urea Nitrogen 29 mg/dL (7-20) Creatinine 2.1 mg/dL (0.6-1.0) Estimated GFR (Cockcroft-Gault) 28.5 Glucose Level 135 mg/dL (70-99) Calcium Level 7.9 mg/dL (8.5-10.1) Phosphorus Level 1.0 mg/dL (2.6-4.7) Magnesium Level 3.1 mg/dL (1.8-2.4) Test 11/09/19 00:01 11/09/19 06:11 11/09/19 07:05 Glucose (Fingerstick) 107 mg/dL (70-99) 188 mg/dL (70-99) Sodium Level 140 mmol/L (136-145) Potassium Level 3.7 mmol/L (3.5-5.1) Chloride Level 109 mmol/L (98-107) Carbon Dioxide Level 20 mmol/L (21-32) Anion Gap 11 (6-14) Blood Urea Nitrogen 19 mg/dL (7-20) Creatinine 2.0 mg/dL (0.6-1.0) Estimated GFR (Cockcroft-Gault) 30.2 Glucose Level 194 mg/dL (70-99) Calcium Level 7.8 mg/dL (8.5-10.1) Phosphorus Level 1.7 mg/dL (2.6-4.7) Magnesium Level 2.2 mg/dL (1.8-2.4) Triglycerides Level 56 mg/dL (0-150) Cholesterol Level 106 mg/dL (0-200) LDL Cholesterol, Calculated 43 mg/dL (0-100) VLDL Cholesterol, Calculated 11 mg/dL (0-40) Non-HDL Cholesterol Calculated 54 mg/dL (0-129) HDL Cholesterol 52 mg/dL (40-60) Cholesterol/HDL Ratio 2.0 Laboratory Tests Test 11/08/19 10:32 11/08/19 11:40 11/08/19 12:53 11/08/19 14:01 Glucose (Fingerstick) 388 mg/dL (70-99) 303 mg/dL (70-99) 289 mg/dL (70-99) Sodium Level 139 mmol/L (136-145) Potassium Level 4.6 mmol/L (3.5-5.1) Chloride Level 103 mmol/L (98-107) Carbon Dioxide Level 12 mmol/L (21-32) Anion Gap 24 (6-14) Blood Urea Nitrogen 35 mg/dL (7-20) Creatinine 2.5 mg/dL (0.6-1.0) Estimated GFR (Cockcroft-Gault) 23.3 Glucose Level 373 mg/dL (70-99) Lactic Acid Level 1.3 mmol/L (0.4-2.0) Calcium Level 8.0 mg/dL (8.5-10.1) Phosphorus Level 3.8 mg/dL (2.6-4.7) Magnesium Level 1.9 mg/dL (1.8-2.4) Troponin I Quantitative < 0.017 ng/mL (0.000-0.055) Test 11/08/19 15:08 11/08/19 15:35 11/08/19 16:14 11/08/19 17:00 Glucose (Fingerstick) 218 mg/dL (70-99) 194 mg/dL (70-99) 183 mg/dL (70-99) Sodium Level 142 mmol/L (136-145) Potassium Level 3.6 mmol/L (3.5-5.1) Chloride Level 108 mmol/L (98-107) Carbon Dioxide Level 17 mmol/L (21-32) Anion Gap 17 (6-14) Blood Urea Nitrogen 32 mg/dL (7-20) Creatinine 2.4 mg/dL (0.6-1.0) Estimated GFR (Cockcroft-Gault) 24.4 Glucose Level 205 mg/dL (70-99) Calcium Level 8.3 mg/dL (8.5-10.1) Phosphorus Level 2.0 mg/dL (2.6-4.7) Magnesium Level 2.1 mg/dL (1.8-2.4) Troponin I Quantitative < 0.017 ng/mL (0.000-0.055) Test 11/08/19 17:20 11/08/19 18:24 11/08/19 19:27 11/08/19 20:25 Glucose (Fingerstick) 213 mg/dL (70-99) 182 mg/dL (70-99) 171 mg/dL (70-99) 135 mg/dL (70-99) Test 11/08/19 21:27 11/08/19 21:30 11/08/19 22:27 11/09/19 00:01 Glucose (Fingerstick) 116 mg/dL (70-99) 101 mg/dL (70-99) 107 mg/dL (70-99) Sodium Level 144 mmol/L (136-145) Potassium Level 4.0 mmol/L (3.5-5.1) Chloride Level 112 mmol/L (98-107) Carbon Dioxide Level 22 mmol/L (21-32) Anion Gap 10 (6-14) Blood Urea Nitrogen 29 mg/dL (7-20) Creatinine 2.1 mg/dL (0.6-1.0) Estimated GFR (Cockcroft-Gault) 28.5 Glucose Level 135 mg/dL (70-99) Calcium Level 7.9 mg/dL (8.5-10.1) Phosphorus Level 1.0 mg/dL (2.6-4.7) Magnesium Level 3.1 mg/dL (1.8-2.4) Test 11/09/19 06:11 11/09/19 07:05 Glucose (Fingerstick) 188 mg/dL (70-99) Sodium Level 140 mmol/L (136-145) Potassium Level 3.7 mmol/L (3.5-5.1) Chloride Level 109 mmol/L (98-107) Carbon Dioxide Level 20 mmol/L (21-32) Anion Gap 11 (6-14) Blood Urea Nitrogen 19 mg/dL (7-20) Creatinine 2.0 mg/dL (0.6-1.0) Estimated GFR (Cockcroft-Gault) 30.2 Glucose Level 194 mg/dL (70-99) Calcium Level 7.8 mg/dL (8.5-10.1) Phosphorus Level 1.7 mg/dL (2.6-4.7) Magnesium Level 2.2 mg/dL (1.8-2.4) Triglycerides Level 56 mg/dL (0-150) Cholesterol Level 106 mg/dL (0-200) LDL Cholesterol, Calculated 43 mg/dL (0-100) VLDL Cholesterol, Calculated 11 mg/dL (0-40) Non-HDL Cholesterol Calculated 54 mg/dL (0-129) HDL Cholesterol 52 mg/dL (40-60) Cholesterol/HDL Ratio 2.0 Medications Current Medications Sodium Chloride 1,000 ml @ 1,000 mls/hr 1X ONCE IV Last administered on 11/08/19at 07:47; Start 11/08/19 at 07:00; Stop 11/08/19 at 07:59; Status DC Insulin Human Regular (HumuLIN R VIAL) 4 unit 1X ONCE SQ Last administered on 11/08/19at 08:32; Start 11/08/19 at 08:30; Stop 11/08/19 at 08:31; Status DC Aspirin (Aspirin Rectal Supp) 300 mg 1X ONCE AK Last administered on 11/08/19at 09:14; Start 11/08/19 at 09:15; Stop 11/08/19 at 09:16; Status DC Sodium Chloride 1,000 ml @ 500 mls/hr Q2H IV ; Start 11/08/19 at 09:04; Stop 11/08/19 at 11:03; Status DC Sodium Chloride 1,000 ml @ 250 mls/hr Q4H IV Last administered on 11/08/19at 14:40; Start 11/08/19 at 09:06; Stop 11/09/19 at 00:22; Status DC Dextrose/Sodium Chloride 1,000 ml @ 250 mls/hr Q4H IV Last administered on 11/08/19at 22:40; Start 11/08/19 at 09:06; Stop 11/09/19 at 02:33; Status DC Insulin Human Regular 100 unit/ Sodium Chloride 101 ml @ 0 mls/hr CONT PRN PRN IV PER PROTOCOL; Start 11/08/19 at 09:15; Stop 11/08/19 at 10:34; Status DC Potassium Chloride/Water 100 ml @ 100 mls/hr PRN Q1HR PRN IV SEE COMMENTS Last administered on 11/08/19at 23:44; Start 11/08/19 at 09:15 Potassium Chloride/Water 100 ml @ 100 mls/hr PRN Q1HR PRN IV SEE COMMENTS Last administered on 11/08/19at 17:55; Start 11/08/19 at 09:15 Potassium Chloride/Water 100 ml @ 100 mls/hr PRN Q1HR PRN IV SEE COMMENTS; Start 11/08/19 at 09:15 Insulin Human Regular 100 ml @ 0 mls/hr CONT PRN PRN IV PER PROTOCOL; Start 11/08/19 at 09:15; Stop 11/08/19 at 10:34; Status DC Ondansetron HCl (Zofran) 4 mg PRN Q8HRS PRN IV NAUSEA/VOMITING; Start 11/08/19 at 09:30; Stop 11/09/19 at 09:29 Sodium Chloride 1,000 ml @ 250 mls/hr Q4H IV Last administered on 11/08/19at 14:20; Start 11/08/19 at 10:32; Stop 11/09/19 at 00:22; Status DC Insulin Human Regular 100 unit/ Sodium Chloride 101 ml @ 0 mls/hr CONT PRN PRN IV PER PROTOCOL Last administered on 11/08/19at 20:13; Start 11/08/19 at 10:30 Acetaminophen (Tylenol) 650 mg PRN Q6HRS PRN PO TEMP > 100.4F; Start 11/08/19 at 13:45 Acetaminophen (Tylenol Supp) 650 mg PRN Q4HRS PRN AK TEMP > 100.4F; Start 11/08/19 at 13:45 Aspirin (Ecotrin) 325 mg DAILYWBKFT PO ; Start 11/09/19 at 08:00 Aspirin (Aspirin Rectal Supp) 300 mg PRN DAILY PRN AK IF UNABLE TO TAKE PO; S tart 11/08/19 at 13:45 Potassium Chloride/Water 100 ml @ 100 mls/hr Q1H IV Last administered on 11/08/19at 16:11; Start 11/08/19 at 15:00; Stop 11/08/19 at 16:59; Status DC Magnesium Sulfate 100 ml @ 25 mls/hr 1X ONCE IV Last administered on 11/08/19at 15:18; Start 11/08/19 at 14:15; Stop 11/08/19 at 18:14; Status DC Heparin Sodium (Porcine) (Heparin Sodium) 5,000 unit Q8HRS SQ Last administered on 11/09/19at 06:11; Start 11/08/19 at 22:00 Atorvastatin Calcium (Lipitor) 40 mg QHS PO ; Start 11/08/19 at 21:00 Sodium Chloride (Normal Saline Flush) 10 ml QSHIFT PRN IV AFTER MEDS AND BLOOD DRAWS; Start 11/08/19 at 16:00 Lidocaine HCl (Xylocaine 2% Topical 5gm Tube) 1 tyron 1X ONCE TP ; Start 11/08/19 at 16:00; Stop 11/08/19 at 16:16; Status DC Lidocaine HCl (Viscous Lidocaine) 15 ml 1X ONCE MM ; Start 11/08/19 at 16:00; Stop 11/08/19 at 16:16; Status DC Benzocaine (Hurricaine One) 2 spray 1X ONCE MM ; Start 11/08/19 at 16:00; Stop 11/08/19 at 16:16; Status DC Potassium Chloride/Water 100 ml @ 100 mls/hr Q1H IV Last administered on 11/08/19at 20:12; Start 11/08/19 at 18:00; Stop 11/08/19 at 21:59; Status DC Dextrose/Sodium Chloride 1,000 ml @ 250 mls/hr Q4H PRN IV SEE COMMENTS Last administered on 11/08/19at 19:43; Start 11/08/19 at 19:45; Stop 11/16/19 at 00:00 Insulin Glargine (Lantus Syringe) 10 unit QHS SQ Last administered on 11/08/19at 22:55; Start 11/08/19 at 23:00 Insulin Human Lispro (HumaLOG) 0-5 UNITS Q6HRS SQ Last administered on 11/09/19at 06:12; Start 11/09/19 at 00:00 Dextrose (Dextrose 50%-Water Syringe) 12.5 gm PRN Q15MIN PRN IV SEE COMMENTS; Start 11/08/19 at 22:45 Dextrose/Sodium Chloride 1,000 ml @ 125 mls/hr CONT PRN IV ; Start 11/09/19 at 02:45; Stop 11/09/19 at 02:46; Status DC Dextrose/Sodium Chloride 1,000 ml @ 125 mls/hr Q8H IV Last administered on 11/09/19at 02:47; Start 11/09/19 at 03:00 Active Scripts Active Reported Lantus Solostar (Insulin Glargine,Hum.rec.anlog) 100 Unit/1 Ml Insuln.pen 20 Unit SQ QHS Novolog Flexpen (Insulin Aspart) 100 Unit/1 Ml Insuln.pen 100 Unit SQ Amlodipine Besylate 10 Mg Tablet 1 Tab PO DAILY Lisinopril 20 Mg Tablet 1 Tab PO DAILY Carvedilol 25 Mg Tablet 1 Tab PO BID Vitals/I & O Vital Sign - Last 24 Hours 11/08/19 11/08/19 11/08/19 11/08/19 09:09 09:33 09:48 10:03 Pulse 86 92 86 86 Resp 22 20 22 22 Pulse Ox 100 99 94 100 11/08/19 11/08/19 11/08/19 11/08/19 10:20 10:30 11:00 11:15 Temp 97.9 97.9 Pulse 88 90 90 Resp 29 25 B/P (MAP) 113/86 (95) 154/69 (97) Pulse Ox 93 97 91 O2 Delivery Nasal Cannula Nasal Cannula Nasal Cannula Nasal Cannula O2 Flow Rate 3.0 3.0 3.0 3.0 11/08/19 11/08/19 11/08/19 11/08/19 11:30 12:00 12:00 12:00 Pulse 86 86 B/P (MAP) 145/44 (77) 140/57 (84) Pulse Ox 88 100 O2 Delivery Room Air Nasal Cannula Nasal Cannula Nasal Cannula O2 Flow Rate 3.0 3.0 3.0 11/08/19 11/08/19 11/08/19 11/08/19 13:00 14:00 15:00 16:00 Pulse 92 92 86 88 Resp 30 B/P (MAP) 152/52 (85) 139/53 (81) 146/53 (84) 140/55 (83) Pulse Ox 100 87 100 99 O2 Delivery Nasal Cannula Room Air Room Air Room Air O2 Flow Rate 3.0 11/08/19 11/08/19 11/08/19 11/08/19 16:00 16:54 18:00 19:00 Temp 98.1 98.1 Pulse 91 84 83 Resp 33 2 22 B/P (MAP) 128/50 (76) 110/50 (70) 110/50 (70) Pulse Ox 100 93 100 O2 Delivery Room Air Room Air Room Air Nasal Cannula O2 Flow Rate 2.0 11/08/19 11/08/19 11/08/19 11/08/19 20:00 20:00 21:00 22:00 Temp 98.7 98.7 Pulse 83 81 81 Resp 24 24 18 B/P (MAP) 123/59 (80) 131/46 (74) 166/72 (103) Pulse Ox 100 100 100 O2 Delivery Room Air Room Air Room Air Room Air 11/08/19 11/09/19 11/09/19 11/09/19 23:00 00:00 00:00 01:00 Temp 97.9 97.9 Pulse 82 77 80 Resp 22 24 20 B/P (MAP) 153/62 (92) 121/68 (85) 184/67 (106) Pulse Ox 100 96 100 O2 Delivery Room Air Room Air Room Air Room Air 11/09/19 11/09/19 11/09/19 11/09/19 02:00 03:00 04:00 04:00 Temp 99.0 99.0 Pulse 92 72 75 Resp 22 20 20 B/P (MAP) 129/71 (90) 145/48 (80) 170/73 (105) Pulse Ox 100 100 100 O2 Delivery Room Air Room Air Room Air Room Air 11/09/19 11/09/19 05:00 06:00 Pulse 81 81 Resp 22 26 B/P (MAP) 158/66 (96) 128/56 (80) Pulse Ox 100 100 O2 Delivery Room Air Room Air Intake and Output 11/08/19 11/08/19 11/09/19 14:59 22:59 06:59 Intake Total 1000 ml 500 ml 1100 ml Output Total 830 ml 460 ml 420 ml Balance 170 ml 40 ml 680 ml Justicifation of Admission Dx: Justifications for Admission: Justification of Admission Dx: Yes DKA: WILFRID MADISON MD Nov 09, 2019 09:08
--- NOTE | 2019-11-09 09:08 | NUR ---
0800 Inadvertently pulled all IVs ,monitoring equipment.O2. Extremely difficult IV start. Anesthesia notified. Able to start #22 L wrist area. Tearful/concerned. Dr Vazquez in. Mentioned "possible" small stroke per CT 11/07( small frontal lobe acute subacute ischemic infarct,new from prior study right temporal hematoma on prior exam resolved.)
--- NOTE | 2019-11-09 11:49 | NUR ---
SS following for discharge planning. SS reviewed pt chart and discussed with pt RN. Pt is from home with spouse and is currently on room air. Pt on PO diet. PT/OT evaluated and recommended acute rehabilitation. SS will continue to follow for discharge planning.
--- NOTE | 2019-11-09 14:11 | PDOC ---
PROGRESS NOTES Subjective Subjective Patient seen and examined Objective Objective Vital Signs Date Time Temp Pulse Resp B/P (MAP) Pulse Ox O2 Delivery O2 Flow Rate FiO2 11/09/19 11:00 84 20 Room Air 11/09/19 08:00 98.7 98.7 11/09/19 06:00 100 11/08/19 19:00 2.0 Intake and Output 11/09/19 07:00 Intake Total 2600 ml Output Total 1710 ml Balance 890 ml Intake Oral 0 ml IV Total 2600 ml Output Urine Total 1710 ml Physical Exam Abdomen: Normal bowel sounds Heart: Regular rate General: mild distress Lungs: Other (Slightly decreased breath sounds) Assessment Assessment Problems Medical Problems: (1) CVA (cerebral vascular accident) Status: Acute (2) DKA (diabetic ketoacidoses) Status: Acute (3) Lactic acidosis Status: Acute Recurrent CVA; chronic right MCA stroke. CT head noted with left frontal lobe acute or subacute ischemic infarct and evolving late subacute right MCA infarct. Echo 09/16 without evidence on intracardiac shunting. Being followed by neurology and doing better. Plan on HODA with bubble study on Tuesday. 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 Most recent echo with LV recovery with an EF 60-65%. Follows with Dr. Miranda with [facility]. Hypertension; controlled Hyperlipidemia Diabetes, II, DKA. as per PCP AFSHAN. Monitoring lab CARDIAC CONSULT Comment Review of Relevant I have reviewed the following items slime (where applicable) has been applied. Labs Laboratory Tests Test 11/08/19 06:54 11/08/19 07:13 11/08/19 07:28 11/08/19 07:39 Glucose (Fingerstick) 442 mg/dL (70-99) Troponin I Quantitative < 0.017 ng/mL (0.000-0.055) White Blood Count 14.7 x10^3/uL (4.0-11.0) Red Blood Count 3.68 x10^6/uL (3.50-5.40) Hemoglobin 10.9 g/dL (12.0-15.5) Hematocrit 33.6 % (36.0-47.0) Mean Corpuscular Volume 91 fL (79-100) Mean Corpuscular Hemoglobin 30 pg (25-35) Mean Corpuscular Hemoglobin Concent 32 g/dL (31-37) Red Cell Distribution Width 14.3 % (11.5-14.5) Platelet Count 213 x10^3/uL (140-400) Neutrophils (%) (Auto) 86 % (31-73) Lymphocytes (%) (Auto) 11 % (24-48) Monocytes (%) (Auto) 3 % (0-9) Eosinophils (%) (Auto) 0 % (0-3) Basophils (%) (Auto) 0 % (0-3) Neutrophils # (Auto) 12.7 x10^3/uL (1.8-7.7) Lymphocytes # (Auto) 1.6 x10^3/uL (1.0-4.8) Monocytes # (Auto) 0.4 x10^3/uL (0.0-1.1) Eosinophils # (Auto) 0.0 x10^3/uL (0.0-0.7) Basophils # (Auto) 0.0 x10^3/uL (0.0-0.2) Segmented Neutrophils % 88 % (35-66) Band Neutrophils % 2 % (0-9) Lymphocytes % 6 % (24-48) Monocytes % 4 % (0-10) Platelet Estimate Adequate (ADEQUATE) Poikilocytosis Anisocytosis Slight Prothrombin Time 15.0 SEC (11.7-14.0) Prothromb Time International Ratio 1.2 (0.8-1.1) Activated Partial Thromboplast Time 25 SEC (24-38) Sodium Level 135 mmol/L (136-145) Potassium Level 4.7 mmol/L (3.5-5.1) Chloride Level 98 mmol/L (98-107) Carbon Dioxide Level 9 mmol/L (21-32) Anion Gap 28 (6-14) Blood Urea Nitrogen 39 mg/dL (7-20) Creatinine 2.5 mg/dL (0.6-1.0) Estimated GFR (Cockcroft-Gault) 23.3 BUN/Creatinine Ratio 16 (6-20) Glucose Level 487 mg/dL (70-99) Lactic Acid Level 2.4 mmol/L (0.4-2.0) Calcium Level 8.5 mg/dL (8.5-10.1) Magnesium Level 2.0 mg/dL (1.8-2.4) Total Bilirubin 0.6 mg/dL (0.2-1.0) Aspartate Amino Transf (AST/SGOT) 27 U/L (15-37) Alanine Aminotransferase (ALT/SGPT) 34 U/L (14-59) Alkaline Phosphatase 86 U/L (46-116) Ammonia 13 mcmol/L (11-34) Creatine Kinase 248 U/L (26-192) Creatine Kinase MB (Mass) 1.4 ng/mL (0.0-3.6) Creatine Kinase MB Relative Index 0.6 % (0-4) Total Protein 6.7 g/dL (6.4-8.2) Albumin 3.7 g/dL (3.4-5.0) Albumin/Globulin Ratio 1.2 (1.0-1.7) Salicylates Level 5.8 mg/dL (2.8-20.0) Salicylate Last Dose Date Unknown Salicylate Last Dose Time Unknown Acetaminophen Level < 2 mcg/ml (10-30) Acetaminophen Last Dose Date Unknown Acetaminophen Last Dose Time Unknown Ethyl Alcohol Level < 10 mg/dL (0-10) Acetone Level Sm pos (NEG) Urine Collection Type U cath Urine Color Yellow Urine Clarity Clear Urine pH 5.0 (<5.0-8.0) Urine Specific [place] 1.025 (1.000-1.030) Urine Protein 100 mg/dL (NEG-TRACE) Urine Glucose (UA) >=1000 mg/dL (NEG) Urine Ketones (Stick) >=80 mg/dL (NEG) Urine Blood Trace (NEG) Urine Nitrite Negative (NEG) Urine Bilirubin Negative (NEG) Urine Urobilinogen Dipstick 0.2 mg/dL (0.2 mg/dL) Urine Leukocyte Esterase Negative (NEG) Urine RBC Occ /HPF (0-2) Urine WBC 1-4 /HPF (0-4) Urine Transitional Epithelial Cells Occ /LPF Urine Amorphous Sediment Present /HPF Urine Bacteria 0 /HPF (0-FEW) Urine Hyaline Casts Few /HPF Urine Opiates Screen Neg (NEG) Urine Methadone Screen Neg (NEG) Urine Barbiturates Neg (NEG) Urine Phencyclidine Screen Neg (NEG) Urine Amphetamine/Methamphetamine Neg (NEG) Urine Benzodiazepines Screen Neg (NEG) Urine Cocaine Screen Neg (NEG) Urine Cannabinoids Screen Neg (NEG) Urine Ethyl Alcohol Neg (NEG) Test 11/08/19 08:30 11/08/19 10:32 11/08/19 11:40 11/08/19 12:53 O2 Saturation 98 % (92-99) Arterial Blood pH 7.23 (7.35-7.45) Arterial Blood pCO2 at Patient Temp 18 mmHg (35-46) Arterial Blood pO2 at Patient Temp 148 mmHg (65-108) Arterial Blood HCO3 7 mmol/L (21-28) Arterial Blood Base Excess -18 mmol/L (-3-3) Oxyhemoglobin 97.2 % Methemoglobin 0.5 % (0.0-1.9) Carbon Monoxide, Quantitative 0.3 % (0.0-1.9) FiO2 2 lpm nc Glucose (Fingerstick) 388 mg/dL (70-99) 303 mg/dL (70-99) Sodium Level 139 mmol/L (136-145) Potassium Level 4.6 mmol/L (3.5-5.1) Chloride Level 103 mmol/L (98-107) Carbon Dioxide Level 12 mmol/L (21-32) Anion Gap 24 (6-14) Blood Urea Nitrogen 35 mg/dL (7-20) Creatinine 2.5 mg/dL (0.6-1.0) Estimated GFR (Cockcroft-Gault) 23.3 Glucose Level 373 mg/dL (70-99) Lactic Acid Level 1.3 mmol/L (0.4-2.0) Calcium Level 8.0 mg/dL (8.5-10.1) Phosphorus Level 3.8 mg/dL (2.6-4.7) Magnesium Level 1.9 mg/dL (1.8-2.4) Troponin I Quantitative < 0.017 ng/mL (0.000-0.055) Test 11/08/19 14:01 11/08/19 15:08 11/08/19 15:35 11/08/19 16:14 Glucose (Fingerstick) 289 mg/dL (70-99) 218 mg/dL (70-99) 194 mg/dL (70-99) Sodium Level 142 mmol/L (136-145) Potassium Level 3.6 mmol/L (3.5-5.1) Chloride Level 108 mmol/L (98-107) Carbon Dioxide Level 17 mmol/L (21-32) Anion Gap 17 (6-14) Blood Urea Nitrogen 32 mg/dL (7-20) Creatinine 2.4 mg/dL (0.6-1.0) Estimated GFR (Cockcroft-Gault) 24.4 Glucose Level 205 mg/dL (70-99) Calcium Level 8.3 mg/dL (8.5-10.1) Phosphorus Level 2.0 mg/dL (2.6-4.7) Magnesium Level 2.1 mg/dL (1.8-2.4) Troponin I Quantitative < 0.017 ng/mL (0.000-0.055) Test 11/08/19 17:00 11/08/19 17:20 11/08/19 18:24 11/08/19 19:27 Glucose (Fingerstick) 183 mg/dL (70-99) 213 mg/dL (70-99) 182 mg/dL (70-99) 171 mg/dL (70-99) Test 11/08/19 20:25 11/08/19 21:27 11/08/19 21:30 11/08/19 22:27 Glucose (Fingerstick) 135 mg/dL (70-99) 116 mg/dL (70-99) 101 mg/dL (70-99) Sodium Level 144 mmol/L (136-145) Potassium Level 4.0 mmol/L (3.5-5.1) Chloride Level 112 mmol/L (98-107) Carbon Dioxide Level 22 mmol/L (21-32) Anion Gap 10 (6-14) Blood Urea Nitrogen 29 mg/dL (7-20) Creatinine 2.1 mg/dL (0.6-1.0) Estimated GFR (Cockcroft-Gault) 28.5 Glucose Level 135 mg/dL (70-99) Calcium Level 7.9 mg/dL (8.5-10.1) Phosphorus Level 1.0 mg/dL (2.6-4.7) Magnesium Level 3.1 mg/dL (1.8-2.4) Test 11/09/19 00:01 11/09/19 06:11 11/09/19 07:05 Glucose (Fingerstick) 107 mg/dL (70-99) 188 mg/dL (70-99) Sodium Level 140 mmol/L (136-145) Potassium Level 3.7 mmol/L (3.5-5.1) Chloride Level 109 mmol/L (98-107) Carbon Dioxide Level 20 mmol/L (21-32) Anion Gap 11 (6-14) Blood Urea Nitrogen 19 mg/dL (7-20) Creatinine 2.0 mg/dL (0.6-1.0) Estimated GFR (Cockcroft-Gault) 30.2 Glucose Level 194 mg/dL (70-99) Calcium Level 7.8 mg/dL (8.5-10.1) Phosphorus Level 1.7 mg/dL (2.6-4.7) Magnesium Level 2.2 mg/dL (1.8-2.4) Triglycerides Level 56 mg/dL (0-150) Cholesterol Level 106 mg/dL (0-200) LDL Cholesterol, Calculated 43 mg/dL (0-100) VLDL Cholesterol, Calculated 11 mg/dL (0-40) Non-HDL Cholesterol Calculated 54 mg/dL (0-129) HDL Cholesterol 52 mg/dL (40-60) Cholesterol/HDL Ratio 2.0 Laboratory Tests Test 11/08/19 15:08 11/08/19 15:35 11/08/19 16:14 11/08/19 17:00 Glucose (Fingerstick) 218 mg/dL (70-99) 194 mg/dL (70-99) 183 mg/dL (70-99) Sodium Level 142 mmol/L (136-145) Potassium Level 3.6 mmol/L (3.5-5.1) Chloride Level 108 mmol/L (98-107) Carbon Dioxide Level 17 mmol/L (21-32) Anion Gap 17 (6-14) Blood Urea Nitrogen 32 mg/dL (7-20) Creatinine 2.4 mg/dL (0.6-1.0) Estimated GFR (Cockcroft-Gault) 24.4 Glucose Level 205 mg/dL (70-99) Calcium Level 8.3 mg/dL (8.5-10.1) Phosphorus Level 2.0 mg/dL (2.6-4.7) Magnesium Level 2.1 mg/dL (1.8-2.4) Troponin I Quantitative < 0.017 ng/mL (0.000-0.055) Test 11/08/19 17:20 11/08/19 18:24 11/08/19 19:27 6/11/20 20:25 Glucose (Fingerstick) 213 mg/dL (70-99) 182 mg/dL (70-99) 171 mg/dL (70-99) 135 mg/dL (70-99) Test 11/08/19 21:27 11/08/19 21:30 11/08/19 22:27 11/09/19 00:01 Glucose (Fingerstick) 116 mg/dL (70-99) 101 mg/dL (70-99) 107 mg/dL (70-99) Sodium Level 144 mmol/L (136-145) Potassium Level 4.0 mmol/L (3.5-5.1) Chloride Level 112 mmol/L (98-107) Carbon Dioxide Level 22 mmol/L (21-32) Anion Gap 10 (6-14) Blood Urea Nitrogen 29 mg/dL (7-20) Creatinine 2.1 mg/dL (0.6-1.0) Estimated GFR (Cockcroft-Gault) 28.5 Glucose Level 135 mg/dL (70-99) Calcium Level 7.9 mg/dL (8.5-10.1) Phosphorus Level 1.0 mg/dL (2.6-4.7) Magnesium Level 3.1 mg/dL (1.8-2.4) Test 11/09/19 06:11 11/09/19 07:05 Glucose (Fingerstick) 188 mg/dL (70-99) Sodium Level 140 mmol/L (136-145) Potassium Level 3.7 mmol/L (3.5-5.1) Chloride Level 109 mmol/L (98-107) Carbon Dioxide Level 20 mmol/L (21-32) Anion Gap 11 (6-14) Blood Urea Nitrogen 19 mg/dL (7-20) Creatinine 2.0 mg/dL (0.6-1.0) Estimated GFR (Cockcroft-Gault) 30.2 Glucose Level 194 mg/dL (70-99) Calcium Level 7.8 mg/dL (8.5-10.1) Phosphorus Level 1.7 mg/dL (2.6-4.7) Magnesium Level 2.2 mg/dL (1.8-2.4) Triglycerides Level 56 mg/dL (0-150) Cholesterol Level 106 mg/dL (0-200) LDL Cholesterol, Calculated 43 mg/dL (0-100) VLDL Cholesterol, Calculated 11 mg/dL (0-40) Non-HDL Cholesterol Calculated 54 mg/dL (0-129) HDL Cholesterol 52 mg/dL (40-60) Cholesterol/HDL Ratio 2.0 Medications Current Medications Sodium Chloride 1,000 ml @ 1,000 mls/hr 1X ONCE IV Last administered on 11/08/19at 07:47; Start 11/08/19 at 07:00; Stop 11/08/19 at 07:59; Status DC Insulin Human Regular (HumuLIN R VIAL) 4 unit 1X ONCE SQ Last administered on 11/08/19at 08:32; Start 11/08/19 at 08:30; Stop 11/08/19 at 08:31; Status DC Aspirin (Aspirin Rectal Supp) 300 mg 1X ONCE [place] Last administered on 11/08/19at 09:14; Start 11/08/19 at 09:15; Stop 11/08/19 at 09:16; Status DC Sodium Chloride 1,000 ml @ 500 mls/hr Q2H IV ; Start 11/08/19 at 09:04; Stop 11/08/19 at 11:03; Status DC Sodium Chloride 1,000 ml @ 250 mls/hr Q4H IV Last administered on 11/08/19at 14:40; Start 11/08/19 at 09:06; Stop 11/09/19 at 00:22; Status DC Dextrose/Sodium Chloride 1,000 ml @ 250 mls/hr Q4H IV Last administered on 11/08/19at 22:40; Start 11/08/19 at 09:06; Stop 11/09/19 at 02:33; Status DC Insulin Human Regular 100 unit/ Sodium Chloride 101 ml @ 0 mls/hr CONT PRN PRN IV PER PROTOCOL; Start 11/08/19 at 09:15; Stop 11/08/19 at 10:34; Status DC Potassium Chloride/Water 100 ml @ 100 mls/hr PRN Q1HR PRN IV SEE COMMENTS Last administered on 11/08/19at 23:44; Start 11/08/19 at 09:15 Potassium Chloride/Water 100 ml @ 100 mls/hr PRN Q1HR PRN IV SEE COMMENTS Last administered on 11/08/19at 17:55; Start 11/08/19 at 09:15 Potassium Chloride/Water 100 ml @ 100 mls/hr PRN Q1HR PRN IV SEE COMMENTS; Start 11/08/19 at 09:15 Insulin Human Regular 100 ml @ 0 mls/hr CONT PRN PRN IV PER PROTOCOL; Start 11/08/19 at 09:15; Stop 11/08/19 at 10:34; Status DC Ondansetron HCl (Zofran) 4 mg PRN Q8HRS PRN IV NAUSEA/VOMITING; Start 11/08/19 at 09:30; Stop 11/09/19 at 09:29; Status DC Sodium Chloride 1,000 ml @ 250 mls/hr Q4H IV Last administered on 11/08/19at 14:20; Start 11/08/19 at 10:32; Stop 11/09/19 at 00:22; Status DC Insulin Human Regular 100 unit/ Sodium Chloride 101 ml @ 0 mls/hr CONT PRN PRN IV PER PROTOCOL Last administered on 11/08/19at 20:13; Start 11/08/19 at 10:30 Acetaminophen (Tylenol) 650 mg PRN Q6HRS PRN PO TEMP > 100.4F; Start 11/08/19 at 13:45 Acetaminophen (Tylenol Supp) 650 mg PRN Q4HRS PRN [place] TEMP > 100.4F; Start 11/08/19 at 13:45 Aspirin (Ecotrin) 325 mg DAILYWBKFT PO ; Start 11/09/19 at 08:00 Aspirin (Aspirin Rectal Supp) 300 mg PRN DAILY PRN [place] IF UNABLE TO TAKE PO; Start 11/08/19 at 13:45 Potassium Chloride/Water 100 ml @ 100 mls/hr Q1H IV Last administered on 11/08/19at 16:11; Start 11/08/19 at 15:00; Stop 11/08/19 at 16:59; Status DC Magnesium Sulfate 100 ml @ 25 mls/hr 1X ONCE IV Last administered on 11/08/19at 15:18; Start 11/08/19 at 14:15; Stop 11/08/19 at 18:14; Status DC Heparin Sodium (Porcine) (Heparin Sodium) 5,000 unit Q8HRS SQ Last administered on 11/09/19at 06:11; Start 11/08/19 at 22:00 Atorvastatin Calcium (Lipitor) 40 mg QHS PO ; Start 11/08/19 at 21:00 Sodium Chloride (Normal Saline Flush) 10 ml QSHIFT PRN IV AFTER MEDS AND BLOOD DRAWS; Start 11/08/19 at 16:00 Lidocaine HCl (Xylocaine 2% Topical 5gm Tube) 1 tyron 1X ONCE TP ; Start 11/08/19 at 16:00; Stop 11/08/19 at 16:16; Status DC Lidocaine HCl (Viscous Lidocaine) 15 ml 1X ONCE MM ; Start 11/08/19 at 16:00; Stop 11/08/19 at 16:16; Status DC Benzocaine (Hurricaine One) 2 spray 1X ONCE MM ; Start 11/08/19 at 16:00; Stop 11/08/19 at 16:16; Status DC Potassium Chloride/Water 100 ml @ 100 mls/hr Q1H IV Last administered on 11/08/19at 20:12; Start 11/08/19 at 18:00; Stop 11/08/19 at 21:59; Status DC Dextrose/Sodium Chloride 1,000 ml @ 250 mls/hr Q4H PRN IV SEE COMMENTS Last administered on 11/08/19at 19:43; Start 11/08/19 at 19:45; Stop 11/16/19 at 00:00 Insulin Glargine (Lantus Syringe) 10 unit QHS SQ Last administered on 11/08/19at 22:55; Start 11/08/19 at 23:00 Insulin Human Lispro (HumaLOG) 0-5 UNITS Q6HRS SQ Last administered on 0at 06:12; Start 11/09/19 at 00:00 Dextrose (Dextrose 50%-Water Syringe) 12.5 gm PRN Q15MIN PRN IV SEE COMMENTS; Start 11/08/19 at 22:45 Dextrose/Sodium Chloride 1,000 ml @ 125 mls/hr CONT PRN IV ; Start 11/09/19 at 02:45; Stop 11/09/19 at 02:46; Status DC Dextrose/Sodium Chloride 1,000 ml @ 125 mls/hr Q8H IV Last administered on 11/09/19at 02:47; Start 11/09/19 at 03:00 Active Scripts Active Reported Lantus Solostar (Insulin Glargine,Hum.rec.anlog) 100 Unit/1 Ml Insuln.pen 20 Unit SQ QHS Novolog Flexpen (Insulin Aspart) 100 Unit/1 Ml Insuln.pen 100 Unit SQ Amlodipine Besylate 10 Mg Tablet 1 Tab PO DAILY Lisinopril 20 Mg Tablet 1 Tab PO DAILY Carvedilol 25 Mg Tablet 1 Tab PO BID Vitals/I & O Vital Sign - Last 24 Hours 11/08/19 11/08/19 11/08/19 11/08/19 15:00 16:00 16:00 16:54 Temp 98.1 98.1 Pulse 86 88 91 Resp 30 33 B/P (MAP) 146/53 (84) 140/55 (83) 128/50 (76) Pulse Ox 100 99 100 O2 Delivery Room Air Room Air Room Air Room Air 11/08/19 11/08/19 11/08/19 11/08/19 18:00 19:00 20:00 20:00 Temp 98.7 98.7 Pulse 84 83 83 Resp 2 22 24 B/P (MAP) 110/50 (70) 110/50 (70) 123/59 (80) Pulse Ox 93 100 100 O2 Delivery Room Air Nasal Cannula Room Air Room Air O2 Flow Rate 2.0 11/08/19 11/08/19 11/08/19 11/09/19 21:00 22:00 23:00 00:00 Pulse 81 81 82 Resp 18 22 B/P (MAP) 131/46 (74) 166/72 (103) 153/62 (92) Pulse Ox 100 100 100 O2 Delivery Room Air Room Air Room Air Room Air 11/09/19 11/09/19 11/09/19 11/09/19 00:00 01:00 02:00 03:00 Temp 97.9 97.9 Pulse 77 80 92 72 Resp 24 20 B/P (MAP) 121/68 (85) 184/67 (106) 129/71 (90) 145/48 (80) Pulse Ox 96 100 100 100 O2 Delivery Room Air Room Air Room Air Room Air 11/09/19 11/09/19 11/09/19 11/09/19 04:00 04:00 05:00 06:00 Temp 99.0 99.0 Pulse 75 81 81 Resp 26 B/P (MAP) 170/73 (105) 158/66 (96) 128/56 (80) Pulse Ox 100 100 100 O2 Delivery Room Air Room Air Room Air Room Air 11/09/19 11/09/19 11/09/19 11/09/19 07:00 08:00 08:00 09:00 Temp 98.7 98.7 Pulse 86 80 94 Resp 22 20 21 B/P (MAP) 142/63 (89) 140/58 (85) 160/100 (120) O2 Delivery Room Air Room Air Room Air Room Air 11/09/19 11/09/19 10:00 11:00 Pulse 86 84 Resp 35 20 B/P (MAP) 145/66 (92) O2 Delivery Room Air Room Air Intake and Output 11/08/19 11/08/19 11/09/19 15:00 23:00 07:00 Intake Total 1000 ml 500 ml 1100 ml Output Total 890 ml 430 ml 390 ml Balance 110 ml 70 ml 710 ml RAYSHAWN MCGUIRE MD Nov 09, 2019 14:11
[2019-11-09] MEDS: POTASSIUM PHOS,M-BASIC-D-BASIC 10 MMOL in IV NORMAL SALINE 100ML 100 ML IV SCH ×2 (16:19→17:39)
--- NOTE | 2019-11-09 18:10 | NUR ---
1730 repeat COVID swab per lab request.Hand carried to lab at this time
--- NOTE | 2019-11-09 18:12 | NUR ---
K phos per order with remainder of D5/1/2 NS to infuse after until bag complete the Dc per order
[2019-11-09] MEDS: ATORVASTATIN CALCIUM 40 MG TABLET. PO SCH ×2 (21:00→21:15)
[2019-11-09] MEDS: INSULIN GLARGINE SYRINGE. SQ SCH (21:16)
--- NOTE | 2019-11-09 21:36 | NUR ---
When attempting to give patient HS meds, pt became very agitated and refused. called and he was able to get patient to accept insulin, but not heparin, lipitor, or Nozin.
[2019-11-10] VITALS: BP 137/67
[2019-11-10 03:50] LABS: BASO % 1 % (0-3); EOS # 0.1 x10^3/uL (0.0-0.7); EOS % 1 % (0-3); HEMATOCRIT 29.8 % (36.0-47.0); HEMOGLOBIN 10.2 g/dL (12.0-15.5); LYMPH # 2.5 x10^3/uL (1.0-4.8); LYMPH % 35 % (24-48); MEAN CORPUSCULAR HEMOGLOBIN 30 pg (25-35); MEAN CORPUSCULAR HGB CONC 34 g/dL (31-37); MEAN CORPUSCULAR VOLUME 88 fL (79-100); MONO # 0.5 x10^3/uL (0.0-1.1); MONO % 6 % (0-9); NEUT # 4.1 x10^3/uL (1.8-7.7); NEUT % 57 % (31-73); PLATELET COUNT 156 x10^3/uL (140-400); RED CELL DISTRIBUTION WIDTH 14.9 % (11.5-14.5); WHITE BLOOD COUNT 7.1 x10^3/uL (4.0-11.0)
[2019-11-10 04:12] LABS: ALBUMIN 3.2 g/dL (3.4-5.0); CALCIUM 8.5 mg/dL (8.5-10.1); CREATININE 1.6 mg/dL (0.6-1.0); MAGNESIUM 2.1 mg/dL (1.8-2.4); PHOSPHORUS 2.7 mg/dL (2.6-4.7); POTASSIUM 4.1 mmol/L (3.5-5.1)
[2019-11-10 04:27] VITALS: BP 140/61
[2019-11-10] MEDS: HEPARIN for SUB-Q USE 5,000 UNIT/ML VIAL. SQ SCH ×3 (05:40→22:00)
[2019-11-10] MEDS: INSULIN LISPRO 300 UNITS/3 ML VIAL. SQ SCH ×4 (07:30→21:00)
[2019-11-10] MEDS: ASPIRIN ENTERIC COATED 325 MG TABLET.DR. PO SCH (07:31)
[2019-11-10 08:00] VITALS: BP 194/70
--- NOTE | 2019-11-10 08:13 | PDOC ---
PROGRESS NOTES Chief Complaint Chief Complaint A/P: DKA - back on basal bolus plus as of 11/07. poor Dm control AFSHAN - likely vasomotor nephropathy, Cr 2 Acute CVA - Left frontal lobe acute or subacute ischemic infarct Evolving late subacute right MCA territory ischemic infarct, resolution of prior right temporal lobe hematoma; chronic right MCA territory ischemic infarct. Metabolic encephalopathy due to diabetic ketoacidosis. CVA - CT head was found with old large right MCA infarct Diabetes-Type II with hyperglycemia - glucose 528, will place on high sliding scale and scheduled 15u lispro as well as lantus. 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 Ex-smoker (quit 2019) - counseled on continued cessation History of Present Illness History of Present Illness Ms Haney is a 64yo F w/ PMHx Diabetes-Type II, High Cholesterol, Heart Disease, Hypertension, Stroke, PAD s/p L BKA, SSS s/p PPM, ex-smoker (quit 2019) who presents via EMS with report of altered mental status. Found in DKA with worsening of CVA She was admitted to ICU for further monitoring of CVA. Seen by Neurology, Cardiology 11/08: History of present illness limited secondary to altered mental status. Labs NA 140, K3.7, BUN 19, CR 2, glucose 1.4, phosphorus 1.7, ABG 7.2 3/18/148. No complaints voiced Overnight afebrile. Working with PT/OT. She cannot identify objects visually with me. Labs improved CR 1.6, has been out of DKA for 24 hours. She is scared she cannot take care of herself. She is also scared her , Rene cannot. No chest pain or shortness of breath. COVID 19 negative Plan: Transesophageal echocardiogram Resume aspirin and statin when able to take orally She has dye allergy, no need to repeat CT angiogram, has pacemaker, no MRI PT/OT/WASTE DUSTER Can transfer to CVC from ICU Vitals Vitals Vital Signs Date Time Temp Pulse Resp B/P (MAP) Pulse Ox O2 Delivery O2 Flow Rate FiO2 11/10/19 04:27 98.6 91 16 140/61 (87) 99 Room Air 98.6 Physical Exam General: mild distress Heart: Regular rate Abdomen: Normal bowel sounds Extremities: Other (left BKA ) Skin: No significant lesion Labs LABS Laboratory Tests Test 11/09/19 14:58 11/09/19 17:45 11/09/19 21:14 11/10/19 03:40 Glucose (Fingerstick) 149 mg/dL (70-99) 212 mg/dL (70-99) 165 mg/dL (70-99) White Blood Count 7.1 x10^3/uL (4.0-11.0) Red Blood Count 3.40 x10^6/uL (3.50-5.40) Hemoglobin 10.2 g/dL (12.0-15.5) Hematocrit 29.8 % (36.0-47.0) Mean Corpuscular Volume 88 fL (79-100) Mean Corpuscular Hemoglobin 30 pg (25-35) Mean Corpuscular Hemoglobin Concent 34 g/dL (31-37) Red Cell Distribution Width 14.9 % (11.5-14.5) Platelet Count 156 x10^3/uL (140-400) Neutrophils (%) (Auto) 57 % (31-73) Lymphocytes (%) (Auto) 35 % (24-48) Monocytes (%) (Auto) 6 % (0-9) Eosinophils (%) (Auto) 1 % (0-3) Basophils (%) (Auto) 1 % (0-3) Neutrophils # (Auto) 4.1 x10^3/uL (1.8-7.7) Lymphocytes # (Auto) 2.5 x10^3/uL (1.0-4.8) Monocytes # (Auto) 0.5 x10^3/uL (0.0-1.1) Eosinophils # (Auto) 0.1 x10^3/uL (0.0-0.7) Basophils # (Auto) 0.0 x10^3/uL (0.0-0.2) Sodium Level 142 mmol/L (136-145) Potassium Level 4.1 mmol/L (3.5-5.1) Chloride Level 109 mmol/L (98-107) Carbon Dioxide Level 21 mmol/L (21-32) Anion Gap 12 (6-14) Blood Urea Nitrogen 12 mg/dL (7-20) Creatinine 1.6 mg/dL (0.6-1.0) Estimated GFR (Cockcroft-Gault) 39.0 Glucose Level 95 mg/dL (70-99) Calcium Level 8.5 mg/dL (8.5-10.1) Phosphorus Level 2.7 mg/dL (2.6-4.7) Magnesium Level 2.1 mg/dL (1.8-2.4) Albumin 3.2 g/dL (3.4-5.0) Assessment and Plan Assessmemt and Plan Problems Medical Problems: (1) CVA (cerebral vascular accident) Status: Acute (2) DKA (diabetic ketoacidoses) Status: Acute (3) Lactic acidosis Status: Acute Comment Review of Relevant I have reviewed the following items slime (where applicable) has been applied. Labs Laboratory Tests Test 11/08/19 08:30 11/08/19 10:32 11/08/19 11:40 11/08/19 12:53 O2 Saturation 98 % (92-99) Arterial Blood pH 7.23 (7.35-7.45) Arterial Blood pCO2 at Patient Temp 18 mmHg (35-46) Arterial Blood pO2 at Patient Temp 148 mmHg (65-108) Arterial Blood HCO3 7 mmol/L (21-28) Arterial Blood Base Excess -18 mmol/L (-3-3) Oxyhemoglobin 97.2 % Methemoglobin 0.5 % (0.0-1.9) Carbon Monoxide, Quantitative 0.3 % (0.0-1.9) FiO2 2 lpm nc Glucose (Fingerstick) 388 mg/dL (70-99) 303 mg/dL (70-99) Sodium Level 139 mmol/L (136-145) Potassium Level 4.6 mmol/L (3.5-5.1) Chloride Level 103 mmol/L (98-107) Carbon Dioxide Level 12 mmol/L (21-32) Anion Gap 24 (6-14) Blood Urea Nitrogen 35 mg/dL (7-20) Creatinine 2.5 mg/dL (0.6-1.0) Estimated GFR (Cockcroft-Gault) 23.3 Glucose Level 373 mg/dL (70-99) Lactic Acid Level 1.3 mmol/L (0.4-2.0) Calcium Level 8.0 mg/dL (8.5-10.1) Phosphorus Level 3.8 mg/dL (2.6-4.7) Magnesium Level 1.9 mg/dL (1.8-2.4) Troponin I Quantitative < 0.017 ng/mL (0.000-0.055) Test 11/08/19 14:01 11/08/19 15:08 11/08/19 15:35 11/08/19 16:14 Glucose (Fingerstick) 289 mg/dL (70-99) 218 mg/dL (70-99) 194 mg/dL (70-99) Sodium Level 142 mmol/L (136-145) Potassium Level 3.6 mmol/L (3.5-5.1) Chloride Level 108 mmol/L (98-107) Carbon Dioxide Level 17 mmol/L (21-32) Anion Gap 17 (6-14) Blood Urea Nitrogen 32 mg/dL (7-20) Creatinine 2.4 mg/dL (0.6-1.0) Estimated GFR (Cockcroft-Gault) 24.4 Glucose Level 205 mg/dL (70-99) Calcium Level 8.3 mg/dL (8.5-10.1) Phosphorus Level 2.0 mg/dL (2.6-4.7) Magnesium Level 2.1 mg/dL (1.8-2.4) Troponin I Quantitative < 0.017 ng/mL (0.000-0.055) Test 11/08/19 17:00 11/08/19 17:20 11/08/19 18:24 11/08/19 19:10 Glucose (Fingerstick) 183 mg/dL (70-99) 213 mg/dL (70-99) 182 mg/dL (70-99) Coronavirus (COVID-19)(PCR) Negative (NEGATIVE) Test 11/08/19 19:27 11/08/19 20:25 11/08/19 21:27 11/08/19 21:30 Glucose (Fingerstick) 171 mg/dL (70-99) 135 mg/dL (70-99) 116 mg/dL (70-99) Sodium Level 144 mmol/L (136-145) Potassium Level 4.0 mmol/L (3.5-5.1) Chloride Level 112 mmol/L (98-107) Carbon Dioxide Level 22 mmol/L (21-32) Anion Gap 10 (6-14) Blood Urea Nitrogen 29 mg/dL (7-20) Creatinine 2.1 mg/dL (0.6-1.0) Estimated GFR (Cockcroft-Gault) 28.5 Glucose Level 135 mg/dL (70-99) Calcium Level 7.9 mg/dL (8.5-10.1) Phosphorus Level 1.0 mg/dL (2.6-4.7) Magnesium Level 3.1 mg/dL (1.8-2.4) Test 11/08/19 22:27 11/09/19 00:01 11/09/19 06:11 11/09/19 07:05 Glucose (Fingerstick) 101 mg/dL (70-99) 107 mg/dL (70-99) 188 mg/dL (70-99) Sodium Level 140 mmol/L (136-145) Potassium Level 3.7 mmol/L (3.5-5.1) Chloride Level 109 mmol/L (98-107) Carbon Dioxide Level 20 mmol/L (21-32) Anion Gap 11 (6-14) Blood Urea Nitrogen 19 mg/dL (7-20) Creatinine 2.0 mg/dL (0.6-1.0) Estimated GFR (Cockcroft-Gault) 30.2 Glucose Level 194 mg/dL (70-99) Calcium Level 7.8 mg/dL (8.5-10.1) Phosphorus Level 1.7 mg/dL (2.6-4.7) Magnesium Level 2.2 mg/dL (1.8-2.4) Triglycerides Level 56 mg/dL (0-150) Cholesterol Level 106 mg/dL (0-200) LDL Cholesterol, Calculated 43 mg/dL (0-100) VLDL Cholesterol, Calculated 11 mg/dL (0-40) Non-HDL Cholesterol Calculated 54 mg/dL (0-129) HDL Cholesterol 52 mg/dL (40-60) Cholesterol/HDL Ratio 2.0 Test 11/09/19 14:58 11/09/19 17:45 11/09/19 21:14 11/10/19 03:40 Glucose (Fingerstick) 149 mg/dL (70-99) 212 mg/dL (70-99) 165 mg/dL (70-99) White Blood Count 7.1 x10^3/uL (4.0-11.0) Red Blood Count 3.40 x10^6/uL (3.50-5.40) Hemoglobin 10.2 g/dL (12.0-15.5) Hematocrit 29.8 % (36.0-47.0) Mean Corpuscular Volume 88 fL (79-100) Mean Corpuscular Hemoglobin 30 pg (25-35) Mean Corpuscular Hemoglobin Concent 34 g/dL (31-37) Red Cell Distribution Width 14.9 % (11.5-14.5) Platelet Count 156 x10^3/uL (140-400) Neutrophils (%) (Auto) 57 % (31-73) Lymphocytes (%) (Auto) 35 % (24-48) Monocytes (%) (Auto) 6 % (0-9) Eosinophils (%) (Auto) 1 % (0-3) Basophils (%) (Auto) 1 % (0-3) Neutrophils # (Auto) 4.1 x10^3/uL (1.8-7.7) Lymphocytes # (Auto) 2.5 x10^3/uL (1.0-4.8) Monocytes # (Auto) 0.5 x10^3/uL (0.0-1.1) Eosinophils # (Auto) 0.1 x10^3/uL (0.0-0.7) Basophils # (Auto) 0.0 x10^3/uL (0.0-0.2) Sodium Level 142 mmol/L (136-145) Potassium Level 4.1 mmol/L (3.5-5.1) Chloride Level 109 mmol/L (98-107) Carbon Dioxide Level 21 mmol/L (21-32) Anion Gap 12 (6-14) Blood Urea Nitrogen 12 mg/dL (7-20) Creatinine 1.6 mg/dL (0.6-1.0) Estimated GFR (Cockcroft-Gault) 39.0 Glucose Level 95 mg/dL (70-99) Calcium Level 8.5 mg/dL (8.5-10.1) Phosphorus Level 2.7 mg/dL (2.6-4.7) Magnesium Level 2.1 mg/dL (1.8-2.4) Albumin 3.2 g/dL (3.4-5.0) Laboratory Tests Test 11/09/19 14:58 11/09/19 17:45 11/09/19 21:14 11/10/19 03:40 Glucose (Fingerstick) 149 mg/dL (70-99) 212 mg/dL (70-99) 165 mg/dL (70-99) White Blood Count 7.1 x10^3/uL (4.0-11.0) Red Blood Count 3.40 x10^6/uL (3.50-5.40) Hemoglobin 10.2 g/dL (12.0-15.5) Hematocrit 29.8 % (36.0-47.0) Mean Corpuscular Volume 88 fL (79-100) Mean Corpuscular Hemoglobin 30 pg (25-35) Mean Corpuscular Hemoglobin Concent 34 g/dL (31-37) Red Cell Distribution Width 14.9 % (11.5-14.5) Platelet Count 156 x10^3/uL (140-400) Neutrophils (%) (Auto) 57 % (31-73) Lymphocytes (%) (Auto) 35 % (24-48) Monocytes (%) (Auto) 6 % (0-9) Eosinophils (%) (Auto) 1 % (0-3) Basophils (%) (Auto) 1 % (0-3) Neutrophils # (Auto) 4.1 x10^3/uL (1.8-7.7) Lymphocytes # (Auto) 2.5 x10^3/uL (1.0-4.8) Monocytes # (Auto) 0.5 x10^3/uL (0.0-1.1) Eosinophils # (Auto) 0.1 x10^3/uL (0.0-0.7) Basophils # (Auto) 0.0 x10^3/uL (0.0-0.2) Sodium Level 142 mmol/L (136-145) Potassium Level 4.1 mmol/L (3.5-5.1) Chloride Level 109 mmol/L (98-107) Carbon Dioxide Level 21 mmol/L (21-32) Anion Gap 12 (6-14) Blood Urea Nitrogen 12 mg/dL (7-20) Creatinine 1.6 mg/dL (0.6-1.0) Estimated GFR (Cockcroft-Gault) 39.0 Glucose Level 95 mg/dL (70-99) Calcium Level 8.5 mg/dL (8.5-10.1) Phosphorus Level 2.7 mg/dL (2.6-4.7) Magnesium Level 2.1 mg/dL (1.8-2.4) Albumin 3.2 g/dL (3.4-5.0) Medications Current Medications Sodium Chloride 1,000 ml @ 1,000 mls/hr 1X ONCE IV Last administered on 11/08/19at 07:47; Start 11/08/19 at 07:00; Stop 11/08/19 at 07:59; Status DC Insulin Human Regular (HumuLIN R VIAL) 4 unit 1X ONCE SQ Last administered on 11/08/19at 08:32; Start 11/08/19 at 08:30; Stop 11/08/19 at 08:31; Status DC Aspirin (Aspirin Rectal Supp) 300 mg 1X ONCE NM Last administered on 11/08/19at 09:14; Start 11/08/19 at 09:15; Stop 11/08/19 at 09:16; Status DC Sodium Chloride 1,000 ml @ 500 mls/hr Q2H IV ; Start 11/08/19 at 09:04; Stop 11/08/19 at 11:03; Status DC Sodium Chloride 1,000 ml @ 250 mls/hr Q4H IV Last administered on 11/08/19at 14:40; Start 11/08/19 at 09:06; Stop 11/09/19 at 00:22; Status DC Dextrose/Sodium Chloride 1,000 ml @ 250 mls/hr Q4H IV Last administered on 11/08/19at 22:40; Start 11/08/19 at 09:06; Stop 11/09/19 at 02:33; Status DC Insulin Human Regular 100 unit/ Sodium Chloride 101 ml @ 0 mls/hr CONT PRN PRN IV PER PROTOCOL; Start 11/08/19 at 09:15; Stop 11/08/19 at 10:34; Status DC Potassium Chloride/Water 100 ml @ 100 mls/hr PRN Q1HR PRN IV SEE COMMENTS Last administered on 11/08/19at 23:44; Start 11/08/19 at 09:15 Potassium Chloride/Water 100 ml @ 100 mls/hr PRN Q1HR PRN IV SEE COMMENTS Last administered on 11/08/19at 17:55; Start 11/08/19 at 09:15 Potassium Chloride/Water 100 ml @ 100 mls/hr PRN Q1HR PRN IV SEE COMMENTS; Start 11/08/19 at 09:15 Insulin Human Regular 100 ml @ 0 mls/hr CONT PRN PRN IV PER PROTOCOL; Start 11/08/19 at 09:15; Stop 11/08/19 at 10:34; Status DC Ondansetron HCl (Zofran) 4 mg PRN Q8HRS PRN IV NAUSEA/VOMITING; Start 11/08/19 at 09:30; Stop 11/09/19 at 09:29; Status DC Sodium Chloride 1,000 ml @ 250 mls/hr Q4H IV Last administered on 11/08/19at 14:20; Start 11/08/19 at 10:32; Stop 11/09/19 at 00:22; Status DC Insulin Human Regular 100 unit/ Sodium Chloride 101 ml @ 0 mls/hr CONT PRN PRN IV PER PROTOCOL Last administered on 11/08/19at 20:13; Start 11/08/19 at 10:30; Stop 11/09/19 at 18:16; Status DC Acetaminophen (Tylenol) 650 mg PRN Q6HRS PRN PO TEMP > 100.4F; Start 11/08/19 at 13:45 Acetaminophen (Tylenol Supp) 650 mg PRN Q4HRS PRN NM TEMP > 100.4F; Start 11/07 at 13:45 Aspirin (Ecotrin) 325 mg DAILYWBKFT PO Last administered on 11/10/19at 07:31; Start 11/09/19 at 08:00 Aspirin (Aspirin Rectal Supp) 300 mg PRN DAILY PRN NM IF UNABLE TO TAKE PO; Start 11/08/19 at 13:45 Potassium Chloride/Water 100 ml @ 100 mls/hr Q1H IV Last administered on 11/08/19at 16:11; Start 11/08/19 at 15:00; Stop 11/08/19 at 16:59; Status DC Magnesium Sulfate 100 ml @ 25 mls/hr 1X ONCE IV Last administered on 11/08/19at 15:18; Start 11/08/19 at 14:15; Stop 11/08/19 at 18:14; Status DC Heparin Sodium (Porcine) (Heparin Sodium) 5,000 unit Q8HRS SQ Last administered on 11/09/19at 06:11; Start 11/08/19 at 22:00 Atorvastatin Calcium (Lipitor) 40 mg QHS PO ; Start 11/08/19 at 21:00 Sodium Chloride (Normal Saline Flush) 10 ml QSHIFT PRN IV AFTER MEDS AND BLOOD DRAWS; Start 11/08/19 at 16:00 Lidocaine HCl (Xylocaine 2% Topical 5gm Tube) 1 tyron 1X ONCE TP ; Start 11/08/19 at 16:00; Stop 11/08/19 at 16:16; Status DC Lidocaine HCl (Viscous Lidocaine) 15 ml 1X ONCE MM ; Start 11/08/19 at 16:00; Stop 11/08/19 at 16:16; Status DC Benzocaine (Hurricaine One) 2 spray 1X ONCE MM ; Start 11/08/19 at 16:00; Stop 11/08/19 at 16:16; Status DC Potassium Chloride/Water 100 ml @ 100 mls/hr Q1H IV Last administered on 11/08/19at 20:12; Start 11/08/19 at 18:00; Stop 11/08/19 at 21:59; Status DC Dextrose/Sodium Chloride 1,000 ml @ 250 mls/hr Q4H PRN IV SEE COMMENTS Last administered on 11/08/19at 19:43; Start 11/08/19 at 19:45; Stop 11/09/19 at 18:16; Status DC Insulin Glargine (Lantus Syringe) 10 unit QHS SQ Last administered on 11/09/19at 21:16; Start 11/08/19 at 23:00 Insulin Human Lispro (HumaLOG) 0-5 UNITS Q6HRS SQ Last administered on 11/09/19at 17:50; Start 11/09/19 at 00:00; Stop 11/09/19 at 19:43; Status DC Dextrose (Dextrose 50%-Water Syringe) 12.5 gm PRN Q15MIN PRN IV SEE COMMENTS; Start 11/08/19 at 22:45 Dextrose/Sodium Chloride 1,000 ml @ 125 mls/hr CONT PRN IV ; Start 11/09/19 at 02:45; Stop 11/09/19 at 02:46; Status DC Dextrose/Sodium Chloride 1,000 ml @ 125 mls/hr Q8H IV Last administered on 11/09/19at 02:47; Start 11/09/19 at 03:00; Stop 11/09/19 at 18:16; Status DC Potassium Phosphate 10 mmol/ Sodium Chloride 103.3333 ml @ 51.667 m... Q2H IV Last administered on 11/09/19at 17:39; Start 11/09/19 at 15:00; Stop 11/09/19 at 18:59; Status DC Ondansetron HCl (Zofran) 4 mg PRN Q6HRS PRN IV NAUSEA/VOMITING; Start 11/12/19 at 07:00; Stop 11/09/19 at 19:43; Status DC Fentanyl Citrate (Fentanyl 2ml Vial) 25 mcg PRN Q5MIN PRN IV MILD PAIN 1-3; Start 11/12/19 at 07:00; Stop 11/09/19 at 19:43; Status DC Fentanyl Citrate (Fentanyl 2ml Vial) 50 mcg PRN Q5MIN PRN IV MODERATE TO SEVERE PAIN; Start 11/12/19 at 07:00; Stop 11/13/19 at 06:59 Morphine Sulfate (Morphine Sulfate) 1 mg PRN Q10MIN PRN IV SEVERE PAIN 7-10; Start 11/12/19 at 07:00; Stop 11/09/19 at 19:43; Status DC Ringer's Solution 1,000 ml @ 30 mls/hr Q24H IV ; Start 11/12/19 at 07:00; Stop 11/09/19 at 18:16; Status DC Lidocaine HCl (Xylocaine-Mpf 1% 2ml Vial) 2 ml PRN 1X PRN ID PRIOR TO IV START; Start 11/12/19 at 07:00; Stop 11/13/19 at 06:59 Hydromorphone HCl (Dilaudid) 0.5 mg PRN Q10MIN PRN IV SEV PAIN, Second choice; Start 11/12/19 at 07:00; Stop 11/09/19 at 19:43; Status DC Prochlorperazine Edisylate (Compazine) 5 mg PACU PRN PRN IV NAUSEA, MRX1; Start 11/12/19 at 07:00; Stop 11/09/19 at 19:43; Status DC Insulin Human Lispro (HumaLOG) 0-5 UNITS QIDACHS SQ ; Start 11/09/19 at 21:00 Active Scripts Active Reported Lantus Solostar (Insulin Glargine,Hum.rec.anlog) 100 Unit/1 Ml Insuln.pen 20 U nit SQ QHS Novolog Flexpen (Insulin Aspart) 100 Unit/1 Ml Insuln.pen 100 Unit SQ Amlodipine Besylate 10 Mg Tablet 1 Tab PO DAILY Lisinopril 20 Mg Tablet 1 Tab PO DAILY Carvedilol 25 Mg Tablet 1 Tab PO BID Vitals/I & O Vital Sign - Last 24 Hours 11/09/19 11/09/19 11/09/19 11/09/19 09:00 10:00 11:00 12:00 Temp 98.8 98.8 Pulse 94 86 84 Resp 21 35 20 B/P (MAP) 160/100 (120) 145/66 (92) 145/72 (96) O2 Delivery Room Air Room Air Room Air Room Air 11/09/19 11/09/19 11/09/19 11/09/19 16:00 16:00 16:00 20:00 Temp 98.6 98.6 Pulse 77 B/P (MAP) 145/52 (83) Pulse Ox 97 O2 Delivery Room Air Room Air Room Air Room Air 11/09/19 11/10/19 11/10/19 11/10/19 20:00 00:00 00:00 04:27 Temp 98.9 98.4 98.6 98.9 98.4 98.6 Pulse 87 83 91 Resp 16 18 16 B/P (MAP) 122/50 (74) 137/67 (90) 140/61 (87) Pulse Ox 99 94 99 O2 Delivery Room Air Room Air Room Air Room Air Intake and Output 0 11/09/19 11/09/19 11/10/19 15:00 23:00 07:00 Intake Total 100 ml 1103 ml Output Total 240 ml 325 ml Balance -140 ml 1103 ml -325 ml ESPERANZA ARMAS MD Nov 10, 2019 08:13
--- NOTE | 2019-11-10 12:15 | NUR ---
Patient refusing blood glucose check, refusing any assistance with eating, patient is not confused and agitated. Patient and I had very pleasant conversations this morning. This was reported this morning by the overnight nurse and a change in mentation throughout the shift.
--- NOTE | 2019-11-10 15:10 | PDOC ---
PROGRESS NOTES Assessment Problems Medical Problems: (1) CVA (cerebral vascular accident) Status: Acute (2) DKA (diabetic ketoacidoses) Status: Acute (3) Lactic acidosis Status: Acute Left frontal lobe acute or subacute ischemic infarct Evolving late subacute right MCA territory ischemic infarct, resolution of prior right temporal lobe hematoma; chronic right MCA territory ischemic infarct. Metabolic encephalopathy due to diabetic ketoacidosis. Plan Transesophageal echocardiogram and outpatient LINQ recording. Treatment of diabetic ketoacidosis Stroke is subacute, no role for alteplase Resume aspirin and statin when able to take orally She has dye allergy, no need to repeat CT angiogram, has pacemaker, no MRI Rehabilitation modalities. Subjective no complaints Objective Vital Signs Date Time Temp Pulse Resp B/P (MAP) Pulse Ox O2 Delivery O2 Flow Rate FiO2 11/10/19 12:00 94 19 98 Room Air 11/10/19 08:00 99.0 194/70 (111) 99.0 Intake and Output 11/10/19 07:00 Intake Total 1203 ml Output Total 565 ml Balance 638 ml Intake Oral 100 ml IV Total 1103 ml Output Urine Total 565 ml PHYSICAL EXAM Alert. Oriented to place and person. PERRL. EOMI. 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 can make out shapes left eye Muscle tone: normal. Muscle strength: 4/5 DTR: 1-2+ Plantar reflex: Left BKA, right plantar responses flexor Gait: not examined in bed. Sensory exam: stocking loss. No cerebellar signs elicited. Review of Relevant I have reviewed the following items slime (where applicable) has been applied. Labs Laboratory Tests Test 11/08/19 15:35 11/08/19 16:14 11/08/19 17:00 11/08/19 17:20 Sodium Level 142 mmol/L (136-145) Potassium Level 3.6 mmol/L (3.5-5.1) Chloride Level 108 mmol/L (98-107) Carbon Dioxide Level 17 mmol/L (21-32) Anion Gap 17 (6-14) Blood Urea Nitrogen 32 mg/dL (7-20) Creatinine 2.4 mg/dL (0.6-1.0) Estimated GFR (Cockcroft-Gault) 24.4 Glucose Level 205 mg/dL (70-99) Calcium Level 8.3 mg/dL (8.5-10.1) Phosphorus Level 2.0 mg/dL (2.6-4.7) Magnesium Level 2.1 mg/dL (1.8-2.4) Troponin I Quantitative < 0.017 ng/mL (0.000-0.055) Glucose (Fingerstick) 194 mg/dL (70-99) 183 mg/dL (70-99) 213 mg/dL (70-99) Test 11/08/19 18:24 11/08/19 19:10 11/08/19 19:27 11/08/19 20:25 Glucose (Fingerstick) 182 mg/dL (70-99) 171 mg/dL (70-99) 135 mg/dL (70-99) Coronavirus (COVID-19)(PCR) Negative (NEGATIVE) Test 11/08/19 21:27 11/08/19 21:30 11/08/19 22:27 11/09/19 00:01 Glucose (Fingerstick) 116 mg/dL (70-99) 101 mg/dL (70-99) 107 mg/dL (70-99) Sodium Level 144 mmol/L (136-145) Potassium Level 4.0 mmol/L (3.5-5.1) Chloride Level 112 mmol/L (98-107) Carbon Dioxide Level 22 mmol/L (21-32) Anion Gap 10 (6-14) Blood Urea Nitrogen 29 mg/dL (7-20) Creatinine 2.1 mg/dL (0.6-1.0) Estimated GFR (Cockcroft-Gault) 28.5 Glucose Level 135 mg/dL (70-99) Calcium Level 7.9 mg/dL (8.5-10.1) Phosphorus Level 1.0 mg/dL (2.6-4.7) Magnesium Level 3.1 mg/dL (1.8-2.4) Test 11/09/19 06:11 11/09/19 07:05 11/09/19 14:58 11/09/19 17:45 Glucose (Fingerstick) 188 mg/dL (70-99) 149 mg/dL (70-99) 212 mg/dL (70-99) Sodium Level 140 mmol/L (136-145) Potassium Level 3.7 mmol/L (3.5-5.1) Chloride Level 109 mmol/L (98-107) Carbon Dioxide Level 20 mmol/L (21-32) Anion Gap 11 (6-14) Blood Urea Nitrogen 19 mg/dL (7-20) Creatinine 2.0 mg/dL (0.6-1.0) Estimated GFR (Cockcroft-Gault) 30.2 Glucose Level 194 mg/dL (70-99) Calcium Level 7.8 mg/dL (8.5-10.1) Phosphorus Level 1.7 mg/dL (2.6-4.7) Magnesium Level 2.2 mg/dL (1.8-2.4) Triglycerides Level 56 mg/dL (0-150) Cholesterol Level 106 mg/dL (0-200) LDL Cholesterol, Calculated 43 mg/dL (0-100) VLDL Cholesterol, Calculated 11 mg/dL (0-40) Non-HDL Cholesterol Calculated 54 mg/dL (0-129) HDL Cholesterol 52 mg/dL (40-60) Cholesterol/HDL Ratio 2.0 Test 11/09/19 21:14 11/10/19 03:40 11/10/19 07:29 Glucose (Fingerstick) 165 mg/dL (70-99) 142 mg/dL (70-99) White Blood Count 7.1 x10^3/uL (4.0-11.0) Red Blood Count 3.40 x10^6/uL (3.50-5.40) Hemoglobin 10.2 g/dL (12.0-15.5) Hematocrit 29.8 % (36.0-47.0) Mean Corpuscular Volume 88 fL (79-100) Mean Corpuscular Hemoglobin 30 pg (25-35) Mean Corpuscular Hemoglobin Concent 34 g/dL (31-37) Red Cell Distribution Width 14.9 % (11.5-14.5) Platelet Count 156 x10^3/uL (140-400) Neutrophils (%) (Auto) 57 % (31-73) Lymphocytes (%) (Auto) 35 % (24-48) Monocytes (%) (Auto) 6 % (0-9) Eosinophils (%) (Auto) 1 % (0-3) Basophils (%) (Auto) 1 % (0-3) Neutrophils # (Auto) 4.1 x10^3/uL (1.8-7.7) Lymphocytes # (Auto) 2.5 x10^3/uL (1.0-4.8) Monocytes # (Auto) 0.5 x10^3/uL (0.0-1.1) Eosinophils # (Auto) 0.1 x10^3/uL (0.0-0.7) Basophils # (Auto) 0.0 x10^3/uL (0.0-0.2) Sodium Level 142 mmol/L (136-145) Potassium Level 4.1 mmol/L (3.5-5.1) Chloride Level 109 mmol/L (98-107) Carbon Dioxide Level 21 mmol/L (21-32) Anion Gap 12 (6-14) Blood Urea Nitrogen 12 mg/dL (7-20) Creatinine 1.6 mg/dL (0.6-1.0) Estimated GFR (Cockcroft-Gault) 39.0 Glucose Level 95 mg/dL (70-99) Calcium Level 8.5 mg/dL (8.5-10.1) Phosphorus Level 2.7 mg/dL (2.6-4.7) Magnesium Level 2.1 mg/dL (1.8-2.4) Albumin 3.2 g/dL (3.4-5.0) Laboratory Tests Test 11/09/19 17:45 11/09/19 21:14 11/10/19 03:40 11/10/19 07:29 Glucose (Fingerstick) 212 mg/dL (70-99) 165 mg/dL (70-99) 142 mg/dL (70-99) White Blood Count 7.1 x10^3/uL (4.0-11.0) Red Blood Count 3.40 x10^6/uL (3.50-5.40) Hemoglobin 10.2 g/dL (12.0-15.5) Hematocrit 29.8 % (36.0-47.0) Mean Corpuscular Volume 88 fL (79-100) Mean Corpuscular Hemoglobin 30 pg (25-35) Mean Corpuscular Hemoglobin Concent 34 g/dL (31-37) Red Cell Distribution Width 14.9 % (11.5-14.5) Platelet Count 156 x10^3/uL (140-400) Neutrophils (%) (Auto) 57 % (31-73) Lymphocytes (%) (Auto) 35 % (24-48) Monocytes (%) (Auto) 6 % (0-9) Eosinophils (%) (Auto) 1 % (0-3) Basophils (%) (Auto) 1 % (0-3) Neutrophils # (Auto) 4.1 x10^3/uL (1.8-7.7) Lymphocytes # (Auto) 2.5 x10^3/uL (1.0-4.8) Monocytes # (Auto) 0.5 x10^3/uL (0.0-1.1) Eosinophils # (Auto) 0.1 x10^3/uL (0.0-0.7) Basophils # (Auto) 0.0 x10^3/uL (0.0-0.2) Sodium Level 142 mmol/L (136-145) Potassium Level 4.1 mmol/L (3.5-5.1) Chloride Level 109 mmol/L (98-107) Carbon Dioxide Level 21 mmol/L (21-32) Anion Gap 12 (6-14) Blood Urea Nitrogen 12 mg/dL (7-20) Creatinine 1.6 mg/dL (0.6-1.0) Estimated GFR (Cockcroft-Gault) 39.0 Glucose Level 95 mg/dL (70-99) Calcium Level 8.5 mg/dL (8.5-10.1) Phosphorus Level 2.7 mg/dL (2.6-4.7) Magnesium Level 2.1 mg/dL (1.8-2.4) Albumin 3.2 g/dL (3.4-5.0) Medications Current Medications Sodium Chloride 1,000 ml @ 1,000 mls/hr 1X ONCE IV Last administered on 11/08/19at 07:47; Start 11/08/19 at 07:00; Stop 11/08/19 at 07:59; Status DC Insulin Human Regular (HumuLIN R VIAL) 4 unit 1X ONCE SQ Last administered on 11/08/19at 08:32; Start 11/08/19 at 08:30; Stop 11/08/19 at 08:31; Status DC Aspirin (Aspirin Rectal Supp) 300 mg 1X ONCE ND Last administered on 11/08/19at 09:14; Start 11/08/19 at 09:15; Stop 11/08/19 at 09:16; Status DC Sodium Chloride 1,000 ml @ 500 mls/hr Q2H IV ; Start 11/08/19 at 09:04; Stop 11/08/19 at 11:03; Status DC Sodium Chloride 1,000 ml @ 250 mls/hr Q4H IV Last administered on 11/08/19at 14:40; Start 11/08/19 at 09:06; Stop 11/09/19 at 00:22; Status DC Dextrose/Sodium Chloride 1,000 ml @ 250 mls/hr Q4H IV Last administered on 11/08/19at 22:40; Start 11/08/19 at 09:06; Stop 11/09/19 at 02:33; Status DC Insulin Human Regular 100 unit/ Sodium Chloride 101 ml @ 0 mls/hr CONT PRN PRN IV PER PROTOCOL; Start 11/08/19 at 09:15; Stop 11/08/19 at 10:34; Status DC Potassium Chloride/Water 100 ml @ 100 mls/hr PRN Q1HR PRN IV SEE COMMENTS Last administered on 11/08/19at 23:44; Start 11/08/19 at 09:15 Potassium Chloride/Water 100 ml @ 100 mls/hr PRN Q1HR PRN IV SEE COMMENTS Last administered on 11/08/19at 17:55; Start 11/08/19 at 09:15 Potassium Chloride/Water 100 ml @ 100 mls/hr PRN Q1HR PRN IV SEE COMMENTS; Start 11/08/19 at 09:15 Insulin Human Regular 100 ml @ 0 mls/hr CONT PRN PRN IV PER PROTOCOL; Start 11/08/19 at 09:15; Stop 11/08/19 at 10:34; Status DC Ondansetron HCl (Zofran) 4 mg PRN Q8HRS PRN IV NAUSEA/VOMITING; Start 11/08/19 at 09:30; Stop 11/09/19 at 09:29; Status DC Sodium Chloride 1,000 ml @ 250 mls/hr Q4H IV Last administered on 11/08/19at 14:20; Start 11/08/19 at 10:32; Stop 11/09/19 at 00:22; Status DC Insulin Human Regular 100 unit/ Sodium Chloride 101 ml @ 0 mls/hr CONT PRN PRN IV PER PROTOCOL Last administered on 11/08/19at 20:13; Start 11/08/19 at 10:30; Stop 11/09/19 at 18:16; Status DC Acetaminophen (Tylenol) 650 mg PRN Q6HRS PRN PO TEMP > 100.4F; Start 11/08/19 at 13:45 Acetaminophen (Tylenol Supp) 650 mg PRN Q4HRS PRN ND TEMP > 100.4F; Start 11/08/19 at 13:45 Aspirin (Ecotrin) 325 mg DAILYWBKFT PO Last administered on 11/10/19at 07:31; Start 11/09/19 at 08:00 Aspirin (Aspirin Rectal Supp) 300 mg PRN DAILY PRN ND IF UNABLE TO TAKE PO; Start 11/08/19 at 13:45 Potassium Chloride/Water 100 ml @ 100 mls/hr Q1H IV Last administered on 11/08/19at 16:11; Start 11/08/19 at 15:00; Stop 11/08/19 at 16:59; Status DC Magnesium Sulfate 100 ml @ 25 mls/hr 1X ONCE IV Last administered on 11/08/19at 15:18; Start 11/08/19 at 14:15; Stop 11/08/19 at 18:14; Status DC Heparin Sodium (Porcine) (Heparin Sodium) 5,000 unit Q8HRS SQ Last administered on 11/09/19at 06:11; Start 11/08/19 at 22:00 Atorvastatin Calcium (Lipitor) 40 mg QHS PO ; Start 11/08/19 at 21:00 Sodium Chloride (Normal Saline Flush) 10 ml QSHIFT PRN IV AFTER MEDS AND BLOOD DRAWS; Start 11/08/19 at 16:00 Lidocaine HCl (Xylocaine 2% Topical 5gm Tube) 1 tyron 1X ONCE TP ; Start 11/08/19 at 16:00; Stop 11/08/19 at 16:16; Status DC Lidocaine HCl (Viscous Lidocaine) 15 ml 1X ONCE MM ; Start 11/08/19 at 16:00; Stop 11/08/19 at 16:16; Status DC Benzocaine (Hurricaine One) 2 spray 1X ONCE MM ; Start 11/08/19 at 16:00; Stop 11/08/19 at 16:16; Status DC Potassium Chloride/Water 100 ml @ 100 mls/hr Q1H IV Last administered on 11/08/19at 20:12; Start 11/08/19 at 18:00; Stop 11/08/19 at 21:59; Status DC Dextrose/Sodium Chloride 1,000 ml @ 250 mls/hr Q4H PRN IV SEE COMMENTS Last administered on 11/08/19at 19:43; Start 11/08/19 at 19:45; Stop 11/09/19 at 18:16; Status DC Insulin Glargine (Lantus Syringe) 10 unit QHS SQ Last administered on 11/09/19at 21:16; Start 11/08/19 at 23:00 Insulin Human Lispro (HumaLOG) 0-5 UNITS Q6HRS SQ Last administered on 11/09/19at 17:50; Start 11/09/19 at 00:00; Stop 11/09/19 at 19:43; Status DC Dextrose (Dextrose 50%-Water Syringe) 12.5 gm PRN Q15MIN PRN IV SEE COMMENTS; Start 11/08/19 at 22:45 Dextrose/Sodium Chloride 1,000 ml @ 125 mls/hr CONT PRN IV ; Start 11/09/19 at 02:45; Stop 11/09/19 at 02:46; Status DC Dextrose/Sodium Chloride 1,000 ml @ 125 mls/hr Q8H IV Last administered on 11/09/19at 02:47; Start 11/09/19 at 03:00; Stop 11/09/19 at 18:16; Status DC Potassium Phosphate 10 mmol/ Sodium Chloride 103.3333 ml @ 51.667 m... Q2H IV Last administered on 11/09/19at 17:39; Start 11/09/19 at 15:00; Stop 11/09/19 at 18:59; Status DC Ondansetron HCl (Zofran) 4 mg PRN Q6HRS PRN IV NAUSEA/VOMITING; Start 11/12/19 at 07:00; Stop 11/09/19 at 19:43; Status DC Fentanyl Citrate (Fentanyl 2ml Vial) 25 mcg PRN Q5MIN PRN IV MILD PAIN 1-3; Start 11/12/19 at 07:00; Stop 11/09/19 at 19:43; Status DC Fentanyl Citrate (Fentanyl 2ml Vial) 50 mcg PRN Q5MIN PRN IV MODERATE TO SEVERE PAIN; Start 11/12/19 at 07:00; Stop 11/13/19 at 06:59 Morphine Sulfate (Morphine Sulfate) 1 mg PRN Q10MIN PRN IV SEVERE PAIN 7-10; Start 11/12/19 at 07:00; Stop 11/09/19 at 19:43; Status DC Ringer's Solution 1,000 ml @ 30 mls/hr Q24H IV ; Start 11/12/19 at 07:00; Stop 11/09/19 at 18:16; Status DC Lidocaine HCl (Xylocaine-Mpf 1% 2ml Vial) 2 ml PRN 1X PRN ID PRIOR TO IV START; Start 11/12/19 at 07:00; Stop 11/13/19 at 06:59 Hydromorphone HCl (Dilaudid) 0.5 mg PRN Q10MIN PRN IV SEV PAIN, Second choice; Start 11/12/19 at 07:00; Stop 11/09/19 at 19:43; Status DC Prochlorperazine Edisylate (Compazine) 5 mg PACU PRN PRN IV NAUSEA, MRX1; Start 11/12/19 at 07:00; Stop 11/09/19 at 19:43; Status DC Insulin Human Lispro (HumaLOG) 0-5 UNITS QIDACHS SQ ; Start 11/09/19 at 21:00 Active Scripts Active Reported Lantus Solostar (Insulin Glargine,Hum.rec.anlog) 100 Unit/1 Ml Insuln.pen 20 Unit SQ QHS Novolog Flexpen (Insulin Aspart) 100 Unit/1 Ml Insuln.pen 100 Unit SQ Amlodipine Besylate 10 Mg Tablet 1 Tab PO DAILY Lisinopril 20 Mg Tablet 1 Tab PO DAILY Carvedilol 25 Mg Tablet 1 Tab PO BID Vitals/I & O Vital Sign - Last 24 Hours 11/09/19 11/09/19 11/09/19 11/09/19 16:00 16:00 16:00 20:00 Temp 98.6 98.6 Pulse 77 B/P (MAP) 145/52 (83) Pulse Ox 97 O2 Delivery Room Air Room Air Room Air Room Air 11/09/19 11/10/19 11/10/19 11/10/19 20:00 00:00 00:00 04:27 Temp 98.9 98.4 98.6 98.9 98.4 98.6 Pulse 87 83 91 Resp 16 18 16 B/P (MAP) 122/50 (74) 137/67 (90) 140/61 (87) Pulse Ox 99 94 99 O2 Delivery Room Air Room Air Room Air Room Air 11/10/19 11/10/19 11/10/19 08:00 09:00 12:00 Temp 99.0 99.0 Pulse 90 94 Resp 22 19 B/P (MAP) 194/70 (111) Pulse Ox 100 98 O2 Delivery Room Air Room Air Room Air Intake and Output 11/09/19 11/09/19 11/10/19 15:00 23:00 07:00 Intake Total 100 ml 1103 ml Output Total 240 ml 325 ml Balance -140 ml 1103 ml -325 ml Justicifation of Admission Dx: Justifications for Admission: Justification of Admission Dx: Yes DKA: WILFRID MADISON MD Nov 10, 2019 15:10
[2019-11-10 20:00] VITALS: BP 166/58
[2019-11-10] MEDS: ATORVASTATIN CALCIUM 40 MG TABLET. PO SCH (21:00)
[2019-11-10] MEDS: INSULIN GLARGINE SYRINGE. SQ SCH (21:29)
--- NOTE | 2019-11-10 23:07 | PDOC ---
CARDIOLOGY PROGRESS NOTE SUBJECTIVE: No new events overnight. Patient with labile mentation per nursing staff OBJECTIVE: Vital Signs/I&O: Vital Signs Date Time Temp Pulse Resp B/P (MAP) Pulse Ox O2 Delivery O2 Flow Rate FiO2 11/10/19 20:00 98.3 79 22 166/58 (94) 97 Room Air 98.3 I & O0 11/09/19 11/09/19 11/10/19 15:00 23:00 07:00 Intake Total 100 ml 1103 ml Output Total 240 ml 325 ml Balance -140 ml 1103 ml -325 ml Objective: Resting in bed a/o to self and place normal heart tones lungs clr soft abd no edema. DIAGNOSTIC TESTING: Labs: Laboratory Tests 11/10/19 03:40 Laboratory Tests Test 11/10/19 03:40 11/10/19 07:29 11/10/19 17:24 11/10/19 21:23 White Blood Count 7.1 x10^3/uL (4.0-11.0) Red Blood Count 3.40 x10^6/uL (3.50-5.40) L Hemoglobin 10.2 g/dL (12.0-15.5) L Hematocrit 29.8 % (36.0-47.0) L Mean Corpuscular Volume 88 fL (79-100) Mean Corpuscular Hemoglobin 30 pg (25-35) Mean Corpuscular Hemoglobin Concent 34 g/dL (31-37) Red Cell Distribution Width 14.9 % (11.5-14.5) H Platelet Count 156 x10^3/uL (140-400) Neutrophils (%) (Auto) 57 % (31-73) Lymphocytes (%) (Auto) 35 % (24-48) Monocytes (%) (Auto) 6 % (0-9) Eosinophils (%) (Auto) 1 % (0-3) Basophils (%) (Auto) 1 % (0-3) Neutrophils # (Auto) 4.1 x10^3/uL (1.8-7.7) Lymphocytes # (Auto) 2.5 x10^3/uL (1.0-4.8) Monocytes # (Auto) 0.5 x10^3/uL (0.0-1.1) Eosinophils # (Auto) 0.1 x10^3/uL (0.0-0.7) Basophils # (Auto) 0.0 x10^3/uL (0.0-0.2) Sodium Level 142 mmol/L (136-145) Potassium Level 4.1 mmol/L (3.5-5.1) Chloride Level 109 mmol/L (98-107) H Carbon Dioxide Level 21 mmol/L (21-32) Anion Gap 12 (6-14) Blood Urea Nitrogen 12 mg/dL (7-20) Creatinine 1.6 mg/dL (0.6-1.0) H Estimated GFR (Cockcroft-Gault) 39.0 Glucose Level 95 mg/dL (70-99) Calcium Level 8.5 mg/dL (8.5-10.1) Phosphorus Level 2.7 mg/dL (2.6-4.7) Albumin 3.2 g/dL (3.4-5.0) L Glucose (Fingerstick) 142 mg/dL (70-99) H 365 mg/dL (70-99) H 328 mg/dL (70-99) H ASSESSMENT: 1. Recurrent CVA; chronic right MCA stroke. CT head noted with left frontal lobe acute or subacute ischemic infarct and evolving late subacute right MCA infarct. Echo 09/16 without evidence on intracardiac shunting. 2. Metabolic encephalopathy 3. 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 Most recent echo with LV recovery with an EF 60-65%. Follows with Dr. Miranda with [facility]. 4. Hypertension; controlled 5. Hyperlipidemia 6. Diabetes, II, DKA. as per PCP 7. AFSHAN 8. Leukocytosis, lactic acidosis PLAN: 1 - continue asa, atorvastatin. BP control parameters per neurology Start anticoagulation when cleared by neurology Supportive care. Plan for [facility]OD[facility] on tuesday Thanks Justicifation of Admission Dx: Justifications for Admission: Justification of Admission Dx: Yes DKA: JOSÉ MIGUEL JOSEPH MD Nov 10, 2019 23:07
[2019-11-11] VITALS (8 sets, daily range): BP systolic 133–170; BP diastolic 59–86
--- NOTE | 2019-11-11 01:04 | NUR ---
When this nurse first entered pt room, I announced myself as the patient's nurse for the night and stated my name. Pt began to cry. This nurse approached the pt and described what I was doing as I was approaching. The patient stated "Just get out of my room and leave me alone" and swatted her hand at this nurse. This RN educated pt that she needed her medications and needed to get into bed to rest for the night. Pt agreed to have blood sugar checked, and agreed to take insulin due to elevated BG. Pt continued to refuse heparin and atorvastatin after pt education. Pt is alert and oriented to self at this time. Pt knows she is in the hospital and sick, but it unsure of exact location, date, and time. Pt stated she was crying because she "wants to go home". Pt did allow this nurse to assess her and her VS. Pt was transferred from chair to bed with 2x assistance using gait belt and walker. Pt is currently resting in bed with eyes closed; phone, water, and call light within reach. Will continue to monitor and pass on to next shift.
[2019-11-11] MEDS: HEPARIN for SUB-Q USE 5,000 UNIT/ML VIAL. SQ SCH ×3 (06:01→21:04)
[2019-11-11] MEDS: INSULIN LISPRO 300 UNITS/3 ML VIAL. SQ SCH ×6 (07:58→21:00)
[2019-11-11] MEDS: ASPIRIN ENTERIC COATED 325 MG TABLET.DR. PO SCH (08:04)
--- NOTE | 2019-11-11 09:22 | PDOC ---
PROGRESS NOTES Chief Complaint Chief Complaint A/P: DKA - back on basal bolus plus as of 11/07. poor Dm control AFSHAN - likely vasomotor nephropathy, Cr 2 Acute CVA - Left frontal lobe acute or subacute ischemic infarct Evolving late subacute right MCA territory ischemic infarct, resolution of prior right temporal lobe hematoma; chronic right MCA territory ischemic infarct. Metabolic encephalopathy due to diabetic ketoacidosis. CVA - CT head was found with old large right MCA infarct Diabetes-Type II with hyperglycemia - glucose 528, will place on high sliding scale and scheduled 15u lispro as well as lantus. Await SHEEP KILLER evaluation High Cholesterol - cont statin Heart Disease - hold antiplatelets with hemorrhagic CVA Hypertension - cont meds PAD s/p L BKA - stable SSS s/p PPM - pacing. Ex-smoker (quit 2019) - counseled on continued cessation History of Present Illness History of Present Illness Ms Haney is a 64yo F w/ PMHx Diabetes-Type II, High Cholesterol, Heart Disease, Hypertension, Stroke, PAD s/p L BKA, SSS s/p PPM, ex-smoker (quit 2019) who presents via EMS with report of altered mental status. Found in DKA with worsening of CVA She was admitted to ICU for further monitoring of CVA. Seen by Neurology, Cardiology 11/08: History of present illness limited secondary to altered mental status. Labs NA 140, K3.7, BUN 19, CR 2, glucose 1.4, phosphorus 1.7, ABG 7.2 3/148. No complaints voiced 11/09: Afebrile. Working with PT/OT. She cannot identify objects visually. Labs improved CR 1.6, out of DKA for 24 hours. Scared she cannot take care of herself. She is also scared her , Rene cannot. No chest pain or shortness of breath. COVID 19 negative Afebrile overnight. Glucose back up in 200s, 300 last night. Oriented to self and location. Plans for HODA tomorrow. Will add back her home coreg slowly. Still not back on lisinopril or amlodipine Plan: Transesophageal echocardiogram Resume aspirin and statin when able to take orally Tighten glycemic control, scheduled insulin, increase lantus She has dye allergy, no need to repeat CT angiogram, has pacemaker, no MRI PT/OT/SHEEP KILLER Can likely discharge 11/12/2019 after HODA Vitals Vitals Vital Signs Date Time Temp Pulse Resp B/P (MAP) Pulse Ox O2 Delivery O2 Flow Rate FiO2 11/11/19 08:00 Room Air 11/11/19 07:00 98.2 87 16 161/73 (102) 98.2 11/11/19 04:00 99 Physical Exam General: mild distress Heart: Regular rate Abdomen: Normal bowel sounds Extremities: Other (left BKA ) Skin: No significant lesion Labs LABS Laboratory Tests Test 11/10/19 17:24 11/10/19 21:23 11/11/19 07:55 Glucose (Fingerstick) 365 mg/dL (70-99) 328 mg/dL (70-99) 257 mg/dL (70-99) Assessment and Plan Assessmemt and Plan Problems Medical Problems: (1) CVA (cerebral vascular accident) Status: Acute (2) DKA (diabetic ketoacidoses) Status: Acute (3) Lactic acidosis Status: Acute Comment Review of Relevant I have reviewed the following items slime (where applicable) has been applied. Labs Laboratory Tests Test 11/09/19 14:58 11/09/19 17:45 11/09/19 21:14 11/10/19 03:40 Glucose (Fingerstick) 149 mg/dL (70-99) 212 mg/dL (70-99) 165 mg/dL (70-99) White Blood Count 7.1 x10^3/uL (4.0-11.0) Red Blood Count 3.40 x10^6/uL (3.50-5.40) Hemoglobin 10.2 g/dL (12.0-15.5) Hematocrit 29.8 % (36.0-47.0) Mean Corpuscular Volume 88 fL (79-100) Mean Corpuscular Hemoglobin 30 pg (25-35) Mean Corpuscular Hemoglobin Concent 34 g/dL (31-37) Red Cell Distribution Width 14.9 % (11.5-14.5) Platelet Count 156 x10^3/uL (140-400) Neutrophils (%) (Auto) 57 % (31-73) Lymphocytes (%) (Auto) 35 % (24-48) Monocytes (%) (Auto) 6 % (0-9) Eosinophils (%) (Auto) 1 % (0-3) Basophils (%) (Auto) 1 % (0-3) Neutrophils # (Auto) 4.1 x10^3/uL (1.8-7.7) Lymphocytes # (Auto) 2.5 x10^3/uL (1.0-4.8) Monocytes # (Auto) 0.5 x10^3/uL (0.0-1.1) Eosinophils # (Auto) 0.1 x10^3/uL (0.0-0.7) Basophils # (Auto) 0.0 x10^3/uL (0.0-0.2) Sodium Level 142 mmol/L (136-145) Potassium Level 4.1 mmol/L (3.5-5.1) Chloride Level 109 mmol/L (98-107) Carbon Dioxide Level 21 mmol/L (21-32) Anion Gap 12 (6-14) Blood Urea Nitrogen 12 mg/dL (7-20) Creatinine 1.6 mg/dL (0.6-1.0) Estimated GFR (Cockcroft-Gault) 39.0 Glucose Level 95 mg/dL (70-99) Calcium Level 8.5 mg/dL (8.5-10.1) Phosphorus Level 2.7 mg/dL (2.6-4.7) Magnesium Level 2.1 mg/dL (1.8-2.4) Albumin 3.2 g/dL (3.4-5.0) Test 11/10/19 07:29 11/10/19 17:24 11/10/19 21:23 11/11/19 07:55 Glucose (Fingerstick) 142 mg/dL (70-99) 365 mg/dL (70-99) 328 mg/dL (70-99) 257 mg/dL (70-99) Laboratory Tests Test 11/10/19 17:24 11/10/19 21:23 11/11/19 07:55 Glucose (Fingerstick) 365 mg/dL (70-99) 328 mg/dL (70-99) 257 mg/dL (70-99) Medications Current Medications Sodium Chloride 1,000 ml @ 1,000 mls/hr 1X ONCE IV Last administered on 11/08/19at 07:47; Start 11/08/19 at 07:00; Stop 11/08/19 at 07:59; Status DC Insulin Human Regular (HumuLIN R VIAL) 4 unit 1X ONCE SQ Last administered on 11/08/19at 08:32; Start 11/08/19 at 08:30; Stop 11/08/19 at 08:31; Status DC Aspirin (Aspirin Rectal Supp) 300 mg 1X ONCE DC Last administered on 11/08/19at 09:14; Start 11/08/19 at 09:15; Stop 11/08/19 at 09:16; Status DC Sodium Chloride 1,000 ml @ 500 mls/hr Q2H IV ; Start 11/08/19 at 09:04; Stop 11/08/19 at 11:03; Status DC Sodium Chloride 1,000 ml @ 250 mls/hr Q4H IV Last administered on 11/08/19at 14:40; Start 11/08/19 at 09:06; Stop 11/09/19 at 00:22; Status DC Dextrose/Sodium Chloride 1,000 ml @ 250 mls/hr Q4H IV Last administered on 11/08/19at 22:40; Start 11/08/19 at 09:06; Stop 11/09/19 at 02:33; Status DC Insulin Human Regular 100 unit/ Sodium Chloride 101 ml @ 0 mls/hr CONT PRN PRN IV PER PROTOCOL; Start 11/08/19 at 09:15; Stop 11/08/19 at 10:34; Status DC Potassium Chloride/Water 100 ml @ 100 mls/hr PRN Q1HR PRN IV SEE COMMENTS Last administered on 11/08/19at 23:44; Start 11/08/19 at 09:15 Potassium Chloride/Water 100 ml @ 100 mls/hr PRN Q1HR PRN IV SEE COMMENTS Last administered on 11/08/19at 17:55; Start 11/08/19 at 09:15 Potassium Chloride/Water 100 ml @ 100 mls/hr PRN Q1HR PRN IV SEE COMMENTS; Start 11/08/19 at 09:15 Insulin Human Regular 100 ml @ 0 mls/hr CONT PRN PRN IV PER PROTOCOL; Start 11/08/19 at 09:15; Stop 11/08/19 at 10:34; Status DC Ondansetron HCl (Zofran) 4 mg PRN Q8HRS PRN IV NAUSEA/VOMITING; Start 11/08/19 at 09:30; Stop 11/09/19 at 09:29; Status DC Sodium Chloride 1,000 ml @ 250 mls/hr Q4H IV Last administered on 11/08/19at 14:20; Start 11/08/19 at 10:32; Stop 11/09/19 at 00:22; Status DC Insulin Human Regular 100 unit/ Sodium Chloride 101 ml @ 0 mls/hr CONT PRN PRN IV PER PROTOCOL Last administered on 11/08/19at 20:13; Start 11/08/19 at 10:30; Stop 11/09/19 at 18:16; Status DC Acetaminophen (Tylenol) 650 mg PRN Q6HRS PRN PO TEMP > 100.4F; Start 11/08/19 at 13:45 Acetaminophen (Tylenol Supp) 650 mg PRN Q4HRS PRN DC TEMP > 100.4F; Start 11/08/19 at 13:45 Aspirin (Ecotrin) 325 mg DAILYWBKFT PO Last administered on 11/11/19at 08:04; Start 11/09/19 at 08:00 Aspirin (Aspirin Rectal Supp) 300 mg PRN DAILY PRN DC IF UNABLE TO TAKE PO; Start 11/08/19 at 13:45 Potassium Chloride/Water 100 ml @ 100 mls/hr Q1H IV Last administered on 11/08/19at 16:11; Start 11/08/19 at 15:00; Stop 11/08/19 at 16:59; Status DC Magnesium Sulfate 100 ml @ 25 mls/hr 1X ONCE IV Last administered on 11/08/19at 15:18; Start 11/08/19 at 14:15; Stop 11/08/19 at 18:14; Status DC Heparin Sodium (Porcine) (Heparin Sodium) 5,000 unit Q8HRS SQ Last administered on 11/11/19at 06:01; Start 11/08/19 at 22:00 Atorvastatin Calcium (Lipitor) 40 mg QHS PO ; Start 11/08/19 at 21:00 Sodium Chloride (Normal Saline Flush) 10 ml QSHIFT PRN IV AFTER MEDS AND BLOOD DRAWS; Start 11/08/19 at 16:00 Lidocaine HCl (Xylocaine 2% Topical 5gm Tube) 1 tyron 1X ONCE TP ; Start 11/08/19 at 16:00; Stop 11/08/19 at 16:16; Status DC Lidocaine HCl (Viscous Lidocaine) 15 ml 1X ONCE MM ; Start 11/08/19 at 16:00; Stop 11/08/19 at 16:16; Status DC Benzocaine (Hurricaine One) 2 spray 1X ONCE MM ; Start 11/08/19 at 16:00; Stop 11/08/19 at 16:16; Status DC Potassium Chloride/Water 100 ml @ 100 mls/hr Q1H IV Last administered on 04/18at 20:12; Start 11/08/19 at 18:00; Stop 11/08/19 at 21:59; Status DC Dextrose/Sodium Chloride 1,000 ml @ 250 mls/hr Q4H PRN IV SEE COMMENTS Last administered on 11/08/19at 19:43; Start 11/08/19 at 19:45; Stop 11/09/19 at 18:16; Status DC Insulin Glargine (Lantus Syringe) 10 unit QHS SQ Last administered on 11/10/19at 21:29; Start 11/08/19 at 23:00 Insulin Human Lispro (HumaLOG) 0-5 UNITS Q6HRS SQ Last administered on 11/09/19at 17:50; Start 11/09/19 at 00:00; Stop 11/09/19 at 19:43; Status DC Dextrose (Dextrose 50%-Water Syringe) 12.5 gm PRN Q15MIN PRN IV SEE COMMENTS; Start 11/08/19 at 22:45 Dextrose/Sodium Chloride 1,000 ml @ 125 mls/hr CONT PRN IV ; Start 11/09/19 at 02:45; Stop 11/09/19 at 02:46; Status DC Dextrose/Sodium Chloride 1,000 ml @ 125 mls/hr Q8H IV Last administered on 11/09/19at 02:47; Start 11/09/19 at 03:00; Stop 11/09/19 at 18:16; Status DC Potassium Phosphate 10 mmol/ Sodium Chloride 103.3333 ml @ 51.667 m... Q2H IV Last administered on 11/09/19at 17:39; Start 11/09/19 at 15:00; Stop 11/09/19 at 18:59; Status DC Ondansetron HCl (Zofran) 4 mg PRN Q6HRS PRN IV NAUSEA/VOMITING; Start 11/12/19 at 07:00; Stop 11/09/19 at 19:43; Status DC Fentanyl Citrate (Fentanyl 2ml Vial) 25 mcg PRN Q5MIN PRN IV MILD PAIN 1-3; Start 11/12/19 at 07:00; Stop 11/09/19 at 19:43; Status DC Fentanyl Citrate (Fentanyl 2ml Vial) 50 mcg PRN Q5MIN PRN IV MODERATE TO SEVERE PAIN; Start 11/12/19 at 07:00; Stop 11/13/19 at 06:59 Morphine Sulfate (Morphine Sulfate) 1 mg PRN Q10MIN PRN IV SEVERE PAIN 7-10; Start 11/12/19 at 07:00; Stop 11/09/19 at 19:43; Status DC Ringer's Solution 1,000 ml @ 30 mls/hr Q24H IV ; Start 11/12/19 at 07:00; Stop 11/09/19 at 18:16; Status DC Lidocaine HCl (Xylocaine-Mpf 1% 2ml Vial) 2 ml PRN 1X PRN ID PRIOR TO IV START; Start 11/12/19 at 07:00; Stop 11/13/19 at 06:59 Hydromorphone HCl (Dilaudid) 0.5 mg PRN Q10MIN PRN IV SEV PAIN, Second choice; Start 11/12/19 at 07:00; Stop 11/09/19 at 19:43; Status DC Prochlorperazine Edisylate (Compazine) 5 mg PACU PRN PRN IV NAUSEA, MRX1; Start 11/12/19 at 07:00; Stop 11/09/19 at 19:43; Status DC Insulin Human Lispro (HumaLOG) 0-5 UNITS QIDACHS SQ Last administered on 11/11/19at 07:58; Start 11/09/19 at 21:00 Insulin Human Lispro (HumaLOG) 10 units TIDWMEALS SQ ; Start 11/11/19 at 12:00; Status UNV Active Scripts Active Reported Lantus Solostar (Insulin Glargine,Hum.rec.anlog) 100 Unit/1 Ml Insuln.pen 20 Unit SQ QHS Novolog Flexpen (Insulin Aspart) 100 Unit/1 Ml Insuln.pen 100 Unit SQ Amlodipine Besylate 10 Mg Tablet 1 Tab PO DAILY Lisinopril 20 Mg Tablet 1 Tab PO DAILY Carvedilol 25 Mg Tablet 1 Tab PO BID Vitals/I & O Vital Sign - Last 24 Hours 11/10/19 11/10/19 11/10/19 11/10/19 12:00 16:00 20:00 21:00 Temp 98.7 98.3 98.7 98.3 Pulse 94 71 79 Resp 22 B/P (MAP) 166/58 (94) Pulse Ox 98 98 97 O2 Delivery Room Air Room Air Room Air Room Air 11/11/19 11/11/19 11/11/19 11/11/19 00:00 04:00 07:00 08:00 Temp 97.9 98.4 98.2 97.9 98.4 98.2 Pulse 81 84 87 Resp 16 B/P (MAP) 135/71 (92) 159/81 (107) 161/73 (102) Pulse Ox 98 99 O2 Delivery Room Air Room Air Room Air Room Air Intake and Output 11/10/19 11/10/19 11/11/19 15:00 23:00 07:00 Intake Total 240 ml 240 ml 360 ml Output Total 380 ml 600 ml 620 ml Balance -140 ml -360 ml -260 ml ESPERANZA ARMAS MD Nov 11, 2019 09:22
--- NOTE | 2019-11-11 09:29 | NUR ---
Pt transferred to room 250. Pt's called and notified of new room number.
[2019-11-11] MEDS ORDERED: INSULIN GLARGINE SYRINGE. SQ ONE (09:30)
--- NOTE | 2019-11-11 09:50 | PDOC ---
CARDIOLOGY PROGRESS NOTE SUBJECTIVE: Patient is resting comfortably and denies any current chest pain or dyspnea. She reports that she is eating well. She has been ambulating with her prosthesis. Denies any other acute issues. OBJECTIVE: Vital Signs/I&O: Vital Signs Date Time Temp Pulse Resp B/P (MAP) Pulse Ox O2 Delivery O2 Flow Rate FiO2 11/11/19 08:00 Room Air 11/11/19 07:00 98.2 87 16 161/73 (102) 98.2 11/11/19 04:00 99 I & O 11/10/19 11/10/19 11/11/19 15:00 23:00 07:00 Intake Total 240 ml 240 ml 360 ml Output Total 380 ml 600 ml 620 ml Balance -140 ml -360 ml -260 ml Objective: The patient appeared well nourished and normally developed. Head exam is unremarkable. No scleral icterus or corneal arcus noted. Neck is without jugular venous distension, thyromegaly, or carotid bruits. Carotid upstrokes are brisk bilaterally. Lungs are clear to auscultation and percussion. Cardiac exam reveals the PMI to be normally sized and situated. Rhythm is regular. First and second heart sounds normal. No murmurs, rubs or gallops. Abdominal exam reveals normal bowel sounds, no masses, no organomegaly and no aortic enlargement. Extremities are nonedematous, left lower extremity amputation below the knee. No right lower extremity edema. Msk: No traumua Neuro: No focal deficits CURRENT MEDICATIONS: Aspirin 325 mg daily, atorvastatin 40 mg daily DIAGNOSTIC TESTING: Labs reviewed. Labs: Laboratory Tests Test 11/10/19 17:24 11/10/19 21:23 11/11/19 07:55 Glucose (Fingerstick) 365 mg/dL (70-99) H 328 mg/dL (70-99) H 257 mg/dL (70-99) H ASSESSMENT: 1. Recurrent CVA 2. Acute kidney injury with improvement with a creatinine of 1.6 3. Hypertension 4. Nonischemic cardiomyopathy status post ICD. PLAN: 1. Plan for HODA tomorrow to rule out any intracardiac shunt given her recurrent stroke 2. Awaiting ICD interrogation. 3. Blood pressure is labile but will defer to neurology regarding goal blood pressures. Supportive care for now. Justicifation of Admission Dx: Justifications for Admission: Justification of Admission Dx: Yes DKA: ALLISONA JOSÉ MIGUEL NORIEGA MD Nov 11, 2019 09:50
[2019-11-11] MEDS ORDERED: hydrALAZINE 20 MG/ML VIAL. IVP PRN (10:00)
--- NOTE | 2019-11-11 11:53 | PDOC ---
PROGRESS NOTES Assessment Problems Medical Problems: (1) CVA (cerebral vascular accident) Status: Acute (2) DKA (diabetic ketoacidoses) Status: Acute (3) Lactic acidosis Status: Acute Left frontal lobe acute or subacute ischemic infarct Evolving late subacute right MCA territory ischemic infarct, resolution of prior right temporal lobe hematoma; chronic right MCA territory ischemic infarct. Metabolic encephalopathy due to diabetic ketoacidosis, resolved. Blindness, likely due to diabetic retinopathy rather than the strokes Plan Transesophageal echocardiogram; LINQ recording not necessary, has pacemaker/defibrillator which records cardiac function. Treatment of diabetic ketoacidosis Stroke is subacute, no role for alteplase Resume aspirin and statin when able to take orally She has dye allergy, no need to repeat CT angiogram, has pacemaker, no MRI Rehabilitation modalities. Aim for discharge tomorrow Discussed with and Dr. Moon Subjective Denies pain Objective Vital Signs Date Time Temp Pulse Resp B/P (MAP) Pulse Ox O2 Delivery O2 Flow Rate FiO2 11/11/19 11:02 98.6 85 16 135/61 (85) 97 Room Air 98.6 Intake and Output 11/11/19 07:00 Intake Total 840 ml Output Total 1600 ml Balance -760 ml Intake Oral 840 ml Output Urine Total 1600 ml PHYSICAL EXAM Alert. Oriented to place and person. PERRL. EOMI. CN: Blind in the both eyes Muscle tone: normal. Muscle strength: 4/5 DTR: 1-2+ Plantar reflex: Left BKA, right plantar responses flexor Gait: not examined in bed. Sensory exam: stocking loss. No cerebellar signs elicited. Review of Relevant I have reviewed the following items slime (where applicable) has been applied. Labs Laboratory Tests Test 11/09/19 14:58 11/09/19 17:45 11/09/19 19:30 11/09/19 21:14 Glucose (Fingerstick) 149 mg/dL (70-99) 212 mg/dL (70-99) 165 mg/dL (70-99) Coronavirus (COVID-19)(PCR) Not detected (NOT DETECT.) Test 11/10/19 03:40 11/10/19 07:29 11/10/19 17:24 11/10/19 21:23 White Blood Count 7.1 x10^3/uL (4.0-11.0) Red Blood Count 3.40 x10^6/uL (3.50-5.40) Hemoglobin 10.2 g/dL (12.0-15.5) Hematocrit 29.8 % (36.0-47.0) Mean Corpuscular Volume 88 fL (79-100) Mean Corpuscular Hemoglobin 30 pg (25-35) Mean Corpuscular Hemoglobin Concent 34 g/dL (31-37) Red Cell Distribution Width 14.9 % (11.5-14.5) Platelet Count 156 x10^3/uL (140-400) Neutrophils (%) (Auto) 57 % (31-73) Lymphocytes (%) (Auto) 35 % (24-48) Monocytes (%) (Auto) 6 % (0-9) Eosinophils (%) (Auto) 1 % (0-3) Basophils (%) (Auto) 1 % (0-3) Neutrophils # (Auto) 4.1 x10^3/uL (1.8-7.7) Lymphocytes # (Auto) 2.5 x10^3/uL (1.0-4.8) Monocytes # (Auto) 0.5 x10^3/uL (0.0-1.1) Eosinophils # (Auto) 0.1 x10^3/uL (0.0-0.7) Basophils # (Auto) 0.0 x10^3/uL (0.0-0.2) Sodium Level 142 mmol/L (136-145) Potassium Level 4.1 mmol/L (3.5-5.1) Chloride Level 109 mmol/L (98-107) Carbon Dioxide Level 21 mmol/L (21-32) Anion Gap 12 (6-14) Blood Urea Nitrogen 12 mg/dL (7-20) Creatinine 1.6 mg/dL (0.6-1.0) Estimated GFR (Cockcroft-Gault) 39.0 Glucose Level 95 mg/dL (70-99) Calcium Level 8.5 mg/dL (8.5-10.1) Phosphorus Level 2.7 mg/dL (2.6-4.7) Magnesium Level 2.1 mg/dL (1.8-2.4) Albumin 3.2 g/dL (3.4-5.0) Glucose (Fingerstick) 142 mg/dL (70-99) 365 mg/dL (70-99) 328 mg/dL (70-99) Test 11/11/19 07:55 Glucose (Fingerstick) 257 mg/dL (70-99) Laboratory Tests Test 11/10/19 17:24 11/10/19 21:23 11/11/19 07:55 Glucose (Fingerstick) 365 mg/dL (70-99) 328 mg/dL (70-99) 257 mg/dL (70-99) Medications Current Medications Sodium Chloride 1,000 ml @ 1,000 mls/hr 1X ONCE IV Last administered on 11/08/19at 07:47; Start 11/08/19 at 07:00; Stop 11/08/19 at 07:59; Status DC Insulin Human Regular (HumuLIN R VIAL) 4 unit 1X ONCE SQ Last administered on 11/08/19at 08:32; Start 11/08/19 at 08:30; Stop 11/08/19 at 08:31; Status DC Aspirin (Aspirin Rectal Supp) 300 mg 1X ONCE OR Last administered on 11/08/19at 09:14; Start 11/08/19 at 09:15; Stop 11/08/19 at 09:16; Status DC Sodium Chloride 1,000 ml @ 500 mls/hr Q2H IV ; Start 11/08/19 at 09:04; Stop 11/08/19 at 11:03; Status DC Sodium Chloride 1,000 ml @ 250 mls/hr Q4H IV Last administered on 11/08/19at 14:40; Start 11/08/19 at 09:06; Stop 11/09/19 at 00:22; Status DC Dextrose/Sodium Chloride 1,000 ml @ 250 mls/hr Q4H IV Last administered on 11/08/19at 22:40; Start 11/08/19 at 09:06; Stop 11/09/19 at 02:33; Status DC Insulin Human Regular 100 unit/ Sodium Chloride 101 ml @ 0 mls/hr CONT PRN PRN IV PER PROTOCOL; Start 11/08/19 at 09:15; Stop 11/08/19 at 10:34; Status DC Potassium Chloride/Water 100 ml @ 100 mls/hr PRN Q1HR PRN IV SEE COMMENTS Last administered on 11/08/19at 23:44; Start 11/08/19 at 09:15 Potassium Chloride/Water 100 ml @ 100 mls/hr PRN Q1HR PRN IV SEE COMMENTS Last administered on 11/08/19at 17:55; Start 11/08/19 at 09:15 Potassium Chloride/Water 100 ml @ 100 mls/hr PRN Q1HR PRN IV SEE COMMENTS; Start 11/08/19 at 09:15 Insulin Human Regular 100 ml @ 0 mls/hr CONT PRN PRN IV PER PROTOCOL; Start 11/08/19 at 09:15; Stop 11/08/19 at 10:34; Status DC Ondansetron HCl (Zofran) 4 mg PRN Q8HRS PRN IV NAUSEA/VOMITING; Start 11/08/19 at 09:30; Stop 11/09/19 at 09:29; Status DC Sodium Chloride 1,000 ml @ 250 mls/hr Q4H IV Last administered on 11/08/19at 14:20; Start 11/08/19 at 10:32; Stop 11/09/19 at 00:22; Status DC Insulin Human Regular 100 unit/ Sodium Chloride 101 ml @ 0 mls/hr CONT PRN PRN IV PER PROTOCOL Last administered on 11/08/19at 20:13; Start 11/08/19 at 10:30; Stop 11/09/19 at 18:16; Status DC Acetaminophen (Tylenol) 650 mg PRN Q6HRS PRN PO TEMP > 100.4F; Start 11/08/19 at 13:45 Acetaminophen (Tylenol Supp) 650 mg PRN Q4HRS PRN OR TEMP > 100.4F; Start 11/08/19 at 13:45 Aspirin (Ecotrin) 325 mg DAILYWBKFT PO Last administered on 11/11/19at 08:04; Start 11/09/19 at 08:00 Aspirin (Aspirin Rectal Supp) 300 mg PRN DAILY PRN OR IF UNABLE TO TAKE PO; Start 11/08/19 at 13:45 Potassium Chloride/Water 100 ml @ 100 mls/hr Q1H IV Last administered on 11/08/19at 16:11; Start 11/08/19 at 15:00; Stop 11/08/19 at 16:59; Status DC Magnesium Sulfate 100 ml @ 25 mls/hr 1X ONCE IV Last administered on 11/08/19at 15:18; Start 11/08/19 at 14:15; Stop 11/08/19 at 18:14; Status DC Heparin Sodium (Porcine) (Heparin Sodium) 5,000 unit Q8HRS SQ Last administered on 11/11/19at 06:01; Start 11/08/19 at 22:00 Atorvastatin Calcium (Lipitor) 40 mg QHS PO ; Start 11/08/19 at 21:00 Sodium Chloride (Normal Saline Flush) 10 ml QSHIFT PRN IV AFTER MEDS AND BLOOD DRAWS; Start 11/08/19 at 16:00 Lidocaine HCl (Xylocaine 2% Topical 5gm Tube) 1 tyron 1X ONCE TP ; Start 11/08/19 at 16:00; Stop 11/08/19 at 16:16; Status DC Lidocaine HCl (Viscous Lidocaine) 15 ml 1X ONCE MM ; Start 11/08/19 at 16:00; Stop 11/08/19 at 16:16; Status DC Benzocaine (Hurricaine One) 2 spray 1X ONCE MM ; Start 11/08/19 at 16:00; Stop 11/08/19 at 16:16; Status DC Potassium Chloride/Water 100 ml @ 100 mls/hr Q1H IV Last administered on 11/08/19at 20:12; Start 11/08/19 at 18:00; Stop 11/08/19 at 21:59; Status DC Dextrose/Sodium Chloride 1,000 ml @ 250 mls/hr Q4H PRN IV SEE COMMENTS Last administered on 11/08/19at 19:43; Start 11/08/19 at 19:45; Stop 11/09/19 at 18:16; Status DC Insulin Glargine (Lantus Syringe) 10 unit QHS SQ Last administered on 11/10/19at 21:29; Start 11/08/19 at 23:00 Insulin Human Lispro (HumaLOG) 0-5 UNITS Q6HRS SQ Last administered on 11/09/19at 17:50; Start 11/09/19 at 00:00; Stop 11/09/19 at 19:43; Status DC Dextrose (Dextrose 50%-Water Syringe) 12.5 gm PRN Q15MIN PRN IV SEE COMMENTS; Start 11/08/19 at 22:45 Dextrose/Sodium Chloride 1,000 ml @ 125 mls/hr CONT PRN IV ; Start 11/09/19 at 02:45; Stop 11/09/19 at 02:46; Status DC Dextrose/Sodium Chloride 1,000 ml @ 125 mls/hr Q8H IV Last administered on 11/09/19at 02:47; Start 11/09/19 at 03:00; Stop 11/09/19 at 18:16; Status DC Potassium Phosphate 10 mmol/ Sodium Chloride 103.3333 ml @ 51.667 m... Q2H IV Last administered on 11/09/19at 17:39; Start 11/09/19 at 15:00; Stop 11/09/19 at 18:59; Status DC Ondansetron HCl (Zofran) 4 mg PRN Q6HRS PRN IV NAUSEA/VOMITING; Start 11/12/19 at 07:00; Stop 11/09/19 at 19:43; Status DC Fentanyl Citrate (Fentanyl 2ml Vial) 25 mcg PRN Q5MIN PRN IV MILD PAIN 1-3; Start 11/12/19 at 07:00; Stop 11/09/19 at 19:43; Status DC Fentanyl Citrate (Fentanyl 2ml Vial) 50 mcg PRN Q5MIN PRN IV MODERATE TO SEVERE PAIN; Start 11/12/19 at 07:00; Stop 11/13/19 at 06:59 Morphine Sulfate (Morphine Sulfate) 1 mg PRN Q10MIN PRN IV SEVERE PAIN 7-10; Start 11/12/19 at 07:00; Stop 11/09/19 at 19:43; Status DC Ringer's Solution 1,000 ml @ 30 mls/hr Q24H IV ; Start 11/12/19 at 07:00; Stop 11/09/19 at 18:16; Status DC Lidocaine HCl (Xylocaine-Mpf 1% 2ml Vial) 2 ml PRN 1X PRN ID PRIOR TO IV START; Start 11/12/19 at 07:00; Stop 11/13/19 at 06:59 Hydromorphone HCl (Dilaudid) 0.5 mg PRN Q10MIN PRN IV SEV PAIN, Second choice; Start 11/12/19 at 07:00; Stop 11/09/19 at 19:43; Status DC Prochlorperazine Edisylate (Compazine) 5 mg PACU PRN PRN IV NAUSEA, MRX1; Start 11/12/19 at 07:00; Stop 11/09/19 at 19:43; Status DC Insulin Human Lispro (HumaLOG) 0-5 UNITS QIDACHS SQ Last administered on 11/11/19at 07:58; Start 11/09/19 at 21:00 Insulin Human Lispro (HumaLOG) 10 units TIDWMEALS SQ ; Start 11/11/19 at 12:00 Insulin Glargine (Lantus Syringe) 10 unit 1X ONCE SQ Last administered on 11/11/19at 10:50; Start 11/11/19 at 09:30; Stop 11/11/19 at 09:31; Status DC Hydralazine HCl (Apresoline Inj) 10 mg PRN Q4HRS PRN IVP ELEVATED BP, SEE COMMENTS; Start 11/11/19 at 10:00 Active Scripts Active Reported Lantus Solostar (Insulin Glargine,Hum.rec.anlog) 100 Unit/1 Ml Insuln.pen 20 Unit SQ QHS Novolog Flexpen (Insulin Aspart) 100 Unit/1 Ml Insuln.pen 100 Unit SQ Amlodipine Besylate 10 Mg Tablet 1 Tab PO DAILY Lisinopril 20 Mg Tablet 1 Tab PO DAILY Carvedilol 25 Mg Tablet 1 Tab PO BID Vitals/I & O Vital Sign - Last 24 Hours 11/10/19 11/10/19 11/10/19 11/10/19 12:00 16:00 20:00 21:00 Temp 98.7 98.3 98.7 98.3 Pulse 94 71 79 Resp 22 B/P (MAP) 166/58 (94) Pulse Ox 98 98 97 O2 Delivery Room Air Room Air Room Air Room Air 11/11/19 11/11/19 11/11/19 11/11/19 00:00 04:00 07:00 08:00 Temp 97.9 98.4 98.2 97.9 98.4 98.2 Pulse 81 84 87 Resp 20 22 16 B/P (MAP) 135/71 (92) 159/81 (107) 161/73 (102) Pulse Ox 98 99 O2 Delivery Room Air Room Air Room Air Room Air 11/11/19 11:02 Temp 98.6 98.6 Pulse 85 Resp 16 B/P (MAP) 135/61 (85) Pulse Ox 97 O2 Delivery Room Air Intake and Output 11/10/19 11/10/19 11/11/19 15:00 23:00 07:00 Intake Total 240 ml 240 ml 360 ml Output Total 380 ml 600 ml 620 ml Balance -140 ml -360 ml -260 ml Justicifation of Admission Dx: Justifications for Admission: Justification of Admission Dx: Yes DKA: DKA WILFRID ROMERO MD Nov 11, 2019 11:53
[2019-11-11] MEDS: CARVEDILOL 6.25 MG TABLET. PO SCH (17:18)
[2019-11-11] MEDS: ATORVASTATIN CALCIUM 40 MG TABLET. PO SCH (21:02)
[2019-11-11] MEDS: INSULIN GLARGINE SYRINGE. SQ SCH (21:03)
[2019-11-12] VITALS (8 sets, daily range): BP systolic 134–187; BP diastolic 63–89
[2019-11-12] MEDS: HEPARIN for SUB-Q USE 5,000 UNIT/ML VIAL. SQ SCH (05:54)
[2019-11-12] MEDS ORDERED: PROCHLORPERAZINE 10 MG/2 ML VIAL. IV PRN (07:00)
[2019-11-12] MEDS ORDERED: LIDOCAINE 1% PF 2 ML VIAL. ID PRN (07:00)
[2019-11-12] MEDS ORDERED: fentaNYL PF VIAL 100 MCG/2 ML VIAL IV PRN ×2 (07:00)
[2019-11-12] MEDS ORDERED: ONDANSETRON PF 4 MG/2 ML VIAL. IV PRN (07:00)
[2019-11-12] MEDS ORDERED: HYDROmorphone 2 MG/ML VIAL IV PRN (07:00)
[2019-11-12] MEDS ORDERED: MORPHINE SULFATE 2 MG/ML VIAL. IV PRN (07:00)
[2019-11-12] MEDS ORDERED: IV RINGERS,LACTATED 1000ML 1,000 ML IV SCH (07:00)
[2019-11-12] MEDS: INSULIN LISPRO 300 UNITS/3 ML VIAL. SQ SCH ×4 (07:30→12:00)
--- NOTE | 2019-11-12 08:46 | PDOC ---
PROGRESS NOTES Assessment Problems Medical Problems: (1) CVA (cerebral vascular accident) Status: Acute (2) DKA (diabetic ketoacidoses) Status: Acute (3) Lactic acidosis Status: Acute Left frontal lobe acute or subacute ischemic infarct Evolving late subacute right MCA territory ischemic infarct, resolution of prior right temporal lobe hematoma; chronic right MCA territory ischemic infarct. Metabolic encephalopathy due to diabetic ketoacidosis, resolved. Blindness, likely due to diabetic retinopathy rather than the strokes Plan Transesophageal echocardiogram; LINQ recording not necessary, has pacemaker/defibrillator which records cardiac function. Treatment of diabetic ketoacidosis Stroke is subacute, no role for alteplase Resume aspirin and statin when able to take orally She has dye allergy, no need to repeat CT angiogram, has pacemaker, no MRI Rehabilitation modalities. 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 Oriented to place and person. PERRL. EOMI. CN: Blind in the both eyes Muscle tone: normal. Muscle strength: 4/5 DTR: 1-2+ Plantar reflex: Left BKA, right plantar responses flexor Gait: not examined in bed. Sensory exam: stocking loss. No cerebellar signs elicited. Review of Relevant I have reviewed the following items slime (where applicable) has been applied. Labs Laboratory Tests Test 11/10/19 17:24 11/10/19 21:23 11/11/19 07:55 11/11/19 11:52 Glucose (Fingerstick) 365 mg/dL (70-99) 328 mg/dL (70-99) 257 mg/dL (70-99) 210 mg/dL (70-99) Test 11/11/19 16:48 11/11/19 20:41 11/12/19 07:50 11/12/19 08:29 Glucose (Fingerstick) 164 mg/dL (70-99) 221 mg/dL (70-99) 57 mg/dL (70-99) 113 mg/dL (70-99) Laboratory Tests Test 11/11/19 11:52 11/11/19 16:48 11/11/19 20:41 11/12/19 07:50 Glucose (Fingerstick) 210 mg/dL (70-99) 164 mg/dL (70-99) 221 mg/dL (70-99) 57 mg/dL (70-99) Test 11/12/19 08:29 Glucose (Fingerstick) 113 mg/dL (70-99) Medications Current Medications Sodium Chloride 1,000 ml @ 1,000 mls/hr 1X ONCE IV Last administered on 11/08/19at 07:47; Start 11/08/19 at 07:00; Stop 11/08/19 at 07:59; Status DC Insulin Human Regular (HumuLIN R VIAL) 4 unit 1X ONCE SQ Last administered on 11/08/19at 08:32; Start 11/08/19 at 08:30; Stop 11/08/19 at 08:31; Status DC Aspirin (Aspirin Rectal Supp) 300 mg 1X ONCE [place] Last administered on 11/08/19at 09:14; Start 11/08/19 at 09:15; Stop 11/08/19 at 09:16; Status DC Sodium Chloride 1,000 ml @ 500 mls/hr Q2H IV ; Start 11/08/19 at 09:04; Stop 11/08/19 at 11:03; Status DC Sodium Chloride 1,000 ml @ 250 mls/hr Q4H IV Last administered on 11/08/19at 1 4:40; Start 11/08/19 at 09:06; Stop 11/09/19 at 00:22; Status DC Dextrose/Sodium Chloride 1,000 ml @ 250 mls/hr Q4H IV Last administered on 11/08/19at 22:40; Start 11/08/19 at 09:06; Stop 11/09/19 at 02:33; Status DC Insulin Human Regular 100 unit/ Sodium Chloride 101 ml @ 0 mls/hr CONT PRN PRN IV PER PROTOCOL; Start 11/08/19 at 09:15; Stop 11/08/19 at 10:34; Status DC Potassium Chloride/Water 100 ml @ 100 mls/hr PRN Q1HR PRN IV SEE COMMENTS Last administered on 11/08/19at 23:44; Start 11/08/19 at 09:15 Potassium Chloride/Water 100 ml @ 100 mls/hr PRN Q1HR PRN IV SEE COMMENTS Last administered on 11/08/19at 17:55; Start 11/08/19 at 09:15 Potassium Chloride/Water 100 ml @ 100 mls/hr PRN Q1HR PRN IV SEE COMMENTS; Start 11/08/19 at 09:15 Insulin Human Regular 100 ml @ 0 mls/hr CONT PRN PRN IV PER PROTOCOL; Start 11/08/19 at 09:15; Stop 11/08/19 at 10:34; Status DC Ondansetron HCl (Zofran) 4 mg PRN Q8HRS PRN IV NAUSEA/VOMITING; Start 11/08/19 at 09:30; Stop 11/09/19 at 09:29; Status DC Sodium Chloride 1,000 ml @ 250 mls/hr Q4H IV Last administered on 11/08/19at 14:20; Start 11/08/19 at 10:32; Stop 11/09/19 at 00:22; Status DC Insulin Human Regular 100 unit/ Sodium Chloride 101 ml @ 0 mls/hr CONT PRN PRN IV PER PROTOCOL Last administered on 11/08/19at 20:13; Start 11/08/19 at 10:30; Stop 11/09/19 at 18:16; Status DC Acetaminophen (Tylenol) 650 mg PRN Q6HRS PRN PO TEMP > 100.4F; Start 11/08/19 at 13:45 Acetaminophen (Tylenol Supp) 650 mg PRN Q4HRS PRN [place] TEMP > 100.4F; Start 11/08/19 at 13:45 Aspirin (Ecotrin) 325 mg DAILYWBKFT PO Last administered on 11/11/19at 08:04; Start 11/09/19 at 08:00 Aspirin (Aspirin Rectal Supp) 300 mg PRN DAILY PRN [place] IF UNABLE TO TAKE PO; Start 11/08/19 at 13:45 Potassium Chloride/Water 100 ml @ 100 mls/hr Q1H IV Last administered on 11/08/19at 16:11; Start 11/08/19 at 15:00; Stop 11/08/19 at 16:59; Status DC Magnesium Sulfate 100 ml @ 25 mls/hr 1X ONCE IV Last administered on 11/08/19at 15:18; Start 11/08/19 at 14:15; Stop 11/08/19 at 18:14; Status DC Heparin Sodium (Porcine) (Heparin Sodium) 5,000 unit Q8HRS SQ Last administered on 11/12/19at 05:54; Start 11/08/19 at 22:00 Atorvastatin Calcium (Lipitor) 40 mg QHS PO Last administered on 11/11/19at 21:02; Start 11/08/19 at 21:00 Sodium Chloride (Normal Saline Flush) 10 ml QSHIFT PRN IV AFTER MEDS AND BLOOD DRAWS; Start 11/08/19 at 16:00 Lidocaine HCl (Xylocaine 2% Topical 5gm Tube) 1 tyron 1X ONCE TP ; Start 11/08/19 at 16:00; Stop 11/08/19 at 16:16; Status DC Lidocaine HCl (Viscous Lidocaine) 15 ml 1X ONCE MM ; Start 11/08/19 at 16:00; Stop 11/08/19 at 16:16; Status DC Benzocaine (Hurricaine One) 2 spray 1X ONCE MM ; Start 11/08/19 at 16:00; Stop 11/08/19 at 16:16; Status DC Potassium Chloride/Water 100 ml @ 100 mls/hr Q1H IV Last administered on 11/08/19at 20:12; Start 11/08/19 at 18:00; Stop 11/08/19 at 21:59; Status DC Dextrose/Sodium Chloride 1,000 ml @ 250 mls/hr Q4H PRN IV SEE COMMENTS Last administered on 11/08/19at 19:43; Start 11/08/19 at 19:45; Stop 11/09/19 at 18:16; Status DC Insulin Glargine (Lantus Syringe) 10 unit QHS SQ Last administered on 11/11/19at 21:03; Start 11/08/19 at 23:00 Insulin Human Lispro (HumaLOG) 0-5 UNITS Q6HRS SQ Last administered on 11/09/19at 17:50; Start 11/09/19 at 00:00; Stop 11/09/19 at 19:43; Status DC Dextrose (Dextrose 50%-Water Syringe) 12.5 gm PRN Q15MIN PRN IV SEE COMMENTS Last administered on 11/12/19at 08:07; Start 11/08/19 at 22:45 Dextrose/Sodium Chloride 1,000 ml @ 125 mls/hr CONT PRN IV ; Start 11/09/19 at 02:45; Stop 11/09/19 at 02:46; Status DC Dextrose/Sodium Chloride 1,000 ml @ 125 mls/hr Q8H IV Last administered on 11/09/19at 02:47; Start 11/09/19 at 03:00; Stop 11/09/19 at 18:16; Status DC Potassium Phosphate 10 mmol/ Sodium Chloride 103.3333 ml @ 51.667 m... Q2H IV Last administered on 11/09/19at 17:39; Start 11/09/19 at 15:00; Stop 11/09/19 at 18:59; Status DC Ondansetron HCl (Zofran) 4 mg PRN Q6HRS PRN IV NAUSEA/VOMITING; Start 11/12/19 at 07:00; Stop 11/09/19 at 19:43; Status DC Fentanyl Citrate (Fentanyl 2ml Vial) 25 mcg PRN Q5MIN PRN IV MILD PAIN 1-3; Start 11/12/19 at 07:00; Stop 11/09/19 at 19:43; Status DC Fentanyl Citrate (Fentanyl 2ml Vial) 50 mcg PRN Q5MIN PRN IV MODERATE TO SEVERE PAIN; Start 11/12/19 at 07:00; Stop 11/13/19 at 06:59 Morphine Sulfate (Morphine Sulfate) 1 mg PRN Q10MIN PRN IV SEVERE PAIN 7-10; Start 11/12/19 at 07:00; Stop 11/09/19 at 19:43; Status DC Ringer's Solution 1,000 ml @ 30 mls/hr Q24H IV ; Start 11/12/19 at 07:00; Stop 11/09/19 at 18:16; Status DC Lidocaine HCl (Xylocaine-Mpf 1% 2ml Vial) 2 ml PRN 1X PRN ID PRIOR TO IV START; Start 11/12/19 at 07:00; Stop 11/13/19 at 06:59 Hydromorphone HCl (Dilaudid) 0.5 mg PRN Q10MIN PRN IV SEV PAIN, Second choice; Start 11/12/19 at 07:00; Stop 11/09/19 at 19:43; Status DC Prochlorperazine Edisylate (Compazine) 5 mg PACU PRN PRN IV NAUSEA, MRX1; Start 11/12/19 at 07:00; Stop 11/09/19 at 19:43; Status DC Insulin Human Lispro (HumaLOG) 0-5 UNITS QIDACHS SQ Last administered on 11/11/19at 12:35; Start 11/09/19 at 21:00 Insulin Human Lispro (HumaLOG) 10 units TIDWMEALS SQ ; Start 11/11/19 at 12:00 Insulin Glargine (Lantus Syringe) 10 unit 1X ONCE SQ Last administered on 11/11/19at 10:50; Start 11/11/19 at 09:30; Stop 11/11/19 at 09:31; Status DC Hydralazine HCl (Apresoline Inj) 10 mg PRN Q4HRS PRN IVP ELEVATED BP, SEE COMMENTS; Start 11/11/19 at 10:00 Carvedilol (Coreg) 6.25 mg BIDWMEALS PO Last administered on 11/11/19at 17:18; Start 11/11/19 at 17:00 Active Scripts Active Reported Lantus Solostar (Insulin Glargine,Hum.rec.anlog) 100 Unit/1 Ml Insuln.pen 20 Unit SQ QHS Novolog Flexpen (Insulin Aspart) 100 Unit/1 Ml Insuln.pen 100 Unit SQ Lisinopril 20 Mg Tablet 1 Tab PO DAILY Carvedilol 25 Mg Tablet 1 Tab PO BID Vitals/I & O Vital Sign - Last 24 Hours 11/11/19 11/11/19 11/11/19 11/11/19 11:02 14:52 16:07 17:18 Temp 98.6 98.7 98.7 98.6 98.7 98.7 Pulse 85 92 92 92 Resp 16 16 B/P (MAP) 135/61 (85) 147/66 (93) 147/66 (93) 147/66 Pulse Ox 97 100 100 O2 Delivery Room Air Room Air Room Air O2 Flow Rate 2.0 11/11/19 11/11/19 11/11/19 11/12/19 19:11 20:00 22:29 02:27 Temp 98.1 98.0 98.3 98.1 98.0 98.3 Pulse 76 72 68 B/P (MAP) 133/59 (83) 170/71 (104) 146/65 (92) Pulse Ox 100 96 100 O2 Delivery Room Air Room Air Room Air Room Air O2 Flow Rate 2.0 2.0 2.0 11/12/19 11/12/19 06:15 08:00 Temp 98.5 98.5 Pulse 74 B/P (MAP) 153/68 (96) Pulse Ox 99 O2 Delivery Room Air Room Air O2 Flow Rate 2.0 Intake and Output 11/11/19 11/11/19 11/12/19 15:00 23:00 07:00 Intake Total 150 ml 0 ml Balance 150 ml 0 ml Justicifation of Admission Dx: Justifications for Admission: Justification of Admission Dx: Yes DKA: WILFRID MADISON MD Nov 12, 2019 08:46
--- NOTE | 2019-11-12 09:28 | PDOC ---
PROGRESS NOTES Chief Complaint Chief Complaint discharge dx DKA - back on basal bolus plus as of 11/07. poor Dm control AFSHAN - likely vasomotor nephropathy, Cr 2 Acute CVA - Left frontal lobe acute or subacute ischemic infarct Evolving late subacute right MCA territory ischemic infarct, resolution of prior right temporal lobe hematoma; chronic right MCA territory ischemic infarct. Metabolic encephalopathy due to diabetic ketoacidosis, resolved. Blindness, likely due to diabetic retinopathy rather than the strokes Evolving late subacute right MCA territory ischemic infarct, resolution of prior right temporal lobe hematoma; chronic right MCA territory ischemic infarct. CVA - CT head was found with old large right MCA infarct Chronic right MCA territory ischemic infarct of the right insula, frontal operculum and basal ganglia is stable Diabetes-Type II with hyperglycemia - glucose 528, will place on high sliding scale and scheduled 15u lispro as well as lantus. Await [facility]PK TEACHER evaluation High Cholesterol - cont statin Heart Disease - hold antiplatelets with hemorrhagic CVA Hypertension - cont meds PAD s/p L BKA - stable SSS s/p PPM - pacing. Ex-smoker (quit 2019) - counseled on continued cessation PLAN HODA 11/11 Okay for discharge after HODA Follow-up with ophthalmology as an outpatient Follow-up with her lift builder whole Follow-up with neurology as needed Discussed with FAMILY REFUSED HOME HEALT, REHAB, WANTS TO GO HOME WITH FAMILY TODAY 43 MIN PT EXAM, CHART REVIEW d/c planning , > 50% OF TIME SPENT WITH EXAM, CHART REVIEW, PT CARE COORDINATION History of Present Illness History of Present Illness Ms Haney is a 64yo F w/ PMHx Diabetes-Type II, High Cholesterol, Heart Disease, Hypertension, Stroke, PAD s/p L BKA, SSS s/p PPM, ex-smoker (quit 2019) who presents via EMS with report of altered mental status. Found in DKA with worsening of CVA She was admitted to ICU for further monitoring of CVA. Seen by Neurology, Cardiology 11/08: History of present illness limited secondary to altered mental status. Labs NA 140, K3.7, BUN 19, CR 2, glucose 1.4, phosphorus 1.7, ABG 7.2 08/14/148. No complaints voiced 11/09: Afebrile. Working with PT/OT. She cannot identify objects visually. Labs improved CR 1.6, out of DKA for 24 hours. Scared she cannot take care of herself. She is also scared her , Rene cannot. No chest pain or shortness of breath. COVID 19 negative Afebrile overnight. Glucose back up in 200s, 300 last night. Oriented to self and location. Plans for HODA . Will add back her home coreg slowly. 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 Can likely discharge 11/12/2019 after HODA Vitals Vitals Vital Signs Date Time Temp Pulse Resp B/P (MAP) Pulse Ox O2 Delivery O2 Flow Rate FiO2 11/12/19 08:00 Room Air 11/12/19 06:15 98.5 74 153/68 (96) 99 2.0 98.5 11/11/19 14:52 16 Physical Exam General: Alert, Cooperative, No acute distress Heart: Regular rate Lungs: Clear Abdomen: Normal bowel sounds Extremities: No clubbing, No cyanosis, Other (left BKA ) Skin: No breakdown, No significant lesion Labs LABS CT head without contrast PQRS statement: CT scans at this facility use dose reduction including either automated exposure control, iterative reconstructions, and /or weight based radiation dosing via mA and kV modification when appropriate to reduce radiation dose to as low as reasonably achievable. HISTORY: Altered mental status. COMPARISON: CT head September 24, 2019. FINDINGS: Evolution of right hemispheric MCA territory late subacute ischemic infarct involving the right posterior temporal lobe, parietal lobe with increased hypoattenuation since the prior exam. There is a separate chronic infarct with focal encephalomalacia of the right insula and frontal operculum and basal ganglia is stable. The right temporal parenchymal hematoma on the prior study since resolved. At the left frontal lobe there is a 3 cm new wedge-shaped hypodensity of the cortex and underlying white matter image 19 which is likely an acute or subacute ischemic infarct. No mass. No hydrocephalus. Orbits, mastoids and bones are unremarkable. IMPRESSION: 1. 3 cm left frontal lobe acute or subacute ischemic infarct, new from prior studies, as described above. 2. Evolving late subacute right MCA territory ischemic infarct with a similar size and distribution to the prior exam. 3. The right temporal lobe hematoma on the prior exam has since resolved. 4. Chronic right MCA territory ischemic infarct of the right insula, frontal operculum and basal ganglia is stable. Electronically signed by: Maritza Cid MD (11/08/2019 8:39 AM) [id number] DICTATED and SIGNED BY: MARITZA CID MD STUDY: CT angiography of the head INDICATION: Intraparenchymal hemorrhage. COMPARISON: Same day CT head without contrast. TECHNIQUE: Helical CT angiography of the head performed after the intravenous administration of 55 cc Omnipaque 300. Coronal and sagittal 3-D MIP reconstructions were obtained. One or more of the following individualized dose reduction techniques were utilized for this examination: 1. Automated exposure control 2. Adjustment of the mA and/or kV according to patient size 3. Use of iterative reconstruction technique. FINDINGS: Calcific atherosclerosis involving the visualized cervical internal carotid arteries without flow-limiting stenosis. Extensive calcific atherosclerosis involving the intracranial internal carotid arteries but without a flow-limiting stenosis. No abrupt vessel occlusion seen to involve the right M1 or M2 middle cerebral artery segments in the setting of ischemic changes in the right middle cerebral artery distribution. Scattered M3 and M4 branches remain opacified in the region of cortical/subcortical low-attenuation. No branch vessel occlusion or flow-limiting stenosis involving either the right or left anterior cerebral arteries or the left middle cerebral artery. No discrete anterior circulation aneurysm. No flow-limiting stenosis of the visualized vertebral arteries. The basilar artery is widely patent. No flow-limiting stenosis or branch vessel occlusion of the adequately assessed posterior cerebral artery segments. Patent dural sinuses. As seen on the unenhanced CT head, regions of cortical/subcortical low-attenuation involving the right frontal, parietal and temporal lobes. The previously described intraparenchymal hemorrhage is less well characterized on this exam. No hydrocephalus or midline shift. IMPRESSION: No central occlusion or flow-limiting stenosis seen to involve the right middle cerebral artery in the setting of ischemic changes in this vascular distribution. No flow-limiting stenosis or branch vessel occlusion of the anterior and posterior cerebral circulation elsewhere as well. Electronically signed by: MOSHE CHIANG MD (09/24/2019 12:03 AM) [id number] Laboratory Tests Test 11/11/19 11:52 11/11/19 16:48 11/11/19 20:41 11/12/19 07:50 Glucose (Fingerstick) 210 mg/dL (70-99) 164 mg/dL (70-99) 221 mg/dL (70-99) 57 mg/dL (70-99) Test 11/12/19 08:29 Glucose (Fingerstick) 113 mg/dL (70-99) Assessment and Plan Assessmemt and Plan Problems Medical Problems: (1) CVA (cerebral vascular accident) Status: Acute (2) DKA (diabetic ketoacidoses) Status: Acute (3) Lactic acidosis Status: Acute Comment Review of Relevant I have reviewed the following items slime (where applicable) has been applied. Labs Laboratory Tests Test 11/10/19 17:24 11/10/19 21:23 11/11/19 07:55 11/11/19 11:52 Glucose (Fingerstick) 365 mg/dL (70-99) 328 mg/dL (70-99) 257 mg/dL (70-99) 210 mg/dL (70-99) Test 11/11/19 16:48 11/11/19 20:41 11/12/19 07:50 11/12/19 08:29 Glucose (Fingerstick) 164 mg/dL (70-99) 221 mg/dL (70-99) 57 mg/dL (70-99) 113 mg/dL (70-99) Laboratory Tests Test 11/11/19 11:52 11/11/19 16:48 11/11/19 20:41 11/12/19 07:50 Glucose (Fingerstick) 210 mg/dL (70-99) 164 mg/dL (70-99) 221 mg/dL (70-99) 57 mg/dL (70-99) Test 11/12/19 08:29 Glucose (Fingerstick) 113 mg/dL (70-99) Medications Current Medications Sodium Chloride 1,000 ml @ 1,000 mls/hr 1X ONCE IV Last administered on 11/08/19at 07:47; Start 11/08/19 at 07:00; Stop 11/08/19 at 07:59; Status DC Insulin Human Regular (HumuLIN R VIAL) 4 unit 1X ONCE SQ Last administered on 11/08/19at 08:32; Start 11/08/19 at 08:30; Stop 11/08/19 at 08:31; Status DC Aspirin (Aspirin Rectal Supp) 300 mg 1X ONCE HI Last administered on 11/08/19at 09:14; Start 11/08/19 at 09:15; Stop 11/08/19 at 09:16; Status DC Sodium Chloride 1,000 ml @ 500 mls/hr Q2H IV ; Start 11/08/19 at 09:04; Stop 11/08/19 at 11:03; Status DC Sodium Chloride 1,000 ml @ 250 mls/hr Q4H IV Last administered on 11/08/19at 14:40; Start 11/08/19 at 09:06; Stop 11/09/19 at 00:22; Status DC Dextrose/Sodium Chloride 1,000 ml @ 250 mls/hr Q4H IV Last administered on 11/08/19at 22:40; Start 11/08/19 at 09:06; Stop 11/09/19 at 02:33; Status DC Insulin Human Regular 100 unit/ Sodium Chloride 101 ml @ 0 mls/hr CONT PRN PRN IV PER PROTOCOL; Start 11/08/19 at 09:15; Stop 11/08/19 at 10:34; Status DC Potassium Chloride/Water 100 ml @ 100 mls/hr PRN Q1HR PRN IV SEE COMMENTS Last administered on 11/08/19at 23:44; Start 11/08/19 at 09:15 Potassium Chloride/Water 100 ml @ 100 mls/hr PRN Q1HR PRN IV SEE COMMENTS Last administered on 11/08/19at 17:55; Start 11/08/19 at 09:15 Potassium Chloride/Water 100 ml @ 100 mls/hr PRN Q1HR PRN IV SEE COMMENTS; Start 11/08/19 at 09:15 Insulin Human Regular 100 ml @ 0 mls/hr CONT PRN PRN IV PER PROTOCOL; Start 11/08/19 at 09:15; Stop 11/08/19 at 10:34; Status DC Ondansetron HCl (Zofran) 4 mg PRN Q8HRS PRN IV NAUSEA/VOMITING; Start 11/08/19 at 09:30; Stop 11/09/19 at 09:29; Status DC Sodium Chloride 1,000 ml @ 250 mls/hr Q4H IV Last administered on 11/08/19at 14:20; Start 11/08/19 at 10:32; Stop 11/09/19 at 00:22; Status DC Insulin Human Regular 100 unit/ Sodium Chloride 101 ml @ 0 mls/hr CONT PRN PRN IV PER PROTOCOL Last administered on 11/08/19at 20:13; Start 11/08/19 at 10:30; Stop 11/09/19 at 18:16; Status DC Acetaminophen (Tylenol) 650 mg PRN Q6HRS PRN PO TEMP > 100.4F; Start 11/08/19 at 13:45 Acetaminophen (Tylenol Supp) 650 mg PRN Q4HRS PRN HI TEMP > 100.4F; Start 11/08/19 at 13:45 Aspirin (Ecotrin) 325 mg DAILYWBKFT PO Last administered on 11/11/19at 08:04; Start 11/09/19 at 08:00 Aspirin (Aspirin Rectal Supp) 300 mg PRN DAILY PRN HI IF UNABLE TO TAKE PO; Start 11/08/19 at 13:45 Potassium Chloride/Water 100 ml @ 100 mls/hr Q1H IV Last administered on 11/08/19at 16:11; Start 11/08/19 at 15:00; Stop 11/08/19 at 16:59; Status DC Magnesium Sulfate 100 ml @ 25 mls/hr 1X ONCE IV Last administered on 11/08/19 at 15:18; Start 11/08/19 at 14:15; Stop 11/08/19 at 18:14; Status DC Heparin Sodium (Porcine) (Heparin Sodium) 5,000 unit Q8HRS SQ Last administered on 11/12/19at 05:54; Start 11/08/19 at 22:00 Atorvastatin Calcium (Lipitor) 40 mg QHS PO Last administered on 11/11/19at 21:02; Start 11/08/19 at 21:00 Sodium Chloride (Normal Saline Flush) 10 ml QSHIFT PRN IV AFTER MEDS AND BLOOD DRAWS; Start 11/08/19 at 16:00 Lidocaine HCl (Xylocaine 2% Topical 5gm Tube) 1 tyron 1X ONCE TP ; Start 11/08/19 at 16:00; Stop 11/08/19 at 16:16; Status DC Lidocaine HCl (Viscous Lidocaine) 15 ml 1X ONCE MM ; Start 11/08/19 at 16:00; Stop 11/08/19 at 16:16; Status DC Benzocaine (Hurricaine One) 2 spray 1X ONCE MM ; Start 11/08/19 at 16:00; Stop 11/08/19 at 16:16; Status DC Potassium Chloride/Water 100 ml @ 100 mls/hr Q1H IV Last administered on 11/08/19at 20:12; Start 11/08/19 at 18:00; Stop 11/08/19 at 21:59; Status DC Dextrose/Sodium Chloride 1,000 ml @ 250 mls/hr Q4H PRN IV SEE COMMENTS Last administered on 11/08/19at 19:43; Start 11/08/19 at 19:45; Stop 11/09/19 at 18:16; Status DC Insulin Glargine (Lantus Syringe) 10 unit QHS SQ Last administered on 11/11/19at 21:03; Start 11/08/19 at 23:00 Insulin Human Lispro (HumaLOG) 0-5 UNITS Q6HRS SQ Last administered on 11/09/19at 17:50; Start 11/09/19 at 00:00; Stop 11/09/19 at 19:43; Status DC Dextrose (Dextrose 50%-Water Syringe) 12.5 gm PRN Q15MIN PRN IV SEE COMMENTS Last administered on 11/12/19at 08:07; Start 11/08/19 at 22:45 Dextrose/Sodium Chloride 1,000 ml @ 125 mls/hr CONT PRN IV ; Start 11/09/19 at 02:45; Stop 11/09/19 at 02:46; Status DC Dextrose/Sodium Chloride 1,000 ml @ 125 mls/hr Q8H IV Last administered on 11/09/19at 02:47; Start 11/09/19 at 03:00; Stop 11/09/19 at 18:16; Status DC Potassium Phosphate 10 mmol/ Sodium Chloride 103.3333 ml @ 51.667 m... Q2H IV Last administered on 11/09/19at 17:39; Start 11/09/19 at 15:00; Stop 11/09/19 at 18:59; Status DC Ondansetron HCl (Zofran) 4 mg PRN Q6HRS PRN IV NAUSEA/VOMITING; Start 11/12/19 at 07:00; Stop 11/09/19 at 19:43; Status DC Fentanyl Citrate (Fentanyl 2ml Vial) 25 mcg PRN Q5MIN PRN IV MILD PAIN 1-3; Start 11/12/19 at 07:00; Stop 11/09/19 at 19:43; Status DC Fentanyl Citrate (Fentanyl 2ml Vial) 50 mcg PRN Q5MIN PRN IV MODERATE TO SEVERE PAIN; Start 11/12/19 at 07:00; Stop 11/13/19 at 06:59 Morphine Sulfate (Morphine Sulfate) 1 mg PRN Q10MIN PRN IV SEVERE PAIN 7-10; Start 11/12/19 at 07:00; Stop 11/09/19 at 19:43; Status DC Ringer's Solution 1,000 ml @ 30 mls/hr Q24H IV ; Start 11/12/19 at 07:00; Stop 11/09/19 at 18:16; Status DC Lidocaine HCl (Xylocaine-Mpf 1% 2ml Vial) 2 ml PRN 1X PRN ID PRIOR TO IV START; Start 11/12/19 at 07:00; Stop 11/13/19 at 06:59 Hydromorphone HCl (Dilaudid) 0.5 mg PRN Q10MIN PRN IV SEV PAIN, Second choice; Start 11/12/19 at 07:00; Stop 11/09/19 at 19:43; Status DC Prochlorperazine Edisylate (Compazine) 5 mg PACU PRN PRN IV NAUSEA, MRX1; Start 11/12/19 at 07:00; Stop 11/09/19 at 19:43; Status DC Insulin Human Lispro (HumaLOG) 0-5 UNITS QIDACHS SQ Last administered on 11/11/19at 12:35; Start 11/09/19 at 21:00 Insulin Human Lispro (HumaLOG) 10 units TIDWMEALS SQ ; Start 11/11/19 at 12:00 Insulin Glargine (Lantus Syringe) 10 unit 1X ONCE SQ Last administered on 11/11/19at 10:50; Start 11/11/19 at 09:30; Stop 11/11/19 at 09:31; Status DC Hydralazine HCl (Apresoline Inj) 10 mg PRN Q4HRS PRN IVP ELEVATED BP, SEE COMMENTS; Start 6/14/20 at 10:00 Carvedilol (Coreg) 6.25 mg BIDWMEALS PO Last administered on 11/11/19at 17:18; Start 11/11/19 at 17:00 Active Scripts Active Reported Lantus Solostar (Insulin Glargine,Hum.rec.anlog) 100 Unit/1 Ml Insuln.pen 20 Unit SQ QHS Novolog Flexpen (Insulin Aspart) 100 Unit/1 Ml Insuln.pen 100 Unit SQ Lisinopril 20 Mg Tablet 1 Tab PO DAILY Carvedilol 25 Mg Tablet 1 Tab PO BID Vitals/I & O Vital Sign - Last 24 Hours 11/11/19 11/11/19 11/11/19 11/11/19 11:02 14:52 16:07 17:18 Temp 98.6 98.7 98.7 98.6 98.7 98.7 Pulse 85 92 92 92 Resp 16 16 B/P (MAP) 135/61 (85) 147/66 (93) 147/66 (93) 147/66 Pulse Ox 97 100 100 O2 Delivery Room Air Room Air Room Air O2 Flow Rate 2.0 11/11/19 11/11/19 11/11/19 11/12/19 19:11 20:00 22:29 02:27 Temp 98.1 98.0 98.3 98.1 98.0 98.3 Pulse 76 72 68 B/P (MAP) 133/59 (83) 170/71 (104) 146/65 (92) Pulse Ox 100 96 100 O2 Delivery Room Air Room Air Room Air Room Air O2 Flow Rate 2.0 2.0 2.0 11/12/19 11/12/19 06:15 08:00 Temp 98.5 98.5 Pulse 74 B/P (MAP) 153/68 (96) Pulse Ox 99 O2 Delivery Room Air Room Air O2 Flow Rate 2.0 Intake and Output 11/11/19 11/11/19 11/12/19 15:00 23:00 07:00 Intake Total 150 ml 0 ml Balance 150 ml 0 ml [employer] MD Nov 12, 2019 09:28
[2019-11-12] MEDS ORDERED: BENZOCAINE ONE 20% MUCOSAL SPRAY. (10:19)
[2019-11-12] MEDS ORDERED: LIDOCAINE 2% TOPICAL JELLY 30GM TUBE. TP ONE ×2 (10:19→10:30)
[2019-11-12] MEDS ORDERED: LIDOCAINE 2% VISCOUS 15 ML SOLUTION. ONE (10:20)
[2019-11-12] MEDS ORDERED: BENZOCAINE ONE 20% MUCOSAL SPRAY. MM (10:30)
[2019-11-12] MEDS ORDERED: LIDOCAINE 2% VISCOUS 15 ML SOLUTION. SWSW ONE (10:30)
[2019-11-12] MEDS ORDERED: PROPOFOL 10 MG/ML (20ML) VIAL. IV ONE (10:42)
--- NOTE | 2019-11-12 12:04 | CARD ---
MR#: [id number] Date of Study: 11/12/2019 Ordering Physician: MARIA M ESQUIVEL, Referring Physician: MARIA M ESQUIVEL, Tech: Yolette Hitchcock RDCS APPROVED REPORT EXAM: Transesophageal echocardiogram with color flow Doppler. INDICATION CVA/TIA Pacemaker/ICD Echo Enhancing Agent Agent/Amount Used: Agitated Saline 16mL PROCEDURE After obtaining informed consent, patient underwent transesophageal echo in the PACU. Type of Sedation : General Anesthesia Sedation was administered by Nico Mayorga CRNA. Sedation was achieved with Propofol 150 mg intravenously. Transesophageal probe was inserted and advanced into esophagus by Pee Elliott MD. The HODA was performed without complications. Throughout the procedure, the blood pressure, pulse oximetry, cardiac rhythm, and rate were monitored . The patient tolerated the procedure without adverse effects. Recovery from general anesthesia was une ventful and vital signs were stable. LEFT VENTRICLE The left ventricle is normal size. The left ventricular systolic function is normal. The Ejection Fra ction is 55-60%. There is normal LV segmental wall motion. RIGHT VENTRICLE The right ventricle is normal size. There is normal right ventricular wall thickness. The right ventr icular systolic function is normal. There is a pacemaker lead in the right ventricle. ATRIA A pacemaker is seen in the right atrium consistent with history. The interatrial septum is intact wit h no evidence for an atrial septal defect or patent foramen ovale as noted on 2-D or Doppler imaging. Injection of bubbles documented no interatrial shunt. There is no thrombus noted in the left atrial appendage. AORTIC VALVE The aortic valve is normal in structure and function. Doppler and Color Flow revealed no significant aortic regurgitation. MITRAL VALVE The mitral valve is calcified but opens well. There is no evidence of mitral valve prolapse. Doppler and Color-flow revealed mild to moderate mitral regurgitation. TRICUSPID VALVE The tricuspid valve is normal in structure and function. Doppler and Color Flow revealed mild tricusp id regurgitation. There is no tricuspid valve stenosis. PULMONIC VALVE The pulmonic valve is not well visualized. Doppler and Color Flow revealed no pulmonic valvular regur gitation. GREAT VESSELS The aortic root is normal in size. PERICARDIAL EFFUSION There is no evidence of significant pericardial effusion. Critical Notification Critical Value: No <Conclusion> The left ventricular systolic function is normal. The Ejection Fraction is 55-60%. There is normal LV segmental wall motion. There is a pacemaker lead in the right atrium and right ventricle. Mild to moderate mitral regurgitation. Mild tricuspid regurgitation. There is no evidence of significant pericardial effusion. No intracardiac thrombus or vegetation. Injection of bubbles documented no interatrial shunt. Signed by : Pee Elliott, Electronically Approved : 11/12/2019 12:04:06
[2019-11-12 12:10] LABS: BASO % 1 % (0-3); EOS # 0.2 x10^3/uL (0.0-0.7); EOS % 4 % (0-3); HEMATOCRIT 30.4 % (36.0-47.0); HEMOGLOBIN 10.8 g/dL (12.0-15.5); LYMPH # 2.7 x10^3/uL (1.0-4.8); LYMPH % 57 % (24-48); MEAN CORPUSCULAR HEMOGLOBIN 31 pg (25-35); MEAN CORPUSCULAR HGB CONC 35 g/dL (31-37); MEAN CORPUSCULAR VOLUME 87 fL (79-100); MONO # 0.4 x10^3/uL (0.0-1.1); MONO % 8 % (0-9); NEUT # 1.4 x10^3/uL (1.8-7.7); NEUT % 30 % (31-73); PLATELET COUNT 160 x10^3/uL (140-400); RED CELL DISTRIBUTION WIDTH 14.1 % (11.5-14.5); WHITE BLOOD COUNT 4.7 x10^3/uL (4.0-11.0)
[2019-11-12] MEDS: CARVEDILOL 6.25 MG TABLET. PO SCH (12:16)
[2019-11-12] MEDS: ASPIRIN ENTERIC COATED 325 MG TABLET.DR. PO SCH (12:16)
[2019-11-12 12:29] LABS: ALBUMIN 3.2 g/dL (3.4-5.0); ALBUMIN/GLOBULIN RATIO 0.9 (1.0-1.7); CREATININE 1.2 mg/dL (0.6-1.0); GFR 54.4; POTASSIUM 3.6 mmol/L (3.5-5.1); TOTAL BILIRUBIN 0.7 mg/dL (0.2-1.0); TOTAL PROTEIN 6.7 g/dL (6.4-8.2)
--- NOTE | 2019-11-12 12:40 | NUR ---
SS following up with discharge planning. SS reviewed pt chart and discussed with pt RN. Pt is currently on room air. PT/OT recommending acute rehabilitation. Pt declined acute rehabilitation, custodial unit, and home healthcare. Pt reporting that she will return to home with her family and family will assist her with needs. Pt's RN notified. SS will continue to follow for discharge planning.
--- NOTE | 2019-11-12 14:14 | PDOC3 ---
Discharge Summary Date of Admission: Nov 08, 2019 Date of Discharge: Nov 12, 2019 Follow-Up: 1-2 days Admitting Diagnosis comment: discharge dx DKA - back on basal bolus plus as of 11/07. poor Dm control AFSHAN - likely vasomotor nephropathy, Cr 2 Acute CVA - Left frontal lobe acute or subacute ischemic infarct Evolving late subacute right MCA territory ischemic infarct, resolution of prior right temporal lobe hematoma; chronic right MCA territory ischemic infarct. Metabolic encephalopathy due to diabetic ketoacidosis, resolved. Blindness, likely due to diabetic retinopathy rather than the strokes Evolving late subacute right MCA territory ischemic infarct, resolution of prior right temporal lobe hematoma; chronic right MCA territory ischemic infarct. CVA - CT head was found with old large right MCA infarct Chronic right MCA territory ischemic infarct of the right insula, frontal operculum and basal ganglia is stable Diabetes-Type II with hyperglycemia - glucose 528, will place on high sliding scale and scheduled 15u lispro as well as lantus. 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 Found in DKA with worsening of CVA She was admitted to ICU for further monitoring of CVA. Seen by Neurology, Cardiology 11/08: History of present illness limited secondary to altered mental status. Labs NA 140, K3.7, BUN 19, CR 2, glucose 1.4, phosphorus 1.7, ABG 7.2 3/148. No complaints voiced 11/09: Afebrile. Working with PT/OT. She cannot identify objects visually. Labs improved CR 1.6, out of DKA for 24 hours. Scared she cannot take care of herself. She is also scared her , Rene cannot. No chest pain or shortness of breath. COVID 19 negative Afebrile overnight. Glucose back up in 200s, 300 last night. Oriented to self and location. Plans for HODA . Will add back her home coreg slowly. 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 11/12/2019 after HODA Vitals Vitals Vital Signs Date Time Temp Pulse Resp B/P (MAP) Pulse Ox O2 Delivery O2 Flow Rate FiO2 11/12/19 08:00 Room Air 11/12/19 06:15 98.5 74 153/68 (96) 99 2.0 98.5 11/11/19 14:52 16 Physical Exam General: Alert, Cooperative, No acute distress Heart: Regular rate Lungs: Clear Abdomen: Normal bowel sounds Extremities: No clubbing, No cyanosis, Other (left BKA ) Skin: No breakdown, No significant lesion Labs LABS CT head without contrast PQRS statement: CT scans at this facility use dose reduction including either automated exposure control, iterative reconstructions, and /or weight based radiation dosing via mA and kV modification when appropriate to reduce radiation dose to as low as reasonably achievable. HISTORY: Altered mental status. COMPARISON: CT head September 24, 2019. FINDINGS: Evolution of right hemispheric MCA territory late subacute ischemic infarct involving the right posterior temporal lobe, parietal lobe with increased hypoattenuation since the prior exam. There is a separate chronic infarct with focal encephalomalacia of the right insula and frontal operculum and basal ganglia is stable. The right temporal parenchymal hematoma on the prior study since resolved. At the left frontal lobe there is a 3 cm new wedge-shaped hypodensity of the cortex and underlying white matter image 19 which is likely an acute or subacute ischemic infarct. No mass. No hydrocephalus. Orbits, mastoids and bones are unremarkable. IMPRESSION: 1. 3 cm left frontal lobe acute or subacute ischemic infarct, new from prior studies, as described above. 2. Evolving late subacute right MCA territory ischemic infarct with a similar size and distribution to the prior exam. 3. The right temporal lobe hematoma on the prior exam has since resolved. 4. Chronic right MCA territory ischemic infarct of the right insula, frontal operculum and basal ganglia is stable. Electronically signed by: Maritza Perrin MD (11/08/2019 8:39 AM) [id number] DICTATED and SIGNED BY: MARITZA PERRIN MD STUDY: CT angiography of the head INDICATION: Intraparenchymal hemorrhage. COMPARISON: Same day CT head without contrast. TECHNIQUE: Helical CT angiography of the head performed after the intravenous administration of 55 cc Omnipaque 300. Coronal and sagittal 3-D MIP reconstructions were obtained. One or more of the following individualized dose reduction techniques were utilized for this examination: 1. Automated exposure control 2. Adjustment of the mA and/or kV according to patient size 3. Use of iterative reconstruction technique. FINDINGS: Calcific atherosclerosis involving the visualized cervical internal carotid arteries without flow-limiting stenosis. Extensive calcific atherosclerosis involving the intracranial internal carotid arteries but without a flow-limiting stenosis. No abrupt vessel occlusion seen to involve the right M1 or M2 middle cerebral artery segments in the setting of ischemic changes in the right middle cerebral artery distribution. Scattered M3 and M4 branches remain opacified in the region of cortical/subcortical low-attenuation. No branch vessel occlusion or flow-limiting stenosis involving either the right or left anterior cerebral arteries or the left middle cerebral artery. No discrete anterior circulation aneurysm. No flow-limiting stenosis of the visualized vertebral arteries. The basilar artery is widely patent. No flow-limiting stenosis or branch vessel occlusion of the adequately assessed posterior cerebral artery segments. Patent dural sinuses. As seen on the unenhanced CT head, regions of cortical/subcortical low-attenuation involving the right frontal, parietal and temporal lobes. The previously described intraparenchymal hemorrhage is less well characterized on this exam. No hydrocephalus or midline shift. IMPRESSION: No central occlusion or flow-limiting stenosis seen to involve the right middle cerebral artery in the setting of ischemic changes in this vascular distribution. No flow-limiting stenosis or branch vessel occlusion of the anterior and posterior cerebral circulation elsewhere as well. Electronically signed by: MOSHE CHIANG MD (09/24/2019 12:03 AM) [id number] Laboratory Tests FINAL DIAGNOSIS Problems Medical Problems: (1) CVA (cerebral vascular accident) Status: Acute (2) DKA (diabetic ketoacidoses) Status: Acute (3) Lactic acidosis Status: Acute Brief Hospital Course Ms. Haney is a 64 old [sex] who presented with [ SUBACUTE CVA] CONDITION AT DISCHARGE: Improved Discharge Medications Current Medications Sodium Chloride 1,000 ml @ 1,000 mls/hr 1X ONCE IV Last administered on 11/08/19at 07:47; Start 11/08/19 at 07:00; Stop 11/08/19 at 07:59; Status DC Insulin Human Regular (HumuLIN R VIAL) 4 unit 1X ONCE SQ Last administered on 11/08/19at 08:32; Start 11/08/19 at 08:30; Stop 11/08/19 at 08:31; Status DC Aspirin (Aspirin Rectal Supp) 300 mg 1X ONCE [place] Last administered on 11/08/19at 09:14; Start 11/08/19 at 09:15; Stop 11/08/19 at 09:16; Status DC Sodium Chloride 1,000 ml @ 500 mls/hr Q2H IV ; Start 11/08/19 at 09:04; Stop 11/08/19 at 11:03; Status DC Sodium Chloride 1,000 ml @ 250 mls/hr Q4H IV Last administered on 11/08/19at 14:40; Start 11/08/19 at 09:06; Stop 11/09/19 at 00:22; Status DC Dextrose/Sodium Chloride 1,000 ml @ 250 mls/hr Q4H IV Last administered on 11/08/19at 22:40; Start 11/08/19 at 09:06; Stop 11/09/19 at 02:33; Status DC Insulin Human Regular 100 unit/ Sodium Chloride 101 ml @ 0 mls/hr CONT PRN PRN IV PER PROTOCOL; Start 11/08/19 at 09:15; Stop 11/08/19 at 10:34; Status DC Potassium Chloride/Water 100 ml @ 100 mls/hr PRN Q1HR PRN IV SEE COMMENTS Last administered on 11/08/19at 23:44; Start 11/08/19 at 09:15 Potassium Chloride/Water 100 ml @ 100 mls/hr PRN Q1HR PRN IV SEE COMMENTS Last administered on 11/08/19at 17:55; Start 11/08/19 at 09:15 Potassium Chloride/Water 100 ml @ 100 mls/hr PRN Q1HR PRN IV SEE COMMENTS; Start 11/08/19 at 09:15 Insulin Human Regular 100 ml @ 0 mls/hr CONT PRN PRN IV PER PROTOCOL; Start 11/08/19 at 09:15; Stop 11/08/19 at 10:34; Status DC Ondansetron HCl (Zofran) 4 mg PRN Q8HRS PRN IV NAUSEA/VOMITING; Start 11/08/19 at 09:30; Stop 11/09/19 at 09:29; Status DC Sodium Chloride 1,000 ml @ 250 mls/hr Q4H IV Last administered on 11/08/19at 14:20; Start 11/08/19 at 10:32; Stop 11/09/19 at 00:22; Status DC Insulin Human Regular 100 unit/ Sodium Chloride 101 ml @ 0 mls/hr CONT PRN PRN IV PER PROTOCOL Last administered on 11/08/19at 20:13; Start 11/08/19 at 10:30; Stop 11/09/19 at 18:16; Status DC Acetaminophen (Tylenol) 650 mg PRN Q6HRS PRN PO TEMP > 100.4F; Start 11/08/19 at 13:45 Acetaminophen (Tylenol Supp) 650 mg PRN Q4HRS PRN [place] TEMP > 100.4F; Start 11/08/19 at 13:45 Aspirin (Ecotrin) 325 mg DAILYWBKFT PO Last administered on 11/12/19at 12:16; Start 11/09/19 at 08:00 Aspirin (Aspirin Rectal Supp) 300 mg PRN DAILY PRN [place] IF UNABLE TO TAKE PO; Start 11/08/19 at 13:45 Potassium Chloride/Water 100 ml @ 100 mls/hr Q1H IV Last administered on 11/08/19at 16:11; Start 11/08/19 at 15:00; Stop 11/08/19 at 16:59; Status DC Magnesium Sulfate 100 ml @ 25 mls/hr 1X ONCE IV Last administered on 11/08/19at 15:18; Start 11/08/19 at 14:15; Stop 11/08/19 at 18:14; Status DC Heparin Sodium (Porcine) (Heparin Sodium) 5,000 unit Q8HRS SQ Last administered on 11/12/19at 05:54; Start 11/08/19 at 22:00 Atorvastatin Calcium (Lipitor) 40 mg QHS PO Last administered on 11/11/19at 21:02; Start 11/08/19 at 21:00 Sodium Chloride (Normal Saline Flush) 10 ml QSHIFT PRN IV AFTER MEDS AND BLOOD DRAWS; Start 11/08/19 at 16:00 Lidocaine HCl (Xylocaine 2% Topical 5gm Tube) 1 tyron 1X ONCE TP ; Start 11/08/19 at 16:00; Stop 11/08/19 at 16:16; Status DC Lidocaine HCl (Viscous Lidocaine) 15 ml 1X ONCE MM ; Start 11/08/19 at 16:00; Stop 11/08/19 at 16:16; Status DC Benzocaine (Hurricaine One) 2 spray 1X ONCE MM ; Start 11/08/19 at 16:00; Stop 11/08/19 at 16:16; Status DC Potassium Chloride/Water 100 ml @ 100 mls/hr Q1H IV Last administered on 11/08/19at 20:12; Start 11/08/19 at 18:00; Stop 11/08/19 at 21:59; Status DC Dextrose/Sodium Chloride 1,000 ml @ 250 mls/hr Q4H PRN IV SEE COMMENTS Last administered on 11/08/19at 19:43; Start 11/08/19 at 19:45; Stop 11/09/19 at 18:16; Status DC Insulin Glargine (Lantus Syringe) 10 unit QHS SQ Last administered on 11/11/19at 21:03; Start 11/08/19 at 23:00 Insulin Human Lispro (HumaLOG) 0-5 UNITS Q6HRS SQ Last administered on 11/09/19at 17:50; Start 11/09/19 at 00:00; Stop 11/09/19 at 19:43; Status DC Dextrose (Dextrose 50%-Water Syringe) 12.5 gm PRN Q15MIN PRN IV SEE COMMENTS Last administered on 11/12/19at 08:07; Start 11/08/19 at 22:45 Dextrose/Sodium Chloride 1,000 ml @ 125 mls/hr CONT PRN IV ; Start 11/09/19 at 02:45; Stop 11/09/19 at 02:46; Status DC Dextrose/Sodium Chloride 1,000 ml @ 125 mls/hr Q8H IV Last administered on 11/09/19at 02:47; Start 11/09/19 at 03:00; Stop 11/09/19 at 18:16; Status DC Potassium Phosphate 10 mmol/ Sodium Chloride 103.3333 ml @ 51.667 m... Q2H IV Last administered on 11/09/19at 17:39; Start 11/09/19 at 15:00; Stop 11/09/19 at 18:59; Status DC Ondansetron HCl (Zofran) 4 mg PRN Q6HRS PRN IV NAUSEA/VOMITING; Start 11/12/19 at 07:00; Stop 11/09/19 at 19:43; Status DC Fentanyl Citrate (Fentanyl 2ml Vial) 25 mcg PRN Q5MIN PRN IV MILD PAIN 1-3; Start 11/12/19 at 07:00; Stop 11/09/19 at 19:43; Status DC Fentanyl Citrate (Fentanyl 2ml Vial) 50 mcg PRN Q5MIN PRN IV MODERATE TO SEVERE PAIN; Start 11/12/19 at 07:00; Stop 11/13/19 at 06:59 Morphine Sulfate (Morphine Sulfate) 1 mg PRN Q10MIN PRN IV SEVERE PAIN 7-10; Start 11/12/19 at 07:00; Stop 11/09/19 at 19:43; Status DC Ringer's Solution 1,000 ml @ 30 mls/hr Q24H IV ; Start 11/12/19 at 07:00; Stop 11/09/19 at 18:16; Status DC Lidocaine HCl (Xylocaine-Mpf 1% 2ml Vial) 2 ml PRN 1X PRN ID PRIOR TO IV START; Start 11/12/19 at 07:00; Stop 11/13/19 at 06:59 Hydromorphone HCl (Dilaudid) 0.5 mg PRN Q10MIN PRN IV SEV PAIN, Second choice; Start 11/12/19 at 07:00; Stop 11/09/19 at 19:43; Status DC Prochlorperazine Edisylate (Compazine) 5 mg PACU PRN PRN IV NAUSEA, MRX1; Start 11/12/19 at 07:00; Stop 11/09/19 at 19:43; Status DC Insulin Human Lispro (HumaLOG) 0-5 UNITS QIDACHS SQ Last administered on 11/11/19at 12:35; Start 11/09/19 at 21:00 Insulin Human Lispro (HumaLOG) 10 units TIDWMEALS SQ ; Start 11/11/19 at 12:00 Insulin Glargine (Lantus Syringe) 10 unit 1X ONCE SQ Last administered on 11/11/19at 10:50; Start 11/11/19 at 09:30; Stop 11/11/19 at 09:31; Status DC Hydralazine HCl (Apresoline Inj) 10 mg PRN Q4HRS PRN IVP ELEVATED BP, SEE COMMENTS; Start 11/11/19 at 10:00 Carvedilol (Coreg) 6.25 mg BIDWMEALS PO Last administered on 11/12/19at 12:16; Start 11/11/19 at 17:00 Lidocaine HCl (Xylocaine 2% Topical 30gm Tube) 30 tyron STK-MED ONCE TP ; Start 11/12/19 at 10:19; Stop 11/12/19 at 10:19; Status DC Benzocaine (Hurricaine One) 1 spray STK-MED ONCE .ROUTE ; Start 11/12/19 at 10:19; Stop 11/12/19 at 10:19; Status DC Lidocaine HCl (Viscous Lidocaine) 15 ml STK-MED ONCE .ROUTE ; Start 11/12/19 at 10:20; Stop 11/12/19 at 10:20; Status DC Benzocaine (Hurricaine One) 2 spray 1X ONCE MM Last administered on 11/12/19at 11:05; Start 11/12/19 at 10:30; Stop 11/12/19 at 10:31; Status DC Lidocaine HCl (Xylocaine 2% Topical 30gm Tube) 1 tyron 1X ONCE TP Last administered on 11/12/19at 11:05; Start 11/12/19 at 10:30; Stop 11/12/19 at 10:31; Status DC Lidocaine HCl (Viscous Lidocaine) 15 ml 1X ONCE SWSW Last administered on 11/12/19at 11:04; Start 11/12/19 at 10:30; Stop 11/12/19 at 10:31; Status DC Propofol (Diprivan) 200 mg STK-MED ONCE IV ; Start 11/12/19 at 10:42; Stop 11/12/19 at 10:42; Status DC Active Scripts Active Reported Lantus Solostar (Insulin Glargine,Hum.rec.anlog) 100 Unit/1 Ml Insuln.pen 20 Unit SQ QHS Novolog Flexpen (Insulin Aspart) 100 Unit/1 Ml Insuln.pen 100 Unit SQ Lisinopril 20 Mg Tablet 1 Tab PO DAILY Carvedilol 25 Mg Tablet 1 Tab PO BID Vital Signs Vital Signs Date Time Temp Pulse Resp B/P (MAP) Pulse Ox O2 Delivery O2 Flow Rate FiO2 11/12/19 12:16 89 187/89 11/12/19 11:40 99.1 21 99 Room Air 99.1 11/12/19 11:35 5 Labs Laboratory Tests Test 11/10/19 17:24 11/10/19 21:23 11/11/19 07:55 11/11/19 11:52 Glucose (Fingerstick) 365 mg/dL (70-99) 328 mg/dL (70-99) 257 mg/dL (70-99) 210 mg/dL (70-99) Test 11/11/19 16:48 11/11/19 20:41 11/12/19 07:50 11/12/19 08:29 Glucose (Fingerstick) 164 mg/dL (70-99) 221 mg/dL (70-99) 57 mg/dL (70-99) 113 mg/dL (70-99) Test 11/12/19 11:40 11/12/19 11:55 Glucose (Fingerstick) 76 mg/dL (70-99) White Blood Count 4.7 x10^3/uL (4.0-11.0) Red Blood Count 3.50 x10^6/uL (3.50-5.40) Hemoglobin 10.8 g/dL (12.0-15.5) Hematocrit 30.4 % (36.0-47.0) Mean Corpuscular Volume 87 fL (79-100) Mean Corpuscular Hemoglobin 31 pg (25-35) Mean Corpuscular Hemoglobin Concent 35 g/dL (31-37) Red Cell Distribution Width 14.1 % (11.5-14.5) Platelet Count 160 x10^3/uL (140-400) Neutrophils (%) (Auto) 30 % (31-73) Lymphocytes (%) (Auto) 57 % (24-48) Monocytes (%) (Auto) 8 % (0-9) Eosinophils (%) (Auto) 4 % (0-3) Basophils (%) (Auto) 1 % (0-3) Neutrophils # (Auto) 1.4 x10^3/uL (1.8-7.7) Lymphocytes # (Auto) 2.7 x10^3/uL (1.0-4.8) Monocytes # (Auto) 0.4 x10^3/uL (0.0-1.1) Eosinophils # (Auto) 0.2 x10^3/uL (0.0-0.7) Basophils # (Auto) 0.0 x10^3/uL (0.0-0.2) Sodium Level 142 mmol/L (136-145) Potassium Level 3.6 mmol/L (3.5-5.1) Chloride Level 107 mmol/L (98-107) Carbon Dioxide Level 25 mmol/L (21-32) Anion Gap 10 (6-14) Blood Urea Nitrogen 11 mg/dL (7-20) Creatinine 1.2 mg/dL (0.6-1.0) Estimated GFR (Cockcroft-Gault) 54.4 BUN/Creatinine Ratio 9 (6-20) Glucose Level 84 mg/dL (70-99) Calcium Level 9.0 mg/dL (8.5-10.1) Total Bilirubin 0.7 mg/dL (0.2-1.0) Aspartate Amino Transf (AST/SGOT) 70 U/L (15-37) Alanine Aminotransferase (ALT/SGPT) 53 U/L (14-59) Alkaline Phosphatase 78 U/L (46-116) Total Protein 6.7 g/dL (6.4-8.2) Albumin 3.2 g/dL (3.4-5.0) Albumin/Globulin Ratio 0.9 (1.0-1.7) Laboratory Tests Test 11/11/19 16:48 11/11/19 20:41 11/12/19 07:50 11/12/19 08:29 Glucose (Fingerstick) 164 mg/dL (70-99) 221 mg/dL (70-99) 57 mg/dL (70-99) 113 mg/dL (70-99) Test 11/12/19 11:40 11/12/19 11:55 Glucose (Fingerstick) 76 mg/dL (70-99) White Blood Count 4.7 x10^3/uL (4.0-11.0) Red Blood Count 3.50 x10^6/uL (3.50-5.40) Hemoglobin 10.8 g/dL (12.0-15.5) Hematocrit 30.4 % (36.0-47.0) Mean Corpuscular Volume 87 fL (79-100) Mean Corpuscular Hemoglobin 31 pg (25-35) Mean Corpuscular Hemoglobin Concent 35 g/dL (31-37) Red Cell Distribution Width 14.1 % (11.5-14.5) Platelet Count 160 x10^3/uL (140-400) Neutrophils (%) (Auto) 30 % (31-73) Lymphocytes (%) (Auto) 57 % (24-48) Monocytes (%) (Auto) 8 % (0-9) Eosinophils (%) (Auto) 4 % (0-3) Basophils (%) (Auto) 1 % (0-3) Neutrophils # (Auto) 1.4 x10^3/uL (1.8-7.7) Lymphocytes # (Auto) 2.7 x10^3/uL (1.0-4.8) Monocytes # (Auto) 0.4 x10^3/uL (0.0-1.1) Eosinophils # (Auto) 0.2 x10^3/uL (0.0-0.7) Basophils # (Auto) 0.0 x10^3/uL (0.0-0.2) Sodium Level 142 mmol/L (136-145) Potassium Level 3.6 mmol/L (3.5-5.1) Chloride Level 107 mmol/L (98-107) Carbon Dioxide Level 25 mmol/L (21-32) Anion Gap 10 (6-14) Blood Urea Nitrogen 11 mg/dL (7-20) Creatinine 1.2 mg/dL (0.6-1.0) Estimated GFR (Cockcroft-Gault) 54.4 BUN/Creatinine Ratio 9 (6-20) Glucose Level 84 mg/dL (70-99) Calcium Level 9.0 mg/dL (8.5-10.1) Total Bilirubin 0.7 mg/dL (0.2-1.0) Aspartate Amino Transf (AST/SGOT) 70 U/L (15-37) Alanine Aminotransferase (ALT/SGPT) 53 U/L (14-59) Alkaline Phosphatase 78 U/L (46-116) Total Protein 6.7 g/dL (6.4-8.2) Albumin 3.2 g/dL (3.4-5.0) Albumin/Globulin Ratio 0.9 (1.0-1.7) Allergies Allergies Coded Allergies Type Severity Reaction Last Updated Verified Iodinated Contrast Media Allergy Unknown 11/09/19 Yes Disposition/Orders: D/C to Home Justicifation of Admission Dx: Justifications for Admission: Justification of Admission Dx: Yes DKA: TRACY CHEN MD Nov 12, 2019 14:14
--- NOTE | 2019-11-12 14:15 | DISCH ---
DISCHARGE INSTRUCTIONS Condition on Discharge Condition on Discharge: Stable Activity After Discharge Activity Instructions for Disc: Activity as tolerated Driving Instructions after Dis: Do not drive Diet after Discharge Diet after Discharge: Cardiac, Diabetic No Calorie Level Checks after Discharge Checks after discharge: Check blood press - daily, Check blood sugar, ac/hs, Check your Temp as needed Contacting the [facility] after DC Call your doctor for: If your condition worsens Warfarin Follow-Up Warfarin Follow UP: SEE PCP THIS WEEK TRACY CLEANING MD Nov 12, 2019 14:15
[2019-11-12] MEDS ORDERED: ATOR40TA59 PO (14:18)
[2019-11-12] MEDS ORDERED: ACET325T9 PO (14:18)
[2019-11-12] MEDS ORDERED: ASPI325T11 PO (14:18)
[2019-11-12] MEDS ORDERED: INSU100V8 SQ (14:18)
[2019-11-12] MEDS ORDERED: INSU100I11 SQ ×2 (14:18)
--- NOTE | 2019-11-12 15:35 | NUR ---
Discharge Note: ZANE ROBB Discharge instructions and discharge home medications reviewed with Patient and spouse and a copy given. All questions have been answered and understanding verbalized. Follow up information provided to patient. The following instructions and handouts were given: DKA, stroke information, atorvastatin, and ASA Discontinued lines and drains: Peripheral IV intact. Patient discharged to Home or Self Care with Spouse via Wheelchair
[2019-11-13 00:07] LABS: HEMOGLOBIN A1C 11.8 % (4.8-5.6)
== END 2019-11-12 15:30 | disposition home or self-care (01) | DRG 64 ==
LOC: ER 06:37 → 1 WEST ICU 09:20 → 2 SOUTH 11-11 10:17
PROVIDERS: ADMIT Internal Medicine; ATTEND Internal Medicine
DX: I63.411 Cerebral infarction due to embolism of right middle cerebral artery (principal); E10.10 Type 1 diabetes mellitus with ketoacidosis without coma; N17.0 Acute kidney failure with tubular necrosis; G93.41 Metabolic encephalopathy; I69.354 Hemiplegia and hemiparesis following cerebral infarction affecting left non-dominant side; I42.8 Other cardiomyopathies; Z20.828 Contact with and (suspected) exposure to other viral communicable diseases; I12.9 Hypertensive chronic kidney disease with stage 1 through stage 4 chronic kidney disease, or unspecified chronic kidney disease; I49.5 Sick sinus syndrome; N18.9 Chronic kidney disease, unspecified; E10.22 Type 1 diabetes mellitus with diabetic chronic kidney disease; F17.200 Nicotine dependence, unspecified, uncomplicated; D72.829 Elevated white blood cell count, unspecified; E10.319 Type 1 diabetes mellitus with unspecified diabetic retinopathy without macular edema; E10.51 Type 1 diabetes mellitus with diabetic peripheral angiopathy without gangrene; E78.5 Hyperlipidemia, unspecified; E78.00 Pure hypercholesterolemia, unspecified; Z79.4 Long term (current) use of insulin; Z82.3 Family history of stroke; Z82.49 Family history of ischemic heart disease and other diseases of the circulatory system; Z83.3 Family history of diabetes mellitus; Z89.512 Acquired absence of left leg below knee; Z95.810 Presence of automatic (implantable) cardiac defibrillator; Z95.0 Presence of cardiac pacemaker; Z90.49 Acquired absence of other specified parts of digestive tract; Z98.51 Tubal ligation status
CPT/HCPCS: 36415; 36600; 70450; 71045; 80048; 80053; 80061; 80069; 80307; 80329; 81001; 82010; 82140; 82553; 82805; 82962; 83036; 83605; 83735; 84100; 84484; 85007; 85025; 85610; 85730; 93005; 93312; 93320; 93325; 96360; 96361; 96372; G0480; J1644; J1815; J2704; J3475; J3480; J3490; J7030; J7042; U0003; 92610-GN; 97530-GO; 97530-GP; 97535-GO; 99291-25; G0378

== ENCOUNTER 2020-02-20 21:57 | Inpatient (IN) | payer OTHER ==
[~2020-02-20] VITALS: Ht 165.1 cm; Wt 63.6 kg
[~2020-02-20 21:57] MED LIST changes: +ACET325T9 PO; +ASPI325T11 PO; +ATOR40TA59 PO; +INSU100I11 SQ; +INSU100V8 SQ
[2020-02-20 22:54] LABS: BASO % 1 % (0-3); EOS # 0.1 x10^3/uL (0.0-0.7); EOS % 3 % (0-3); HEMATOCRIT 33.3 % (36.0-47.0); HEMOGLOBIN 11.2 g/dL (12.0-15.5); LYMPH # 1.8 x10^3/uL (1.0-4.8); LYMPH % 42 % (24-48); MEAN CORPUSCULAR HEMOGLOBIN 30 pg (25-35); MEAN CORPUSCULAR HGB CONC 34 g/dL (31-37); MEAN CORPUSCULAR VOLUME 88 fL (79-100); MONO # 0.3 x10^3/uL (0.0-1.1); MONO % 6 % (0-9); NEUT # 2.1 x10^3/uL (1.8-7.7); NEUT % 48 % (31-73); PLATELET COUNT 189 x10^3/uL (140-400); RED BLOOD COUNT 3.78 x10^6/uL (3.50-5.40); RED CELL DISTRIBUTION WIDTH 13.8 % (11.5-14.5); WHITE BLOOD COUNT 4.3 x10^3/uL (4.0-11.0)
[2020-02-20 23:03] LABS: PROTHROMBIN TIME PATIENT 12.8 SEC (11.7-14.0)
[2020-02-20 23:10] LABS: CALCIUM 9.8 mg/dL (8.5-10.1); CREATININE 1.5 mg/dL (0.6-1.0); POTASSIUM 4.7 mmol/L (3.5-5.1)
[2020-02-20 23:15] LABS: ALBUMIN/GLOBULIN RATIO 1.1 (1.0-1.7); TOTAL BILIRUBIN 0.4 mg/dL (0.2-1.0); TOTAL PROTEIN 7.6 g/dL (6.4-8.2)
--- NOTE | 2020-02-20 23:25 | RAD ---
STUDY: CT head without contrast INDICATION: Left upper extremity weakness. Code stroke. COMPARISON: 11/08/2019 TECHNIQUE: Axial CT imaging through the head without the use of intravenous contrast. Sagittal and coronal reformats were obtained. One or more of the following individualized dose reduction techniques were utilized for this examination: 1. Automated exposure control 2. Adjustment of the mA and/or kV according to patient size 3. Use of iterative reconstruction technique. FINDINGS: Redemonstrated sequela of several infarcts on the right involving portions of the frontal, parietal and temporal lobes. Expected evolutionary changes of a left frontal infarct which was seen on the 12/08/2019 comparison. No newly seen region of sarabia-white matter differentiation loss is identified. No acute intracranial hemorrhage. No midline shift or hydrocephalus. Extensive intracranial atherosclerotic calcifications. White matter findings typical of chronic microvascular ischemic change. No newly seen abnormality of the calvarium or orbits. IMPRESSION: 1. No acute intracranial hemorrhage or CT evidence for an acute cortical infarction. 2. Multiple previous infarcts involving the right more so than left cerebral hemispheres. MRI could be performed to better assess for a more recent ischemic event. FOR INTERNAL CODING PURPOSES Critical result: Findings discussed with CRISPIN DAVILA on 02/20/2020 11:17 PM. RESULT CODE: (C) Electronically signed by: MOSHE CHIANG MD (02/20/2020 11:23 PM) [id number]
--- NOTE | 2020-02-20 23:31 | PHYS DOC ---
Past Medical History Past Medical History: Diabetes-Type II, High Cholesterol, Heart Disease, Hypertension, Stroke Past Surgical History: Appendectomy, Pacemaker, Tubal ligation, Other Additional Past Surgical Histo: LEFT BKA Smoking Status: Unknown if ever smoked Alcohol Use: None Drug Use: None General Adult EDM: Chief Complaint: NEURO SYMPTOMS/DEFICITS HPI: HPI: 64-year-old female past medical history significant for insulin-dependent diabetes, hypertension, hyperlipidemia with frequent strokes, PAD with left BKA, sick sinus syndrome with pacemaker, and former tobacco dependence presents to the ED with complaints of left arm weakness and numbness from the tip of her fingers to her left elbow that started around 9 PM tonight with associated slurred speech. Patient reports her speech is resolved and numbness is almost completely resolved. Does have a history of multiple strokes including a large vessel of the right MCA. States she has all deficits with blurry vision in her left eye and V2 and V3 numbness over her cheek. Reports glucose at home is running in the 300s. Review of Systems: Review of Systems: Constitutional: Denies fever or chills. [] Eyes: Denies change in visual acuity. [] HENT: Denies nasal congestion or sore throat. [] Respiratory: Denies cough or shortness of breath. [] Cardiovascular: Denies chest pain or edema. [] GI: Denies abdominal pain, nausea, vomiting, bloody stools or diarrhea. [] : Denies dysuria. [] Musculoskeletal: Denies back pain or joint pain. [] Integument: Denies rash. [] Neurologic: Denies headache, focal weakness or sensory changes. [] Endocrine: Denies polyuria or polydipsia. [] Lymphatic: Denies swollen glands. [] Psychiatric: Denies depression or anxiety. [] Heart Score: Risk Factors: Risk Factors: DM, Current or recent (<one month) smoker, HTN, HLP, family history of CAD, obesity. Risk Scores: Score 0 - 3: 2.5% MACE over next 6 weeks - Discharge Home Score 4 - 6: 20.3% MACE over next 6 weeks - Admit for Clinical Observation Score 7 - 10: 72.7% MACE over next 6 weeks - Early Invasive Strategies Allergies: Allergies: Allergies Coded Allergies Type Severity Reaction Last Updated Verified Iodinated Contrast Media Allergy Unknown 11/09/19 Yes Physical Exam: PE: Constitutional: Well developed, well nourished, no acute distress, non-toxic appearance. [] HENT: Normocephalic, atraumatic, bilateral external ears normal, oropharynx moist, no oral exudates, nose normal. [] Eyes: PERRLA, EOMI, conjunctiva normal, no discharge. [] Neck: Normal range of motion, no tenderness, supple, no stridor. [] Cardiovascular:Heart rate regular rhythm, no murmur [] Lungs & Thorax: Bilateral breath sounds clear to auscultation [] Abdomen: Bowel sounds normal, soft, no tenderness, no masses, no pulsatile masses. [] Skin: Warm, dry, no erythema, no rash. [] Back: No tenderness, no CVA tenderness. [] Extremities: No tenderness, no cyanosis, no clubbing, ROM intact, no edema. [] Neurologic: Alert and oriented X 3, normal motor function, normal sensory function, no focal deficits noted. [] Psychologic: Affect normal, judgement normal, mood normal. [] Current Patient Data: Labs: Laboratory Tests Test 02/20/20 22:44 02/20/20 22:53 White Blood Count 4.3 x10^3/uL (4.0-11.0) Red Blood Count 3.78 x10^6/uL (3.50-5.40) Hemoglobin 11.2 g/dL (12.0-15.5) L Hematocrit 33.3 % (36.0-47.0) L Mean Corpuscular Volume 88 fL (79-100) Mean Corpuscular Hemoglobin 30 pg (25-35) Mean Corpuscular Hemoglobin Concent 34 g/dL (31-37) Red Cell Distribution Width 13.8 % (11.5-14.5) Platelet Count 189 x10^3/uL (140-400) Neutrophils (%) (Auto) 48 % (31-73) Lymphocytes (%) (Auto) 42 % (24-48) Monocytes (%) (Auto) 6 % (0-9) Eosinophils (%) (Auto) 3 % (0-3) Basophils (%) (Auto) 1 % (0-3) Neutrophils # (Auto) 2.1 x10^3/uL (1.8-7.7) Lymphocytes # (Auto) 1.8 x10^3/uL (1.0-4.8) Monocytes # (Auto) 0.3 x10^3/uL (0.0-1.1) Eosinophils # (Auto) 0.1 x10^3/uL (0.0-0.7) Basophils # (Auto) 0.0 x10^3/uL (0.0-0.2) Prothrombin Time 12.8 SEC (11.7-14.0) Prothrombin Time INR 1.0 (0.8-1.1) Activated Partial Thromboplast Time 30 SEC (24-38) Sodium Level 134 mmol/L (136-145) L Potassium Level 4.7 mmol/L (3.5-5.1) Chloride Level 99 mmol/L (98-107) Carbon Dioxide Level 26 mmol/L (21-32) Anion Gap 9 (6-14) Blood Urea Nitrogen 13 mg/dL (7-20) Creatinine 1.5 mg/dL (0.6-1.0) H Estimated GFR (Cockcroft-Gault) 42.0 BUN/Creatinine Ratio 9 (6-20) Glucose Level 452 mg/dL (70-99) H Calcium Level 9.8 mg/dL (8.5-10.1) Total Bilirubin 0.4 mg/dL (0.2-1.0) Aspartate Amino Transferase (AST) 21 U/L (15-37) Alanine Aminotransferase (ALT) 19 U/L (14-59) Alkaline Phosphatase 83 U/L (46-116) Troponin I Quantitative < 0.017 ng/mL (0.000-0.055) Total Protein 7.6 g/dL (6.4-8.2) Albumin 4.0 g/dL (3.4-5.0) Albumin/Globulin Ratio 1.1 (1.0-1.7) Glucose (Fingerstick) 399 mg/dL (70-99) H Laboratory Tests 02/20/20 22:44 Laboratory Tests 02/20/20 22:44 EKG: EKG: Sinus rhythm at 83 bpm, left axis deviation, QTC 473, T wave inversion V2 and aVL, no ST elevations or ST depressions, no active chest pain IMAGING REPORT Signed PATIENT: ZANE ROBB ACCOUNT: [id number] : 1955 LOCATION: ER AGE: 64 SEX: F EXAM STATUS: REG ER ORD. PHYSICIAN: CRISPIN DAVILA DO REASON: left upper extremity weakness PROCEDURE: CT CODE STROKE HEAD WO STUDY: CT head without contrast INDICATION: Left upper extremity weakness. Code stroke. COMPARISON: 11/08/2019 TECHNIQUE: Axial CT imaging through the head without the use of intravenous contrast. Sagittal and coronal reformats were obtained. One or more of the following individualized dose reduction techniques were utilized for this examination: 1. Automated exposure control 2. Adjustment of the mA and/or kV according to patient size 3. Use of iterative reconstruction technique. FINDINGS: Redemonstrated sequela of several infarcts on the right involving portions of the frontal, parietal and temporal lobes. Expected evolutionary changes of a left frontal infarct which was seen on the 12/08/2019 comparison. No newly seen region of sarabia-white matter differentiation loss is identified. No acute intracranial hemorrhage. No midline shift or hydrocephalus. Extensive intracranial atherosclerotic calcifications. White matter findings typical of chronic microvascular ischemic change. No newly seen abnormality of the calvarium or orbits. IMPRESSION: 1. No acute intracranial hemorrhage or CT evidence for an acute cortical infarction. 2. Multiple previous infarcts involving the right more so than left cerebral hemispheres. MRI could be performed to better assess for a more recent ischemic event. FOR INTERNAL CODING PURPOSES Critical result: Findings discussed with CRISPIN DAVILA on 02/20/2020 11:17 PM. RESULT CODE: (C) Electronically signed by: MOSHE CHIANG MD (02/20/2020 11:23 PM) [id number] DICTATED and SIGNED BY: MOSHE CHIANG MD DATE: 02/20/20 2323 Radiology/Procedures: Radiology/Procedures: [] Course & Med Decision Making: Course & Med Decision Making Pertinent Labs and Imaging studies reviewed. (See chart for details) Discussed with Dr. Lr neurology, will admit for MRI, no indication for CT angios at this time given stroke scale of 0. Labs show non-anion gap hyperglycemia. Urinalysis with no bacteria. Will admit for further medical management. Patient stable at time of admission. I have spoken with the patient and/or caregivers. I have explained the patient's condition, diagnosis and treatment plan based on the information available to me at this time. I have answered the patient's and/or caregivers questions and answered any concerns. The patient and/or caregivers have as good an understanding of the patient's diagnosis, condition and treatment plan as can be expected at this point. The patient has been stabilized within the capability of the emergency department. The patient will be transported for further care and management or will be moved to an observation or inpatient service. I have communicated with the staff or medical practitioner taking over this patient's care. Dragon Disclaimer: Dragon Disclaimer: This electronic medical record was generated, in whole or in part, using a voice recognition dictation system. Departure Departure Impression: Primary Impression: Left arm weakness Disposition: ADMITTED INPATIENT Admitting Physician: CHIP (Dr. Vela) Condition: STABLE Referrals: NO PCP (PCP) Justicifation of Admission Dx: Justifications for Admission: Justification of Admission Dx: Yes DKA: DKA Comments: TIA vs CVA CRISPIN DAVILA DO Feb 20, 2020 23:31
--- NOTE | 2020-02-20 23:50 | RAD ---
INDICATION: Reason: lue weakness / Spl. Instructions: / History: COMPARISON: October 2019 FINDINGS: Single view of chest obtained. Pacemaker is visualized with calcific atherosclerosis. Calcified right breast implant. Mild coarsening of the lung markings bilaterally without a new region of consolidation. IMPRESSION: * No focal airspace consolidation. Electronically signed by: Raul Stearns MD (02/20/2020 11:46 PM) [id number]
[2020-02-21 00:42] LABS: BILIRUBIN,URINE NEGATIVE (NEG); CLARITY,URINE CLEAR; COLOR,URINE YELLOW; NITRITE,URINE NEGATIVE (NEG); PROTEIN,URINE 30 mg/dL (NEG-TRACE)
[2020-02-21 00:51] LABS: SQUAMOUS EPITHELIAL CELL,UR FEW /LPF
[2020-02-21 00:52] LABS: BACTERIA,URINE 0 /HPF (0-FEW); RBC,URINE 0 /HPF (0-2); WBC,URINE RARE /HPF (0-4)
[2020-02-21] MEDS ORDERED: diphenhydrAMINE 50 MG/ML VIAL IVP ONE (06:00)
--- NOTE | 2020-02-21 06:02 | EKG ---
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
[2020-02-21 09:17] VITALS: BP 147/76
[2020-02-21] MEDS ORDERED: ACETAMINOPHEN 325 MG TABLET. PO PRN (09:30)
[2020-02-21] MEDS ORDERED: ACETAMINOPHEN 650 MG SUPP.RECT. PR PRN (09:30)
--- NOTE | 2020-02-21 09:41 | PDOC1 ---
History and Physical Date of Admission Date of Admission DATE: 02/21/20 TIME: 09:39 Past Medical History Past Medical History Past Medical History Past Medical History Past Medical History: Diabetes-Type II, High Cholesterol, Heart Disease, Hypertension, Stroke Past Surgical History: Appendectomy, Pacemaker, Tubal ligation, Other Additional Past Surgical Histo: LEFT BKA Smoking Status: Unknown if ever smoked Alcohol Use: None Drug Use: None fhx HTN Cardiovascular: HTN, Hyperlipidemia, Other Pulmonary: No pertinent hx CENTRAL NERVOUS SYSTEM: CVA, Periperal neuropathy, Other GI: No pertinent hx Heme/Onc: No pertinent hx Hepatobiliary: No pertinent hx Psych: No pertinent hx Rheumatologic: No pertinent hx Infectious disease: No pertinent hx Renal/: No pertinent hx Endocrine: Diabetes Past Surgical History Past Surgical History: Pacemaker, Appendectomy, Tubal Ligation, Other Family History Family History: Hypertension Social History ALCOHOL: none Drugs: None Current Problem List Problem List Problems Medical Problems: (1) Left arm weakness Status: Acute Current Medications Current Medications Current Medications Diphenhydramine HCl (Benadryl) 25 mg 1X ONCE IVP Last administered on 02/21/20at 05:36; Start 02/21/20 at 06:00; Stop 02/21/20 at 06:01; Status DC Acetaminophen (Tylenol) 650 mg PRN Q6HRS PRN PO TEMP > 100.4F; Start 02/21/20 at 09:30 Acetaminophen (Tylenol Supp) 650 mg PRN Q4HRS PRN PA TEMP > 100.4F; Start 02/21/20 at 09:30 Clopidogrel Bisulfate (Plavix) 75 mg DAILYWBKFT PO ; Start 02/21/20 at 10:00 Active Scripts Active Humalog (Insulin Lispro) 100 Unit/1 Ml Insuln.pen 0 Units SQ QIDACHS 30 Days Humalog (Insulin Lispro) 100 Unit/1 Ml Insuln.pen 10 Units SQ TIDWMEALS 30 Days Lantus (Insulin Glargine,Hum.rec.anlog) 100 Unit/1 Ml Vial 10 Unit SQ QHS 30 Days Tylenol (Acetaminophen) 325 Mg Tablet 650 Mg PO PRN Q6HRS PRN 30 Days Aspirin Ec (Aspirin) 325 Mg Tablet.dr 325 Mg PO DAILYWBKFT 30 Days Atorvastatin Calcium 40 Mg Tablet 40 Mg PO QHS 30 Days Reported Lantus Solostar (Insulin Glargine,Hum.rec.anlog) 100 Unit/1 Ml Insuln.pen 20 Unit SQ QHS Novolog Flexpen (Insulin Aspart) 100 Unit/1 Ml Insuln.pen 100 Unit SQ Lisinopril 20 Mg Tablet 1 Tab PO DAILY Carvedilol 25 Mg Tablet 1 Tab PO BID Allergies Allergies: Coded Allergies: Iodinated Contrast Media (Verified Allergy, Unknown, 11/09/19) Vitals Vitals Vital Signs Date Time Temp Pulse Resp B/P (MAP) Pulse Ox O2 Delivery O2 Flow Rate FiO2 02/21/20 09:17 81 16 147/76 (99) 100 02/20/20 22:32 97.9 Room Air 97.9 Labs Labs Laboratory Tests Test 02/20/20 22:44 02/20/20 22:53 02/21/20 00:34 White Blood Count 4.3 x10^3/uL (4.0-11.0) Red Blood Count 3.78 x10^6/uL (3.50-5.40) Hemoglobin 11.2 g/dL (12.0-15.5) Hematocrit 33.3 % (36.0-47.0) Mean Corpuscular Volume 88 fL (79-100) Mean Corpuscular Hemoglobin 30 pg (25-35) Mean Corpuscular Hemoglobin Concent 34 g/dL (31-37) Red Cell Distribution Width 13.8 % (11.5-14.5) Platelet Count 189 x10^3/uL (140-400) Neutrophils (%) (Auto) 48 % (31-73) Lymphocytes (%) (Auto) 42 % (24-48) Monocytes (%) (Auto) 6 % (0-9) Eosinophils (%) (Auto) 3 % (0-3) Basophils (%) (Auto) 1 % (0-3) Neutrophils # (Auto) 2.1 x10^3/uL (1.8-7.7) Lymphocytes # (Auto) 1.8 x10^3/uL (1.0-4.8) Monocytes # (Auto) 0.3 x10^3/uL (0.0-1.1) Eosinophils # (Auto) 0.1 x10^3/uL (0.0-0.7) Basophils # (Auto) 0.0 x10^3/uL (0.0-0.2) Prothrombin Time 12.8 SEC (11.7-14.0) Prothromb Time International Ratio 1.0 (0.8-1.1) Activated Partial Thromboplast Time 30 SEC (24-38) Sodium Level 134 mmol/L (136-145) Potassium Level 4.7 mmol/L (3.5-5.1) Chloride Level 99 mmol/L (98-107) Carbon Dioxide Level 26 mmol/L (21-32) Anion Gap 9 (6-14) Blood Urea Nitrogen 13 mg/dL (7-20) Creatinine 1.5 mg/dL (0.6-1.0) Estimated GFR (Cockcroft-Gault) 42.0 BUN/Creatinine Ratio 9 (6-20) Glucose Level 452 mg/dL (70-99) Calcium Level 9.8 mg/dL (8.5-10.1) Total Bilirubin 0.4 mg/dL (0.2-1.0) Aspartate Amino Transf (AST/SGOT) 21 U/L (15-37) Alanine Aminotransferase (ALT/SGPT) 19 U/L (14-59) Alkaline Phosphatase 83 U/L (46-116) Troponin I Quantitative < 0.017 ng/mL (0.000-0.055) Total Protein 7.6 g/dL (6.4-8.2) Albumin 4.0 g/dL (3.4-5.0) Albumin/Globulin Ratio 1.1 (1.0-1.7) Glucose (Fingerstick) 399 mg/dL (70-99) Urine Collection Type Unknown Urine Color Yellow Urine Clarity Clear Urine pH 7.0 (<5.0-8.0) Urine Specific [place] 1.020 (1.000-1.030) Urine Protein 30 mg/dL (NEG-TRACE) Urine Glucose (UA) >=1000 mg/dL (NEG) Urine Ketones (Stick) Trace mg/dL (NEG) Urine Blood Negative (NEG) Urine Nitrite Negative (NEG) Urine Bilirubin Negative (NEG) Urine Urobilinogen Dipstick 1.0 mg/dL (0.2 mg/dL) Urine Leukocyte Esterase Negative (NEG) Urine RBC 0 /HPF (0-2) Urine WBC Rare /HPF (0-4) Urine Squamous Epithelial Cells Few /LPF Urine Bacteria 0 /HPF (0-FEW) Urine Mucus Slight /LPF Laboratory Tests Test 02/20/20 22:44 02/20/20 22:53 02/21/20 00:34 White Blood Count 4.3 x10^3/uL (4.0-11.0) Red Blood Count 3.78 x10^6/uL (3.50-5.40) Hemoglobin 11.2 g/dL (12.0-15.5) Hematocrit 33.3 % (36.0-47.0) Mean Corpuscular Volume 88 fL (79-100) Mean Corpuscular Hemoglobin 30 pg (25-35) Mean Corpuscular Hemoglobin Concent 34 g/dL (31-37) Red Cell Distribution Width 13.8 % (11.5-14.5) Platelet Count 189 x10^3/uL (140-400) Neutrophils (%) (Auto) 48 % (31-73) Lymphocytes (%) (Auto) 42 % (24-48) Monocytes (%) (Auto) 6 % (0-9) Eosinophils (%) (Auto) 3 % (0-3) Basophils (%) (Auto) 1 % (0-3) Neutrophils # (Auto) 2.1 x10^3/uL (1.8-7.7) Lymphocytes # (Auto) 1.8 x10^3/uL (1.0-4.8) Monocytes # (Auto) 0.3 x10^3/uL (0.0-1.1) Eosinophils # (Auto) 0.1 x10^3/uL (0.0-0.7) Basophils # (Auto) 0.0 x10^3/uL (0.0-0.2) Prothrombin Time 12.8 SEC (11.7-14.0) Prothromb Time International Ratio 1.0 (0.8-1.1) Activated Partial Thromboplast Time 30 SEC (24-38) Sodium Level 134 mmol/L (136-145) Potassium Level 4.7 mmol/L (3.5-5.1) Chloride Level 99 mmol/L (98-107) Carbon Dioxide Level 26 mmol/L (21-32) Anion Gap 9 (6-14) Blood Urea Nitrogen 13 mg/dL (7-20) Creatinine 1.5 mg/dL (0.6-1.0) Estimated GFR (Cockcroft-Gault) 42.0 BUN/Creatinine Ratio 9 (6-20) Glucose Level 452 mg/dL (70-99) Calcium Level 9.8 mg/dL (8.5-10.1) Total Bilirubin 0.4 mg/dL (0.2-1.0) Aspartate Amino Transf (AST/SGOT) 21 U/L (15-37) Alanine Aminotransferase (ALT/SGPT) 19 U/L (14-59) Alkaline Phosphatase 83 U/L (46-116) Troponin I Quantitative < 0.017 ng/mL (0.000-0.055) Total Protein 7.6 g/dL (6.4-8.2) Albumin 4.0 g/dL (3.4-5.0) Albumin/Globulin Ratio 1.1 (1.0-1.7) Glucose (Fingerstick) 399 mg/dL (70-99) Urine Collection Type Unknown Urine Color Yellow Urine Clarity Clear Urine pH 7.0 (<5.0-8.0) Urine Specific [place] 1.020 (1.000-1.030) Urine Protein 30 mg/dL (NEG-TRACE) Urine Glucose (UA) >=1000 mg/dL (NEG) Urine Ketones (Stick) Trace mg/dL (NEG) Urine Blood Negative (NEG) Urine Nitrite Negative (NEG) Urine Bilirubin Negative (NEG) Urine Urobilinogen Dipstick 1.0 mg/dL (0.2 mg/dL) Urine Leukocyte Esterase Negative (NEG) Urine RBC 0 /HPF (0-2) Urine WBC Rare /HPF (0-4) Urine Squamous Epithelial Cells Few /LPF Urine Bacteria 0 /HPF (0-FEW) Urine Mucus Slight /LPF Images Images INDICATION: Intraparenchymal hemorrhage. COMPARISON: Same day CT head without contrast. TECHNIQUE: Helical CT angiography of the head performed after the intravenous administration of 55 cc Omnipaque 300. Coronal and sagittal 3-D MIP reconstructions were obtained. One or more of the following individualized dose reduction techniques were utilized for this examination: 1. Automated exposure control 2. Adjustment of the mA and/or kV according to patient size 3. Use of iterative reconstruction technique. FINDINGS: Calcific atherosclerosis involving the visualized cervical internal carotid arteries without flow-limiting stenosis. Extensive calcific atherosclerosis involving the intracranial internal carotid arteries but without a flow-limiting stenosis. No abrupt vessel occlusion seen to involve the right M1 or M2 middle cerebral artery segments in the setting of ischemic changes in the right middle cerebral artery distribution. Scattered M3 and M4 branches remain opacified in the region of cortical/subcortical low-attenuation. No branch vessel occlusion or flow-limiting stenosis involving either the right or left anterior cerebral arteries or the left middle cerebral artery. No discrete anterior circulation aneurysm. No flow-limiting stenosis of the visualized vertebral arteries. The basilar artery is widely patent. No flow-limiting stenosis or branch vessel occlusion of the adequately assessed posterior cerebral artery segments. Patent dural sinuses. As seen on the unenhanced CT head, regions of cortical/subcortical low-attenuation involving the right frontal, parietal and temporal lobes. The previously described intraparenchymal hemorrhage is less well characterized on this exam. No hydrocephalus or midline shift. IMPRESSION: No central occlusion or flow-limiting stenosis seen to involve the right middle cerebral artery in the setting of ischemic changes in this vascular distribution. No flow-limiting stenosis or branch vessel occlusion of the anterior and posterior cerebral circulation elsewhere as well. Electronically signed by: MOSHE CHIANG MD (09/24/2019 12:03 AM) [id number] DICTATED and SIGNED BY: MOSHE CHIANG MD PATIENT: ZANE ROBB ACCOUNT: [id number] : 1955 LOCATION: ER AGE: 64 SEX: F EXAM STATUS: REG ER ORD. PHYSICIAN: CRISPIN DAVILA DO REASON: left upper extremity weakness PROCEDURE: CT CODE STROKE HEAD WO STUDY: CT head without contrast INDICATION: Left upper extremity weakness. Code stroke. COMPARISON: 11/08/2019 TECHNIQUE: Axial CT imaging through the head without the use of intravenous contrast. Sagittal and coronal reformats were obtained. One or more of the following individualized dose reduction techniques were utilized for this examination: 1. Automated exposure control 2. Adjustment of the mA and/or kV according to patient size 3. Use of iterative reconstruction technique. FINDINGS: Redemonstrated sequela of several infarcts on the right involving portions of the frontal, parietal and temporal lobes. Expected evolutionary changes of a left frontal infarct which was seen on the 12/08/2019 comparison. No newly seen region of sarabia-white matter differentiation loss is identified. No acute intracranial hemorrhage. No midline shift or hydrocephalus. Extensive intracranial atherosclerotic calcifications. White matter findings typical of chronic microvascular ischemic change. No newly seen abnormality of the calvarium or orbits. IMPRESSION: 1. No acute intracranial hemorrhage or CT evidence for an acute cortical infarction. 2. Multiple previous infarcts involving the right more so than left cerebral hemispheres. MRI could be performed to better assess for a more recent ischemic event. FOR INTERNAL CODING PURPOSES Critical result: Findings discussed with CRISPIN DAVILA on 02/20/2020 11:17 PM. INDICATION: Reason: lue weakness / Spl. Instructions: / History: COMPARISON: October 2019 FINDINGS: Single view of chest obtained. Pacemaker is visualized with calcific atherosclerosis. Calcified right breast implant. Mild coarsening of the lung markings bilaterally without a new region of consolidation. IMPRESSION: * No focal airspace consolidation. Electronically signed by: Soraya Ruiz MD (02/20/2020 11:46 PM) [id number] DICTATED and SIGNED BY: SORAYA RUIZ MD DATE: 02/20/20 2346 VTE Prophylaxis Ordered VTE Prophylaxis Devices: Yes VTE Pharmacological Prophylaxi: Yes Assessment/Plan Assessment/Plan IMPRESSION: 1. No acute intracranial hemorrhage or CT evidence for an acute cortical infarction. 2. Multiple previous infarcts involving the right more so than left cerebral hemispheres. PLAN ADMIT Justifications for Admission Other Justification [employer]Y [employer]AN[employer] MD Feb 21, 2020 09:41
[2020-02-21] MEDS ORDERED: CLOPIDOGREL BISULFATE 75 MG TABLET PO SCH (10:00)
--- NOTE | 2020-02-21 13:09 | PDOC ---
Provider Note Date of Service: DATE: 02/21/20 TIME: 13:09 Provider Note Patient left AMA before I could see her Justifications for Admission Other Justification WILFRID ROMERO MD Feb 21, 2020 13:09
== END 2020-02-21 09:15 | disposition left against medical advice (07) | DRG 948 ==
LOC: ER 21:57 → ED HOLD 02-21 02:43
PROVIDERS: ADMIT Family Medicine; ATTEND Family Medicine
DX: R53.1 Weakness (principal); E78.00 Pure hypercholesterolemia, unspecified; E78.5 Hyperlipidemia, unspecified; I10 Essential (primary) hypertension; I49.5 Sick sinus syndrome; R47.81 Slurred speech; Z53.21 Procedure and treatment not carried out due to patient leaving prior to being seen by health care provider; E11.51 Type 2 diabetes mellitus with diabetic peripheral angiopathy without gangrene; Z79.4 Long term (current) use of insulin; Z86.73 Personal history of transient ischemic attack (TIA), and cerebral infarction without residual deficits; Z87.891 Personal history of nicotine dependence; Z89.512 Acquired absence of left leg below knee; Z90.49 Acquired absence of other specified parts of digestive tract; Z98.51 Tubal ligation status; Z91.041 Radiographic dye allergy status; Z95.0 Presence of cardiac pacemaker
CPT/HCPCS: 36415; 70450; 71045; 80053; 81001; 82962; 84484; 85025; 85610; 85730; 93005; 99285; J1200